=== PATIENT | male | born 1980 | race Caucasian/White ===

== ENCOUNTER → 2018-05-30 14:35 | Outpatient (CLI) | payer BC, SELFPAY ==
[2018-05-30 18:01] LABS: Absolute Lymphocyte Count 2.38 X10^3/ul (0.83-4.51); Basophil# 0.01 X10^3/uL; Basophil% 0.1 % (0-1); Eosinophil# 0.39 X10^3/uL; Eosinophils% 5.4 % (0-5); Hematocrit 41.5 % (40-54); Hemoglobin 13.6 g/dl (13.0-16.5); Lymphocyte # 2.38 X10^3/ul (4.0); Lymphocyte % 32.7 % (19-41); Mean Corp Hgb Conc 32.8 g/gl (32-36); Mean Corpuscular Hgb 28.3 pg (27.0-32.0); Mean Corpuscular Volume 86.3 fL (80-94); Mean Platelet Vol. 10.7 fl (6.2-12.0); Monocyte# 0.45 X10^3/uL; Monocyte% 6.2 % (0-10); Neutrophil # 4.04 X10^3/uL (2.7-7.7); Neutrophil % 55.5 % (47-70); Platelet Count 267 K/mm3 (150-450); RBC Distribution Width CV 13.2 % (11.6-14.6); RBC Distribution Width SD 41.2 fl (35.1-43.9); Red Blood Count 4.81 M/mm3 (4.6-6.2); White Blood Count 7.3 K/mm3 (4.4-11.0)
[2018-05-30 18:13] LABS: POSITIVE COUNT NO; POSITIVE DIFFERENTIAL NO; POSITIVE MORPHOLOGY NO
[2018-05-30 18:32] LABS: ALB/GLOB Ratio 1.1 RATIO (0.9-2.4); AST(SGOT) 46 U/L (15-37); Alanine Aminotransfer ALT/SGPT 74 U/L (16-61); Albumin, Serum 3.9 g/dL (3.2-5.0); Alkaline Phosphatase 95 U/L (45-117); Anion Gap 11 (5-15); BUN 11 mg/dL (7-18); BUN/Creat Ratio 11.7 RATIO (10-20); Calcium,Total 9.3 mg/dL (8.5-10.1); Chloride 102 mmol/L (98-107); Creatinine, Serum 0.94 mg/dL (0.70-1.30); EST Glomerular Filtration Rate 96 mL/min (>60); Est Glom Filt Rate - Afr Amer 116 mL/min (>60); Globulin 3.6 g/dL (2.2-4.2); Glucose 123 mg/dL (74-106); Potassium 4.1 mmol/L (3.5-5.1); Protein, Total 7.5 g/dL (6.4-8.2); Sodium Level 139 mmol/L (136-145); Thyroid Stim Hormone (TSH) 2.65 uIU/mL (0.358-3.74)
== END ==
PROVIDERS: Visit Provider Family Medicine
DX: I10 Essential (primary) hypertension (principal); E78.5 Hyperlipidemia, unspecified; E10.9 Type 1 diabetes mellitus without complications
CPT/HCPCS: 36415; 80053; 84443; 85025

== ENCOUNTER → 2018-06-10 09:48 | Outpatient (CLI) | payer BC, SELFPAY ==
--- NOTE | 2018-06-10 09:53 | US_ITS ---
HISTORY: ELEVATED LFTS TECHNIQUE: Miller scale and color doppler imaging was performed of the gallbladder. COMPARISON: None FINDINGS: The gallbladder is adequately distended and shows no internal echoes, wall thickening, or pericholecystic edema. The common duct measures 3 mm in diameter which is normal. Visualized portions of the liver and pancreas are unremarkable. No ascites. The right kidney is visualized and appears normal. No hydronephrosis. US/Abdomen Limited IMPRESSION: Normal gallbladder ultrasound. at 0631 Reported and signed by: Ludwin Hernandez MD Electronically Signed: Ludwin Hernandez, at 6:28 EST Tel , Service support ,
== END ==
PROVIDERS: Family Provider Family Medicine; PCP Family Medicine; Referring Provider Family Medicine; Visit Provider Family Medicine
DX: R94.5 Abnormal results of liver function studies (principal); E66.9 Obesity, unspecified
CPT/HCPCS: 76705

== ENCOUNTER → 2018-07-19 08:13 | Outpatient (CLI) | payer BC, SELFPAY ==
[2018-07-19 12:08] LABS: AST(SGOT) 53 U/L (15-37); Alanine Aminotransfer ALT/SGPT 93 U/L (16-61); Albumin, Serum 3.7 g/dL (3.2-5.0); Alkaline Phosphatase 105 U/L (45-117); Bilirubin, Direct 0.12 mg/dL (0.00-0.30); Globulin 3.7 g/dL (2.2-4.2); Protein, Total 7.4 g/dL (6.4-8.2)
--- OUTSIDE RECORDS SUMMARY | 2018-09-04 03:20 | XMS RPT_ITS ---
:1980 Author Organization OHIP Care Team Providers Name Role Phone Herminio Rubio Attending Unavailable Herminio Rubio Attending Unavailable Herminio Rubio Referring Unavailable Herminio Rubio Primary Care Unavailable Herminio Rubio Attending Unavailable Herminio Rubio Primary Care Unavailable Herminio Rubio Attending Unavailable Herminio Rubio Primary Care Unavailable LENORE FLORES Attending Unavailable MASTER BARNES JR Referring Unavailable LENORE FLORES Attending Unavailable LENORE FLORES Referring Unavailable LENORE FLORES Attending Unavailable LENORE FLORES Attending Unavailable LENORE FLORES Referring Unavailable LINA BHAGAT Attending Unavailable LINA BHAGAT Referring Unavailable LENORE FLORES Attending Unavailable LENORE FLORES Referring Unavailable LENORE FLORES Referring Unavailable LENORE FLORES Attending Unavailable KALIN LOPEZ Attending Unavailable KVNG, WENDIE E (PA-C) Referring Unavailable KALIN LOPEZ Attending Unavailable GURAN, LENORE Attending Unavailable RADJOSEPH SPRAGUEN Referring Unavailable WENDIE CALDERON E (PA-C) Referring Unavailable GURAN, LENORE Attending Unavailable GURAN, LENORE Referring Unavailable GURAN, LENORE Attending Unavailable DARYL, HERMINIO [place] Referring Unavailable MASTER DOW Admitting Unavailable MASTER DOW Attending Unavailable GURAN, LENORE Attending Unavailable WENDIE CALDERON E (PA-C) Attending Unavailable WENDIE CALDERON E (PA-C) Referring Unavailable GURAN, LENORE Attending Unavailable DARYL, HERMINIO Primary Care Unavailable MASTER BARNES Referring Unavailable GURAN, LENORE Attending Unavailable GURAN, LENORE Referring Unavailable DARYL, HERMINIO Primary Care Unavailable GURAN, LENORE Attending Unavailable IMCA Referring Unavailable DARYL, HERMINIO Primary Care Unavailable GURAN, LENORE Attending Unavailable GURAN, LENORE Referring Unavailable DARYL, HERMINIO Primary Care Unavailable LINA BHAGAT Attending Unavailable CILTEA, LINA Referring Unavailable DARYL, HERMINIO Primary Care Unavailable GURAN, LENORE Attending Unavailable GURAN, LENORE Referring Unavailable DARYL, HERMINIO Primary Care Unavailable LIAN BHAGAT Attending Unavailable CILTEA, LINA Referring Unavailable DARYL, HERMINIO Primary Care Unavailable GURAN, LENORE Attending Unavailable IMCA Referring Unavailable DARYL, HERMINIO Primary Care Unavailable GURAN, LENORE Referring Unavailable DARYL, HERMINIO Primary Care Unavailable JOSEPH LOPEZN Attending Unavailable IMCA Referring Unavailable DARYL, HERMINIO Primary Care Unavailable KALIN LOPEZ Attending Unavailable IMCA Referring Unavailable DARYL, HERMINIO Primary Care Unavailable IMCA Referring Unavailable DARYL, HERMINIO Primary Care Unavailable IMCA Referring Unavailable DARYL, HERMINIO Primary Care Unavailable GURAN, LENORE Attending Unavailable RADPILARH, KALIN Referring Unavailable DARYL, HERMINIO Primary Care Unavailable IMCA Referring Unavailable DARYL, HERMINIO Primary Care Unavailable GURAN, LENORE Attending Unavailable GURAN, LENORE Referring Unavailable DARYL, HERMINIO Primary Care Unavailable GURAN, LENORE Attending Unavailable GURAN, LENORE Referring Unavailable DARYL, HERMINIO Primary Care Unavailable GURAN, LENORE Attending Unavailable DARYL, HERMINIO Referring Unavailable DARYL, HERMINIO Primary Care Unavailable GURAN, LENORE Attending Unavailable IMCA Referring Unavailable DARYL, HERMINIO Primary Care Unavailable PROBLEMS PROBLEMS DATE TYPE CONDITION / CODE ATTENDING STATUS SOURCE 07/21/2018 Unknown R74.0 - Nonspecific Herminio Rubio Active [facility] elevation of levels Community of transaminase and Hospital lactic acid Repository dehydrogenase [LDH] / R74.0(ICD-10) 07/19/2018 Unknown R74.8 - Abnormal Herminio Rubio Active [facility] levels of other Community serum enzymes / Hospital R74.8(ICD-10) Repository 07/04/2018 Active Other intervertebral GURAN, Active [facility] disc displacement, [facility] Other lumbar region / [place] M51.26(ICD-10) Repository 07/04/2018 Admitting Unknown / GURAN, Active [facility] diagnosis UNK(Unknown) [facility] Repository 05/31/2018 Unknown I10 - Essential Herminio Rubio Active [facility] (primary) Community hypertension / Hospital I10(ICD-10) Repository 05/31/2018 Unknown E78.5 - Herminio Rubio Active [facility] Hyperlipidemia, Community unspecified / Hospital E78.5(ICD-10) Repository 05/31/2018 Unknown E10.9 - Type 1 Herminio Rubio Active [facility] diabetes mellitus Community without Hospital complications / Repository E10.9(ICD-10) 05/22/2018 Active Spinal stenosis, NA Active [place] lumbar region Clinic Other without neurogenic [place] claudication / Repository M48.061(ICD-10) 04/08/2018 Active Arthrodesis status / NA Active [facility] Z98.1(ICD-10) Clinic Other [place] Repository 03/15/2018 Active Unknown / WENDIE CALDERON Active [facility] UNK(Unknown) E (PA-C) Clinic Main [place] Repository 02/13/2018 Active Other intervertebral GURAN, Active [place] disc displacement, [facility] Other lumbosacral region / [place] M51.27(ICD-10) Repository 02/04/2017 Active Essential (primary) CILTEA, Active [facility] hypertension / [facility] Other I10(ICD-10) [place] Repository 03/29/2016 Active Mixed hyperlipidemia CILTEA, Active [facility] / E78.2(ICD-10) [facility] Other [place] Repository 03/29/2016 Active Vitamin D CILTEA, Active [facility] deficiency, [facility] Other unspecified / [place] E55.9(ICD-10) Repository 01/09/2018 Active Type 1 diabetes CILTEA, Active [facility] mellitus without [facility] Other complications / [place] E10.9(ICD-10) Repository 12/05/2017 Active Sprain of ligaments BIANCA, Active [place] of lumbar spine, [facility] Other initial encounter / [place] S33.5XXA(ICD-10) Repository 10/19/2017 Active Postlaminectomy GURAN, Active [place] syndrome, not [facility] Other elsewhere classified [place] / M96.1(ICD-10) Repository 10/19/2017 Active Other chronic pain / GURAN, Active [place] G89.29(ICD-10) [facility] Other [place] Repository PROCEDURES PROCEDURES No Procedure Records FoundRESULTS RESULTS PROGRESS Observed: 08/07/2018 Status: COMPLETED Source: [facility] 9:10 AM CLINIC OTHER CAMPUS REPOSITORY HNO ID: [id number] Author: Lenore Flores Service: (none) Author Type: Physician Type: Progress Notes Filed: 08/07/2018 9:38 AM Note Text: Patient Name: Jose Argueta Patient : 1980 Patient Age: [age] year old CC: Patient presents with: Bwc (Worker's Comp): 10.19.10 SUBJECTIVE Patient presents for follow up of low back pain. The patient describes the pain as tender, shooting and achy 5/10. Activity is 3/10 walking. He has pain, numbness and tingling, without weakness radiating into the right lower extremity to the foot, as well as the left lower extremity to the calf. Pain is worse with standing and bending or prolonged sitting. He has been taking Mobic, Norflex, Gabapentin and Percocet 3/day with some relief without side effects. Pain is limiting his work schedule as he cannot sit for prolonged periods and driving increases his pain. He had LILI / with 4 days of leg pain relief. Therefore surgeon is planning to repeat surgery. The patient denies any bowel or bladder dysfunction. The patient denies any chest pain or chest tightness. The constitutional, musculoskeletal, and neurological review of systems was negative unless otherwise noted. The patient's past medical history, allergies, medication list, social history, and family medical history were documented, updated, and reviewed in the chart. PDMP website checked and validated. All prescriptions have been APPROPRIATELY filled. No suspicious activity was identified. 08/07/2018 by Lenore Flores MD Nursing Notes: Vj Garay MA 08/07/2018 9:01 AM Signed Review of Systems Eyes: Negative for blurred vision. Respiratory: Negative for shortness of breath.? Cardiovascular: Negative for chest pain. Negative for leg swelling. Gastrointestinal: Negative for constipation, diarrhea, nausea?and vomiting. Genitourinary: Negative for dysuria. Skin: Negative for itching. Neurological: Negative for headaches. Negative for dizziness, tingling?and weakness. Endo/Heme/Allergies: Negative for bruising/bleeding easily. Psychiatric/Behavioral: Negative for depression?and suicidal ideas. ROS entered by: Vj Garay MA MEDICATION NAME percocet STRENGTH 7.5 LAST FILL DATE 07/15/2018 DATE LAST DOSE TAKEN 08.06.18 QUANTITY FILLED 90 QUANTITY REMAINING 17 ALLERGIES Allergen Reactions - Clindamycin Hives Current Outpatient Prescriptions: aspirin, enteric coated (ADULT LOW DOSE ASPIRIN) 81 mg EC tablet Take 81 mg by mouth once daily. Disp: Rfl: benazepril (LOTENSIN) 5 mg tablet TAKE 1 TABLET BY MOUTH EVERY MORNING AND 2 TABLETS AT NIGHT Disp: 90 tablet Rfl: 11 gabapentin (NEURONTIN) 800 mg tablet Take 1 tablet by mouth three times daily for 90 days. Disp: 90 tablet Rfl: 2 insulin lispro (HUMALOG KWIKPEN INSULIN) 100 unit/mL inpn INJECT 1 UNIT PER 5 GRAMS OF CARBOHYDRATES WITH EACH MEAL (TOTAL MAXIMUM DAILY DOSE IS 100 UNITS) Disp: 10 Pen Rfl: 11 meloxicam (MOBIC) 15 mg tablet Take 1 tablet by mouth once daily. Disp: 30 tablet Rfl: 2 Multivitamin capsule Take 1 capsule by mouth once daily. Disp: Rfl: omeprazole (PRILOSEC) 20 mg capsule Take 1 capsule by mouth once daily. Disp: Rfl: 0 orphenadrine ER (NORFLEX) 100 mg tablet Take 1 tablet by mouth twice daily as needed for Muscle Spasm or Pain. Disp: 60 tablet Rfl: 2 [START ON 08/14/2018] oxyCODONE-acetaminophen (PERCOCET) 7.5- 325 mg tablet Take 1 tablet by mouth every 8 hours as needed for Pain (for pain.) for up to 30 days.Earliest Fill Date: 08/14/18 Disp: 90 tablet Rfl: 0 pravastatin (PRAVACHOL) 40 mg tablet Take 1 tablet by mouth once daily. Disp: 30 tablet Rfl: 11 TRESIBA FLEXTOUCH U-100 100 unit/mL (3 mL) injection INJECT 45 UNITS SUBCUTANEOUSLY EVERY 24 HOURS. Disp: 15 mL Rfl: 11 insulin lispro (HUMALOG KWIKPEN INSULIN) 100 unit/mL inpn INJECT 1 UNIT PER 5 GRAMS OF CARBOHYDRATES WITH EACH MEAL (TOTAL MAXIMUM DAILY DOSE IS 55 UNITS) (Patient not taking: Reported on 05/19/2018 ) Disp: 5 Pen Rfl: 11 No current facility-administered medications for this visit. 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 Topics Smoking status: Never Smoker Smokeless tobacco: Never Used Alcohol use: No Drug use: No Other Topics Concern Caffeine Concern Yes Comment:coffee 3 cups daily, and energy drinks Special Diet Yes Comment:Poor diet Exercise No Comment: Exercises 1-2 days/wk Social History Narrative No reported history Family History Problem Relation Age of Onset - Hyperlipidemia Mother - Ischemic Heart Disease Father - Diabetes Father - Heart Father - Hyperlipidemia Father - Hypertension Father - Hyperlipidemia Paternal Grandmother - Hypertension Paternal Grandmother - Stroke Paternal Grandmother - other (Diabetes mellitus) Paternal Grandmother OBJECTIVE Vitals: BP 140/99 Pulse (!) 130 Ht 175.3 cm (5' 9) Wt 117.9 kg (260 lb) BMI 38.40 kg/m? General: Alert, cooperative, well appearing, and in no apparent distress. Musculoskeletal: The patient's gait is normal Back: Inspection of the back demonstrates there is no obvious deformity or misalignment. There is bony tenderness along the lumbar vertebrae, none along the sacroiliac joints. There is bilateral paraspinal muscle tenderness. Range of motion testing demonstrates limited due to pain with flexion, extension, side bending and rotation of the back. Strength is 5/5 in the lower extremity bilaterally. Sensation is decreased throughout the right lower extremity and left to the calf. There is a positive BL straight leg raise and femoral stretch test. The piriformis has normal flexibility and is non-tender. Skin: The skin is without jaundice. It is intact without pathologic lesions, erythema, vesicles, discharge or rash. Palpitation of the skin is normal without induration, subcutaneous nodules or tightening. Extremities: This is no clubbing, cyanosis or edema. Peripheral pulses are 2+. Return in about 4 weeks (around 09/04/2018). ASSESSMENT/PLAN: 1. Post laminectomy syndrome - ICD9: 722.80, ICD10: M96.1 (primary diagnosis) We discussed the natural history of this condition, differential diagnoses, and treatment options. Guidelines for activity were given. We discussed options for treatment including conservative care, medications with side effects and risks and benefits. The patient is doing well with the prescribed pain medications. The patient requests a refill today. Patient states medications provide adequate analgesia. The medications allow patient to maintain ADL's. Discussed with the patient about avoiding driving/operating vehicle while taking the medications. There are no adverse effects from the medications - discussed he cannot take more than prescribed and will not be able to fill early. Will refill his percocet today for when due Continue gabapentin, norflex and Mobic He is planning for surgery if approved by [facility]. Awaiting the additional diagnoses to his claim - GABAPENTIN 800 MG TABLET - OXYCODONE-ACETAMINOPHEN 7.5 MG-325 MG TABLET 2. Lumbosacral disc herniation - ICD9: 722.10, ICD10: M51.27 Due to increased pain with work and this limiting his ADL's I will take him off work at this point until his surgery. Paperwork filled out and sent to [facility]. - GABAPENTIN 800 MG TABLET - OXYCODONE-ACETAMINOPHEN 7.5 MG-325 MG TABLET 3. Herniation of intervertebral disc between L4 and L5 - ICD9: 722.10, ICD10: M51.26 - OXYCODONE-ACETAMINOPHEN 7.5 MG-325 MG TABLET Lenore Flores MD CNOV Observed: 08/07/2018 Status: COMPLETED Source: RINGLE 9:00 AM [facility] [place] REPOSITORY Office Visit (SPAGBA) JOSE ARGUETA ([id number]) 1980 M Date Time Provider Department 08/07/18 9:00 AM LENORE FLORES During your visit today, we recorded the following information about you: Pulse Blood pressure Weight Height 130/minute 140/99 117.9 kg 1.753 m Vj Garay MA 08/07/2018 9:01 AM Signed Review of Systems Eyes: Negative for blurred vision. Respiratory: Negative for shortness of breath.? Cardiovascular: Negative for chest pain. Negative for leg swelling. Gastrointestinal: Negative for constipation, diarrhea, nausea?and vomiting. Genitourinary: Negative for dysuria. Skin: Negative for itching. Neurological: Negative for headaches. Negative for dizziness, tingling?and weakness. Endo/Heme/Allergies: Negative for bruising/bleeding easily. Psychiatric/Behavioral: Negative for depression?and suicidal ideas. ROS entered by: NYLA Chance MD 08/07/2018 9:38 AM Signed Patient Name: Jose Argueta Patient : 1980 Patient Age: [age] year old CC: Patient presents with: Bwc (Worker's Comp): 10.19.10 SUBJECTIVE Patient presents for follow up of low back pain. The patient describes the pain as tender, shooting and achy 5/10. Activity is 3/10 walking. He has pain, numbness and tingling, without weakness radiating into the right lower extremity to the foot, as well as the left lower extremity to the calf. Pain is worse with standing and bending or prolonged sitting. He has been taking Mobic, Norflex, Gabapentin and Percocet 3/day with some relief without side effects. Pain is limiting his work schedule as he cannot sit for prolonged periods and driving increases his pain. He had LILI 07/27 with 4 days of leg pain relief. Therefore surgeon is planning to repeat surgery. The patient denies any bowel or bladder dysfunction. The patient denies any chest pain or chest tightness. The constitutional, musculoskeletal, and neurological review of systems was negative unless otherwise noted. The patient's past medical history, allergies, medication list, social history, and family medical history were documented, updated, and reviewed in the chart. PDMP website checked and validated. All prescriptions have been APPROPRIATELY filled. No suspicious activity was identified. 08/07/2018 by Lenore Flores MD Nursing Notes: Vj Garay MA 08/07/2018 9:01 AM Signed Review of Systems Eyes: Negative for blurred vision. Respiratory: Negative for shortness of breath.? Cardiovascular: Negative for chest pain. Negative for leg swelling. Gastrointestinal: Negative for constipation, diarrhea, nausea?and vomiting. Genitourinary: Negative for dysuria. Skin: Negative for itching. Neurological: Negative for headaches. Negative for dizziness, tingling?and weakness. Endo/Heme/Allergies: Negative for bruising/bleeding easily. Psychiatric/Behavioral: Negative for depression?and suicidal ideas. ROS entered by: Vj Garay MA MEDICATION NAME percocet STRENGTH 7.5 LAST FILL DATE 07/15/2018 DATE LAST DOSE TAKEN 08.06.18 QUANTITY FILLED 90 QUANTITY REMAINING 17 ALLERGIES Allergen Reactions - Clindamycin Hives Current Outpatient Prescriptions: aspirin, enteric coated (ADULT LOW DOSE ASPIRIN) 81 mg EC tablet Take 81 mg by mouth once daily. Disp: Rfl: benazepril (LOTENSIN) 5 mg tablet TAKE 1 TABLET BY MOUTH EVERY MORNING AND 2 TABLETS AT NIGHT Disp: 90 tablet Rfl: 11 gabapentin (NEURONTIN) 800 mg tablet Take 1 tablet by mouth three times daily for 90 days. Disp: 90 tablet Rfl: 2 insulin lispro (HUMALOG KWIKPEN INSULIN) 100 unit/mL inpn INJECT 1 UNIT PER 5 GRAMS OF CARBOHYDRATES WITH EACH MEAL (TOTAL MAXIMUM DAILY DOSE IS 100 UNITS) Disp: 10 Pen Rfl: 11 meloxicam (MOBIC) 15 mg tablet Take 1 tablet by mouth once daily. Disp: 30 tablet Rfl: 2 Multivitamin capsule Take 1 capsule by mouth once daily. Disp: Rfl: omeprazole (PRILOSEC) 20 mg capsule Take 1 capsule by mouth once daily. Disp: Rfl: 0 orphenadrine ER (NORFLEX) 100 mg tablet Take 1 tablet by mouth twice daily as needed for Muscle Spasm or Pain. Disp: 60 tablet Rfl: 2 [START ON 08/14/2018] oxyCODONE-acetaminophen (PERCOCET) 7.5- 325 mg tablet Take 1 tablet by mouth every 8 hours as needed for Pain (for pain.) for up to 30 days.Earliest Fill Date: 08/14/18 Disp: 90 tablet Rfl: 0 pravastatin (PRAVACHOL) 40 mg tablet Take 1 tablet by mouth once daily. Disp: 30 tablet Rfl: 11 TRESIBA FLEXTOUCH U-100 100 unit/mL (3 mL) injection INJECT 45 UNITS SUBCUTANEOUSLY EVERY 24 HOURS. Disp: 15 mL Rfl: 11 insulin lispro (HUMALOG KWIKPEN INSULIN) 100 unit/mL inpn INJECT 1 UNIT PER 5 GRAMS OF CARBOHYDRATES WITH EACH MEAL (TOTAL MAXIMUM DAILY DOSE IS 55 UNITS) (Patient not taking: Reported on 05/19/2018 ) Disp: 5 Pen Rfl: 11 No current facility-administered medications for this visit. 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 Topics Smoking status: Never Smoker Smokeless tobacco: Never Used Alcohol use: No Drug use: No Other Topics Concern Caffeine Concern Yes Comment:coffee 3 cups daily, and energy drinks Special Diet Yes Comment:Poor diet Exercise No Comment: Exercises 1-2 days/wk Social History Narrative No reported history Family History Problem Relation Age of Onset - Hyperlipidemia Mother - Ischemic Heart Disease Father - Diabetes Father - Heart Father - Hyperlipidemia Father - Hypertension Father - Hyperlipidemia Paternal Grandmother - Hypertension Paternal Grandmother - Stroke Paternal Grandmother - other (Diabetes mellitus) Paternal Grandmother OBJECTIVE Vitals: BP 140/99 Pulse (!) 130 Ht 175.3 cm (5' 9) Wt 117.9 kg (260 lb) BMI 38.40 kg/m? General: Alert, cooperative, well appearing, and in no apparent distress. Musculoskeletal: The patient's gait is normal Back: Inspection of the back demonstrates there is no obvious deformity or misalignment. There is bony tenderness along the lumbar vertebrae, none along the sacroiliac joints. There is bilateral paraspinal muscle tenderness. Range of motion testing demonstrates limited due to pain with flexion, extension, side bending and rotation of the back. Strength is 5/5 in the lower extremity bilaterally. Sensation is decreased throughout the right lower extremity and left to the calf. There is a positive BL straight leg raise and femoral stretch test. The piriformis has normal flexibility and is non-tender. Skin: The skin is without jaundice. It is intact without pathologic lesions, erythema, vesicles, discharge or rash. Palpitation of the skin is normal without induration, subcutaneous nodules or tightening. Extremities: This is no clubbing, cyanosis or edema. Peripheral pulses are 2+. Return in about 4 weeks (around 09/04/2018). ASSESSMENT/PLAN: 1. Post laminectomy syndrome - ICD9: 722.80, ICD10: M96.1 (primary diagnosis) We discussed the natural history of this condition, differential diagnoses, and treatment options. Guidelines for activity were given. We discussed options for treatment including conservative care, medications with side effects and risks and benefits. The patient is doing well with the prescribed pain medications. The patient requests a refill today. Patient states medications provide adequate analgesia. The medications allow patient to maintain ADL's. Discussed with the patient about avoiding driving/operating vehicle while taking the medications. There are no adverse effects from the medications - discussed he cannot take more than prescribed and will not be able to fill early. Will refill his percocet today for when due Continue gabapentin, norflex and Mobic He is planning for surgery if approved by [facility]. Awaiting the additional diagnoses to his claim - GABAPENTIN 800 MG TABLET - OXYCODONE-ACETAMINOPHEN 7.5 MG-325 MG TABLET 2. Lumbosacral disc herniation - ICD9: 722.10, ICD10: M51.27 Due to increased pain with work and this limiting his ADL's I will take him off work at this point until his surgery. Paperwork filled out and sent to [facility]. - GABAPENTIN 800 MG TABLET - OXYCODONE-ACETAMINOPHEN 7.5 MG-325 MG TABLET 3. Herniation of intervertebral disc between L4 and L5 - ICD9: 722.10, ICD10: M51.26 - OXYCODONE-ACETAMINOPHEN 7.5 MG-325 MG TABLET MD Lenore White MD 08/07/2018 9:17 AM Signed Opioid Pain Medication Information Sheet Opioids are drugs that are used to treat cancer pain. They include morphine (MSContin, MSIR, Roxanol); oxycodone (Oxycontin, Roxicodone, Percocet); hydromorphone (Dilaudid, Exalgo); fentanyl (Duragesic); hydrocodone ([place]la, Zohydro, [place], Vicodin); buprenorphine (Butrans, Buprenex); and methadone. There are two types of opioids: long-acting and short-acting. Long-acting opioids are also called extended-release (ER) or controlled-release (CR). This means that the medication is slowly released over an 8- to 12-hour period or longer. Examples of these include MSContin and Oxycontin. These drugs are taken on a regular schedule to control pain. DO NOT BREAK OR CRUSH THESE TABLETS. Long-acting opioids also come in patch form (Fentanyl, buprenorphine). Opioid patches are strong drugs and should not be used for mild or occasional pain, or for pain from surgery. ? Do not use patches that are damaged or cut. ? You can shower and bathe with the patch in place. ? Do not expose the skin patch to heat (for example: hot tub, heating pad, sauna, electric blanket, heat lamps). Heat increases the amount of drug you absorb through your skin and may cause harmful effects. ? When removing the patch, fold it in half, sticky side in, and flush it down the toilet. Short-acting opioids are also called immediate-release. They usually take effect within an hour, and provide pain relief for four hours. You take short-acting opioids if your pain gets worse (5 on a scale of 1 to 10), which is called breakthrough pain. DO NOT WAIT UNTIL THE PAIN BECOMES SEVERE TO TAKE YOUR MEDICATION. What are the side effects of opioids? Like most drugs, opioids have side effects. The most common are nausea, vomiting, itching, and sleepiness. These side effects should go away in three to seven days as your body gets used to the medication. DO NOT DRIVE IF YOU FEEL DROWSY OR SLEEPY. All opioids cause constipation. Your caregiver will prescribe stool softeners and medicine to help prevent constipation. You can also do the following: ? Increase the amounts of fluids and fiber in your diet. ? Try to get more exercise and physical activity. ? Try to have a bowel movement around the same time each day to get your bowels to empty in a certain pattern. Can I become addicted to opioids? Addiction means that a person uses the drug to get ?high?, and cannot control the urge to take the drug. Taking medication for pain relief is NOT addiction. Your healthcare provider will discuss any concerns about becoming addicted to pain medications. Withdrawal If you stop taking your pain medication suddenly, you may develop withdrawal symptoms. These include flu-like symptoms, agitation, anxiety, abdominal cramping, nausea, and diarrhea. If you have stopped taking your pain medication for three days or more, do not start taking it again without talking to your healthcare provider. Overdose Combining opioids with alcohol or sedating pills (which make you sleepy) increases the risk of overdose. Symptoms of overdose include extreme sleepiness, slurred speech, and slow breathing (breathing may also stop). Call 911 or your local emergency service if you think you may have overdosed. Call 911 or your local emergency service if: ? You took too much medicine. ? You have trouble breathing and/or shortness of breath. ? A child accidentally took the medication. Call your healthcare provider if: ? Your pain is not being controlled with the dose that you are taking. ? You are having side effects. Other important information: ? Take your medicine exactly as prescribed. ? Only one healthcare provider should prescribe your pain medications. ? Make follow-up appointments with your healthcare provider. ? Keep medication away from children and store them in a safe place. ? Do not share your medications with anyone. ? Do not take medications that have not been prescribed for you. ? Do not stop taking your medication without talking to your healthcare provider. ? Do not drink alcohol while taking this medication. How do I dispose of opioids? DO NOT THROW UNUSED MEDICATION IN THE TRASH. You should return these medications through a take-back program or to a collection box or mail-back program authorized by the Drug Enforcement Administration. Authorized collection sites include retail pharmacies, hospital or clinic pharmacies, and law enforcement locations. This website provides a list of locations where you can safely dispose of opioids: https://www.deadiversion.[place].gov/pubdispsearch If a take-back program is not available, flush unused medicines down the toilet or sink. Referring Provider: SELF [200] Allergies As of Date: 08/07/2018 Noted Allergy Reaction CLINDAMYCIN 03/29/2016 4 - Hives Date Reviewed: 08/07/2018 Reviewed by: Lenore Flores - Fully Assessed Reason for Visit: [facility] (Worker's Comp) [4997] Cmt: 10.19.10 Primary Visit Diagnosis:Post laminectomy syndrome [M96.1] Other Visit Diagnoses:Lumbosacral disc herniation [M51.27] Herniation of intervertebral disc between L4 and L5 [M51.26] Order(s):gabapentin (NEURONTIN) 800 mg tabletTake 1 tablet by mouth three times daily for 90 days.Disp: 90 tabletRfl: 2 [START ON 08/14/2018] oxyCODONE-acetaminophen (PERCOCET) 7.5-325 mg tabletTake 1 tablet by mouth every 8 hours as needed for Pain (for pain.) for up to 30 days. Earliest Fill Date: 08/14/18Disp: 90 tabletRfl: 0 Prescriptions as of 08/07/2018 Sig: ASPIRIN 81 MG TABLET,DELAYED * Take 81 mg by mouth once eliecer* BENAZEPRIL 5 MG TABLET TAKE 1 TABLET BY MOUTH EVERY * GABAPENTIN 800 MG TABLET Take 1 tablet by mouth three * INSULIN LISPRO (U-100) 100 UN* INJECT 1 UNIT PER 5 GRAMS OF * MELOXICAM 15 MG TABLET Take 1 tablet by mouth once d* MULTIVITAMIN CAPSULE Take 1 capsule by mouth once * OMEPRAZOLE 20 MG CAPSULE,JOSÉ ANTONIO* Take 1 capsule by mouth once * ORPHENADRINE CITRATE ER 100 M* Take 1 tablet by mouth twice * OXYCODONE-ACETAMINOPHEN 7.5 M* Take 1 tablet by mouth every * PRAVASTATIN 40 MG TABLET Take 1 tablet by mouth once d* TRESIBA FLEXTOUCH U-100 INSUL* INJECT 45 UNITS SUBCUTANEOUSL* INSULIN LISPRO (U-100) 100 UN* INJECT 1 UNIT PER 5 GRAMS OF * Patient not taking: Reported on 05/19/2018 Problem List As Of Date 08/07/2018 Noted Resolved Herniation of intervertebral disc between L4 an*INVALID FOR* More... Displacement of lumbar intervertebral disc with*INVALID FOR* Sprain of lumbar region [S33.5XXA] INVALID FOR* Type 1 diabetes mellitus [E10.9] More... Vitamin D deficiency [E55.9] Hyperlipidemia [E78.5] HTN (hypertension) [I10] More... Spondylolisthesis, lumbar region [M43.16] INVALID FOR* High cholesterol [E78.00] Post laminectomy syndrome [M96.1] INVALID FOR* Lumbosacral disc herniation [M51.27] INVALID FOR* Herniation of intervertebral disc between L5 an*INVALID FOR* Other instructions from your clinician: Opioid Pain Medication Information Sheet Opioids are drugs that are used to treat cancer pain. They include morphine (MSContin, MSIR, Roxanol); oxycodone (Oxycontin, Roxicodone, Percocet); hydromorphone (Dilaudid, Exalgo); fentanyl (Duragesic); hydrocodone (Hysingla, Zohydro, [place], Vicodin); buprenorphine (Butrans, Buprenex); and methadone. There are two types of opioids: long-acting and short-acting. Long-acting opioids are also called extended-release (ER) or controlled-release (CR). This means that the medication is slowly released over an 8- to 12-hour period or longer. Examples of these include MSContin and Oxycontin. These drugs are taken on a regular schedule to control pain. DO NOT BREAK OR CRUSH THESE TABLETS. Long-acting opioids also come in patch form (Fentanyl, buprenorphine). Opioid patches are strong drugs and should not be used for mild or occasional pain, or for pain from surgery. ? Do not use patches that are damaged or cut. ? You can shower and bathe with the patch in place. ? Do not expose the skin patch to heat (for example: hot tub, heating pad, sauna, electric blanket, heat lamps). Heat increases the amount of drug you absorb through your skin and may cause harmful effects. ? When removing the patch, fold it in half, sticky side in, and flush it down the toilet. Short-acting opioids are also called immediate-release. They usually take effect within an hour, and provide pain relief for four hours. You take short-acting opioids if your pain gets worse (5 on a scale of 1 to 10), which is called breakthrough pain. DO NOT WAIT UNTIL THE PAIN BECOMES SEVERE TO TAKE YOUR MEDICATION. What are the side effects of opioids? Like most drugs, opioids have side effects. The most common are nausea, vomiting, itching, and sleepiness. These side effects should go away in three to seven days as your body gets used to the medication. DO NOT DRIVE IF YOU FEEL DROWSY OR SLEEPY. All opioids cause constipation. Your caregiver will prescribe stool softeners and medicine to help prevent constipation. You can also do the following: ? Increase the amounts of fluids and fiber in your diet. ? Try to get more exercise and physical activity. ? Try to have a bowel movement around the same time each day to get your bowels to empty in a certain pattern. Can I become addicted to opioids? Addiction means that a person uses the drug to get ?high?, and cannot control the urge to take the drug. Taking medication for pain relief is NOT addiction. Your healthcare provider will discuss any concerns about becoming addicted to pain medications. Withdrawal If you stop taking your pain medication suddenly, you may develop withdrawal symptoms. These include flu-like symptoms, agitation, anxiety, abdominal cramping, nausea, and diarrhea. If you have stopped taking your pain medication for three days or more, do not start taking it again without talking to your healthcare provider. Overdose Combining opioids with alcohol or sedating pills (which make you sleepy) increases the risk of overdose. Symptoms of overdose include extreme sleepiness, slurred speech, and slow breathing (breathing may also stop). Call 911 or your local emergency service if you think you may have overdosed. Call 911 or your local emergency service if: ? You took too much medicine. ? You have trouble breathing and/or shortness of breath. ? A child accidentally took the medication. Call your healthcare provider if: ? Your pain is not being controlled with the dose that you are taking. ? You are having side effects. Other important information: ? Take your medicine exactly as prescribed. ? Only one healthcare provider should prescribe your pain medications. ? Make follow-up appointments with your healthcare provider. ? Keep medication away from children and store them in a safe place. ? Do not share your medications with anyone. ? Do not take medications that have not been prescribed for you. ? Do not stop taking your medication without talking to your healthcare provider. ? Do not drink alcohol while taking this medication. How do I dispose of opioids? DO NOT THROW UNUSED MEDICATION IN THE TRASH. You should return these medications through a take-back program or to a collection box or mail-back program authorized by the Drug Enforcement Administration. Authorized collection sites include retail pharmacies, hospital or clinic pharmacies, and law enforcement locations. This website provides a list of locations where you can safely dispose of opioids: https://www.deadiversion.[place].gov/pubdispsearch If a take-back program is not available, flush unused medicines down the toilet or sink. Visit Notes: >> Vj Garay Mon Aug 07, 2018 9:00 AM Status: Signed Review of Systems Eyes: Negative for blurred vision. Respiratory: Negative for shortness of breath.? Cardiovascular: Negative for chest pain. Negative for leg swelling. Gastrointestinal: Negative for constipation, diarrhea, nausea?and vomiting. Genitourinary: Negative for dysuria. Skin: Negative for itching. Neurological: Negative for headaches. Negative for dizziness, tingling?and weakness. Endo/Heme/Allergies: Negative for bruising/bleeding easily. Psychiatric/Behavioral: Negative for depression?and suicidal ideas. ROS entered by: Vj Garay MA Work Status Form Employee Name: Jose Argueta Date of : 1980 SSN: [id number] Employer: (Not Specified) Diagnoses: (Not Specified) Medications: (Not Specified) WORK STATUS-INJURY AND TREATMENT INFORMATION Date of Injury: 05/26/2010 Work Related: Yes MMI: (Not Specified) PPI: (Not Specified) Recommended Treatment: (Not Specified) Equipment Needed: (Not Specified) Tests Needed: (Not Specified) Signature: Work Status Form Employee Name: Jose Argueta Date of : 1980 SSN: [id number] Employer: (Not Specified) WORK STATUS-WORK RESTRICTIONS (No Work Status Information Available) Signature: Prescriptions ordered this encounter Disp Refills Start End GABAPENTIN 800 MG TABLET 90 t* 2 08/07/2018 11/05/2018 Route: ORAL Sig: Take 1 tablet by mouth three times daily for 90 days. OXYCODONE-ACETAMINOPHEN 7.5 MG-325 M* 90 t* 0 08/14/2018 09/13/2018 Class: Print RX Route: ORAL Sig: Take 1 tablet by mouth every 8 hours as needed for Pain (for pain.) for up to 30 days. Earliest Fill Date: 08/14/18 Medications Discontinued During This Encounter gabapentin (NEURONTIN) 800 mg tablet 90 t* 2 06/12/2018 08/07/2018 Route: ORAL Sig: Take 1 tablet by mouth three times daily for 90 days. Disc: Reason for discontinue is not on file. oxyCODONE-acetaminophen (PERCOCET) 7* 90 t* 0 07/15/2018 08/07/2018 Class: Print RX Route: ORAL Sig: Take 1 tablet by mouth every 8 hours as needed for Pain (for pain.) for up to 30 days. Earliest Fill Date: 07/15/18 Disc: Reason for discontinue is not on file. Disposition: Return in about 4 weeks (around 09/04/2018). Follow-up and Disposition History Recorded Questionnaire: AG SPINE PAIN PILL COUNT MEDICATION NAME -> percocet STRENGTH -> 7.5 LAST FILL DATE -> 07/15/2018 DATE LAST DOSE TAKEN -> 12.30.18 QUANTITY FILLED -> 90 QUANTITY REMAINING -> 17 Classic SmartForms filed during this visit: Work Status Encounter Status:Closed by LENORE FLORES MD on 08/07/18 PT ED Observed: 07/27/2018 Status: COMPLETED Source: [place] 9:46 AM [facility] REPOSITORY HNO ID: [id number] Author: Shana Chandler) MARTINEZ Sims Service: Nursing Author Type: Registered Nurse Type: Patient Education Filed: 07/27/2018 9:47 AM Note Text: POST OP LEARNING RESPONSE INSTRUCTION PROVIDED TO: Patient METHOD OF INSTRUCTION: Individual instruction Written instruction - handouts Verbal instruction PATIENT / FAMILY RESPONSE: Information received as demonstrated by interest and questions FOLLOW-UP PLAN: Patient instructed to call with any further issues SUPPLEMENTAL MATERIAL: Post op discharge instructions REFERRAL (RECOMMENDATION): None Electronically Signed By: Shana Sims RN In Department: [facility] SURGERY NURSING PROG Observed: 07/27/2018 Status: COMPLETED Source: [place] 9:38 AM [facility] REPOSITORY HNO ID: [id number] Author: Shana Chandler) MARTINEZ Sims Service: Nursing Author Type: Registered Nurse Type: Nursing Progress Note Filed: 07/27/2018 9:52 AM Note Text: Nursing Progress Note Patient Name: Jose Argueta Patient Location: [facility] 0934 Pt received in PACU on cart from Endo post injection. VSS. Snack given. This note was completed by: Shana Sims RN 0942 iV removed. Site without redness or swelling. Homegoing instrucitons given. Pt verbalizes understanding. Pt able to ambulate with steady gait. 0946 Pt discharged to home via wheelchair to car accomp by staff in stable cond. XR FLUOROSCOPY Observed: 07/27/2018 Status: F Source: [place] 9:25 AM [facility] REPOSITORY * * *Final Report* * * DATE OF EXAM: Jul 27 2018 9:25AM [facility] [id number] - XR FLUOROSCOPY / PROCEDURE REASON: pain * * * * Physician Interpretation * * * * INDICATION: Pain management TECHNIQUE: 2 submitted fluoroscopic spot images Fluoroscopic Radiation Summary: Plane A, Air Kerma: 11.2 mGy Plane B, Air Kerma: 0.0 mGy Dose Area Product (DAP): 1226.0 mGy*cmS2 Fluoro time: 0:17 min:sec FINDINGS/ IMPRESSION: 2 submitted fluoroscopic spot images demonstrate a needle with associated contrast overlying the labeled right lower lumbar spine. Lumbar spine fusion hardware is present. Refer to the procedure note for details regarding this procedure. Screen And Cyclone Repairer: PSCB Transcribe Date/Time: Jul 27 2018 9:26A Dictated by : LIANE AMBROSIO MD This examination was interpreted and the report reviewed and electronically signed by: LIANE AMBROSIO MD on Jul 27 2018 9:27AM EST [id number] OPERATIVE NO Observed: 07/27/2018 Status: COMPLETED Source: [place] 9:12 AM [facility] REPOSITORY HNO ID: [id number] Author: Master Dow Service: Pain Management Author Type: Physician Type: Operative Report Filed: 07/27/2018 9:23 AM Note Text: PATIENT NAME: Jose Argueta SERVICE DATE: 07/27/2018 PROCEDURE NOTE PREOPERATIVE DIAGNOSIS(ES) Lumbar radiculopathy Lumbar disc displacement Postlaminectomy syndrome POSTOPERATIVE DIAGNOSIS(ES): Same OPERATION: Right L5-S1 lumbar transforaminal epidural steroid injection under fluoroscopy. ANESTHESIA: versed 3mg IV INDICATIONS: The patient presents for lumbar transforaminal epidural steroid injection. Since the last visit with his provider, the patient denies any new pain complaints and denies any focal neurological deficits. The risks and benefits of the procedure were discussed. Specifically, the risks of bleeding, infection, inadvertent dural puncture, spinal heaches, vasovagal reaction, epidural hematoma, partial or permanent nerve injury were covered. The potential side effects of medications used in procedures including increase in lumbar pain, headaches, facial redness or warmth (flushing), anxiety or mood swings, sleeplessness, fever, high blood sugar, brief reduction in immunity were discussed. The patient expressed understanding of potential risks and wishes to proceed with the procedure. OPERATIVE PROCEDURE: The patient was brought to the operating room. The patient was placed in the prone position with routine monitors placed. The lower back was prepped in sterile fashion. Upon AP projection under fluoroscopy, L5-S1 level was identified. The fluoroscopy was rotated in oblique projection to identify the neuroforamen. Entry point was marked and anesthetized with 0.25% Marcaine. This was followed by insertion of a 5 inch spinal needle, which was inserted and advanced towards the 12 o' clock of the L5-S1 neuroforamen. Once the Needle tip contacted the inferior lateral aspect of the pedicle, aspiration was performed which was negative for blood or CSF. This was followed by injection of Omnipaque 300, which revealed a spread through the neuroforamen into the anterior epidural space. There was no evidence of intravascular or intrathecal flow. This was then followed by a total injection of 3 mL of 0.25% Marcaine with 40 mg of Depomedrol. The patient tolerated the procedure well. The needle was removed intact. Dry dressing was placed over the injection site. The patient was taken to the recovery room in stable condition. EBL: nil Start time: 9:17 AM End time: 9:22 AM I was present the entire time and personally performed the procedure. SIGNATURE: Master Dow MD DATE: July 27, 2018 TIME: 9:22 AM HISTORY PHYSICAL Observed: 07/27/2018 Status: COMPLETED Source: [place] 9:06 AM [facility] REPOSITORY O ID: [id number] Author: Master Dow Service: Pain Management Author Type: Physician Type: HANDP Filed: 07/27/2018 9:08 AM Note Text: HISTORY AND PHYSICAL EXAMINATION PATIENT NAME: Jose Argueta DATE of SERVICE: 07/27/2018 Jose Argueta is here for the pain mangement procedure. He is a patient of Dr. Barksdale's service with prior history of lumbar surgery at L4-5 and disc displacement at L5-S1 level. The patient presents with persistent pain complaints. Jose Argueta denies any interval changes or new pain complaints or focal neurologic deficits. PAST MEDICAL HISTORY Diagnosis Date - Fatigue - GERD (gastroesophageal reflux disease) - High cholesterol - HTN (hypertension) under control - Hyperlipidemia - Type 1 diabetes mellitus (HCC) at the age of 28 - Vitamin D deficiency - Vitamin deficiency PAST SURGICAL HISTORY Procedure Laterality Date - BACK SURGERY HX 02/01/[address] 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 Social History Main Topics Smoking status: Never Smoker Smokeless tobacco: Never Used Alcohol use: No Drug use: No Other Topics Concern Caffeine Concern Yes Comment:coffee 3 cups daily, and energy drinks Special Diet Yes Comment:Poor diet Exercise No Comment: Exercises 1-2 days/wk Social History Narrative No reported history FAMILY HISTORY Problem Relation Age of Onset - Hyperlipidemia Mother - Ischemic Heart Disease Father - Diabetes Father - Heart Father - Hyperlipidemia Father - Hypertension Father - Hyperlipidemia Paternal Grandmother - Hypertension Paternal Grandmother - Stroke Paternal Grandmother - other (Diabetes mellitus) Paternal Grandmother ALLERGIES Allergen Reactions - Clindamycin Hives Current Facility-Administered Medications: NaCl 0.9% iv infusion 30 mL/hr INTRAVENOUS CONTINUOUS Physical Exam: Performed in conjunction with observation. The patient is alert and oriented x3. The patient is in no acute distress. Neck: Supple. The range of motion is intact. Lungs: clear CVR: RRR. Extremities: no reported edema or erythema. Examination indicates no changes Impression: Lumbar disc herniation Lumbar radiculopathy Plan: The informed consent has been obtained. The plan is to proceed with the procedure as planned. SIGNATURE: Master Dow MD DATE: July 27, 2018 TIME: 9:06 AM PT ED Observed: 07/27/2018 Status: COMPLETED Source: [place] 7:50 AM [facility] REPOSITORY HNO ID: [id number] Author: Megha (Rn) MARTINEZ Chowdhury Service: Nursing Author Type: Registered Nurse Type: Patient Education Filed: 07/27/2018 7:51 AM Note Text: PRE OP LEARNING ASSESSMENT PROCEDURE/SURGERY: right lumbar injection READINESS TO LEARN COGNITIVE ABILITY: Alert and oriented MOTIVATION TO LEARN: Interested FAMILY SUPPORT: High - Very involved in pt care PATIENT LEARNS BEST BY: Verbal Instruction FACTORS AFFECTING LEARNING: None PHYSICAL LIMITATIONS AFFECTING LEARNING: None Electronically Signed By: Megha Chowdhury RN In Department: [facility] SURGERY IRON BINDING Collected: 07/21/2018 Status: F Source: [facility] 8:[address] [facility] REPOSITORY TYPE CODE TESTS RESULT OUT OF RANGE REFERENCE UNITS LAB L503.6075 250-450 ug/dL Normal TIBC 397 Performed By: #### L503.6075, L503.6150, L503.6550, L503.6030 #### [facility] [address] [place], [address] IRON Collected: 07/21/2018 Status: F Source: [place] 8:[address] [facility] REPOSITORY TYPE CODE TESTS RESULT OUT OF RANGE REFERENCE UNITS LAB L503.6150 65-175 ug/dL Normal IRON 67 Performed By: #### L503.6075, L503.6150, L503.6550, L503.6030 #### [facility] [address] [place], [address] FERRITIN Collected: 07/21/2018 Status: F Source: [place] 8:[address] [facility] REPOSITORY Order Comment: Comments: DR. PERALTA ORDERED WRONG TEST TYPE CODE TESTS RESULT OUT OF RANGE REFERENCE UNITS LAB L503.6550 26-388 ng/mL Normal FERRITIN 28 Performed By: #### L503.6075, L503.6150, L503.6550, L503.6030 #### [facility] [address] [place], [place], [address] IRON+IRON BINDING Collected: 07/21/2018 Status: F Source: [place] 8:[address] [facility] REPOSITORY Order Comment: Comments: DR. PERALTA ORDERED WRONG TEST TYPE CODE TESTS RESULT OUT OF RANGE REFERENCE UNITS LAB L503.6075 250-450 ug/dL TIBC Normal 397 LAB L503.6150 65-175 ug/dL IRON Normal 67 LAB L503.6250 15.0-55.0 % IRON Normal SATURATION 16.9 Performed By: #### L503.6075, L503.6150, L503.6550, L503.6030 #### [facility] [address] [place], [place], [id number] HEPATITIS B SURFACE Collected: 07/21/2018 Status: F Source: [place] 8:[address] [facility] REPOSITORY TYPE CODE TESTS RESULT OUT OF RANGE REFERENCE UNITS LAB L3100.0400 Negative Normal HB Negative SURF AG Result Comment: Performed at: - [facility] [id number] Nail Sticker: Filipe Nova PhD, Phone: [phone] Performed By: #### L3100.0390, L3100.0625 #### [facility] (refer to report for specific site) refer to report for address and phone number HEPATITIS C ANTIBODIES Collected: 07/21/2018 Status: F Source: [place] 8:[address] [facility] REPOSITORY TYPE CODE TESTS RESULT OUT OF RANGE REFERENCE UNITS LAB L3100.0650 0.0-0.9 s/co ratio Normal HEP C AB 0.1 Result Comment: Negative: < 0.8 Indeterminate: 0.8 - 0.9 Positive: > 0.9 The CDC recommends that a positive HCV antibody result be followed up with a HCV Nucleic Acid Amplification test ([id number]). Performed By: #### L3100.0390, L3100.0625 #### [facility] (refer to report for specific site) refer to report for address and phone number LIVIER COMPREHENSIVE PANEL Collected: 07/21/2018 Status: F Source: [place] 8:[address] [facility] REPOSITORY TYPE CODE TESTS RESULT OUT OF RANGE REFERENCE UNITS LAB L3100.5500 0-9 IU/mL Normal dsDNA AB <1 Result Comment: Negative <5 Equivocal 5 - 9 Positive >9 LAB L3100.9200 0.0-0.9 AI Anti-SS-A Normal < 0.2 LAB L3100.9300 0.0-0.9 AI Anti-SS-B Normal < 0.2 LAB L3410.0427 0.0-0.9 AI ANTICHROMATIN Normal <0.2 LAB L3410.0500 0.0-0.9 AI ANTI-PAT Normal <0.2 LAB L3410.0700 0.0-0.9 AI ANTISCLER Normal <0.2 LAB L3410.1200 0.0-0.9 AI RETORT LOAD EXPEDITER Ab Normal <0.2 LAB L3410.1300 0.0-0.9 AI SHERIDAN Ab Normal <0.2 LAB L3410.4010 0.0-0.9 AI ANTI-CENT B Normal <0.2 LAB L3410.4150 . COMMENT Normal Comment Result Comment: Autoantibody Disease Association Condition Frequency --------- Antinuclear Antibody, SLE, mixed connective Direct (LIVIER-D) tissue diseases --------- dsDNA SLE 40 - 60% --------- Chromatin Drug induced SLE 90% SLE 48 - 97% --------- SSA (Ro) SLE 25 - 35% Sjogren's Syndrome 40 - 70% Lupus 100% --------- SSB (La) SLE 10% Sjogren's Syndrome 30% --------- Sm (anti-Sheridan) SLE 15 - 30% --------- RETORT LOAD EXPEDITER Mixed Connective Tissue Disease 95% (U1 nRNP, SLE 30 - 50% anti-ribonucleoprotein) Polymyositis and/or Dermatomyositis 20% --------- Scl-70 (antiDNA Scleroderma (diffuse) 20 - 35% topoisomerase) Crest 13% --------- Pat-1 Polymyositis and/or Dermatomyositis 20 - 40% --------- Centromere B Scleroderma - Crest variant 80% Performed at: [facility] [id number] Nail Sticker: Filipe Nova PhD, Phone: [phone] Performed By: #### L3100.5440 #### [facility] (refer to report for specific site) refer to report for address and phone number LIVER PROFILE Collected: 07/19/2018 Status: F Source: [place] 8:[address] [facility] REPOSITORY TYPE CODE TESTS RESULT OUT OF RANGE REFERENCE UNITS LAB L501.1500 6.4-8.2 g/dL Normal T PROT 7.4 LAB L501.1800 3.2-5.0 g/dL Normal ALB 3.7 LAB L501.1950 2.2-4.2 g/dL Normal GLOB 3.7 LAB L501.4100 15-37 U/L High AST 53 LAB L501.4305 45-117 U/L Normal ALK P 105 LAB L501.4405 16-61 U/L High ALT 93 LAB L501.4600 0.20-1.00 mg/dL Normal T BILI 0.50 LAB L501.4700 0.00-0.30 mg/dL Normal D BILI 0.12 Performed By: #### L500.3400 #### [facility] [address] [place], [address] CNCO Observed: 07/12/2018 Status: COMPLETED Source: [place] 12:00 AM [facility] REPOSITORY Letter Text [facility] - [address], [address] [place] [address] Lina Bhagat M.D. July 12, 2018 Appointment Reschedule Notification Dear Kendall, Do to a scheduling conflict, your appointment on 08/22/18 will need to be canceled and rescheduled. Your health and health care is important to both of us. Please call the office at your earliest convenience to reschedule your appointment at . We are sorry for any inconvenience this may caused you. Thank you for your cooperation, Lina Bhagat MD (Electronically signed to expedite patient care) PROGRESS Observed: 07/10/2018 Status: COMPLETED Source: [place] 8:45 AM [facility] OTHER [facility]US REPOSITORY HNO ID: [id number] Author: Lenore Flores Service: (none) Author Type: Physician Type: Progress Notes Filed: 07/10/2018 9:04 AM Note Text: Patient Name: Jose Argueta Patient : 1980 Patient Age: [age] year old CC: Patient presents with: Low Back Pain SUBJECTIVE Patient presents for follow up of low back pain. The patient describes the pain as tender, shooting and achy /10. Activity is 3/10 walking. He has pain, numbness and tingling, without weakness radiating into the right lower extremity to the foot, as well as the left lower extremity to the calf. Pain is worse with standing and bending or prolonged sitting. He has been taking Mobic, Norflex, Gabapentin and Percocet 3/day with some relief without side effects. Pain is limiting his work schedule as he cannot sit for prolonged periods. Surgeon has placed C9 for diagnostic LILI and is planned for 07/27. The patient denies any bowel or bladder dysfunction. The patient denies any chest pain or chest tightness. The constitutional, musculoskeletal, and neurological review of systems was negative unless otherwise noted. The patient's past medical history, allergies, medication list, social history, and family medical history were documented, updated, and reviewed in the chart. PDMP website checked and validated. All prescriptions have been APPROPRIATELY filled. No suspicious activity was identified. 07/10/2018 by Lenore Flores MD Nursing Notes: Vj Garay MA 07/10/2018 8:44 AM Signed Review of Systems Eyes: Negative for blurred vision. Respiratory: Negative for shortness of breath.? Cardiovascular: Negative for chest pain. Negative for leg swelling. Gastrointestinal: Negative for constipation, diarrhea, nausea?and vomiting. Genitourinary: Negative for dysuria. Skin: Negative for itching. Neurological: Negative for headaches. Negative for dizziness, tingling?and weakness. Endo/Heme/Allergies: Negative for bruising/bleeding easily. Psychiatric/Behavioral: Negative for depression?and suicidal ideas. ROS entered by: Vj Garay MA MEDICATION NAME percocet STRENGTH 7.5 LAST FILL DATE 06/16/2018 DATE LAST DOSE TAKEN 12.2.18 QUANTITY FILLED 90 QUANTITY REMAINING 19 Urine Drug Screen Questionnaire URINE DRUG SCREEN Completed Date 07/10/2018 ALLERGIES Allergen Reactions - Clindamycin Hives Current Outpatient Prescriptions: [START ON 07/15/2018] oxyCODONE-acetaminophen (PERCOCET) 7.5- 325 mg tablet Take 1 tablet by mouth every 8 hours as needed for Pain (for pain.) for up to 30 days.Earliest Fill Date: 07/15/18 Disp: 90 tablet Rfl: 0 benazepril (LOTENSIN) 5 mg tablet TAKE 1 TABLET BY MOUTH EVERY MORNING AND 2 TABLETS AT NIGHT Disp: 90 tablet Rfl: 11 gabapentin (NEURONTIN) 800 mg tablet Take 1 tablet by mouth three times daily for 90 days. Disp: 90 tablet Rfl: 2 orphenadrine ER (NORFLEX) 100 mg tablet Take 1 tablet by mouth twice daily as needed for Muscle Spasm or Pain. Disp: 60 tablet Rfl: 2 meloxicam (MOBIC) 15 mg tablet Take 1 tablet by mouth once daily. Disp: 30 tablet Rfl: 2 insulin lispro (HUMALOG KWIKPEN INSULIN) 100 unit/mL inpn INJECT 1 UNIT PER 5 GRAMS OF CARBOHYDRATES WITH EACH MEAL (TOTAL MAXIMUM DAILY DOSE IS 80 UNITS) Disp: 25 Pen Rfl: 3 pravastatin (PRAVACHOL) 40 mg tablet Take 1 tablet by mouth once daily. Disp: 30 tablet Rfl: 11 TRESIBA FLEXTOUCH U-100 100 unit/mL (3 mL) injection INJECT 45 UNITS SUBCUTANEOUSLY EVERY 24 HOURS. Disp: 15 mL Rfl: 11 aspirin, enteric coated (ADULT LOW DOSE ASPIRIN) 81 mg EC tablet Take 81 mg by mouth once daily. Disp: Rfl: omeprazole (PRILOSEC) 20 mg capsule Take 1 capsule by mouth once daily. Disp: Rfl: 0 Multivitamin capsule Take 1 capsule by mouth once daily. Disp: Rfl: insulin lispro (HUMALOG KWIKPEN INSULIN) 100 unit/mL inpn INJECT 1 UNIT PER 5 GRAMS OF CARBOHYDRATES WITH EACH MEAL (TOTAL MAXIMUM DAILY DOSE IS 55 UNITS) (Patient not taking: Reported on 05/19/2018 ) Disp: 5 Pen Rfl: 11 empagliflozin (JARDIANCE) 25 mg tablet Take 1 tablet by mouth once daily. (Patient not taking: Reported on 02/13/2018 ) Disp: 90 tablet Rfl: 3 metFORMIN (GLUCOPHAGE) 500 mg tablet Take 1 tablet by mouth twice daily with meals. (Patient not taking: Reported on 04/19/2018 ) Disp: 180 tablet Rfl: 3 No current facility-administered medications for this visit. 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 Topics Smoking status: Never Smoker Smokeless tobacco: Never Used Alcohol use: No Drug use: No Other Topics Concern Caffeine Concern Yes Comment:coffee 3 cups daily, and energy drinks Special Diet Yes Comment:Poor diet Exercise No Comment: Exercises 1-2 days/wk Social History Narrative No reported history Family History Problem Relation Age of Onset - Hyperlipidemia Mother - Ischemic Heart Disease Father - Diabetes Father - Heart Father - Hyperlipidemia Father - Hypertension Father - Hyperlipidemia Paternal Grandmother - Hypertension Paternal Grandmother - Stroke Paternal Grandmother - other (Diabetes mellitus) Paternal Grandmother OBJECTIVE Vitals: BP 180/100 Pulse 82 Ht 175.3 cm (5' 9) Wt 117.9 kg (260 lb) BMI 38.40 kg/m? General: Alert, cooperative, well appearing, and in no apparent distress. Musculoskeletal: The patient's gait is normal Back: Inspection of the back demonstrates there is no obvious deformity or misalignment. There is bony tenderness along the lumbar vertebrae, none along the sacroiliac joints. There is bilateral paraspinal muscle tenderness. Range of motion testing demonstrates limited due to pain with flexion, extension, side bending and rotation of the back. Strength is 5/5 in the lower extremity bilaterally. Sensation is decreased throughout the right lower extremity and left to the calf. There is a positive BL straight leg raise and femoral stretch test. The piriformis has normal flexibility and is non-tender. Skin: The skin is without jaundice. It is intact without pathologic lesions, erythema, vesicles, discharge or rash. Palpitation of the skin is normal without induration, subcutaneous nodules or tightening. Extremities: This is no clubbing, cyanosis or edema. Peripheral pulses are 2+. Return in about 4 weeks (around 08/07/2018). ASSESSMENT/PLAN: 1. Post laminectomy syndrome - ICD9: 722.80, ICD10: M96.1 (primary diagnosis) We discussed the natural history of this condition, differential diagnoses, and treatment options. Guidelines for activity were given. We discussed options for treatment including conservative care, medications with side effects and risks and benefits. The patient is doing well with the prescribed pain medications. The patient requests a refill today. Patient states medications provide adequate analgesia. The medications allow patient to maintain ADL's. Discussed with the patient about avoiding driving/operating vehicle while taking the medications. There are no adverse effects from the medications - discussed he cannot take more than prescribed and will not be able to fill early. Will refill his percocet today for when due [facility] drug screen today Continue gabapentin, norflex and Mobic He is planning for LILI and then fusion surgery if approved by [facility]. Will add to his claim this diagnosis as he had continued pain, numbness and functional limitations after his L4/5 laminectomy/discectomy - OXYCODONE-ACETAMINOPHEN 7.5 MG-325 MG TABLET 2. Lumbosacral disc herniation - ICD9: 722.10, ICD10: M51.27 - OXYCODONE-ACETAMINOPHEN 7.5 MG-325 MG TABLET 3. Herniation of intervertebral disc between L4 and L5 - ICD9: 722.10, ICD10: M51.26 - [facility] DRUG SCREEN - OXYCODONE-ACETAMINOPHEN 7.5 MG-325 MG TABLET Lenore Flores MD CNOV Observed: 07/10/2018 Status: COMPLETED Source: [place] 8:45 AM [facility] [place] REPOSITORY Office Visit ([facility]) JOSE ARGUETA ([id number]) 1980 M Date Time Provider Department 07/10/18 8:45 AM LENORE FLORES During your visit today, we recorded the following information about you: Pulse Blood pressure Weight Height 82/minute 180/100 117.9 kg 1.753 m jV Garay MA 07/10/2018 8:44 AM Signed Review of Systems Eyes: Negative for blurred vision. Respiratory: Negative for shortness of breath.? Cardiovascular: Negative for chest pain. Negative for leg swelling. Gastrointestinal: Negative for constipation, diarrhea, nausea?and vomiting. Genitourinary: Negative for dysuria. Skin: Negative for itching. Neurological: Negative for headaches. Negative for dizziness, tingling?and weakness. Endo/Heme/Allergies: Negative for bruising/bleeding easily. Psychiatric/Behavioral: Negative for depression?and suicidal ideas. ROS entered by: NYLA Chance MD 07/10/2018 9:04 AM Signed Patient Name: Jose Argueta Patient : 1980 Patient Age: [age] year old CC: Patient presents with: Low Back Pain SUBJECTIVE Patient presents for follow up of low back pain. The patient describes the pain as tender, shooting and achy /10. Activity is 3/10 walking. He has pain, numbness and tingling, without weakness radiating into the right lower extremity to the foot, as well as the left lower extremity to the calf. Pain is worse with standing and bending or prolonged sitting. He has been taking Mobic, Norflex, Gabapentin and Percocet 3/day with some relief without side effects. Pain is limiting his work schedule as he cannot sit for prolonged periods. Surgeon has placed C9 for diagnostic LILI and is planned for 07/27. The patient denies any bowel or bladder dysfunction. The patient denies any chest pain or chest tightness. The constitutional, musculoskeletal, and neurological review of systems was negative unless otherwise noted. The patient's past medical history, allergies, medication list, social history, and family medical history were documented, updated, and reviewed in the chart. PDMP website checked and validated. All prescriptions have been APPROPRIATELY filled. No suspicious activity was identified. 07/10/2018 by Lenore Flores MD Nursing Notes: Vj Garay MA 07/10/2018 8:44 AM Signed Review of Systems Eyes: Negative for blurred vision. Respiratory: Negative for shortness of breath.? Cardiovascular: Negative for chest pain. Negative for leg swelling. Gastrointestinal: Negative for constipation, diarrhea, nausea?and vomiting. Genitourinary: Negative for dysuria. Skin: Negative for itching. Neurological: Negative for headaches. Negative for dizziness, tingling?and weakness. Endo/Heme/Allergies: Negative for bruising/bleeding easily. Psychiatric/Behavioral: Negative for depression?and suicidal ideas. ROS entered by: Vj Garay MA MEDICATION NAME percocet STRENGTH 7.5 LAST FILL DATE 06/16/2018 DATE LAST DOSE TAKEN .18 QUANTITY FILLED 90 QUANTITY REMAINING 19 Urine Drug Screen Questionnaire URINE DRUG SCREEN Completed Date 07/10/2018 ALLERGIES Allergen Reactions - Clindamycin Hives Current Outpatient Prescriptions: [START ON 07/15/2018] oxyCODONE-acetaminophen (PERCOCET) 7.5- 325 mg tablet Take 1 tablet by mouth every 8 hours as needed for Pain (for pain.) for up to 30 days.Earliest Fill Date: 07/15/18 Disp: 90 tablet Rfl: 0 benazepril (LOTENSIN) 5 mg tablet TAKE 1 TABLET BY MOUTH EVERY MORNING AND 2 TABLETS AT NIGHT Disp: 90 tablet Rfl: 11 gabapentin (NEURONTIN) 800 mg tablet Take 1 tablet by mouth three times daily for 90 days. Disp: 90 tablet Rfl: 2 orphenadrine ER (NORFLEX) 100 mg tablet Take 1 tablet by mouth twice daily as needed for Muscle Spasm or Pain. Disp: 60 tablet Rfl: 2 meloxicam (MOBIC) 15 mg tablet Take 1 tablet by mouth once daily. Disp: 30 tablet Rfl: 2 insulin lispro (HUMALOG KWIKPEN INSULIN) 100 unit/mL inpn INJECT 1 UNIT PER 5 GRAMS OF CARBOHYDRATES WITH EACH MEAL (TOTAL MAXIMUM DAILY DOSE IS 80 UNITS) Disp: 25 Pen Rfl: 3 pravastatin (PRAVACHOL) 40 mg tablet Take 1 tablet by mouth once daily. Disp: 30 tablet Rfl: 11 TRESIBA FLEXTOUCH U-100 100 unit/mL (3 mL) injection INJECT 45 UNITS SUBCUTANEOUSLY EVERY 24 HOURS. Disp: 15 mL Rfl: 11 aspirin, enteric coated (ADULT LOW DOSE ASPIRIN) 81 mg EC tablet Take 81 mg by mouth once daily. Disp: Rfl: omeprazole (PRILOSEC) 20 mg capsule Take 1 capsule by mouth once daily. Disp: Rfl: 0 Multivitamin capsule Take 1 capsule by mouth once daily. Disp: Rfl: insulin lispro (HUMALOG KWIKPEN INSULIN) 100 unit/mL inpn INJECT 1 UNIT PER 5 GRAMS OF CARBOHYDRATES WITH EACH MEAL (TOTAL MAXIMUM DAILY DOSE IS 55 UNITS) (Patient not taking: Reported on 05/19/2018 ) Disp: 5 Pen Rfl: 11 empagliflozin (JARDIANCE) 25 mg tablet Take 1 tablet by mouth once daily. (Patient not taking: Reported on 02/13/2018 ) Disp: 90 tablet Rfl: 3 metFORMIN (GLUCOPHAGE) 500 mg tablet Take 1 tablet by mouth twice daily with meals. (Patient not taking: Reported on 04/19/2018 ) Disp: 180 tablet Rfl: 3 No current facility-administered medications for this visit. 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 Topics Smoking status: Never Smoker Smokeless tobacco: Never Used Alcohol use: No Drug use: No Other Topics Concern Caffeine Concern Yes Comment:coffee 3 cups daily, and energy drinks Special Diet Yes Comment:Poor diet Exercise No Comment: Exercises 1-2 days/wk Social History Narrative No reported history Family History Problem Relation Age of Onset - Hyperlipidemia Mother - Ischemic Heart Disease Father - Diabetes Father - Heart Father - Hyperlipidemia Father - Hypertension Father - Hyperlipidemia Paternal Grandmother - Hypertension Paternal Grandmother - Stroke Paternal Grandmother - other (Diabetes mellitus) Paternal Grandmother OBJECTIVE Vitals: BP 180/100 Pulse 82 Ht 175.3 cm (5' 9) Wt 117.9 kg (260 lb) BMI 38.40 kg/m? General: Alert, cooperative, well appearing, and in no apparent distress. Musculoskeletal: The patient's gait is normal Back: Inspection of the back demonstrates there is no obvious deformity or misalignment. There is bony tenderness along the lumbar vertebrae, none along the sacroiliac joints. There is bilateral paraspinal muscle tenderness. Range of motion testing demonstrates limited due to pain with flexion, extension, side bending and rotation of the back. Strength is 5/5 in the lower extremity bilaterally. Sensation is decreased throughout the right lower extremity and left to the calf. There is a positive BL straight leg raise and femoral stretch test. The piriformis has normal flexibility and is non-tender. Skin: The skin is without jaundice. It is intact without pathologic lesions, erythema, vesicles, discharge or rash. Palpitation of the skin is normal without induration, subcutaneous nodules or tightening. Extremities: This is no clubbing, cyanosis or edema. Peripheral pulses are 2+. Return in about 4 weeks (around 08/07/2018). ASSESSMENT/PLAN: 1. Post laminectomy syndrome - ICD9: 722.80, ICD10: M96.1 (primary diagnosis) We discussed the natural history of this condition, differential diagnoses, and treatment options. Guidelines for activity were given. We discussed options for treatment including conservative care, medications with side effects and risks and benefits. The patient is doing well with the prescribed pain medications. The patient requests a refill today. Patient states medications provide adequate analgesia. The medications allow patient to maintain ADL's. Discussed with the patient about avoiding driving/operating vehicle while taking the medications. There are no adverse effects from the medications - discussed he cannot take more than prescribed and will not be able to fill early. Will refill his percocet today for when due [facility] drug screen today Continue gabapentin, norflex and Mobic He is planning for LILI and then fusion surgery if approved by [facility]. Will add to his claim this diagnosis as he had continued pain, numbness and functional limitations after his L4/5 laminectomy/discectomy - OXYCODONE-ACETAMINOPHEN 7.5 MG-325 MG TABLET 2. Lumbosacral disc herniation - ICD9: 722.10, ICD10: M51.27 - OXYCODONE-ACETAMINOPHEN 7.5 MG-325 MG TABLET 3. Herniation of intervertebral disc between L4 and L5 - ICD9: 722.10, ICD10: M51.26 - [facility] DRUG SCREEN - OXYCODONE-ACETAMINOPHEN 7.5 MG-325 MG TABLET MD Lenore White MD 07/10/2018 8:54 AM Addendum Opioid Pain Medication Information Sheet Opioids are drugs that are used to treat cancer pain. They include morphine (MSContin, MSIR, Roxanol); oxycodone (Oxycontin, Roxicodone, Percocet); hydromorphone (Dilaudid, Exalgo); fentanyl (Duragesic); hydrocodone (Hysingla, Zohydro, [place], Vicodin); buprenorphine (Butrans, Buprenex); and methadone. There are two types of opioids: long-acting and short-acting. Long-acting opioids are also called extended-release (ER) or controlled-release (CR). This means that the medication is slowly released over an 8- to 12-hour period or longer. Examples of these include MSContin and Oxycontin. These drugs are taken on a regular schedule to control pain. DO NOT BREAK OR CRUSH THESE TABLETS. Long-acting opioids also come in patch form (Fentanyl, buprenorphine). Opioid patches are strong drugs and should not be used for mild or occasional pain, or for pain from surgery. ? Do not use patches that are damaged or cut. ? You can shower and bathe with the patch in place. ? Do not expose the skin patch to heat (for example: hot tub, heating pad, sauna, electric blanket, heat lamps). Heat increases the amount of drug you absorb through your skin and may cause harmful effects. ? When removing the patch, fold it in half, sticky side in, and flush it down the toilet. Short-acting opioids are also called immediate-release. They usually take effect within an hour, and provide pain relief for four hours. You take short-acting opioids if your pain gets worse (5 on a scale of 1 to 10), which is called breakthrough pain. DO NOT WAIT UNTIL THE PAIN BECOMES SEVERE TO TAKE YOUR MEDICATION. What are the side effects of opioids? Like most drugs, opioids have side effects. The most common are nausea, vomiting, itching, and sleepiness. These side effects should go away in three to seven days as your body gets used to the medication. DO NOT DRIVE IF YOU FEEL DROWSY OR SLEEPY. All opioids cause constipation. Your caregiver will prescribe stool softeners and medicine to help prevent constipation. You can also do the following: ? Increase the amounts of fluids and fiber in your diet. ? Try to get more exercise and physical activity. ? Try to have a bowel movement around the same time each day to get your bowels to empty in a certain pattern. Can I become addicted to opioids? Addiction means that a person uses the drug to get ?high?, and cannot control the urge to take the drug. Taking medication for pain relief is NOT addiction. Your healthcare provider will discuss any concerns about becoming addicted to pain medications. Withdrawal If you stop taking your pain medication suddenly, you may develop withdrawal symptoms. These include flu-like symptoms, agitation, anxiety, abdominal cramping, nausea, and diarrhea. If you have stopped taking your pain medication for three days or more, do not start taking it again without talking to your healthcare provider. Overdose Combining opioids with alcohol or sedating pills (which make you sleepy) increases the risk of overdose. Symptoms of overdose include extreme sleepiness, slurred speech, and slow breathing (breathing may also stop). Call 911 or your local emergency service if you think you may have overdosed. Call 911 or your local emergency service if: ? You took too much medicine. ? You have trouble breathing and/or shortness of breath. ? A child accidentally took the medication. Call your healthcare provider if: ? Your pain is not being controlled with the dose that you are taking. ? You are having side effects. Other important information: ? Take your medicine exactly as prescribed. ? Only one healthcare provider should prescribe your pain medications. ? Make follow-up appointments with your healthcare provider. ? Keep medication away from children and store them in a safe place. ? Do not share your medications with anyone. ? Do not take medications that have not been prescribed for you. ? Do not stop taking your medication without talking to your healthcare provider. ? Do not drink alcohol while taking this medication. How do I dispose of opioids? DO NOT THROW UNUSED MEDICATION IN THE TRASH. You should return these medications through a take-back program or to a collection box or mail-back program authorized by the Drug Enforcement Administration. Authorized collection sites include retail pharmacies, hospital or clinic pharmacies, and law enforcement locations. This website provides a list of locations where you can safely dispose of opioids: https://www.deadiversion.[place].gov/pubdispsearch If a take-back program is not available, flush unused medicines down the toilet or sink. Lenore Flores MD 07/10/2018 9:07 AM Signed Addended by: LENORE FLORES MD on: 07/10/2018 09:07 AM Modules accepted: Orders Referring Provider: HERMINIO RUBIO [[id number]] Allergies As of Date: 07/10/2018 Noted Allergy Reaction CLINDAMYCIN 03/29/2016 4 - Hives Date Reviewed: 07/10/2018 Reviewed by: Lenore Flores - Fully Assessed Reason for Visit: Low Back Pain [126] Primary Visit Diagnosis:Post laminectomy syndrome [M96.1] Other Visit Diagnoses:Lumbosacral disc herniation [M51.27] Herniation of intervertebral disc between L4 and L5 [M51.26] Order(s):[facility] [[id number]] Order #: [id number] [START ON 07/15/2018] oxyCODONE-acetaminophen (PERCOCET) 7.5-325 mg tabletTake 1 tablet by mouth every 8 hours as needed for Pain (for pain.) for up to 30 days. Earliest Fill Date: 07/15/18Disp: 90 tabletRfl: 0 meloxicam (MOBIC) 15 mg tabletTake 1 tablet by mouth once daily.Disp: 30 tabletRfl: 2 Prescriptions as of 07/10/2018 Sig: OXYCODONE-ACETAMINOPHEN 7.5 M* Take 1 tablet by mouth every * MELOXICAM 15 MG TABLET Take 1 tablet by mouth once d* BENAZEPRIL 5 MG TABLET TAKE 1 TABLET BY MOUTH EVERY * GABAPENTIN 800 MG TABLET Take 1 tablet by mouth three * ORPHENADRINE CITRATE ER 100 M* Take 1 tablet by mouth twice * INSULIN LISPRO (U-100) 100 UN* INJECT 1 UNIT PER 5 GRAMS OF * PRAVASTATIN 40 MG TABLET Take 1 tablet by mouth once d* TRESIBA FLEXTOUCH U-100 INSUL* INJECT 45 UNITS SUBCUTANEOUSL* ASPIRIN 81 MG TABLET,DELAYED * Take 81 mg by mouth once eliecer* OMEPRAZOLE 20 MG CAPSULE,JOSÉ ANTONIO* Take 1 capsule by mouth once * MULTIVITAMIN CAPSULE Take 1 capsule by mouth once * INSULIN LISPRO (U-100) 100 UN* INJECT 1 UNIT PER 5 GRAMS OF * Patient not taking: Reported on 05/19/2018 EMPAGLIFLOZIN 25 MG TABLET Take 1 tablet by mouth once d* Patient not taking: Reported on 02/13/2018 METFORMIN 500 MG TABLET Take 1 tablet by mouth twice * Patient not taking: Reported on 04/19/2018 Problem List As Of Date 07/10/2018 Noted Resolved Herniation of intervertebral disc between L4 an*INVALID FOR* More... Displacement of lumbar intervertebral disc with*INVALID FOR* Sprain of lumbar region [S33.5XXA] INVALID FOR* Type 1 diabetes mellitus [E10.9] More... Vitamin D deficiency [E55.9] Hyperlipidemia [E78.5] HTN (hypertension) [I10] More... Spondylolisthesis, lumbar region [M43.16] INVALID FOR* High cholesterol [E78.00] Post laminectomy syndrome [M96.1] INVALID FOR* Lumbosacral disc herniation [M51.27] INVALID FOR* Herniation of intervertebral disc between L5 an*INVALID FOR* Other instructions from your clinician: Opioid Pain Medication Information Sheet Opioids are drugs that are used to treat cancer pain. They include morphine (MSContin, MSIR, Roxanol); oxycodone (Oxycontin, Roxicodone, Percocet); hydromorphone (Dilaudid, Exalgo); fentanyl (Duragesic); hydrocodone (Hys[place]la, Zohydro, [place], Vicodin); buprenorphine (Butrans, Buprenex); and methadone. There are two types of opioids: long-acting and short-acting. Long-acting opioids are also called extended-release (ER) or controlled-release (CR). This means that the medication is slowly released over an 8- to 12-hour period or longer. Examples of these include MSContin and Oxycontin. These drugs are taken on a regular schedule to control pain. DO NOT BREAK OR CRUSH THESE TABLETS. Long-acting opioids also come in patch form (Fentanyl, buprenorphine). Opioid patches are strong drugs and should not be used for mild or occasional pain, or for pain from surgery. ? Do not use patches that are damaged or cut. ? You can shower and bathe with the patch in place. ? Do not expose the skin patch to heat (for example: hot tub, heating pad, sauna, electric blanket, heat lamps). Heat increases the amount of drug you absorb through your skin and may cause harmful effects. ? When removing the patch, fold it in half, sticky side in, and flush it down the toilet. Short-acting opioids are also called immediate-release. They usually take effect within an hour, and provide pain relief for four hours. You take short-acting opioids if your pain gets worse (5 on a scale of 1 to 10), which is called breakthrough pain. DO NOT WAIT UNTIL THE PAIN BECOMES SEVERE TO TAKE YOUR MEDICATION. What are the side effects of opioids? Like most drugs, opioids have side effects. The most common are nausea, vomiting, itching, and sleepiness. These side effects should go away in three to seven days as your body gets used to the medication. DO NOT DRIVE IF YOU FEEL DROWSY OR SLEEPY. All opioids cause constipation. Your caregiver will prescribe stool softeners and medicine to help prevent constipation. You can also do the following: ? Increase the amounts of fluids and fiber in your diet. ? Try to get more exercise and physical activity. ? Try to have a bowel movement around the same time each day to get your bowels to empty in a certain pattern. Can I become addicted to opioids? Addiction means that a person uses the drug to get ?high?, and cannot control the urge to take the drug. Taking medication for pain relief is NOT addiction. Your healthcare provider will discuss any concerns about becoming addicted to pain medications. Withdrawal If you stop taking your pain medication suddenly, you may develop withdrawal symptoms. These include flu-like symptoms, agitation, anxiety, abdominal cramping, nausea, and diarrhea. If you have stopped taking your pain medication for three days or more, do not start taking it again without talking to your healthcare provider. Overdose Combining opioids with alcohol or sedating pills (which make you sleepy) increases the risk of overdose. Symptoms of overdose include extreme sleepiness, slurred speech, and slow breathing (breathing may also stop). Call 911 or your local emergency service if you think you may have overdosed. Call 911 or your local emergency service if: ? You took too much medicine. ? You have trouble breathing and/or shortness of breath. ? A child accidentally took the medication. Call your healthcare provider if: ? Your pain is not being controlled with the dose that you are taking. ? You are having side effects. Other important information: ? Take your medicine exactly as prescribed. ? Only one healthcare provider should prescribe your pain medications. ? Make follow-up appointments with your healthcare provider. ? Keep medication away from children and store them in a safe place. ? Do not share your medications with anyone. ? Do not take medications that have not been prescribed for you. ? Do not stop taking your medication without talking to your healthcare provider. ? Do not drink alcohol while taking this medication. How do I dispose of opioids? DO NOT THROW UNUSED MEDICATION IN THE TRASH. You should return these medications through a take-back program or to a collection box or mail-back program authorized by the Drug Enforcement Administration. Authorized collection sites include retail pharmacies, hospital or clinic pharmacies, and law enforcement locations. This website provides a list of locations where you can safely dispose of opioids: https://www.deadiversion.[facility].gov/pubdispsearch If a take-back program is not available, flush unused medicines down the toilet or sink. Visit Notes: >> Vj Sorto Jul 10, 2018 8:43 AM Status: Signed Review of Systems Eyes: Negative for blurred vision. Respiratory: Negative for shortness of breath.? Cardiovascular: Negative for chest pain. Negative for leg swelling. Gastrointestinal: Negative for constipation, diarrhea, nausea?and vomiting. Genitourinary: Negative for dysuria. Skin: Negative for itching. Neurological: Negative for headaches. Negative for dizziness, tingling?and weakness. Endo/Heme/Allergies: Negative for bruising/bleeding easily. Psychiatric/Behavioral: Negative for depression?and suicidal ideas. ROS entered by: Vj Garay MA Prescriptions ordered this encounter Disp Refills Start End OXYCODONE-ACETAMINOPHEN 7.5 MG-325 M* 90 t* 0 07/15/2018 08/14/2018 Class: Print RX Route: ORAL Sig: Take 1 tablet by mouth every 8 hours as needed for Pain (for pain.) for up to 30 days. Earliest Fill Date: 07/15/18 MELOXICAM 15 MG TABLET 30 t* 2 07/10/2018 Route: ORAL Sig: Take 1 tablet by mouth once daily. Medications Discontinued During This Encounter oxyCODONE-acetaminophen (PERCOCET) 7* 90 t* 0 06/17/2018 07/10/2018 Class: Print RX Route: ORAL Sig: Take 1 tablet by mouth every 8 hours as needed for Pain (for pain.) for up to 30 days. Earliest Fill Date: 06/17/18 Disc: Reason for discontinue is not on file. meloxicam (MOBIC) 15 mg tablet 30 t* 2 05/19/2018 07/10/2018 Route: ORAL Sig: Take 1 tablet by mouth once daily. Disc: Reason for discontinue is not on file. Disposition: Return in about 4 weeks (around 08/07/2018). Follow-up and Disposition History Recorded Questionnaire: [facility] PILL COUNT MEDICATION NAME -> percocet STRENGTH -> 7.5 LAST FILL DATE -> 06/16/2018 DATE LAST DOSE TAKEN -> 12.2.18 QUANTITY FILLED -> 90 QUANTITY REMAINING -> 19 Letter Text [facility] Lenore Flores MD July 10, 2018 Re: Jose Argueta : 1980 To Whom It May Concern: This is to certify that Jose has been under my care and may return to work with the following restrictions: No lifting or carrying over 10 lbs No sitting or standing over 2 hours at at time, allowing times to change position as needed. If you have further questions regarding this patient's health status, please contact my office. Sincerely, Lenore Flores MD (Signed electronically to expedite mailing) [address] [place] [address] Encounter Status:Closed by LENORE FLORES MD on 07/10/18 OBSOLETE Observed: 07/04/2018 Status: COMPLETED Source: [facility] 12:00 AM CLINIC OTHER CAMPUS REPOSITORY Refill (AGENDPOB) JOSE ARGUETA ([id number]) 1980 M Date Time Provider Department 07/04/18 LINA BHAGAT During your visit today, we recorded the following information about you: Jodie Ramírez 07/04/2018 9:32 AM Signed Pharmacy electronically requests the following refill(s) Pending Prescriptions Disp Refills BENAZEPRIL 5 MG TABLET 90 tablet 11 Sig: TAKE 1 TABLET BY MOUTH EVERY MORNING AND 2 TABLETS AT NIGHT COLE: Yes 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) [place] Allergies As of Date: 07/04/2018 Noted Allergy Reaction CLINDAMYCIN 03/29/2016 4 - Hives Date Reviewed: 06/12/2018 Reviewed by: Lenore Flores - Fully Assessed Reason for Visit: Refill Request [94] Order(s):benazepril (LOTENSIN) 5 mg tabletTAKE 1 TABLET BY MOUTH EVERY MORNING AND 2 TABLETS AT NIGHTDisp: 90 tabletRfl: 11 Prescriptions as of 07/04/2018 Sig: BENAZEPRIL 5 MG TABLET TAKE 1 TABLET BY MOUTH EVERY * GABAPENTIN 800 MG TABLET Take 1 tablet by mouth three * OXYCODONE-ACETAMINOPHEN 7.5 M* Take 1 tablet by mouth every * ORPHENADRINE CITRATE ER 100 M* Take 1 tablet by mouth twice * MELOXICAM 15 MG TABLET Take 1 tablet by mouth once d* INSULIN LISPRO (U-100) 100 UN* INJECT 1 UNIT PER 5 GRAMS OF * INSULIN LISPRO (U-100) 100 UN* INJECT 1 UNIT PER 5 GRAMS OF * Patient not taking: Reported on 05/19/2018 PRAVASTATIN 40 MG TABLET Take 1 tablet by mouth once d* EMPAGLIFLOZIN 25 MG TABLET Take 1 tablet by mouth once d* Patient not taking: Reported on 02/13/2018 METFORMIN 500 MG TABLET Take 1 tablet by mouth twice * Patient not taking: Reported on 04/19/2018 TRESIBA FLEXTOUCH U-100 INSUL* INJECT 45 UNITS SUBCUTANEOUSL* ASPIRIN 81 MG TABLET,DELAYED * Take 81 mg by mouth once eliecer* OMEPRAZOLE 20 MG CAPSULE,JOSÉ ANTONIO* Take 1 capsule by mouth once * MULTIVITAMIN CAPSULE Take 1 capsule by mouth once * Problem List As Of Date 07/04/2018 Noted Resolved Herniation of intervertebral disc between L4 an*INVALID FOR* Priority: A More... Displacement of lumbar intervertebral disc with*INVALID FOR* Sprain of lumbar region [S33.5XXA] INVALID FOR* Type 1 diabetes mellitus [E10.9] Priority: B More... Vitamin D deficiency [E55.9] Hyperlipidemia [E78.5] HTN (hypertension) [I10] Priority: C More... Spondylolisthesis, lumbar region [M43.16] INVALID FOR* High cholesterol [E78.00] Post laminectomy syndrome [M96.1] INVALID FOR* Lumbosacral disc herniation [M51.27] INVALID FOR* Herniation of intervertebral disc between L5 an*INVALID FOR* Prescriptions ordered this encounter Disp Refills Start End BENAZEPRIL 5 MG TABLET 90 t* 11 07/04/2018 Sig: TAKE 1 TABLET BY MOUTH EVERY MORNING AND 2 TABLETS AT NIGHT Medications Discontinued During This Encounter benazepril (LOTENSIN) 5 mg tablet 90 t* 11 07/14/2017 07/04/2018 Si tablet every am and 2 tablets every pm Disc: Reason for discontinue is not on file. Encounter Status:Closed by LINA BHAGAT MD on 07/04/18 HOSP Observed: 07/04/2018 Status: COMPLETED Source: [facility] 12:00 AM CLINIC OTHER CAMPUS REPOSITORY Patient:Jose Argueta MRN: <[id number]> Height:5' 9(1.753 m) Weight:260 lb (117.935 kg) Outpatient Medications as of 07/27/18: aspirin, enteric coated (ADULT LOW DOSE ASPIRIN) 81 mg EC tablet benazepril (LOTENSIN) 5 mg tablet gabapentin (NEURONTIN) 800 mg tablet insulin lispro (HUMALOG KWIKPEN INSULIN) 100 unit/mL inpn insulin lispro (HUMALOG KWIKPEN INSULIN) 100 unit/mL inpn meloxicam (MOBIC) 15 mg tablet Multivitamin capsule omeprazole (PRILOSEC) 20 mg capsule orphenadrine ER (NORFLEX) 100 mg tablet oxyCODONE-acetaminophen (PERCOCET) 7.5-325 mg tablet pravastatin (PRAVACHOL) 40 mg tablet TRESIBA FLEXTOUCH U-100 100 unit/mL (3 mL) injection Admission/Clinic Administered Medications as of 07/27/18: NaCl 0.9% iv infusion Problem List: Herniation of intervertebral disc between L4 and L5 [M51.26] Displacement of lumbar intervertebral disc without myelopathy [M51.26] Sprain of lumbar region [S33.5XXA] Type 1 diabetes mellitus [E10.9] Vitamin D deficiency [E55.9] Hyperlipidemia [E78.5] HTN (hypertension) [I10] Spondylolisthesis, lumbar region [M43.16] High cholesterol [E78.00] Post laminectomy syndrome [M96.1] Lumbosacral disc herniation [M51.27] Herniation of intervertebral disc between L5 and S1 [M51.27] Allergies: Clindamycin Date Verified: 07/27/18 Lab Values No results within the last 30 days for the following basenames: K,HCT Progress Notes ([facility]): Jodie Ramírez 07/24/2018 2:59 PM Signed Patient called that his blood sugars have continued to be elevated despite increasing insulin in March. He says they are working him up for elevated liver enzymes and he has gained 20 lbs since stopping Farxiga. He states he needs an increase in his Humalog insulin called into the pharmacy again to about 100 units maximum daily. He also wants to let you know that he is having a steroid injection in his back this , July 27. Please advise. Jodie Hunter) Desiree Progress Notes ([facility]): Teto Armstrong 07/12/2018 7:58 AM Signed C9 submitted to add L4/5 postlaminectomy syndrome to claim as a flow through Teto Nathaniel PROGRESS Observed: 06/12/2018 Status: COMPLETED Source: [facility] 3:13 PM CLINIC OTHER CAMPUS REPOSITORY HNO ID: [id number] Author: Lenore Flores Service: (none) Author Type: Physician Type: Progress Notes Filed: 06/12/2018 4:31 PM Note Text: Patient Name: Jose Argueta Patient : 1980 Patient Age: [age] year old CC: Patient presents with: Follow Up: medication refill, lower back pain SUBJECTIVE Patient presents for follow up of low back pain. The patient describes the pain as tender, shooting and achy 6/10. Activity is 2/10 walking. He has pain, numbness and tingling, without weakness radiating into the right lower extremity to the foot, as well as the left lower extremity to the calf. Pain is worse with standing and has some crunching and popping with extension which is painful, and bending or prolonged sitting. He has been taking Mobic, Norflex, Gabapentin and Percocet 3-4/day with some relief without side effects. Surgeon has placed C9 for diagnostic LILI. The patient denies any bowel or bladder dysfunction. The patient denies any chest pain or chest tightness. The constitutional, musculoskeletal, and neurological review of systems was negative unless otherwise noted. The patient's past medical history, allergies, medication list, social history, and family medical history were documented, updated, and reviewed in the chart. PDMP website checked and validated. All prescriptions have been APPROPRIATELY filled. No suspicious activity was identified. 06/12/2018 by Lenore Flores MD Low on pill count today Nursing Notes: Loy Chappell 06/12/2018 3:14 PM Signed Review of Systems Eyes: Negative for blurred vision. Respiratory: Negative for shortness of breath.? Cardiovascular: Negative for chest pain. Negative for leg swelling. Gastrointestinal: Negative for constipation, diarrhea, nausea?and vomiting. Genitourinary: Negative for dysuria. Skin: Negative for itching. Neurological: Negative for headaches. Negative for dizziness, tingling?and weakness. Endo/Heme/Allergies: Negative for bruising/bleeding easily. Psychiatric/Behavioral: Negative for depression?and suicidal ideas. ROS entered by: Samira Chappell MA MEDICATION NAME percocet STRENGTH 7.5 LAST FILL DATE 05/19/2018 DATE LAST DOSE TAKEN 06/12/18 QUANTITY FILLED 120 QUANTITY REMAINING 14 ALLERGIES Allergen Reactions - Clindamycin Hives Current Outpatient Prescriptions: gabapentin (NEURONTIN) 800 mg tablet Take 1 tablet by mouth three times daily for 90 days. Disp: 90 tablet Rfl: 2 [START ON 06/17/2018] oxyCODONE-acetaminophen (PERCOCET) 7.5- 325 mg tablet Take 1 tablet by mouth every 8 hours as needed for Pain (for pain.) for up to 30 days.Earliest Fill Date: 06/17/18 Disp: 90 tablet Rfl: 0 orphenadrine ER (NORFLEX) 100 mg tablet Take 1 tablet by mouth twice daily as needed for Muscle Spasm or Pain. Disp: 60 tablet Rfl: 2 meloxicam (MOBIC) 15 mg tablet Take 1 tablet by mouth once daily. Disp: 30 tablet Rfl: 2 insulin lispro (HUMALOG KWIKPEN INSULIN) 100 unit/mL inpn INJECT 1 UNIT PER 5 GRAMS OF CARBOHYDRATES WITH EACH MEAL (TOTAL MAXIMUM DAILY DOSE IS 80 UNITS) Disp: 25 Pen Rfl: 3 pravastatin (PRAVACHOL) 40 mg tablet Take 1 tablet by mouth once daily. Disp: 30 tablet Rfl: 11 TRESIBA FLEXTOUCH U-100 100 unit/mL (3 mL) injection INJECT 45 UNITS SUBCUTANEOUSLY EVERY 24 HOURS. Disp: 15 mL Rfl: 11 benazepril (LOTENSIN) 5 mg tablet 1 tablet every am and 2 tablets every pm Disp: 90 tablet Rfl: 11 aspirin, enteric coated (ADULT LOW DOSE ASPIRIN) 81 mg EC tablet Take 81 mg by mouth once daily. Disp: Rfl: omeprazole (PRILOSEC) 20 mg capsule Take 1 capsule by mouth once daily. Disp: Rfl: 0 Multivitamin capsule Take 1 capsule by mouth once daily. Disp: Rfl: insulin lispro (HUMALOG KWIKPEN INSULIN) 100 unit/mL inpn INJECT 1 UNIT PER 5 GRAMS OF CARBOHYDRATES WITH EACH MEAL (TOTAL MAXIMUM DAILY DOSE IS 55 UNITS) (Patient not taking: Reported on 05/19/2018 ) Disp: 5 Pen Rfl: 11 empagliflozin (JARDIANCE) 25 mg tablet Take 1 tablet by mouth once daily. (Patient not taking: Reported on 02/13/2018 ) Disp: 90 tablet Rfl: 3 metFORMIN (GLUCOPHAGE) 500 mg tablet Take 1 tablet by mouth twice daily with meals. (Patient not taking: Reported on 04/19/2018 ) Disp: 180 tablet Rfl: 3 No current facility-administered medications for this visit. 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 Topics Smoking status: Never Smoker Smokeless tobacco: Never Used Alcohol use: No Drug use: No Other Topics Concern Caffeine Concern Yes Comment:coffee 3 cups daily, and energy drinks Special Diet Yes Comment:Poor diet Exercise No Comment: Exercises 1-2 days/wk Social History Narrative No reported history Family History Problem Relation Age of Onset - Hyperlipidemia Mother - Ischemic Heart Disease Father - Diabetes Father - Heart Father - Hyperlipidemia Father - Hypertension Father - Hyperlipidemia Paternal Grandmother - Hypertension Paternal Grandmother - Stroke Paternal Grandmother - other (Diabetes mellitus) Paternal Grandmother OBJECTIVE Vitals: BP 147/92 Pulse 116 Resp 16 Ht 175.3 cm (5' 9) Wt 120.7 kg (266 lb) BMI 39.28 kg/m? General: Alert, cooperative, well appearing, and in no apparent distress. Musculoskeletal: The patient's gait is normal Back: Inspection of the back demonstrates there is no obvious deformity or misalignment. There is bony tenderness along the lumbar vertebrae, none along the sacroiliac joints. There is bilateral paraspinal muscle tenderness. Range of motion testing demonstrates limited due to pain with flexion, extension, side bending and rotation of the back. Strength is 5/5 in the lower extremity bilaterally. Sensation is decreased throughout the right lower extremity. There is a positive right straight leg raise and femoral stretch test. The piriformis has normal flexibility and is non-tender. Skin: The skin is without jaundice. It is intact without pathologic lesions, erythema, vesicles, discharge or rash. Palpitation of the skin is normal without induration, subcutaneous nodules or tightening. Extremities: This is no clubbing, cyanosis or edema. Peripheral pulses are 2+. Return in about 4 weeks (around 07/10/2018). ASSESSMENT/PLAN: 1. Post laminectomy syndrome - ICD9: 722.80, ICD10: M96.1 (primary diagnosis) We discussed the natural history of this condition, differential diagnoses, and treatment options. Guidelines for activity were given. We discussed options for treatment including conservative care, medications with side effects and risks and benefits. The patient is doing well with the prescribed pain medications. The patient requests a refill today. Patient states medications provide adequate analgesia. The medications allow patient to maintain ADL's. Discussed with the patient about avoiding driving/operating vehicle while taking the medications. There are no adverse effects from the medications - discussed he cannot take more than prescribed and will not be able to fill early. Will refill his percocet today for when due Continue gabapentin, norflex and Mobic He is planning for LILI - GABAPENTIN 800 MG TABLET - OXYCODONE-ACETAMINOPHEN 7.5 MG-325 MG TABLET - ORPHENADRINE CITRATE ER 100 MG TABLET,EXTENDED RELEASE 2. Lumbosacral disc herniation - ICD9: 722.10, ICD10: M51.27 - GABAPENTIN 800 MG TABLET - OXYCODONE-ACETAMINOPHEN 7.5 MG-325 MG TABLET - ORPHENADRINE CITRATE ER 100 MG TABLET,EXTENDED RELEASE 3. Herniation of intervertebral disc between L4 and L5 - ICD9: 722.10, ICD10: M51.26 - OXYCODONE-ACETAMINOPHEN 7.5 MG-325 MG TABLET - ORPHENADRINE CITRATE ER 100 MG TABLET,EXTENDED RELEASE Lenore Flores MD CNOV Observed: 06/12/2018 Status: COMPLETED Source: [facility] 3:00 PM CLINIC OTHER [place] REPOSITORY Office Visit (SPAGBA) JOSE ARGUETA ([id number]) 1980 M Date Time Provider Department 06/12/18 3:00 PM LENORE FLORES During your visit today, we recorded the following information about you: Pulse Respiration Blood pressure Weight 116/minute 16/minute 147/92 120.7 kg Height 1.753 m [facility] Chappell 06/12/2018 3:14 PM Signed Review of Systems Eyes: Negative for blurred vision. Respiratory: Negative for shortness of breath.? Cardiovascular: Negative for chest pain. Negative for leg swelling. Gastrointestinal: Negative for constipation, diarrhea, nausea?and vomiting. Genitourinary: Negative for dysuria. Skin: Negative for itching. Neurological: Negative for headaches. Negative for dizziness, tingling?and weakness. Endo/Heme/Allergies: Negative for bruising/bleeding easily. Psychiatric/Behavioral: Negative for depression?and suicidal ideas. ROS entered by: NYLA Turner MD 06/12/2018 4:31 PM Signed Patient Name: Jose Argueta Patient : 1980 Patient Age: [age] year old CC: Patient presents with: Follow Up: medication refill, lower back pain SUBJECTIVE Patient presents for follow up of low back pain. The patient describes the pain as tender, shooting and achy 6/10. Activity is 2/10 walking. He has pain, numbness and tingling, without weakness radiating into the right lower extremity to the foot, as well as the left lower extremity to the calf. Pain is worse with standing and has some crunching and popping with extension which is painful, and bending or prolonged sitting. He has been taking Mobic, Norflex, Gabapentin and Percocet 3-4/day with some relief without side effects. Surgeon has placed C9 for diagnostic LILI. The patient denies any bowel or bladder dysfunction. The patient denies any chest pain or chest tightness. The constitutional, musculoskeletal, and neurological review of systems was negative unless otherwise noted. The patient's past medical history, allergies, medication list, social history, and family medical history were documented, updated, and reviewed in the chart. PDMP website checked and validated. All prescriptions have been APPROPRIATELY filled. No suspicious activity was identified. 06/12/2018 by Lenore Flores MD Low on pill count today Nursing Notes: Loy Chappell 06/12/2018 3:14 PM Signed Review of Systems Eyes: Negative for blurred vision. Respiratory: Negative for shortness of breath.? Cardiovascular: Negative for chest pain. Negative for leg swelling. Gastrointestinal: Negative for constipation, diarrhea, nausea?and vomiting. Genitourinary: Negative for dysuria. Skin: Negative for itching. Neurological: Negative for headaches. Negative for dizziness, tingling?and weakness. Endo/Heme/Allergies: Negative for bruising/bleeding easily. Psychiatric/Behavioral: Negative for depression?and suicidal ideas. ROS entered by: Samira Chappell MA MEDICATION NAME percocet STRENGTH 7.5 LAST FILL DATE 05/19/2018 DATE LAST DOSE TAKEN 06/12/18 QUANTITY FILLED 120 QUANTITY REMAINING 14 ALLERGIES Allergen Reactions - Clindamycin Hives Current Outpatient Prescriptions: gabapentin (NEURONTIN) 800 mg tablet Take 1 tablet by mouth three times daily for 90 days. Disp: 90 tablet Rfl: 2 [START ON 06/17/2018] oxyCODONE-acetaminophen (PERCOCET) 7.5- 325 mg tablet Take 1 tablet by mouth every 8 hours as needed for Pain (for pain.) for up to 30 days.Earliest Fill Date: 06/17/18 Disp: 90 tablet Rfl: 0 orphenadrine ER (NORFLEX) 100 mg tablet Take 1 tablet by mouth twice daily as needed for Muscle Spasm or Pain. Disp: 60 tablet Rfl: 2 meloxicam (MOBIC) 15 mg tablet Take 1 tablet by mouth once daily. Disp: 30 tablet Rfl: 2 insulin lispro (HUMALOG KWIKPEN INSULIN) 100 unit/mL inpn INJECT 1 UNIT PER 5 GRAMS OF CARBOHYDRATES WITH EACH MEAL (TOTAL MAXIMUM DAILY DOSE IS 80 UNITS) Disp: 25 Pen Rfl: 3 pravastatin (PRAVACHOL) 40 mg tablet Take 1 tablet by mouth once daily. Disp: 30 tablet Rfl: 11 TRESIBA FLEXTOUCH U-100 100 unit/mL (3 mL) injection INJECT 45 UNITS SUBCUTANEOUSLY EVERY 24 HOURS. Disp: 15 mL Rfl: 11 benazepril (LOTENSIN) 5 mg tablet 1 tablet every am and 2 tablets every pm Disp: 90 tablet Rfl: 11 aspirin, enteric coated (ADULT LOW DOSE ASPIRIN) 81 mg EC tablet Take 81 mg by mouth once daily. Disp: Rfl: omeprazole (PRILOSEC) 20 mg capsule Take 1 capsule by mouth once daily. Disp: Rfl: 0 Multivitamin capsule Take 1 capsule by mouth once daily. Disp: Rfl: insulin lispro (HUMALOG KWIKPEN INSULIN) 100 unit/mL inpn INJECT 1 UNIT PER 5 GRAMS OF CARBOHYDRATES WITH EACH MEAL (TOTAL MAXIMUM DAILY DOSE IS 55 UNITS) (Patient not taking: Reported on 05/19/2018 ) Disp: 5 Pen Rfl: 11 empagliflozin (JARDIANCE) 25 mg tablet Take 1 tablet by mouth once daily. (Patient not taking: Reported on 02/13/2018 ) Disp: 90 tablet Rfl: 3 metFORMIN (GLUCOPHAGE) 500 mg tablet Take 1 tablet by mouth twice daily with meals. (Patient not taking: Reported on 04/19/2018 ) Disp: 180 tablet Rfl: 3 No current facility-administered medications for this visit. 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 Topics Smoking status: Never Smoker Smokeless tobacco: Never Used Alcohol use: No Drug use: No Other Topics Concern Caffeine Concern Yes Comment:coffee 3 cups daily, and energy drinks Special Diet Yes Comment:Poor diet Exercise No Comment: Exercises 1-2 days/wk Social History Narrative No reported history Family History Problem Relation Age of Onset - Hyperlipidemia Mother - Ischemic Heart Disease Father - Diabetes Father - Heart Father - Hyperlipidemia Father - Hypertension Father - Hyperlipidemia Paternal Grandmother - Hypertension Paternal Grandmother - Stroke Paternal Grandmother - other (Diabetes mellitus) Paternal Grandmother OBJECTIVE Vitals: BP 147/92 Pulse 116 Resp 16 Ht 175.3 cm (5' 9) Wt 120.7 kg (266 lb) BMI 39.28 kg/m? General: Alert, cooperative, well appearing, and in no apparent distress. Musculoskeletal: The patient's gait is normal Back: Inspection of the back demonstrates there is no obvious deformity or misalignment. There is bony tenderness along the lumbar vertebrae, none along the sacroiliac joints. There is bilateral paraspinal muscle tenderness. Range of motion testing demonstrates limited due to pain with flexion, extension, side bending and rotation of the back. Strength is 5/5 in the lower extremity bilaterally. Sensation is decreased throughout the right lower extremity. There is a positive right straight leg raise and femoral stretch test. The piriformis has normal flexibility and is non-tender. Skin: The skin is without jaundice. It is intact without pathologic lesions, erythema, vesicles, discharge or rash. Palpitation of the skin is normal without induration, subcutaneous nodules or tightening. Extremities: This is no clubbing, cyanosis or edema. Peripheral pulses are 2+. Return in about 4 weeks (around 07/10/2018). ASSESSMENT/PLAN: 1. Post laminectomy syndrome - ICD9: 722.80, ICD10: M96.1 (primary diagnosis) We discussed the natural history of this condition, differential diagnoses, and treatment options. Guidelines for activity were given. We discussed options for treatment including conservative care, medications with side effects and risks and benefits. The patient is doing well with the prescribed pain medications. The patient requests a refill today. Patient states medications provide adequate analgesia. The medications allow patient to maintain ADL's. Discussed with the patient about avoiding driving/operating vehicle while taking the medications. There are no adverse effects from the medications - discussed he cannot take more than prescribed and will not be able to fill early. Will refill his percocet today for when due Continue gabapentin, norflex and Mobic He is planning for LILI - GABAPENTIN 800 MG TABLET - OXYCODONE-ACETAMINOPHEN 7.5 MG-325 MG TABLET - ORPHENADRINE CITRATE ER 100 MG TABLET,EXTENDED RELEASE 2. Lumbosacral disc herniation - ICD9: 722.10, ICD10: M51.27 - GABAPENTIN 800 MG TABLET - OXYCODONE-ACETAMINOPHEN 7.5 MG-325 MG TABLET - ORPHENADRINE CITRATE ER 100 MG TABLET,EXTENDED RELEASE 3. Herniation of intervertebral disc between L4 and L5 - ICD9: 722.10, ICD10: M51.26 - OXYCODONE-ACETAMINOPHEN 7.5 MG-325 MG TABLET - ORPHENADRINE CITRATE ER 100 MG TABLET,EXTENDED RELEASE MD Lenore White MD 06/12/2018 3:19 PM Addendum Opioid Pain Medication Information Sheet Opioids are drugs that are used to treat cancer pain. They include morphine (MSContin, MSIR, Roxanol); oxycodone (Oxycontin, Roxicodone, Percocet); hydromorphone (Dilaudid, Exalgo); fentanyl (Duragesic); hydrocodone (Hysingla, Zohydro, [place], Vicodin); buprenorphine (Butrans, Buprenex); and methadone. There are two types of opioids: long-acting and short-acting. Long-acting opioids are also called extended-release (ER) or controlled-release (CR). This means that the medication is slowly released over an 8- to 12-hour period or longer. Examples of these include MSContin and Oxycontin. These drugs are taken on a regular schedule to control pain. DO NOT BREAK OR CRUSH THESE TABLETS. Long-acting opioids also come in patch form (Fentanyl, buprenorphine). Opioid patches are strong drugs and should not be used for mild or occasional pain, or for pain from surgery. ? Do not use patches that are damaged or cut. ? You can shower and bathe with the patch in place. ? Do not expose the skin patch to heat (for example: hot tub, heating pad, sauna, electric blanket, heat lamps). Heat increases the amount of drug you absorb through your skin and may cause harmful effects. ? When removing the patch, fold it in half, sticky side in, and flush it down the toilet. Short-acting opioids are also called immediate-release. They usually take effect within an hour, and provide pain relief for four hours. You take short-acting opioids if your pain gets worse (5 on a scale of 1 to 10), which is called breakthrough pain. DO NOT WAIT UNTIL THE PAIN BECOMES SEVERE TO TAKE YOUR MEDICATION. What are the side effects of opioids? Like most drugs, opioids have side effects. The most common are nausea, vomiting, itching, and sleepiness. These side effects should go away in three to seven days as your body gets used to the medication. DO NOT DRIVE IF YOU FEEL DROWSY OR SLEEPY. All opioids cause constipation. Your caregiver will prescribe stool softeners and medicine to help prevent constipation. You can also do the following: ? Increase the amounts of fluids and fiber in your diet. ? Try to get more exercise and physical activity. ? Try to have a bowel movement around the same time each day to get your bowels to empty in a certain pattern. Can I become addicted to opioids? Addiction means that a person uses the drug to get ?high?, and cannot control the urge to take the drug. Taking medication for pain relief is NOT addiction. Your healthcare provider will discuss any concerns about becoming addicted to pain medications. Withdrawal If you stop taking your pain medication suddenly, you may develop withdrawal symptoms. These include flu-like symptoms, agitation, anxiety, abdominal cramping, nausea, and diarrhea. If you have stopped taking your pain medication for three days or more, do not start taking it again without talking to your healthcare provider. Overdose Combining opioids with alcohol or sedating pills (which make you sleepy) increases the risk of overdose. Symptoms of overdose include extreme sleepiness, slurred speech, and slow breathing (breathing may also stop). Call 911 or your local emergency service if you think you may have overdosed. Call 911 or your local emergency service if: ? You took too much medicine. ? You have trouble breathing and/or shortness of breath. ? A child accidentally took the medication. Call your healthcare provider if: ? Your pain is not being controlled with the dose that you are taking. ? You are having side effects. Other important information: ? Take your medicine exactly as prescribed. ? Only one healthcare provider should prescribe your pain medications. ? Make follow-up appointments with your healthcare provider. ? Keep medication away from children and store them in a safe place. ? Do not share your medications with anyone. ? Do not take medications that have not been prescribed for you. ? Do not stop taking your medication without talking to your healthcare provider. ? Do not drink alcohol while taking this medication. How do I dispose of opioids? DO NOT THROW UNUSED MEDICATION IN THE TRASH. You should return these medications through a take-back program or to a collection box or mail-back program authorized by the Drug Enforcement Administration. Authorized collection sites include retail pharmacies, hospital or clinic pharmacies, and law enforcement locations. This website provides a list of locations where you can safely dispose of opioids: https://www.deadiversion.[employer].gov/pubdispsearch If a take-back program is not available, flush unused medicines down the toilet or sink. Referring Provider: LENORE FLORES [[id number]] Allergies As of Date: 06/12/2018 Noted Allergy Reaction CLINDAMYCIN 03/29/2016 4 - Hives Date Reviewed: 06/12/2018 Reviewed by: Lenore Flores - Fully Assessed Reason for Visit: Follow Up [171] Cmt: medication refill, lower back pain Primary Visit Diagnosis:Post laminectomy syndrome [M96.1] Other Visit Diagnoses:Lumbosacral disc herniation [M51.27] Herniation of intervertebral disc between L4 and L5 [M51.26] Order(s):gabapentin (NEURONTIN) 800 mg tabletTake 1 tablet by mouth three times daily for 90 days.Disp: 90 tabletRfl: 2 [START ON 06/17/2018] oxyCODONE-acetaminophen (PERCOCET) 7.5-325 mg tabletTake 1 tablet by mouth every 8 hours as needed for Pain (for pain.) for up to 30 days. Earliest Fill Date: 06/17/18Disp: 90 tabletRfl: 0 orphenadrine ER (NORFLEX) 100 mg tabletTake 1 tablet by mouth twice daily as needed for Muscle Spasm or Pain.Disp: 60 tabletRfl: 2 Prescriptions as of 06/12/2018 Sig: GABAPENTIN 800 MG TABLET Take 1 tablet by mouth three * OXYCODONE-ACETAMINOPHEN 7.5 M* Take 1 tablet by mouth every * ORPHENADRINE CITRATE ER 100 M* Take 1 tablet by mouth twice * MELOXICAM 15 MG TABLET Take 1 tablet by mouth once d* INSULIN LISPRO (U-100) 100 UN* INJECT 1 UNIT PER 5 GRAMS OF * PRAVASTATIN 40 MG TABLET Take 1 tablet by mouth once d* TRESIBA FLEXTOUCH U-100 INSUL* INJECT 45 UNITS SUBCUTANEOUSL* BENAZEPRIL 5 MG TABLET 1 tablet every am and 2 table* ASPIRIN 81 MG TABLET,DELAYED * Take 81 mg by mouth once eliecer* OMEPRAZOLE 20 MG CAPSULE,JOSÉ ANTONIO* Take 1 capsule by mouth once * MULTIVITAMIN CAPSULE Take 1 capsule by mouth once * INSULIN LISPRO (U-100) 100 UN* INJECT 1 UNIT PER 5 GRAMS OF * Patient not taking: Reported on 05/19/2018 EMPAGLIFLOZIN 25 MG TABLET Take 1 tablet by mouth once d* Patient not taking: Reported on 02/13/2018 METFORMIN 500 MG TABLET Take 1 tablet by mouth twice * Patient not taking: Reported on 04/19/2018 Problem List As Of Date 06/12/2018 Noted Resolved Herniation of intervertebral disc between L4 an*INVALID FOR* Priority: A More... Displacement of lumbar intervertebral disc with*INVALID FOR* Sprain of lumbar region [S33.5XXA] INVALID FOR* Type 1 diabetes mellitus [E10.9] Priority: B More... Vitamin D deficiency [E55.9] Hyperlipidemia [E78.5] HTN (hypertension) [I10] Priority: C More... Spondylolisthesis, lumbar region [M43.16] INVALID FOR* High cholesterol [E78.00] Post laminectomy syndrome [M96.1] INVALID FOR* Lumbosacral disc herniation [M51.27] INVALID FOR* Herniation of intervertebral disc between L5 an*INVALID FOR* Other instructions from your clinician: Opioid Pain Medication Information Sheet Opioids are drugs that are used to treat cancer pain. They include morphine (MSContin, MSIR, Roxanol); oxycodone (Oxycontin, Roxicodone, Percocet); hydromorphone (Dilaudid, Exalgo); fentanyl (Duragesic); hydrocodone (Hysingla, Zohydro, [place], Vicodin); buprenorphine (Butrans, Buprenex); and methadone. There are two types of opioids: long-acting and short-acting. Long-acting opioids are also called extended-release (ER) or controlled-release (CR). This means that the medication is slowly released over an 8- to 12-hour period or longer. Examples of these include MSContin and Oxycontin. These drugs are taken on a regular schedule to control pain. DO NOT BREAK OR CRUSH THESE TABLETS. Long-acting opioids also come in patch form (Fentanyl, buprenorphine). Opioid patches are strong drugs and should not be used for mild or occasional pain, or for pain from surgery. ? Do not use patches that are damaged or cut. ? You can shower and bathe with the patch in place. ? Do not expose the skin patch to heat (for example: hot tub, heating pad, sauna, electric blanket, heat lamps). Heat increases the amount of drug you absorb through your skin and may cause harmful effects. ? When removing the patch, fold it in half, sticky side in, and flush it down the toilet. Short-acting opioids are also called immediate-release. They usually take effect within an hour, and provide pain relief for four hours. You take short-acting opioids if your pain gets worse (5 on a scale of 1 to 10), which is called breakthrough pain. DO NOT WAIT UNTIL THE PAIN BECOMES SEVERE TO TAKE YOUR MEDICATION. What are the side effects of opioids? Like most drugs, opioids have side effects. The most common are nausea, vomiting, itching, and sleepiness. These side effects should go away in three to seven days as your body gets used to the medication. DO NOT DRIVE IF YOU FEEL DROWSY OR SLEEPY. All opioids cause constipation. Your caregiver will prescribe stool softeners and medicine to help prevent constipation. You can also do the following: ? Increase the amounts of fluids and fiber in your diet. ? Try to get more exercise and physical activity. ? Try to have a bowel movement around the same time each day to get your bowels to empty in a certain pattern. Can I become addicted to opioids? Addiction means that a person uses the drug to get ?high?, and cannot control the urge to take the drug. Taking medication for pain relief is NOT addiction. Your healthcare provider will discuss any concerns about becoming addicted to pain medications. Withdrawal If you stop taking your pain medication suddenly, you may develop withdrawal symptoms. These include flu-like symptoms, agitation, anxiety, abdominal cramping, nausea, and diarrhea. If you have stopped taking your pain medication for three days or more, do not start taking it again without talking to your healthcare provider. Overdose Combining opioids with alcohol or sedating pills (which make you sleepy) increases the risk of overdose. Symptoms of overdose include extreme sleepiness, slurred speech, and slow breathing (breathing may also stop). Call 911 or your local emergency service if you think you may have overdosed. Call 911 or your local emergency service if: ? You took too much medicine. ? You have trouble breathing and/or shortness of breath. ? A child accidentally took the medication. Call your healthcare provider if: ? Your pain is not being controlled with the dose that you are taking. ? You are having side effects. Other important information: ? Take your medicine exactly as prescribed. ? Only one healthcare provider should prescribe your pain medications. ? Make follow-up appointments with your healthcare provider. ? Keep medication away from children and store them in a safe place. ? Do not share your medications with anyone. ? Do not take medications that have not been prescribed for you. ? Do not stop taking your medication without talking to your healthcare provider. ? Do not drink alcohol while taking this medication. How do I dispose of opioids? DO NOT THROW UNUSED MEDICATION IN THE TRASH. You should return these medications through a take-back program or to a collection box or mail-back program authorized by the Drug Enforcement Administration. Authorized collection sites include retail pharmacies, hospital or clinic pharmacies, and law enforcement locations. This website provides a list of locations where you can safely dispose of opioids: https://www.deadiversion.[employer].gov/pubdispsearch If a take-back program is not available, flush unused medicines down the toilet or sink. Visit Notes: >> Loy Chappell Mon Jun 12, 2018 3:13 PM Status: Signed Review of Systems Eyes: Negative for blurred vision. Respiratory: Negative for shortness of breath.? Cardiovascular: Negative for chest pain. Negative for leg swelling. Gastrointestinal: Negative for constipation, diarrhea, nausea?and vomiting. Genitourinary: Negative for dysuria. Skin: Negative for itching. Neurological: Negative for headaches. Negative for dizziness, tingling?and weakness. Endo/Heme/Allergies: Negative for bruising/bleeding easily. Psychiatric/Behavioral: Negative for depression?and suicidal ideas. ROS entered by: Samira Chappell MA Prescriptions ordered this encounter Disp Refills Start End GABAPENTIN 800 MG TABLET 90 t* 2 06/12/2018 09/10/2018 Route: ORAL Sig: Take 1 tablet by mouth three times daily for 90 days. OXYCODONE-ACETAMINOPHEN 7.5 MG-325 M* 90 t* 0 06/17/2018 07/17/2018 Class: Print RX Route: ORAL Sig: Take 1 tablet by mouth every 8 hours as needed for Pain (for pain.) for up to 30 days. Earliest Fill Date: 06/17/18 ORPHENADRINE CITRATE ER 100 MG TABLE* 60 t* 2 06/12/2018 09/10/2018 Route: ORAL Sig: Take 1 tablet by mouth twice daily as needed for Muscle Spasm or Pain. Medications Discontinued During This Encounter gabapentin (NEURONTIN) 800 mg tablet 90 t* 0 05/19/2018 06/12/2018 Route: ORAL Sig: Take 1 tablet by mouth three times daily for 30 days. Disc: Reason for discontinue is not on file. oxyCODONE-acetaminophen (PERCOCET) 7* 120 * 0 05/19/2018 06/12/2018 Class: Print RX Route: ORAL Sig: Take 1 tablet by mouth every 6 hours as needed for Pain (for pain.) for up to 30 days. Earliest Fill Date: 05/19/18 Disc: Reason for discontinue is not on file. orphenadrine ER (NORFLEX) 100 mg tab* 60 t* 0 05/19/2018 06/12/2018 Route: ORAL Sig: Take 1 tablet by mouth twice daily as needed for Muscle Spasm or Pain. Disc: Reason for discontinue is not on file. Disposition: Return in about 4 weeks (around 07/10/2018). Follow-up and Disposition History Recorded Questionnaire: AG SPINE PAIN PILL COUNT MEDICATION NAME -> percocet STRENGTH -> 7.5 LAST FILL DATE -> 05/19/2018 DATE LAST DOSE TAKEN -> 06/12/18 QUANTITY FILLED -> 120 QUANTITY REMAINING -> 14 Encounter Status:Closed by LENORE FLORES MD on 06/12/18 [place] Observed: 06/12/2018 Status: COMPLETED Source: [facility] 12:00 AM [facility] RE[facility] Telephone ([place]) JOSE ARGUETA ([id number]) 1980 M Date Time Provider Department 06/12/18 LENORE FLORES During your visit today, we recorded the following information about you: Vj Garay MA 06/12/2018 4:11 PM Signed Patient called and left message wanting to know if he could have qty 120 for his percocet so he could take an extra prn if he is in a lot pain. Patient states that the script you gave him was only for qty 90 NYLA Chance CMA 06/13/2018 9:28 AM Addendum Patient called lm again this morning about same question below. Call was forwarded from . TASHA Rosario MD 06/13/2018 9:36 AM Signed No he needs to stick with the 3/day and follow up with his surgeon about the C9 for his epidural Hyacinth Sandra 06/13/2018 9:56 AM Signed Patient notified of the message below. He voiced his understanding. Hyacinth Flores Allergies As of Date: 06/12/2018 Noted Allergy Reaction CLINDAMYCIN 03/29/2016 4 - Hives Date Reviewed: 06/12/2018 Reviewed by: Lenore Flores - Fully Assessed Reason for Visit: Medication Question [1478] Prescriptions as of 06/12/2018 Sig: GABAPENTIN 800 MG TABLET Take 1 tablet by mouth three * OXYCODONE-ACETAMINOPHEN 7.5 M* Take 1 tablet by mouth every * ORPHENADRINE CITRATE ER 100 M* Take 1 tablet by mouth twice * MELOXICAM 15 MG TABLET Take 1 tablet by mouth once d* INSULIN LISPRO (U-100) 100 UN* INJECT 1 UNIT PER 5 GRAMS OF * INSULIN LISPRO (U-100) 100 UN* INJECT 1 UNIT PER 5 GRAMS OF * Patient not taking: Reported on 05/19/2018 PRAVASTATIN 40 MG TABLET Take 1 tablet by mouth once d* EMPAGLIFLOZIN 25 MG TABLET Take 1 tablet by mouth once d* Patient not taking: Reported on 02/13/2018 METFORMIN 500 MG TABLET Take 1 tablet by mouth twice * Patient not taking: Reported on 04/19/2018 TRESIBA FLEXTOUCH U-100 INSUL* INJECT 45 UNITS SUBCUTANEOUSL* BENAZEPRIL 5 MG TABLET 1 tablet every am and 2 table* ASPIRIN 81 MG TABLET,DELAYED * Take 81 mg by mouth once eliecer* OMEPRAZOLE 20 MG CAPSULE,JOSÉ ANTONIO* Take 1 capsule by mouth once * MULTIVITAMIN CAPSULE Take 1 capsule by mouth once * Problem List As Of Date 06/12/2018 Noted Resolved Herniation of intervertebral disc between L4 an*INVALID FOR* Priority: A More... Displacement of lumbar intervertebral disc with*INVALID FOR* Sprain of lumbar region [S33.5XXA] INVALID FOR* Type 1 diabetes mellitus [E10.9] Priority: B More... Vitamin D deficiency [E55.9] Hyperlipidemia [E78.5] HTN (hypertension) [I10] Priority: C More... Spondylolisthesis, lumbar region [M43.16] INVALID FOR* High cholesterol [E78.00] Post laminectomy syndrome [M96.1] INVALID FOR* Lumbosacral disc herniation [M51.27] INVALID FOR* Herniation of intervertebral disc between L5 an*INVALID FOR* Encounter Status:Closed by VJ GARAY MA on 06/12/18 ABDOMEN LIMITED Observed: 06/10/2018 Status: F Source: [place] 9:[address] [facility] REPOSITORY [facility] Imaging Services [address] [place] [id number] Abdomen Limited MR#: [id number] Acct: [id number] Name: JOSE ARGUETA Rep #: [id number] : 1980 M 37 From: Ludwin Hernandez MD PCP: Herminio Rubio MD Status: REG CLI Study: Abdomen Limited Date of Exam: 06/10/18 Exam# [id number] Ordering Dr: Herminio Rubio MD HISTORY: ELEVATED LFTS TECHNIQUE: Miller scale and color doppler imaging was performed of the gallbladder. COMPARISON: None FINDINGS: The gallbladder is adequately distended and shows no internal echoes, wall thickening, or pericholecystic edema. The common duct measures 3 mm in diameter which is normal. Visualized portions of the liver and pancreas are unremarkable. No ascites. The right kidney is visualized and appears normal. No hydronephrosis. US/Abdomen Limited IMPRESSION: Normal gallbladder ultrasound. at 0631 Reported and signed by: Ludwin Hernandez MD Electronically Signed: Ludwin Hernandez, at 6:28 EST Tel , Service support , CC: Herminio Rubio MD Screen And Cyclone Repairer: Signed OBSOLETE Observed: 06/03/2018 Status: COMPLETED Source: [place] 12:00 AM [facility] [place] REPOSITORY Refill (AGSPINE3) JOSE ARGUETA ([id number]) 1980 M Date Time Provider Department 06/03/18 KALIN LOPEZ ([facility]) AGSPINE3 During your visit today, we recorded the following information about you: Allergies As of Date: 06/03/2018 Noted Allergy Reaction CLINDAMYCIN 03/29/2016 4 - Hives Date Reviewed: 05/19/2018 Reviewed by: Lenore Flores - Fully Assessed Reason for Visit: Refill Request [94] Visit Diagnosis:Post laminectomy syndrome [M96.1] Prescriptions as of 06/03/2018 Sig: OXYCODONE-ACETAMINOPHEN 7.5 M* Take 1 tablet by mouth every * ORPHENADRINE CITRATE ER 100 M* Take 1 tablet by mouth twice * MELOXICAM 15 MG TABLET Take 1 tablet by mouth once d* GABAPENTIN 800 MG TABLET Take 1 tablet by mouth three * INSULIN LISPRO (U-100) 100 UN* INJECT 1 UNIT PER 5 GRAMS OF * INSULIN LISPRO (U-100) 100 UN* INJECT 1 UNIT PER 5 GRAMS OF * Patient not taking: Reported on 05/19/2018 PRAVASTATIN 40 MG TABLET Take 1 tablet by mouth once d* EMPAGLIFLOZIN 25 MG TABLET Take 1 tablet by mouth once d* Patient not taking: Reported on 02/13/2018 METFORMIN 500 MG TABLET Take 1 tablet by mouth twice * Patient not taking: Reported on 04/19/2018 TRESIBA FLEXTOUCH U-100 INSUL* INJECT 45 UNITS SUBCUTANEOUSL* BENAZEPRIL 5 MG TABLET 1 tablet every am and 2 table* ASPIRIN 81 MG TABLET,DELAYED * Take 81 mg by mouth once eliecer* OMEPRAZOLE 20 MG CAPSULE,JOSÉ ANTONIO* Take 1 capsule by mouth once * MULTIVITAMIN CAPSULE Take 1 capsule by mouth once * Problem List As Of Date 06/03/2018 Noted Resolved Herniation of intervertebral disc between L4 an*INVALID FOR* Priority: A More... Displacement of lumbar intervertebral disc with*INVALID FOR* Sprain of lumbar region [S33.5XXA] INVALID FOR* Type 1 diabetes mellitus [E10.9] Priority: B More... Vitamin D deficiency [E55.9] Hyperlipidemia [E78.5] HTN (hypertension) [I10] Priority: C More... Spondylolisthesis, lumbar region [M43.16] INVALID FOR* High cholesterol [E78.00] Post laminectomy syndrome [M96.1] INVALID FOR* Lumbosacral disc herniation [M51.27] INVALID FOR* Herniation of intervertebral disc between L5 an*INVALID FOR* Encounter Status:Closed by LENORE FLORES MD on 06/05/18 [place] Observed: 05/31/2018 Status: COMPLETED Source: [place] 12:00 AM [facility] REPOSITORY Telephone (SPOHMN) JOSE ARGUETA ([id number]) 1980 M Date Time Provider Department 05/31/18 SEDRICK [place] [facility] During your visit today, we recorded the following information about you: Davina Calderon [facility] 05/31/2018 12:29 PM Signed Pt called stating that he was not sure if he needed to be seen on 06/05 since this was supposed to be a follow up after his CT. Pt sts the Pa called him with the results of the CT over the phone. Pt also sts that he had an MRI done in which he have not received the results. Pt is asking do he need to come in on 06/05? # [phone] Rebecca Knight 06/01/2018 9:08 AM Signed Informed patient to keep his appt to review the MRI with Wendie. Patient is interested in surgery. Wendie Calderon PA-C 06/02/2018 9:08 AM Signed Reviewed imaging. Right sided disc at L5/S1, would recommend injection. Will submit C9. Patient is okay with plan. Rebecca Rockwellisaac 06/02/2018 9:22 AM Signed Spoke to patient and let him know that he does not need to see Wendie on 06/05/18. Gave him results of MRI per Wendie MENDEZ Next step is getting ok from [facility] to have the injection done. Allergies As of Date: 05/31/2018 Noted Allergy Reaction CLINDAMYCIN 03/29/2016 4 - Hives Date Reviewed: 05/19/2018 Reviewed by: Lenore Flores - Fully Assessed Reason for Visit: Question [7887] Primary Visit Diagnosis:Herniation of intervertebral disc between L4 and L5 [M51.26] Other Visit Diagnosis:Displacement of lumbar intervertebral disc without myelopathy [M51.26] Order(s):CONSULT TO SPINE INTERVENTION [5100232] Order #: [id number]: 1 Prescriptions as of 05/31/2018 Sig: OXYCODONE-ACETAMINOPHEN 7.5 M* Take 1 tablet by mouth every * ORPHENADRINE CITRATE ER 100 M* Take 1 tablet by mouth twice * MELOXICAM 15 MG TABLET Take 1 tablet by mouth once d* GABAPENTIN 800 MG TABLET Take 1 tablet by mouth three * INSULIN LISPRO (U-100) 100 UN* INJECT 1 UNIT PER 5 GRAMS OF * INSULIN LISPRO (U-100) 100 UN* INJECT 1 UNIT PER 5 GRAMS OF * Patient not taking: Reported on 05/19/2018 PRAVASTATIN 40 MG TABLET Take 1 tablet by mouth once d* EMPAGLIFLOZIN 25 MG TABLET Take 1 tablet by mouth once d* Patient not taking: Reported on 02/13/2018 METFORMIN 500 MG TABLET Take 1 tablet by mouth twice * Patient not taking: Reported on 04/19/2018 TRESIBA FLEXTOUCH U-100 INSUL* INJECT 45 UNITS SUBCUTANEOUSL* BENAZEPRIL 5 MG TABLET 1 tablet every am and 2 table* ASPIRIN 81 MG TABLET,DELAYED * Take 81 mg by mouth once eliecer* OMEPRAZOLE 20 MG CAPSULE,JOSÉ ANTONIO* Take 1 capsule by mouth once * MULTIVITAMIN CAPSULE Take 1 capsule by mouth once * Problem List As Of Date 05/31/2018 Noted Resolved Herniation of intervertebral disc between L4 an*INVALID FOR* Priority: A More... Displacement of lumbar intervertebral disc with*INVALID FOR* Sprain of lumbar region [S33.5XXA] INVALID FOR* Type 1 diabetes mellitus [E10.9] Priority: B More... Vitamin D deficiency [E55.9] Hyperlipidemia [E78.5] HTN (hypertension) [I10] Priority: C More... Spondylolisthesis, lumbar region [M43.16] INVALID FOR* High cholesterol [E78.00] Post laminectomy syndrome [M96.1] INVALID FOR* Lumbosacral disc herniation [M51.27] INVALID FOR* Herniation of intervertebral disc between L5 an*INVALID FOR* Encounter Status:Closed by WENDIE CALDERON PA-C on 06/02/18 CBC W/DIFF, AUTOMATED Collected: 05/30/2018 Status: F Source: [place] 2:[address] [facility] REPOSITORY TYPE CODE TESTS RESULT OUT OF RANGE REFERENCE UNITS LAB L100.1000 4.4-11.0 K/mm3 Normal WBC 7.3 LAB L100.1200 4.6-6.2 M/mm3 Normal RBC 4.81 LAB L100.1300 13.0-16.5 g/dl Normal HGB 13.6 LAB L100.1400 40-54 % Normal HCT 41.5 LAB L100.1500 80-94 fL Normal MCV 86.3 LAB L100.1600 27.0-32.0 pg Normal MCH 28.3 LAB L100.1700 32-36 g/gl Normal MCHC 32.8 LAB L100.1810 11.6-14.6 % Normal RDW CV 13.2 LAB L100.1820 35.1-43.9 fl Normal RDW SD 41.2 LAB L100.1900 150-450 K/mm3 Normal PLT 267 LAB L100.2000 6.2-12.0 fl Normal MPV 10.7 LAB L100.2100 47-70 % Normal NEUT% 55.5 LAB L100.2200 19-41 % Normal LY% 32.7 LAB L100.2300 0-10 % Normal MONO% 6.2 LAB L100.2400 0-5 % High EO% 5.4 LAB L100.2500 0-1 % Normal BASO% 0.1 LAB L100.2550 0.0-0.9 % Normal IM GRAN % 0.100 Result Comment: IG% - Immature Granulocytes (promyelocytes, myelocytes and metamyelocytes) > 1% indicates that a LEFT SHIFT is Present. LAB L100.2620 2.0-7.7 X10 3/uL Normal Absolute Neut 4.0 LAB L100.2720 0.83-4.51 X10 3/ul Normal Absolute Lymph 2.38 Performed By: #### L100.0100 #### [facility] [address] [place], [address] COMPREHENSIVE METABOLIC Collected: 05/30/2018 Status: F Source: [facility] 2:[address] [facility] REPOSITORY TYPE CODE TESTS RESULT OUT OF RANGE REFERENCE UNITS LAB L501.0100 74-106 mg/dL High GLU 123 Result Comment: Fasting Glucose result from 100 to 125 mg/dL suggests IMPAIRED HOMEOSTASIS per A.D.A. criteria. Please note revised GLUCOSE reference range effective 2017. LAB L501.1000 7-18 mg/dL Normal BUN 11 LAB L501.1100 0.70-1.30 mg/dL Normal CREAT,SERUM 0.94 Result Comment: The validity of the calculated GFR AND GFRAA in patients over 70 years has not been determined. Clinical correlation is essential. LAB L501.1110 >60 mL/min Normal EST GFR 96 Result Comment: Non- GFR Calc LAB L501.1115 >60 mL/min Normal EST GFR - AA 116 Result Comment: GFR Calc LAB L501.1300 10-20 RATIO Normal BUN/CRE 11.7 LAB L501.1500 6.4-8.2 g/dL T Normal PROT 7.5 LAB L501.1800 3.2-5.0 g/dL Normal ALB 3.9 LAB L501.1950 2.2-4.2 g/dL Normal GLOB 3.6 LAB L501.2000 0.9-2.4 RATIO Normal A/G 1.1 LAB L501.2200 8.5-10.1 mg/dL CA Normal 9.3 LAB L501.4100 15-37 U/L High AST 46 LAB L501.4305 45-117 U/L Normal ALK P 95 LAB L501.4405 16-61 U/L High ALT 74 LAB L501.4600 0.20-1.00 mg/dL T Normal BILI 0.40 LAB L501.5300 136-145 mmol/L NA Normal 139 LAB L501.5600 3.5-5.1 mmol/L K Normal 4.1 LAB L501.5900 98-107 mmol/L CL Normal 102 LAB L501.6100 21.0-32.0 mmol/L Normal CO2 26.0 LAB L501.6200 5-15 Normal GAP 11 Performed By: #### L500.4050, L501.9520 #### [facility] [address] [place], [place], [address] THYROID STIM HORMONE Collected: 05/30/2018 Status: F Source: [place] ([facility]) 2:[address] [facility] REPOSITORY TYPE CODE TESTS RESULT OUT OF RANGE REFERENCE UNITS LAB L501.9520 0.358-3.74 uIU/mL Normal TSH 2.65 Performed By: #### L500.4050, L501.9520 #### [facility] [address] [place], [address] MRI LUMBAR SPINE W/O Observed: 05/22/2018 Status: F Source: [facility] CONTRAST [id number] 7:21 AM [facility] REPOS[facility]ORY Performed at [facility] APPROVED BY: Shyam Farfan MD EXAMINATION: MRI LUMBAR SPINE WITHOUT CONTRAST CLINICAL HISTORY: Spinal stenosis of lumbar region, unspecified whether neurogenic claudication present. TECHNIQUE: Routine lumbosacral spine MR protocol without gadolinium. MQ: [id number] COMPARISON: MR lumbar spine 11/01/2015. RESULT: Counting reference: Lumbosacral junction. For the purposes of this report, L4-5 is considered the level of the iliac crest and there are 5 lumbar-type vertebrae. Anatomic Variants: None. Alignment: L4-L5 minimal retrolisthesis, stable. Bone marrow signal/fracture: Prior L4 laminectomy. Bilateral pedicle screw and posterior germain fixation at the L4 and L5 levels. Interbody spacer in the L4-L5 disc. No evidence of pathologic marrow inf iltration. No evidence of prior fracture. Conus: The conus is within normal limits of signal intensity and morphology. Paraspinal soft tissues: Paraspinal soft tissues are within normal limits. Lower thoracic spine: Visualized lower thoracic canal and foramina are patent. T12-L1: Canal and foramina are patent. L1-L2: Canal and foramina are patent. L2-L3: Canal and foramina are patent L3-L4: Minimal disc bulging and congenital stenosis. Overall moderate narrowing of the thecal sac. L4-L5: Prior laminectomy. Minimal retrolisthesis. Borderline central canal stenosis. No gross neural foraminal narrowing. L5-S1: Mild broad-based right paracentral disc protrusion with possible contact with the right S1 nerve root. Borderline central canal stenosis. Probable mild bilateral neural foraminal narrowing. Sacrum and iliac wings: The visualized sacrum and iliac wings are within normal limits. IMPRESSION: L5-S1 broad-based right paracentral disc protrusion with possible mass effect on right S1 nerve root. Probable mild bilateral neural foraminal narrowing. Borderline central canal stenosis. L4-L5 borderline central canal stenosis. Minimal retrolisthesis. Status post laminectomy with L4-L5 pedicle screw fixation. L3-L4 moderate narrowing of thecal sac due to congenital stenosis and minimal diffuse disc bulging. Evaluation for epidural scar limited due to lack of intravenous gadolinium administration. Anatomic Variant: None. L4-5 is considered the level of the iliac crest and assume there are 5 lumbar-type vertebrae. CNOV Observed: 05/19/2018 Status: COMPLETED Source: [place] 8:15 AM [facility] REPOSITORY Office Visit (SPAGBA) JOSE ARGUETA ([id number]) 1980 M Date Time Provider Department 05/19/18 8:15 AM LENORE FLORES During your visit today, we recorded the following information about you: Pulse Respiration Blood pressure Weight 100/minute 17/minute 175/100 120.7 kg Height 1.753 m Lenore Flores MD 05/19/2018 9:12 AM Signed Patient Name: Jose Argueta Patient : 1980 Patient Age: [age] year old CC: Patient presents with: Follow Up: medication refil SUBJECTIVE Patient presents for follow up of low back pain. The patient describes the pain as tender, shooting and achy 02/14. Activity is 3/10 walking. He has pain, numbness and tingling, without weakness radiating into the right lower extremity to the foot, as well as the left lower extremity to the calf. Pain is worse with standing and has some crunching and popping with extension which is painful, and bending or prolonged sitting. States he has to lay down after work and cannot play with his son due to pain. He has been taking Mobic, Norflex, Gabapentin and Percocet 3/day with some relief without side effects. He is getting an updated MRI and then following up with his surgeon later this month. The patient denies any bowel or bladder dysfunction. The patient denies any chest pain or chest tightness. The constitutional, musculoskeletal, and neurological review of systems was negative unless otherwise noted. The patient's past medical history, allergies, medication list, social history, and family medical history were documented, updated, and reviewed in the chart. PDMP website checked and validated. All prescriptions have been APPROPRIATELY filled. No suspicious activity was identified. 05/19/2018 by Lenore Flores MD 04/[address] IMPRESSION: 1. Postoperative changes of posterior decompression and anterior and posterior fusion at L4-5 as above. ?Surgical hardware is intact. ?Evaluation of the L4-5 level is somewhat limited due to streak artifact from the surgical hardware. ? 2. ?At L3-4, minimal disc bulging and mild ligamentum flavum hypertrophy cause mild central canal stenosis. ? 3. ?Mild degenerative disc disease at L5-S1. ?Posterior midline disc protrusion at ?this level impresses on the ventral thecal sac causing at least mild thecal sac narrowing. ?There is mild/moderate bilateral foraminal narrowing at this level. ? Anatomic Variant: None. ?L4-5 is considered the level of the iliac crest and assume there are 5 lumbar-type vertebrae. Nursing Notes: Loy Chappell 05/19/2018 8:18 AM Signed Review of Systems Eyes: Negative for blurred vision. Respiratory: Negative for shortness of breath.? Cardiovascular: Negative for chest pain. Negative for leg swelling. Gastrointestinal: Negative for constipation, diarrhea, nausea?and vomiting. Genitourinary: Negative for dysuria. Skin: Negative for itching. Neurological: Negative for headaches. Negative for dizziness, tingling?and weakness. Endo/Heme/Allergies: Negative for bruising/bleeding easily. Psychiatric/Behavioral: Negative for depression?and suicidal ideas. ROS entered by: Samira Chappell MA MEDICATION NAME percocet STRENGTH 7.5 LAST FILL DATE 04/19/2018 DATE LAST DOSE TAKEN 05/18/18 QUANTITY FILLED 90 QUANTITY REMAINING 1 ALLERGIES Allergen Reactions - Clindamycin Hives Current Outpatient Prescriptions: insulin lispro (HUMALOG KWIKPEN INSULIN) 100 unit/mL inpn INJECT 1 UNIT PER 5 GRAMS OF CARBOHYDRATES WITH EACH MEAL (TOTAL MAXIMUM DAILY DOSE IS 80 UNITS) Disp: 25 Pen Rfl: 3 pravastatin (PRAVACHOL) 40 mg tablet Take 1 tablet by mouth once daily. Disp: 30 tablet Rfl: 11 TRESIBA FLEXTOUCH U-100 100 unit/mL (3 mL) injection INJECT 45 UNITS SUBCUTANEOUSLY EVERY 24 HOURS. Disp: 15 mL Rfl: 11 benazepril (LOTENSIN) 5 mg tablet 1 tablet every am and 2 tablets every pm Disp: 90 tablet Rfl: 11 aspirin, enteric coated (ADULT LOW DOSE ASPIRIN) 81 mg EC tablet Take 81 mg by mouth once daily. Disp: Rfl: omeprazole (PRILOSEC) 20 mg capsule Take 1 capsule by mouth once daily. Disp: Rfl: 0 Multivitamin capsule Take 1 capsule by mouth once daily. Disp: Rfl: oxyCODONE-acetaminophen (PERCOCET) 7.5-325 mg tablet Take 1 tablet by mouth every 6 hours as needed for Pain (for pain.) for up to 30 days.Earliest Fill Date: 05/19/18 Disp: 120 tablet Rfl: 0 orphenadrine ER (NORFLEX) 100 mg tablet Take 1 tablet by mouth twice daily as needed for Muscle Spasm or Pain. Disp: 60 tablet Rfl: 0 meloxicam (MOBIC) 15 mg tablet Take 1 tablet by mouth once daily. Disp: 30 tablet Rfl: 2 gabapentin (NEURONTIN) 800 mg tablet Take 1 tablet by mouth three times daily for 30 days. Disp: 90 tablet Rfl: 0 insulin lispro (HUMALOG KWIKPEN INSULIN) 100 unit/mL inpn INJECT 1 UNIT PER 5 GRAMS OF CARBOHYDRATES WITH EACH MEAL (TOTAL MAXIMUM DAILY DOSE IS 55 UNITS) (Patient not taking: Reported on 05/19/2018 ) Disp: 5 Pen Rfl: 11 empagliflozin (JARDIANCE) 25 mg tablet Take 1 tablet by mouth once daily. (Patient not taking: Reported on 02/13/2018 ) Disp: 90 tablet Rfl: 3 metFORMIN (GLUCOPHAGE) 500 mg tablet Take 1 tablet by mouth twice daily with meals. (Patient not taking: Reported on 04/19/2018 ) Disp: 180 tablet Rfl: 3 No current facility-administered medications for this visit. 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 Topics Smoking status: Never Smoker Smokeless tobacco: Never Used Alcohol use: No Drug use: No Other Topics Concern Caffeine Concern Yes Comment:coffee 3 cups daily, and energy drinks Special Diet Yes Comment:Poor diet Exercise No Comment: Exercises 1-2 days/wk Social History Narrative No reported history Family History Problem Relation Age of Onset - Hyperlipidemia Mother - Ischemic Heart Disease Father - Diabetes Father - Heart Father - Hyperlipidemia Father - Hypertension Father - Hyperlipidemia Paternal Grandmother - Hypertension Paternal Grandmother - Stroke Paternal Grandmother - other (Diabetes mellitus) Paternal Grandmother OBJECTIVE Vitals: BP 175/100 Pulse 100 Resp 17 Ht 175.3 cm (5' 9) Wt 120.7 kg (266 lb) BMI 39.28 kg/m? General: Alert, cooperative, well appearing, and in no apparent distress. Musculoskeletal: The patient's gait is normal Back: Inspection of the back demonstrates there is no obvious deformity or misalignment. There is bony tenderness along the lumbar vertebrae, none along the sacroiliac joints. There is bilateral paraspinal muscle tenderness. Range of motion testing demonstrates limited due to pain with flexion, extension, side bending and rotation of the back. Strength is 5/5 in the lower extremity bilaterally. Sensation is decreased throughout the right lower extremity. There is a positive right straight leg raise and femoral stretch test. The piriformis has normal flexibility and is non-tender. Skin: The skin is without jaundice. It is intact without pathologic lesions, erythema, vesicles, discharge or rash. Palpitation of the skin is normal without induration, subcutaneous nodules or tightening. Extremities: This is no clubbing, cyanosis or edema. Peripheral pulses are 2+. Return in about 4 weeks (around 06/16/2018). ASSESSMENT/PLAN: 1. Post laminectomy syndrome - ICD9: 722.80, ICD10: M96.1 (primary diagnosis) We discussed the natural history of this condition, differential diagnoses, and treatment options. Guidelines for activity were given. We discussed options for treatment including conservative care, medications with side effects and risks and benefits. The patient is doing well with the prescribed pain medications. The patient requests a refill today. Patient states medications provide adequate analgesia. The medications allow patient to maintain ADL's. Discussed with the patient about avoiding driving/operating vehicle while taking the medications. There are no adverse effects from the medications and no aberrant behaviors are noted. Will refill his percocet today with slight increase this month with plan to decrease after next month Continue gabapentin- increase to 800 TID, norflex and Mobic Follows up with his surgeon. - OXYCODONE-ACETAMINOPHEN 7.5 MG-325 MG TABLET - ORPHENADRINE CITRATE ER 100 MG TABLET,EXTENDED RELEASE - MELOXICAM 15 MG TABLET 2. Lumbosacral disc herniation - ICD9: 722.10, ICD10: M51.27 - OXYCODONE-ACETAMINOPHEN 7.5 MG-325 MG TABLET - ORPHENADRINE CITRATE ER 100 MG TABLET,EXTENDED RELEASE 3. Herniation of intervertebral disc between L4 and L5 - ICD9: 722.10, ICD10: M51.26 - OXYCODONE-ACETAMINOPHEN 7.5 MG-325 MG TABLET - ORPHENADRINE CITRATE ER 100 MG TABLET,EXTENDED RELEASE MD Loy White ([facility] Chappell 05/19/2018 8:18 AM Signed Review of Systems Eyes: Negative for blurred vision. Respiratory: Negative for shortness of breath.? Cardiovascular: Negative for chest pain. Negative for leg swelling. Gastrointestinal: Negative for constipation, diarrhea, nausea?and vomiting. Genitourinary: Negative for dysuria. Skin: Negative for itching. Neurological: Negative for headaches. Negative for dizziness, tingling?and weakness. Endo/Heme/Allergies: Negative for bruising/bleeding easily. Psychiatric/Behavioral: Negative for depression?and suicidal ideas. ROS entered by: NYLA Turner MD 05/19/2018 8:31 AM Addendum Opioid Pain Medication Information Sheet Opioids are drugs that are used to treat cancer pain. They include morphine (MSContin, MSIR, Roxanol); oxycodone (Oxycontin, Roxicodone, Percocet); hydromorphone (Dilaudid, Exalgo); fentanyl (Duragesic); hydrocodone (Hysingla, Zohydro, [place], Vicodin); buprenorphine (Butrans, Buprenex); and methadone. There are two types of opioids: long-acting and short-acting. Long-acting opioids are also called extended-release (ER) or controlled-release (CR). This means that the medication is slowly released over an 8- to 12-hour period or longer. Examples of these include MSContin and Oxycontin. These drugs are taken on a regular schedule to control pain. DO NOT BREAK OR CRUSH THESE TABLETS. Long-acting opioids also come in patch form (Fentanyl, buprenorphine). Opioid patches are strong drugs and should not be used for mild or occasional pain, or for pain from surgery. ? Do not use patches that are damaged or cut. ? You can shower and bathe with the patch in place. ? Do not expose the skin patch to heat (for example: hot tub, heating pad, sauna, electric blanket, heat lamps). Heat increases the amount of drug you absorb through your skin and may cause harmful effects. ? When removing the patch, fold it in half, sticky side in, and flush it down the toilet. Short-acting opioids are also called immediate-release. They usually take effect within an hour, and provide pain relief for four hours. You take short-acting opioids if your pain gets worse (5 on a scale of 1 to 10), which is called breakthrough pain. DO NOT WAIT UNTIL THE PAIN BECOMES SEVERE TO TAKE YOUR MEDICATION. What are the side effects of opioids? Like most drugs, opioids have side effects. The most common are nausea, vomiting, itching, and sleepiness. These side effects should go away in three to seven days as your body gets used to the medication. DO NOT DRIVE IF YOU FEEL DROWSY OR SLEEPY. All opioids cause constipation. Your caregiver will prescribe stool softeners and medicine to help prevent constipation. You can also do the following: ? Increase the amounts of fluids and fiber in your diet. ? Try to get more exercise and physical activity. ? Try to have a bowel movement around the same time each day to get your bowels to empty in a certain pattern. Can I become addicted to opioids? Addiction means that a person uses the drug to get ?high?, and cannot control the urge to take the drug. Taking medication for pain relief is NOT addiction. Your healthcare provider will discuss any concerns about becoming addicted to pain medications. Withdrawal If you stop taking your pain medication suddenly, you may develop withdrawal symptoms. These include flu-like symptoms, agitation, anxiety, abdominal cramping, nausea, and diarrhea. If you have stopped taking your pain medication for three days or more, do not start taking it again without talking to your healthcare provider. Overdose Combining opioids with alcohol or sedating pills (which make you sleepy) increases the risk of overdose. Symptoms of overdose include extreme sleepiness, slurred speech, and slow breathing (breathing may also stop). Call 911 or your local emergency service if you think you may have overdosed. Call 911 or your local emergency service if: ? You took too much medicine. ? You have trouble breathing and/or shortness of breath. ? A child accidentally took the medication. Call your healthcare provider if: ? Your pain is not being controlled with the dose that you are taking. ? You are having side effects. Other important information: ? Take your medicine exactly as prescribed. ? Only one healthcare provider should prescribe your pain medications. ? Make follow-up appointments with your healthcare provider. ? Keep medication away from children and store them in a safe place. ? Do not share your medications with anyone. ? Do not take medications that have not been prescribed for you. ? Do not stop taking your medication without talking to your healthcare provider. ? Do not drink alcohol while taking this medication. How do I dispose of opioids? DO NOT THROW UNUSED MEDICATION IN THE TRASH. You should return these medications through a take-back program or to a collection box or mail-back program authorized by the Drug Enforcement Administration. Authorized collection sites include retail pharmacies, hospital or clinic pharmacies, and law enforcement locations. This website provides a list of locations where you can safely dispose of opioids: https://www.deadiversion.[employer].gov/pubdispsearch If a take-back program is not available, flush unused medicines down the toilet or sink. Referring Provider: KALIN LOPEZ ([facility]) [[id number]] Allergies As of Date: 05/19/2018 Noted Allergy Reaction CLINDAMYCIN 03/29/2016 4 - Hives Date Reviewed: 05/19/2018 Reviewed by: Lenore Flores - Fully Assessed Reason for Visit: Follow Up [171] Cmt: medication refil Primary Visit Diagnosis:Post laminectomy syndrome [M96.1] Other Visit Diagnoses:Lumbosacral disc herniation [M51.27] Herniation of intervertebral disc between L4 and L5 [M51.26] Order(s):oxyCODONE-acetaminophen (PERCOCET) 7.5-325 mg tabletTake 1 tablet by mouth every 6 hours as needed for Pain (for pain.) for up to 30 days. Earliest Fill Date: 05/19/18Disp: 120 tabletRfl: 0 orphenadrine ER (NORFLEX) 100 mg tabletTake 1 tablet by mouth twice daily as needed for Muscle Spasm or Pain.Disp: 60 tabletRfl: 0 meloxicam (MOBIC) 15 mg tabletTake 1 tablet by mouth once daily.Disp: 30 tabletRfl: 2 gabapentin (NEURONTIN) 800 mg tabletTake 1 tablet by mouth three times daily for 30 days.Disp: 90 tabletRfl: 0 Prescriptions as of 05/19/2018 Sig: INSULIN LISPRO (U-100) 100 UN* INJECT 1 UNIT PER 5 GRAMS OF * PRAVASTATIN 40 MG TABLET Take 1 tablet by mouth once d* TRESIBA FLEXTOUCH U-100 INSUL* INJECT 45 UNITS SUBCUTANEOUSL* BENAZEPRIL 5 MG TABLET 1 tablet every am and 2 table* ASPIRIN 81 MG TABLET,DELAYED * Take 81 mg by mouth once eliecer* OMEPRAZOLE 20 MG CAPSULE,JOSÉ ANTONIO* Take 1 capsule by mouth once * MULTIVITAMIN CAPSULE Take 1 capsule by mouth once * OXYCODONE-ACETAMINOPHEN 7.5 M* Take 1 tablet by mouth every * ORPHENADRINE CITRATE ER 100 M* Take 1 tablet by mouth twice * MELOXICAM 15 MG TABLET Take 1 tablet by mouth once d* GABAPENTIN 800 MG TABLET Take 1 tablet by mouth three * INSULIN LISPRO (U-100) 100 UN* INJECT 1 UNIT PER 5 GRAMS OF * Patient not taking: Reported on 05/19/2018 EMPAGLIFLOZIN 25 MG TABLET Take 1 tablet by mouth once d* Patient not taking: Reported on 02/13/2018 METFORMIN 500 MG TABLET Take 1 tablet by mouth twice * Patient not taking: Reported on 04/19/2018 Problem List As Of Date 05/19/2018 Noted Resolved Herniation of intervertebral disc between L4 an*INVALID FOR* Priority: A More... Displacement of lumbar intervertebral disc with*INVALID FOR* Sprain of lumbar region [S33.5XXA] INVALID FOR* Type 1 diabetes mellitus [E10.9] Priority: B More... Vitamin D deficiency [E55.9] Hyperlipidemia [E78.5] HTN (hypertension) [I10] Priority: C More... Spondylolisthesis, lumbar region [M43.16] INVALID FOR* High cholesterol [E78.00] Post laminectomy syndrome [M96.1] INVALID FOR* Lumbosacral disc herniation [M51.27] INVALID FOR* Herniation of intervertebral disc between L5 an*INVALID FOR* Other instructions from your clinician: Opioid Pain Medication Information Sheet Opioids are drugs that are used to treat cancer pain. They include morphine (MSContin, MSIR, Roxanol); oxycodone (Oxycontin, Roxicodone, Percocet); hydromorphone (Dilaudid, Exalgo); fentanyl (Duragesic); hydrocodone (Hysingla, Zohydro, [place], Vicodin); buprenorphine (Butrans, Buprenex); and methadone. There are two types of opioids: long-acting and short-acting. Long-acting opioids are also called extended-release (ER) or controlled-release (CR). This means that the medication is slowly released over an 8- to 12-hour period or longer. Examples of these include MSContin and Oxycontin. These drugs are taken on a regular schedule to control pain. DO NOT BREAK OR CRUSH THESE TABLETS. Long-acting opioids also come in patch form (Fentanyl, buprenorphine). Opioid patches are strong drugs and should not be used for mild or occasional pain, or for pain from surgery. ? Do not use patches that are damaged or cut. ? You can shower and bathe with the patch in place. ? Do not expose the skin patch to heat (for example: hot tub, heating pad, sauna, electric blanket, heat lamps). Heat increases the amount of drug you absorb through your skin and may cause harmful effects. ? When removing the patch, fold it in half, sticky side in, and flush it down the toilet. Short-acting opioids are also called immediate-release. They usually take effect within an hour, and provide pain relief for four hours. You take short-acting opioids if your pain gets worse (5 on a scale of 1 to 10), which is called breakthrough pain. DO NOT WAIT UNTIL THE PAIN BECOMES SEVERE TO TAKE YOUR MEDICATION. What are the side effects of opioids? Like most drugs, opioids have side effects. The most common are nausea, vomiting, itching, and sleepiness. These side effects should go away in three to seven days as your body gets used to the medication. DO NOT DRIVE IF YOU FEEL DROWSY OR SLEEPY. All opioids cause constipation. Your caregiver will prescribe stool softeners and medicine to help prevent constipation. You can also do the following: ? Increase the amounts of fluids and fiber in your diet. ? Try to get more exercise and physical activity. ? Try to have a bowel movement around the same time each day to get your bowels to empty in a certain pattern. Can I become addicted to opioids? Addiction means that a person uses the drug to get ?high?, and cannot control the urge to take the drug. Taking medication for pain relief is NOT addiction. Your healthcare provider will discuss any concerns about becoming addicted to pain medications. Withdrawal If you stop taking your pain medication suddenly, you may develop withdrawal symptoms. These include flu-like symptoms, agitation, anxiety, abdominal cramping, nausea, and diarrhea. If you have stopped taking your pain medication for three days or more, do not start taking it again without talking to your healthcare provider. Overdose Combining opioids with alcohol or sedating pills (which make you sleepy) increases the risk of overdose. Symptoms of overdose include extreme sleepiness, slurred speech, and slow breathing (breathing may also stop). Call 911 or your local emergency service if you think you may have overdosed. Call 911 or your local emergency service if: ? You took too much medicine. ? You have trouble breathing and/or shortness of breath. ? A child accidentally took the medication. Call your healthcare provider if: ? Your pain is not being controlled with the dose that you are taking. ? You are having side effects. Other important information: ? Take your medicine exactly as prescribed. ? Only one healthcare provider should prescribe your pain medications. ? Make follow-up appointments with your healthcare provider. ? Keep medication away from children and store them in a safe place. ? Do not share your medications with anyone. ? Do not take medications that have not been prescribed for you. ? Do not stop taking your medication without talking to your healthcare provider. ? Do not drink alcohol while taking this medication. How do I dispose of opioids? DO NOT THROW UNUSED MEDICATION IN THE TRASH. You should return these medications through a take-back program or to a collection box or mail-back program authorized by the Drug Enforcement Administration. Authorized collection sites include retail pharmacies, hospital or clinic pharmacies, and law enforcement locations. This website provides a list of locations where you can safely dispose of opioids: https://www.deadiversion.[employer].gov/pubdispsearch If a take-back program is not available, flush unused medicines down the toilet or sink. Visit Notes: >> Loy Chappell Fri May 19, 2018 8:17 AM Status: Signed Review of Systems Eyes: Negative for blurred vision. Respiratory: Negative for shortness of breath.? Cardiovascular: Negative for chest pain. Negative for leg swelling. Gastrointestinal: Negative for constipation, diarrhea, nausea?and vomiting. Genitourinary: Negative for dysuria. Skin: Negative for itching. Neurological: Negative for headaches. Negative for dizziness, tingling?and weakness. Endo/Heme/Allergies: Negative for bruising/bleeding easily. Psychiatric/Behavioral: Negative for depression?and suicidal ideas. ROS entered by: Samira Chappell MA Prescriptions ordered this encounter Disp Refills Start End OXYCODONE-ACETAMINOPHEN 7.5 MG-325 M* 120 * 0 05/19/2018 06/18/2018 Class: Print RX Route: ORAL Sig: Take 1 tablet by mouth every 6 hours as needed for Pain (for pain.) for up to 30 days. Earliest Fill Date: 05/19/18 ORPHENADRINE CITRATE ER 100 MG TABLE* 60 t* 0 05/19/2018 06/18/2018 Route: ORAL Sig: Take 1 tablet by mouth twice daily as needed for Muscle Spasm or Pain. MELOXICAM 15 MG TABLET 30 t* 2 05/19/2018 Route: ORAL Sig: Take 1 tablet by mouth once daily. GABAPENTIN 800 MG TABLET 90 t* 0 05/19/2018 06/18/2018 Route: ORAL Sig: Take 1 tablet by mouth three times daily for 30 days. Medications Discontinued During This Encounter gabapentin (NEURONTIN) 300 mg capsule 180 * 2 03/10/2018 05/19/2018 Route: ORAL Sig: Take 2 capsules by mouth three times daily for 30 days. Disc: Reason for discontinue is not on file. oxyCODONE-acetaminophen (PERCOCET) 7* 90 t* 0 04/19/2018 05/19/2018 Class: Print RX Route: ORAL Sig: Take 1 tablet by mouth every 8 hours as needed for Pain (for pain.) for up to 30 days. Earliest Fill Date: 04/19/18 Disc: Reason for discontinue is not on file. orphenadrine ER (NORFLEX) 100 mg tab* 60 t* 0 05/08/2018 05/19/2018 Route: ORAL Sig: TAKE 1 TABLET BY MOUTH TWICE DAILY NEEDED FOR MUSCLE SPASM OR PAIN. Disc: Reason for discontinue is not on file. meloxicam (MOBIC) 15 mg tablet 30 t* 2 04/06/2018 05/19/2018 Sig: TAKE 1 TABLET BY MOUTH EVERY DAY Disc: Reason for discontinue is not on file. Disposition: Return in about 4 weeks (around 06/16/2018). Follow-up and Disposition History Recorded Questionnaire: AG SPINE PAIN PILL COUNT MEDICATION NAME -> percocet STRENGTH -> 7.5 LAST FILL DATE -> 04/19/2018 DATE LAST DOSE TAKEN -> 05/18/18 QUANTITY FILLED -> 90 QUANTITY REMAINING -> 1 Encounter Status:Closed by LENORE FLORES MD on 05/19/18 PROGRESS Observed: 05/19/2018 Status: COMPLETED Source: [facility] 8:04 AM [facility] REPOSITORY HNO ID: [id number] Author: Lenore Flores Service: (none) Author Type: Physician Type: Progress Notes Filed: 05/19/2018 9:12 AM Note Text: Patient Name: Jose Argueta Patient : 1980 Patient Age: [age] year old CC: Patient presents with: Follow Up: medication refil SUBJECTIVE Patient presents for follow up of low back pain. The patient describes the pain as tender, shooting and achy /10. Activity is 3/10 walking. He has pain, numbness and tingling, without weakness radiating into the right lower extremity to the foot, as well as the left lower extremity to the calf. Pain is worse with standing and has some crunching and popping with extension which is painful, and bending or prolonged sitting. States he has to lay down after work and cannot play with his son due to pain. He has been taking Mobic, Norflex, Gabapentin and Percocet 3/day with some relief without side effects. He is getting an updated MRI and then following up with his surgeon later this month. The patient denies any bowel or bladder dysfunction. The patient denies any chest pain or chest tightness. The constitutional, musculoskeletal, and neurological review of systems was negative unless otherwise noted. The patient's past medical history, allergies, medication list, social history, and family medical history were documented, updated, and reviewed in the chart. PDMP website checked and validated. All prescriptions have been APPROPRIATELY filled. No suspicious activity was identified. 05/19/2018 by Lenore Flores MD 04/[address] IMPRESSION: 1. Postoperative changes of posterior decompression and anterior and posterior fusion at L4-5 as above. ?Surgical hardware is intact. ?Evaluation of the L4-5 level is somewhat limited due to streak artifact from the surgical hardware. ? 2. ?At L3-4, minimal disc bulging and mild ligamentum flavum hypertrophy cause mild central canal stenosis. ? 3. ?Mild degenerative disc disease at L5-S1. ?Posterior midline disc protrusion at ?this level impresses on the ventral thecal sac causing at least mild thecal sac narrowing. ?There is mild/moderate bilateral foraminal narrowing at this level. ? Anatomic Variant: None. ?L4-5 is considered the level of the iliac crest and assume there are 5 lumbar-type vertebrae. Nursing Notes: Loy Chappell 05/19/2018 8:18 AM Signed Review of Systems Eyes: Negative for blurred vision. Respiratory: Negative for shortness of breath.? Cardiovascular: Negative for chest pain. Negative for leg swelling. Gastrointestinal: Negative for constipation, diarrhea, nausea?and vomiting. Genitourinary: Negative for dysuria. Skin: Negative for itching. Neurological: Negative for headaches. Negative for dizziness, tingling?and weakness. Endo/Heme/Allergies: Negative for bruising/bleeding easily. Psychiatric/Behavioral: Negative for depression?and suicidal ideas. ROS entered by: Samira Chappell MA MEDICATION NAME percocet STRENGTH 7.5 LAST FILL DATE 04/19/2018 DATE LAST DOSE TAKEN 05/18/18 QUANTITY FILLED 90 QUANTITY REMAINING 1 ALLERGIES Allergen Reactions - Clindamycin Hives Current Outpatient Prescriptions: insulin lispro (HUMALOG KWIKPEN INSULIN) 100 unit/mL inpn INJECT 1 UNIT PER 5 GRAMS OF CARBOHYDRATES WITH EACH MEAL (TOTAL MAXIMUM DAILY DOSE IS 80 UNITS) Disp: 25 Pen Rfl: 3 pravastatin (PRAVACHOL) 40 mg tablet Take 1 tablet by mouth once daily. Disp: 30 tablet Rfl: 11 TRESIBA FLEXTOUCH U-100 100 unit/mL (3 mL) injection INJECT 45 UNITS SUBCUTANEOUSLY EVERY 24 HOURS. Disp: 15 mL Rfl: 11 benazepril (LOTENSIN) 5 mg tablet 1 tablet every am and 2 tablets every pm Disp: 90 tablet Rfl: 11 aspirin, enteric coated (ADULT LOW DOSE ASPIRIN) 81 mg EC tablet Take 81 mg by mouth once daily. Disp: Rfl: omeprazole (PRILOSEC) 20 mg capsule Take 1 capsule by mouth once daily. Disp: Rfl: 0 Multivitamin capsule Take 1 capsule by mouth once daily. Disp: Rfl: oxyCODONE-acetaminophen (PERCOCET) 7.5-325 mg tablet Take 1 tablet by mouth every 6 hours as needed for Pain (for pain.) for up to 30 days.Earliest Fill Date: 05/19/18 Disp: 120 tablet Rfl: 0 orphenadrine ER (NORFLEX) 100 mg tablet Take 1 tablet by mouth twice daily as needed for Muscle Spasm or Pain. Disp: 60 tablet Rfl: 0 meloxicam (MOBIC) 15 mg tablet Take 1 tablet by mouth once daily. Disp: 30 tablet Rfl: 2 gabapentin (NEURONTIN) 800 mg tablet Take 1 tablet by mouth three times daily for 30 days. Disp: 90 tablet Rfl: 0 insulin lispro (HUMALOG KWIKPEN INSULIN) 100 unit/mL inpn INJECT 1 UNIT PER 5 GRAMS OF CARBOHYDRATES WITH EACH MEAL (TOTAL MAXIMUM DAILY DOSE IS 55 UNITS) (Patient not taking: Reported on 05/19/2018 ) Disp: 5 Pen Rfl: 11 empagliflozin (JARDIANCE) 25 mg tablet Take 1 tablet by mouth once daily. (Patient not taking: Reported on 02/13/2018 ) Disp: 90 tablet Rfl: 3 metFORMIN (GLUCOPHAGE) 500 mg tablet Take 1 tablet by mouth twice daily with meals. (Patient not taking: Reported on 04/19/2018 ) Disp: 180 tablet Rfl: 3 No current facility-administered medications for this visit. 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 Topics Smoking status: Never Smoker Smokeless tobacco: Never Used Alcohol use: No Drug use: No Other Topics Concern Caffeine Concern Yes Comment:coffee 3 cups daily, and energy drinks Special Diet Yes Comment:Poor diet Exercise No Comment: Exercises 1-2 days/wk Social History Narrative No reported history Family History Problem Relation Age of Onset - Hyperlipidemia Mother - Ischemic Heart Disease Father - Diabetes Father - Heart Father - Hyperlipidemia Father - Hypertension Father - Hyperlipidemia Paternal Grandmother - Hypertension Paternal Grandmother - Stroke Paternal Grandmother - other (Diabetes mellitus) Paternal Grandmother OBJECTIVE Vitals: BP 175/100 Pulse 100 Resp 17 Ht 175.3 cm (5' 9) Wt 120.7 kg (266 lb) BMI 39.28 kg/m? General: Alert, cooperative, well appearing, and in no apparent distress. Musculoskeletal: The patient's gait is normal Back: Inspection of the back demonstrates there is no obvious deformity or misalignment. There is bony tenderness along the lumbar vertebrae, none along the sacroiliac joints. There is bilateral paraspinal muscle tenderness. Range of motion testing demonstrates limited due to pain with flexion, extension, side bending and rotation of the back. Strength is 5/5 in the lower extremity bilaterally. Sensation is decreased throughout the right lower extremity. There is a positive right straight leg raise and femoral stretch test. The piriformis has normal flexibility and is non-tender. Skin: The skin is without jaundice. It is intact without pathologic lesions, erythema, vesicles, discharge or rash. Palpitation of the skin is normal without induration, subcutaneous nodules or tightening. Extremities: This is no clubbing, cyanosis or edema. Peripheral pulses are 2+. Return in about 4 weeks (around 06/16/2018). ASSESSMENT/PLAN: 1. Post laminectomy syndrome - ICD9: 722.80, ICD10: M96.1 (primary diagnosis) We discussed the natural history of this condition, differential diagnoses, and treatment options. Guidelines for activity were given. We discussed options for treatment including conservative care, medications with side effects and risks and benefits. The patient is doing well with the prescribed pain medications. The patient requests a refill today. Patient states medications provide adequate analgesia. The medications allow patient to maintain ADL's. Discussed with the patient about avoiding driving/operating vehicle while taking the medications. There are no adverse effects from the medications and no aberrant behaviors are noted. Will refill his percocet today with slight increase this month with plan to decrease after next month Continue gabapentin- increase to 800 TID, norflex and Mobic Follows up with his surgeon. - OXYCODONE-ACETAMINOPHEN 7.5 MG-325 MG TABLET - ORPHENADRINE CITRATE ER 100 MG TABLET,EXTENDED RELEASE - MELOXICAM 15 MG TABLET 2. Lumbosacral disc herniation - ICD9: 722.10, ICD10: M51.27 - OXYCODONE-ACETAMINOPHEN 7.5 MG-325 MG TABLET - ORPHENADRINE CITRATE ER 100 MG TABLET,EXTENDED RELEASE 3. Herniation of intervertebral disc between L4 and L5 - ICD9: 722.10, ICD10: M51.26 - OXYCODONE-ACETAMINOPHEN 7.5 MG-325 MG TABLET - ORPHENADRINE CITRATE ER 100 MG TABLET,EXTENDED RELEASE Lenore Flores MD OBSOLETE Observed: 05/08/2018 Status: COMPLETED Source: [facility] 12:00 AM [facility] [place] REPOSITORY Refill ([facility]) JOSE ARGUETA ([id number]) 1980 M Date Time Provider Department 05/08/18 KALIN LOPEZ ([facility]) [facility] During your visit today, we recorded the following information about you: Allergies As of Date: 05/08/2018 Noted Allergy Reaction CLINDAMYCIN 03/29/2016 4 - Hives Date Reviewed: 04/19/2018 Reviewed by: Loy ([facility]) Misti - Fully Assessed Reason for Visit: Refill Request [94] Visit Diagnoses:Post laminectomy syndrome [M96.1] Lumbosacral disc herniation [M51.27] Herniation of intervertebral disc between L4 and L5 [M51.26] Order(s):orphenadrine ER (NORFLEX) 100 mg tabletTAKE 1 TABLET BY MOUTH TWICE DAILY NEEDED FOR MUSCLE SPASM OR PAIN.Disp: 60 tabletRfl: 0 Prescriptions as of 05/08/2018 Sig: ORPHENADRINE CITRATE ER 100 M* TAKE 1 TABLET BY MOUTH TWICE * OXYCODONE-ACETAMINOPHEN 7.5 M* Take 1 tablet by mouth every * MELOXICAM 15 MG TABLET TAKE 1 TABLET BY MOUTH EVERY * GABAPENTIN 300 MG CAPSULE Take 2 capsules by mouth thre* INSULIN LISPRO (U-100) 100 UN* INJECT 1 UNIT PER 5 GRAMS OF * INSULIN LISPRO (U-100) 100 UN* INJECT 1 UNIT PER 5 GRAMS OF * PRAVASTATIN 40 MG TABLET Take 1 tablet by mouth once d* EMPAGLIFLOZIN 25 MG TABLET Take 1 tablet by mouth once d* Patient not taking: Reported on 02/13/2018 METFORMIN 500 MG TABLET Take 1 tablet by mouth twice * Patient not taking: Reported on 04/19/2018 TRESIBA FLEXTOUCH U-100 INSUL* INJECT 45 UNITS SUBCUTANEOUSL* BENAZEPRIL 5 MG TABLET 1 tablet every am and 2 table* ASPIRIN 81 MG TABLET,DELAYED * Take 81 mg by mouth once eliecer* OMEPRAZOLE 20 MG CAPSULE,JOSÉ ANTONIO* Take 1 capsule by mouth once * MULTIVITAMIN CAPSULE Take 1 capsule by mouth once * Problem List As Of Date 05/08/2018 Noted Resolved Herniation of intervertebral disc between L4 an*INVALID FOR* Priority: A More... Displacement of lumbar intervertebral disc with*INVALID FOR* Sprain of lumbar region [S33.5XXA] INVALID FOR* Type 1 diabetes mellitus [E10.9] Priority: B More... Vitamin D deficiency [E55.9] Hyperlipidemia [E78.5] HTN (hypertension) [I10] Priority: C More... Spondylolisthesis, lumbar region [M43.16] INVALID FOR* High cholesterol [E78.00] Post laminectomy syndrome [M96.1] INVALID FOR* Lumbosacral disc herniation [M51.27] INVALID FOR* Herniation of intervertebral disc between L5 an*INVALID FOR* Prescriptions ordered this encounter Disp Refills Start End ORPHENADRINE CITRATE ER 100 MG TABLE* 60 t* 0 05/08/2018 06/07/2018 Route: ORAL Sig: TAKE 1 TABLET BY MOUTH TWICE DAILY NEEDED FOR MUSCLE SPASM OR PAIN. Medications Discontinued During This Encounter orphenadrine ER (NORFLEX) 100 mg tab* 60 t* 0 04/11/2018 05/08/2018 Route: ORAL Sig: TAKE 1 TABLET BY MOUTH TWICE DAILY NEEDED FOR MUSCLE SPASM OR PAIN. Disc: Reason for discontinue is not on file. Encounter Status:Closed by LENORE FLORES MD on 05/08/18 PROGRESS Observed: 04/19/2018 Status: COMPLETED Source: [facility] 7:36 AM CLINIC OTHER CAMPUS REPOSITORY O ID: [id number] Author: Kalin Lopez Service: (none) Author Type: Nurse Practitioner Type: Progress Notes Filed: 04/19/2018 7:51 AM Note Text: Subjective Urine Drug Screen Questionnaire URINE DRUG SCREEN Completed Date 04/19/2018 NA/OIC Questionnaire NA/OIC Completed Date 04/19/2018 MEDICATION NAME percocet STRENGTH 7.5 LAST FILL DATE 03/20/2018 DATE LAST DOSE TAKEN 04/18/18 QUANTITY FILLED 90 QUANTITY REMAINING 1 Jose Argueta is a 37 year old male who presents today for a follow up for low back pain through his [facility] claim. He had a lumbar CT. He will be following up with his surgeon Dr. Barksdale. He continues to have chronic low back pain and right leg pain. He is getting benefit from the percocet, gabapentin, and meloxicam. He has done well with norflex. Patient reports no adverse side effects to current medication regimen. Current regimen does allow patient to maintain ADLs. The patient is in need of a refill today. *Unless noted otherwise, no significant weight loss or gain, fever/chills, myelopathy, neurologic changes, vision changes, psychiatric changes, or changes in bowel and/or bladder function. Review of Systems Constitutional: Negative. HENT: Negative. Eyes: Negative. Negative for blurred vision and double vision. Respiratory: Negative. Negative for shortness of breath. Cardiovascular: Negative. Negative for chest pain and leg swelling. Gastrointestinal: Negative. Negative for constipation, diarrhea and nausea. Genitourinary: Negative. Negative for dysuria. Musculoskeletal: Negative. Skin: Negative. Negative for itching. Neurological: Negative. Negative for dizziness, tingling, weakness and headaches. Endo/Heme/Allergies: Negative. Does not bruise/bleed easily. Psychiatric/Behavioral: Negative. Negative for depression and suicidal ideas. PAST MEDICAL HISTORY Diagnosis Date - Fatigue - GERD (gastroesophageal reflux disease) - High cholesterol - HTN (hypertension) under control - Hyperlipidemia - Type 1 diabetes mellitus (HCC) at the age of 28 - Vitamin D deficiency - Vitamin deficiency PAST SURGICAL HISTORY Procedure Laterality Date - BACK SURGERY HX 02/01/[address] 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 History Main Topics Smoking status: Never Smoker Smokeless tobacco: Never Used Alcohol use: No Drug use: No Other Topics Concern Caffeine Concern Yes Comment:coffee 3 cups daily, and energy drinks Special Diet Yes Comment:Poor diet Exercise No Comment: Exercises 1-2 days/wk Social History Narrative No reported history Current Meds oxyCODONE-acetaminophen (PERCOCET) 7.5-325 mg tablet Take 1 tablet by mouth every 8 hours as needed for Pain (for pain.) for up to 30 days.Earliest Fill Date: 04/19/18 orphenadrine ER (NORFLEX) 100 mg tablet TAKE 1 TABLET BY MOUTH TWICE DAILY NEEDED FOR MUSCLE SPASM OR PAIN. meloxicam (MOBIC) 15 mg tablet TAKE 1 TABLET BY MOUTH EVERY DAY insulin lispro (HUMALOG KWIKPEN INSULIN) 100 unit/mL inpn INJECT 1 UNIT PER 5 GRAMS OF CARBOHYDRATES WITH EACH MEAL (TOTAL MAXIMUM DAILY DOSE IS 80 UNITS) insulin lispro (HUMALOG KWIKPEN INSULIN) 100 unit/mL inpn INJECT 1 UNIT PER 5 GRAMS OF CARBOHYDRATES WITH EACH MEAL (TOTAL MAXIMUM DAILY DOSE IS 55 UNITS) pravastatin (PRAVACHOL) 40 mg tablet Take 1 tablet by mouth once daily. TRESIBA FLEXTOUCH U-100 100 unit/mL (3 mL) injection INJECT 45 UNITS SUBCUTANEOUSLY EVERY 24 HOURS. benazepril (LOTENSIN) 5 mg tablet 1 tablet every am and 2 tablets every pm aspirin, enteric coated (ADULT LOW DOSE ASPIRIN) 81 mg EC tablet Take 81 mg by mouth once daily. omeprazole (PRILOSEC) 20 mg capsule Take 1 capsule by mouth once daily. Multivitamin capsule Take 1 capsule by mouth once daily. gabapentin (NEURONTIN) 300 mg capsule Take 2 capsules by mouth three times daily for 30 days. empagliflozin (JARDIANCE) 25 mg tablet Take 1 tablet by mouth once daily. metFORMIN (GLUCOPHAGE) 500 mg tablet Take 1 tablet by mouth twice daily with meals. Objective Resp 17 Ht 5' 9 (1.75m) Wt 262 lb (118.8kg) BMI 38.67 kg/(m2). Physical Exam Constitutional: He is oriented to person, place, and time and well-developed, well-nourished, and in no distress. No distress. HENT: Head: Normocephalic and atraumatic. Cardiovascular: Normal rate, regular rhythm, normal heart sounds and intact distal pulses. Pulmonary/Chest: Effort normal and breath sounds normal. No respiratory distress. He has no wheezes. He has no rales. He exhibits no tenderness. Musculoskeletal: Lumbar back: He exhibits decreased range of motion, tenderness, pain and spasm. Neurological: He is alert and oriented to person, place, and time. He has normal strength. He displays no weakness. A sensory deficit (RLE) is present. He has an abnormal Straight Leg Raise Test (RLE). Gait normal. Gait normal. GCS score is 15. Skin: Skin is warm and dry. No rash noted. He is not diaphoretic. No erythema. No pallor. Psychiatric: Mood, memory, affect and judgment normal. Nursing note and vitals reviewed. Patient Info Patient Name Sex Jose Jang ([id number]) Male 1980 04/13/2018 ?9:41 AM - Radiology, [facility] Results EXAMINATION: ?CT LUMBAR SPINE W/O CONTRAST ?[id number] ? CLINICAL HISTORY: ?Follow-up microdiscectomy and lumbar fusion at L4-5. ?Low back pain. ? ? TECHNIQUE: ?Spiral, high resolution axial images were obtained from the thoracolumbar junction to the sacrum with sagittal and coronal planar reconstructions. MQ: ?[id number] ? Contrast: None CT Dose-Length Product: ?911 mGy*cm CT Dose Reduction Employed: Automated exposure control (AEC) was used. ? ? COMPARISON: Lumbar spine radiographs 02/02/2018 and 05/19/2016 ? RESULT: ? Counting reference: ?Lumbosacral junction. ?For the purposes of this report, L4-5 is considered the level of the iliac crest and there are 5 lumbar-type vertebrae. ?Anatomic Variants: None. ? Alignment: ?Alignment is anatomic. ? Bone marrow /fracture: ?No evidence of a lytic or blastic process in the visualized spine. ?No evidence of acute or chronic fracture. ?There has been anterior and posterior fusion with interbody fusion device and pedicle screw and germain construct at L4-5. ?Surgical hardware is intact. ?Changes at L4 laminectomy noted. ? Paraspinal soft tissues: ?The paraspinal soft tissues planes are maintained. ? Lower thoracic spine: ?The visualized lower thoracic bony canal and foramina are patent. ? T12-L1: ?No central canal stenosis or foraminal narrowing. ? L1-L2: ? ?No central canal stenosis or foraminal narrowing. ? L2-L3: ? ?No central canal stenosis or foraminal narrowing. ? L3-L4: ? ?Minimal disc bulging and mild ligament flavum hypertrophy cause mild central canal stenosis. ?No significant foraminal narrowing. ? L4-L5: ? ?Evaluation is limited due to streak artifact from the metallic surgical hardware. ?There is been anterior and posterior fusion with L4 laminectomy. ? L5-S1: ? ?There is posterior disc height loss. ?Posterior midline disc protrusion impresses on the ventral thecal sac causing at least mild thecal sac narrowing. ? Disc bulging and slight spurring cause mild/moderate bilateral foraminal narrowing. ? Sacrum and iliac wings: ?The visualized sacrum and iliac wings are within normal limits. ? ? ? IMPRESSION: 1. Postoperative changes of posterior decompression and anterior and posterior fusion at L4-5 as above. ?Surgical hardware is intact. ?Evaluation of the L4-5 level is somewhat limited due to streak artifact from the surgical hardware. ? 2. ?At L3-4, minimal disc bulging and mild ligamentum flavum hypertrophy cause mild central canal stenosis. ? 3. ?Mild degenerative disc disease at L5-S1. ?Posterior midline disc protrusion at ?this level impresses on the ventral thecal sac causing at least mild thecal sac narrowing. ?There is mild/moderate bilateral foraminal narrowing at this level. ? Anatomic Variant: None. ?L4-5 is considered the level of the iliac crest and assume there are 5 lumbar-type vertebrae. Result History CT LUMBAR SPINE WO IVCON (Order #[id number]) on 04/13/2018 - Order Result History Report Results Assistant Community Director BRENT NIX Result Information Status Provider Status Final result (04/13/2018 ?9:39 AM) Ordered Exam Performed Date and Time 04/08/2018 10:38 AM Resulting Agency ? [facility] [address] [facility] [address] ? ASSESSMENT/PLAN: 1. Post laminectomy syndrome - ICD9: 722.80, ICD10: M96.1 - F/U with Dr. Barksdale - May consider SCS if no additional surgery is needed - OXYCODONE-ACETAMINOPHEN 7.5 MG-325 MG TABLET- refill - [facility]- C9 - Patient needs refill/s today. Patient states medications provide adequate analgesia. The medication/s allow/s patient to maintain ADLS's and helps to increase their overall functioning. Patient reports no adverse effects from the medication/s and no aberrant behaviors are noted. Patient understands risks and benefits of the medication. Patient understands that the opioid medication prescribed has potential for abuse and misuse. Benefits of this medication are currently outweighing potential risks to the patient. Patient understands that at some point they may need to be weaned from consistent usage of this type of this medication. - Patient has been instructed to avoid concurrent usage of the pain medication prescribed and both alcohol and/or benzodiazepines (clonazepam, alprazolam, lorazepam, etc), because of the increased risk of somnolence and respiratory depression. - Patient has received education that this medication may affect their ability to safely operate a motor vehicle. Caution was advised. - Patient has been instructed on the importance maintaining strict adherence to prescription instructions and not overtaking the medication. Patient verbalizes understanding. -Patient has also recieved education on safe storage of the medication that is being prescribed. - Opioid consent and contract on file - ORT on file - Pill count was ok - [facility] drug screen today- C9 placed - Last Drug screen was ok - OARRS reviewed, no aberrant activity. Pt compliant with provider prescribing protocol. - F/U in 1-[address] Flores 2. Lumbosacral disc herniation - ICD9: 722.10, ICD10: M51.27 - OXYCODONE-ACETAMINOPHEN 7.5 MG-325 MG TABLET - [facility] 3. Herniation of intervertebral disc between L4 and L5 - ICD9: 722.10, ICD10: M51.26 - OXYCODONE-ACETAMINOPHEN 7.5 MG-325 MG TABLET - [facility] Kalin Lopez APRN.[employer] Observed: 04/19/2018 Status: COMPLETED Source: [facility] 7:30 AM CLINIC OTHER CAMPUS REPOSITORY Office Visit (SPAGBA) JOSE ARGUETA ([id number]) 1980 M Date Time Provider Department 04/19/18 7:30 AM KALIN LOPEZ (JARROD) BALDO During your visit today, we recorded the following information about you: Respiration Blood pressure Weight Height 17/minute 140/75 118.8 kg 1.753 m Kalin Lopez APRN.CNP 04/19/2018 7:27 AM Signed 1. Take medication exactly as prescribed. A) Do not take more medication than prescribed. Violations will result in discontinuation of the medication. B) Only take medication that is currently being prescribed. Violations will result in discontinuation of pain medications. C) Remember to bring your pill bottle to every office visit for pill counts. Violations may result in not being able to get medication filled. 2. Keep medication secured in a safe place. Stolen or lost prescriptions may result in discontinuation of the medication being prescribed. 3. This medication may affect your ability to safely operate a motor vehicle. Caution is advised. 4. Avoid drinking alcohol while taking pain medication. 5. Avoid concurrent usage of benzodiazepines (alprazolam, lorazepam, diazepam, clonazepam, etc.) with your prescribed pain medication. 6. If ordered a sedative (ex- xanax/valium), to be taken prior to a procedure, bring this medication with you to your procedure. DO NOT TAKE AT HOME. 7. Continue to work on slowly increasing daily exercise. With a goal of 30 minutes of light exercise (ex- walking) 4-5 times weekly. Kalin Lopez APRN.CNP 04/19/2018 7:51 AM Signed Subjective Urine Drug Screen Questionnaire URINE DRUG SCREEN Completed Date 04/19/2018 NA/OIC Questionnaire NA/OIC Completed Date 04/19/2018 MEDICATION NAME percocet STRENGTH 7.5 LAST FILL DATE 03/20/2018 DATE LAST DOSE TAKEN 04/18/18 QUANTITY FILLED 90 QUANTITY REMAINING 1 Jose Argueta is a 37 year old male who presents today for a follow up for low back pain through his [facility] claim. He had a lumbar CT. He will be following up with his surgeon Dr. Barksdale. He continues to have chronic low back pain and right leg pain. He is getting benefit from the percocet, gabapentin, and meloxicam. He has done well with norflex. Patient reports no adverse side effects to current medication regimen. Current regimen does allow patient to maintain ADLs. The patient is in need of a refill today. *Unless noted otherwise, no significant weight loss or gain, fever/chills, myelopathy, neurologic changes, vision changes, psychiatric changes, or changes in bowel and/or bladder function. Review of Systems Constitutional: Negative. HENT: Negative. Eyes: Negative. Negative for blurred vision and double vision. Respiratory: Negative. Negative for shortness of breath. Cardiovascular: Negative. Negative for chest pain and leg swelling. Gastrointestinal: Negative. Negative for constipation, diarrhea and nausea. Genitourinary: Negative. Negative for dysuria. Musculoskeletal: Negative. Skin: Negative. Negative for itching. Neurological: Negative. Negative for dizziness, tingling, weakness and headaches. Endo/Heme/Allergies: Negative. Does not bruise/bleed easily. Psychiatric/Behavioral: Negative. Negative for depression and suicidal ideas. PAST MEDICAL HISTORY Diagnosis Date - Fatigue - GERD (gastroesophageal reflux disease) - High cholesterol - HTN (hypertension) under control - Hyperlipidemia - Type 1 diabetes mellitus (HCC) at the age of 28 - Vitamin D deficiency - Vitamin deficiency PAST SURGICAL HISTORY Procedure Laterality Date - BACK SURGERY HX 02/01/[address] 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 History Main Topics Smoking status: Never Smoker Smokeless tobacco: Never Used Alcohol use: No Drug use: No Other Topics Concern Caffeine Concern Yes Comment:coffee 3 cups daily, and energy drinks Special Diet Yes Comment:Poor diet Exercise No Comment: Exercises 1-2 days/wk Social History Narrative No reported history Current Meds oxyCODONE-acetaminophen (PERCOCET) 7.5-325 mg tablet Take 1 tablet by mouth every 8 hours as needed for Pain (for pain.) for up to 30 days.Earliest Fill Date: 04/19/18 orphenadrine ER (NORFLEX) 100 mg tablet TAKE 1 TABLET BY MOUTH TWICE DAILY NEEDED FOR MUSCLE SPASM OR PAIN. meloxicam (MOBIC) 15 mg tablet TAKE 1 TABLET BY MOUTH EVERY DAY insulin lispro (HUMALOG KWIKPEN INSULIN) 100 unit/mL inpn INJECT 1 UNIT PER 5 GRAMS OF CARBOHYDRATES WITH EACH MEAL (TOTAL MAXIMUM DAILY DOSE IS 80 UNITS) insulin lispro (HUMALOG KWIKPEN INSULIN) 100 unit/mL inpn INJECT 1 UNIT PER 5 GRAMS OF CARBOHYDRATES WITH EACH MEAL (TOTAL MAXIMUM DAILY DOSE IS 55 UNITS) pravastatin (PRAVACHOL) 40 mg tablet Take 1 tablet by mouth once daily. TRESIBA FLEXTOUCH U-100 100 unit/mL (3 mL) injection INJECT 45 UNITS SUBCUTANEOUSLY EVERY 24 HOURS. benazepril (LOTENSIN) 5 mg tablet 1 tablet every am and 2 tablets every pm aspirin, enteric coated (ADULT LOW DOSE ASPIRIN) 81 mg EC tablet Take 81 mg by mouth once daily. omeprazole (PRILOSEC) 20 mg capsule Take 1 capsule by mouth once daily. Multivitamin capsule Take 1 capsule by mouth once daily. gabapentin (NEURONTIN) 300 mg capsule Take 2 capsules by mouth three times daily for 30 days. empagliflozin (JARDIANCE) 25 mg tablet Take 1 tablet by mouth once daily. metFORMIN (GLUCOPHAGE) 500 mg tablet Take 1 tablet by mouth twice daily with meals. Objective Resp 17 Ht 5' 9 (1.75m) Wt 262 lb (118.8kg) BMI 38.67 kg/(m2). Physical Exam Constitutional: He is oriented to person, place, and time and well-developed, well-nourished, and in no distress. No distress. HENT: Head: Normocephalic and atraumatic. Cardiovascular: Normal rate, regular rhythm, normal heart sounds and intact distal pulses. Pulmonary/Chest: Effort normal and breath sounds normal. No respiratory distress. He has no wheezes. He has no rales. He exhibits no tenderness. Musculoskeletal: Lumbar back: He exhibits decreased range of motion, tenderness, pain and spasm. Neurological: He is alert and oriented to person, place, and time. He has normal strength. He displays no weakness. A sensory deficit (RLE) is present. He has an abnormal Straight Leg Raise Test (RLE). Gait normal. Gait normal. GCS score is 15. Skin: Skin is warm and dry. No rash noted. He is not diaphoretic. No erythema. No pallor. Psychiatric: Mood, memory, affect and judgment normal. Nursing note and vitals reviewed. Patient Info Patient Name Sex Jose Jang ([id number]) Male 1980 04/13/2018 ?9:41 AM - Radiology, [facility] Results EXAMINATION: ?CT LUMBAR SPINE W/O CONTRAST ?[id number] ? CLINICAL HISTORY: ?Follow-up microdiscectomy and lumbar fusion at L4-5. ?Low back pain. ? ? TECHNIQUE: ?Spiral, high resolution axial images were obtained from the thoracolumbar junction to the sacrum with sagittal and coronal planar reconstructions. MQ: ?[id number] ? Contrast: None CT Dose-Length Product: ?911 mGy*cm CT Dose Reduction Employed: Automated exposure control (AEC) was used. ? ? COMPARISON: Lumbar spine radiographs 02/02/2018 and 05/19/2016 ? RESULT: ? Counting reference: ?Lumbosacral junction. ?For the purposes of this report, L4-5 is considered the level of the iliac crest and there are 5 lumbar-type vertebrae. ?Anatomic Variants: None. ? Alignment: ?Alignment is anatomic. ? Bone marrow /fracture: ?No evidence of a lytic or blastic process in the visualized spine. ?No evidence of acute or chronic fracture. ?There has been anterior and posterior fusion with interbody fusion device and pedicle screw and germain construct at L4-5. ?Surgical hardware is intact. ?Changes at L4 laminectomy noted. ? Paraspinal soft tissues: ?The paraspinal soft tissues planes are maintained. ? Lower thoracic spine: ?The visualized lower thoracic bony canal and foramina are patent. ? T12-L1: ?No central canal stenosis or foraminal narrowing. ? L1-L2: ? ?No central canal stenosis or foraminal narrowing. ? L2-L3: ? ?No central canal stenosis or foraminal narrowing. ? L3-L4: ? ?Minimal disc bulging and mild ligament flavum hypertrophy cause mild central canal stenosis. ?No significant foraminal narrowing. ? L4-L5: ? ?Evaluation is limited due to streak artifact from the metallic surgical hardware. ?There is been anterior and posterior fusion with L4 laminectomy. ? L5-S1: ? ?There is posterior disc height loss. ?Posterior midline disc protrusion impresses on the ventral thecal sac causing at least mild thecal sac narrowing. ? Disc bulging and slight spurring cause mild/moderate bilateral foraminal narrowing. ? Sacrum and iliac wings: ?The visualized sacrum and iliac wings are within normal limits. ? ? ? IMPRESSION: 1. Postoperative changes of posterior decompression and anterior and posterior fusion at L4-5 as above. ?Surgical hardware is intact. ?Evaluation of the L4-5 level is somewhat limited due to streak artifact from the surgical hardware. ? 2. ?At L3-4, minimal disc bulging and mild ligamentum flavum hypertrophy cause mild central canal stenosis. ? 3. ?Mild degenerative disc disease at L5-S1. ?Posterior midline disc protrusion at ?this level impresses on the ventral thecal sac causing at least mild thecal sac narrowing. ?There is mild/moderate bilateral foraminal narrowing at this level. ? Anatomic Variant: None. ?L4-5 is considered the level of the iliac crest and assume there are 5 lumbar-type vertebrae. Result History CT LUMBAR SPINE WO IVCON (Order #[id number]) on 04/13/2018 - Order Result History Report Results Assistant Community Director BRENT NIX Result Information Status Provider Status Final result (04/13/2018 ?9:39 AM) Ordered Exam Performed Date and Time 04/08/2018 10:38 AM Resulting Agency ? [facility] [address] [facility] [address] ? ASSESSMENT/PLAN: 1. Post laminectomy syndrome - ICD9: 722.80, ICD10: M96.1 - F/U with Dr. Barksdale - May consider SCS if no additional surgery is needed - OXYCODONE-ACETAMINOPHEN 7.5 MG-325 MG TABLET- refill - [facility]- C9 - Patient needs refill/s today. Patient states medications provide adequate analgesia. The medication/s allow/s patient to maintain ADLS's and helps to increase their overall functioning. Patient reports no adverse effects from the medication/s and no aberrant behaviors are noted. Patient understands risks and benefits of the medication. Patient understands that the opioid medication prescribed has potential for abuse and misuse. Benefits of this medication are currently outweighing potential risks to the patient. Patient understands that at some point they may need to be weaned from consistent usage of this type of this medication. - Patient has been instructed to avoid concurrent usage of the pain medication prescribed and both alcohol and/or benzodiazepines (clonazepam, alprazolam, lorazepam, etc), because of the increased risk of somnolence and respiratory depression. - Patient has received education that this medication may affect their ability to safely operate a motor vehicle. Caution was advised. - Patient has been instructed on the importance maintaining strict adherence to prescription instructions and not overtaking the medication. Patient verbalizes understanding. -Patient has also recieved education on safe storage of the medication that is being prescribed. - Opioid consent and contract on file - ORT on file - Pill count was ok - [facility] drug screen today- C9 placed - Last Drug screen was ok - OARRS reviewed, no aberrant activity. Pt compliant with provider prescribing protocol. - F/U in 1-2 months with Dr. Flores 2. Lumbosacral disc herniation - ICD9: 722.10, ICD10: M51.27 - OXYCODONE-ACETAMINOPHEN 7.5 MG-325 MG TABLET - [facility] 3. Herniation of intervertebral disc between L4 and L5 - ICD9: 722.10, ICD10: M51.26 - OXYCODONE-ACETAMINOPHEN 7.5 MG-325 MG TABLET - [facility] Kalin Lopez APRN.[employer] Referring Provider: SELF [[id number]] Allergies As of Date: 04/19/2018 Noted Allergy Reaction CLINDAMYCIN 03/29/2016 4 - Hives Date Reviewed: 04/19/2018 Reviewed by: Loy ([facility]) Misti - Fully Assessed Reason for Visit: Follow Up [171] Cmt: medication refill, lower back pain Visit Diagnoses:Post laminectomy syndrome [M96.1] Lumbosacral disc herniation [M51.27] Herniation of intervertebral disc between L4 and L5 [M51.26] Order(s):oxyCODONE-acetaminophen (PERCOCET) 7.5-325 mg tabletTake 1 tablet by mouth every 8 hours as needed for Pain (for pain.) for up to 30 days. Earliest Fill Date: 04/19/18Disp: 90 tabletRfl: 0 [facility] [[id number]] Order #: [id number] Prescriptions as of 04/19/2018 Sig: OXYCODONE-ACETAMINOPHEN 7.5 M* Take 1 tablet by mouth every * ORPHENADRINE CITRATE ER 100 M* TAKE 1 TABLET BY MOUTH TWICE * MELOXICAM 15 MG TABLET TAKE 1 TABLET BY MOUTH EVERY * INSULIN LISPRO (U-100) 100 UN* INJECT 1 UNIT PER 5 GRAMS OF * INSULIN LISPRO (U-100) 100 UN* INJECT 1 UNIT PER 5 GRAMS OF * PRAVASTATIN 40 MG TABLET Take 1 tablet by mouth once d* TRESIBA FLEXTOUCH U-100 INSUL* INJECT 45 UNITS SUBCUTANEOUSL* BENAZEPRIL 5 MG TABLET 1 tablet every am and 2 table* ASPIRIN 81 MG TABLET,DELAYED * Take 81 mg by mouth once eliecer* OMEPRAZOLE 20 MG CAPSULE,JOS ÉANTONIO* Take 1 capsule by mouth once * MULTIVITAMIN CAPSULE Take 1 capsule by mouth once * GABAPENTIN 300 MG CAPSULE Take 2 capsules by mouth thre* EMPAGLIFLOZIN 25 MG TABLET Take 1 tablet by mouth once d* Patient not taking: Reported on 02/13/2018 METFORMIN 500 MG TABLET Take 1 tablet by mouth twice * Patient not taking: Reported on 04/19/2018 Problem List As Of Date 04/19/2018 Noted Resolved Herniation of intervertebral disc between L4 an*INVALID FOR* Priority: A More... Displacement of lumbar intervertebral disc with*INVALID FOR* Sprain of lumbar region [S33.5XXA] INVALID FOR* Type 1 diabetes mellitus [E10.9] Priority: B More... Vitamin D deficiency [E55.9] Hyperlipidemia [E78.5] HTN (hypertension) [I10] Priority: C More... Spondylolisthesis, lumbar region [M43.16] INVALID FOR* High cholesterol [E78.00] Post laminectomy syndrome [M96.1] INVALID FOR* Lumbosacral disc herniation [M51.27] INVALID FOR* Herniation of intervertebral disc between L5 an*INVALID FOR* Other instructions from your clinician: 1. Take medication exactly as prescribed. A) Do not take more medication than prescribed. Violations will result in discontinuation of the medication. B) Only take medication that is currently being prescribed. Violations will result in discontinuation of pain medications. C) Remember to bring your pill bottle to every office visit for pill counts. Violations may result in not being able to get medication filled. 2. Keep medication secured in a safe place. Stolen or lost prescriptions may result in discontinuation of the medication being prescribed. 3. This medication may affect your ability to safely operate a motor vehicle. Caution is advised. 4. Avoid drinking alcohol while taking pain medication. 5. Avoid concurrent usage of benzodiazepines (alprazolam, lorazepam, diazepam, clonazepam, etc.) with your prescribed pain medication. 6. If ordered a sedative (ex- xanax/valium), to be taken prior to a procedure, bring this medication with you to your procedure. DO NOT TAKE AT HOME. 7. Continue to work on slowly increasing daily exercise. With a goal of 30 minutes of light exercise (ex- walking) 4-5 times weekly. Prescriptions ordered this encounter Disp Refills Start End OXYCODONE-ACETAMINOPHEN 7.5 MG-325 M* 90 t* 0 04/19/2018 05/19/2018 Class: Print RX Route: ORAL Sig: Take 1 tablet by mouth every 8 hours as needed for Pain (for pain.) for up to 30 days. Earliest Fill Date: 04/19/18 Medications Discontinued During This Encounter oxyCODONE-acetaminophen (PERCOCET) 7* 90 t* 0 03/19/2018 04/19/2018 Class: Print RX Route: ORAL Sig: Take 1 tablet by mouth every 8 hours as needed for Pain (for pain.) for up to 30 days. Earliest Fill Date: 03/19/18 Disc: Reason for discontinue is not on file. Level of Service: [facility] PATIENT VISIT LEVEL 3 [[id number]] Disposition: Return in about 1 month (around 05/19/2018) for Low back pain. Follow-up and Disposition History Recorded Questionnaire: AG SPINE PAIN PILL COUNT MEDICATION NAME -> percocet STRENGTH -> 7.5 LAST FILL DATE -> 03/20/2018 DATE LAST DOSE TAKEN -> 04/18/18 QUANTITY FILLED -> 90 QUANTITY REMAINING -> 1 Encounter Status:Closed by KALIN LOPEZ CNP on 04/19/18 OBSOLETE Observed: 04/10/2018 Status: COMPLETED Source: [facility] 12:00 AM [facility]INIC OTHER CAMPUS REPOSITORY Refill (SPAGBA) KENDALLJOSE ([id number]) 1980 M Date Time Provider Department 04/10/18 KALIN LOPEZ ([facility]) [facility] During your visit today, we recorded the following information about you: Ivy Ceballos MA 04/11/2018 3:38 PM Signed Called patient to let him know. Left message on machine. Ivy Ceballos MA April 11, 2018 3:38 PM Clara Mckenzie MA 04/11/2018 4:32 PM Signed Spoke with patient and let him know his Norflex was sent to his pharmacy Allergies As of Date: 04/10/2018 Noted Allergy Reaction CLINDAMYCIN 03/29/2016 4 - Hives Date Reviewed: 03/15/2018 Reviewed by: Malou Torres MA - Fully Assessed Reason for Visit: Refill Request [94] Visit Diagnoses:Post laminectomy syndrome [M96.1] Lumbosacral disc herniation [M51.27] Herniation of intervertebral disc between L4 and L5 [M51.26] Order(s):orphenadrine ER (NORFLEX) 100 mg tabletTAKE 1 TABLET BY MOUTH TWICE DAILY NEEDED FOR MUSCLE SPASM OR PAIN.Disp: 60 tabletRfl: 0 Prescriptions as of 04/10/2018 Sig: ORPHENADRINE CITRATE ER 100 M* TAKE 1 TABLET BY MOUTH TWICE * MELOXICAM 15 MG TABLET TAKE 1 TABLET BY MOUTH EVERY * OXYCODONE-ACETAMINOPHEN 7.5 M* Take 1 tablet by mouth every * INSULIN LISPRO (U-100) 100 UN* INJECT 1 UNIT PER 5 GRAMS OF * INSULIN LISPRO (U-100) 100 UN* INJECT 1 UNIT PER 5 GRAMS OF * PRAVASTATIN 40 MG TABLET Take 1 tablet by mouth once d* EMPAGLIFLOZIN 25 MG TABLET Take 1 tablet by mouth once d* Patient not taking: Reported on 02/13/2018 METFORMIN 500 MG TABLET Take 1 tablet by mouth twice * TRESIBA FLEXTOUCH U-100 INSUL* INJECT 45 UNITS SUBCUTANEOUSL* BENAZEPRIL 5 MG TABLET 1 tablet every am and 2 table* ASPIRIN 81 MG TABLET,DELAYED * Take 81 mg by mouth once eliecer* OMEPRAZOLE 20 MG CAPSULE,JOSÉ ANTONIO* Take 1 capsule by mouth once * MULTIVITAMIN CAPSULE Take 1 capsule by mouth once * Problem List As Of Date 04/10/2018 Noted Resolved Herniation of intervertebral disc between L4 an*INVALID FOR* Priority: A More... Displacement of lumbar intervertebral disc with*INVALID FOR* Sprain of lumbar region [S33.5XXA] INVALID FOR* Type 1 diabetes mellitus [E10.9] Priority: B More... Vitamin D deficiency [E55.9] Hyperlipidemia [E78.5] HTN (hypertension) [I10] Priority: C More... Spondylolisthesis, lumbar region [M43.16] INVALID FOR* High cholesterol [E78.00] Post laminectomy syndrome [M96.1] INVALID FOR* Lumbosacral disc herniation [M51.27] INVALID FOR* Herniation of intervertebral disc between L5 an*INVALID FOR* Prescriptions ordered this encounter Disp Refills Start End ORPHENADRINE CITRATE ER 100 MG TABLE* 60 t* 0 04/11/2018 05/11/2018 Route: ORAL Sig: TAKE 1 TABLET BY MOUTH TWICE DAILY NEEDED FOR MUSCLE SPASM OR PAIN. Medications Discontinued During This Encounter orphenadrine ER (NORFLEX) 100 mg tab* 60 t* 0 03/15/2018 04/11/2018 Route: ORAL Sig: Take 1 tablet by mouth twice daily as needed for Muscle Spasm or Pain. Disc: Reason for discontinue is not on file. Encounter Status:Closed by KALIN LOPEZ CNP on 04/11/18 CT LUMBAR SPINE W/O Observed: 04/08/2018 Status: F Source: [employer] CONTRAST 00369 10:38 AM HEALTH SYSTEM REPOSITORY Performed at [facility] APPROVED BY: BRENT NIX MD EXAMINATION: CT LUMBAR SPINE W/O CONTRAST [id number] CLINICAL HISTORY: Follow-up microdiscectomy and lumbar fusion at L4-5. Low back pain. TECHNIQUE: Spiral, high resolution axial images were obtained from the thoracolumbar junction to the sacrum with sagittal and coronal planar reconstructions. MQ: [id number] Contrast: None CT Dose-Length Product: 911 mGy*cm CT Dose Reduction Employed: Automated exposure control (AEC) was used. COMPARISON: Lumbar spine radiographs 02/02/2018 and 05/19/2016 RESULT: Counting reference: Lumbosacral junction. For the purposes of this report, L4-5 is considered the level of the iliac crest and there are 5 lumbar-type vertebrae. Anatomic Variants: None. Alignment: Alignment is anatomic. Bone marrow /fracture: No evidence of a lytic or blastic process in the visualized spine. No evidence of acute or chronic fracture. There has been anterior and posterior fusion with interbody fusion device and pedicle screw and germain construct at L4-5. Surgical hardware is intact. Changes at L4 laminectomy noted. Paraspinal soft tissues: The paraspinal soft tissues planes are maintained. Lower thoracic spine: The visualized lower thoracic bony canal and foramina are patent. T12-L1: No central canal stenosis or foraminal narrowing. L1-L2: No central canal stenosis or foraminal narrowing. L2-L3: No central canal stenosis or foraminal narrowing. L3-L4: Minimal disc bulging and mild ligament flavum hypertrophy cause mild central canal stenosis. No significant foraminal narrowing. L4-L5: Evaluation is limited due to streak artifact from the metallic surgical hardware. There is been anterior and posterior fusion with L4 laminectomy. L5-S1: There is posterior disc height loss. Posterior midline disc protrusion impresses on the ventral thecal sac causing at least mild thecal sac narrowing. Disc bulging and slight spurring cause mild/moderate bilateral foraminal narrowing. Sacrum and iliac wings: The visualized sacrum and iliac wings are within normal limits. IMPRESSION: 1. Postoperative changes of posterior decompression and anterior and posterior fusion at L4-5 as above. Surgical hardware is intact. Evaluation of the L4-5 level is somewhat limited due to streak aidan fact from the surgical hardware. 2. At L3-4, minimal disc bulging and mild ligamentum flavum hypertrophy cause mild central canal stenosis. 3. Mild degenerative disc disease at L5-S1. Posterior midline disc protrusion at this level impresses on the ventral thecal sac causing at least mild thecal sac narrowing. There is mild/moderate bila teral foraminal narrowing at this level. Anatomic Variant: None. L4-5 is considered the level of the iliac crest and assume there are 5 lumbar-type vertebrae. OBSOLETE Observed: 04/06/2018 Status: COMPLETED Source: [facility] 12:00 AM CLINIC OTHER [place] REPOSITORY Refill (MILESGBA) JOSE ARGUETA ([id number]) 1980 M Date Time Provider Department 04/06/18 LENORE FLORES During your visit today, we recorded the following information about you: Allergies As of Date: 04/06/2018 Noted Allergy Reaction CLINDAMYCIN 03/29/2016 4 - Hives Date Reviewed: 03/15/2018 Reviewed by: Malou Torres MA - Fully Assessed Reason for Visit: Refill Request [94] Visit Diagnosis:Post laminectomy syndrome [M96.1] Order(s):meloxicam (MOBIC) 15 mg tabletTAKE 1 TABLET BY MOUTH EVERY DAYDisp: 30 tabletRfl: 2 Prescriptions as of 04/06/2018 Sig: MELOXICAM 15 MG TABLET TAKE 1 TABLET BY MOUTH EVERY * OXYCODONE-ACETAMINOPHEN 7.5 M* Take 1 tablet by mouth every * ORPHENADRINE CITRATE ER 100 M* Take 1 tablet by mouth twice * GABAPENTIN 300 MG CAPSULE Take 2 capsules by mouth thre* INSULIN LISPRO (U-100) 100 UN* INJECT 1 UNIT PER 5 GRAMS OF * INSULIN LISPRO (U-100) 100 UN* INJECT 1 UNIT PER 5 GRAMS OF * PRAVASTATIN 40 MG TABLET Take 1 tablet by mouth once d* EMPAGLIFLOZIN 25 MG TABLET Take 1 tablet by mouth once d* Patient not taking: Reported on 02/13/2018 METFORMIN 500 MG TABLET Take 1 tablet by mouth twice * TRESIBA FLEXTOUCH U-100 INSUL* INJECT 45 UNITS SUBCUTANEOUSL* BENAZEPRIL 5 MG TABLET 1 tablet every am and 2 table* ASPIRIN 81 MG TABLET,DELAYED * Take 81 mg by mouth once eliecer* OMEPRAZOLE 20 MG CAPSULE,JOSÉ ANTONIO* Take 1 capsule by mouth once * MULTIVITAMIN CAPSULE Take 1 capsule by mouth once * Problem List As Of Date 04/06/2018 Noted Resolved Herniation of intervertebral disc between L4 an*INVALID FOR* Priority: A More... Displacement of lumbar intervertebral disc with*INVALID FOR* Sprain of lumbar region [S33.5XXA] INVALID FOR* Type 1 diabetes mellitus [E10.9] Priority: B More... Vitamin D deficiency [E55.9] Hyperlipidemia [E78.5] HTN (hypertension) [I10] Priority: C More... Spondylolisthesis, lumbar region [M43.16] INVALID FOR* High cholesterol [E78.00] Post laminectomy syndrome [M96.1] INVALID FOR* Lumbosacral disc herniation [M51.27] INVALID FOR* Herniation of intervertebral disc between L5 an*INVALID FOR* Prescriptions ordered this encounter Disp Refills Start End MELOXICAM 15 MG TABLET 30 t* 2 04/06/2018 Sig: TAKE 1 TABLET BY MOUTH EVERY DAY Medications Discontinued During This Encounter meloxicam (MOBIC) 15 mg tablet 30 t* 2 01/11/2018 04/06/2018 Route: ORAL Sig: Take 1 tablet by mouth once daily. Disc: Reason for discontinue is not on file. Encounter Status:Closed by KALIN LOPEZ CNP on 04/06/18 PAVEL Observed: 03/15/2018 Status: COMPLETED Source: [facility] 12:40 PM [facility] REPOSITORY Office Visit (SPNSMN) JOSE ARGUETA ([id number]) 1980 M Date Time Provider Department 03/15/18 12:40 PM WENDIE CALDERON) SPNSMN During your visit today, we recorded the following information about you: Pulse Respiration Blood pressure Weight 119/minute 16/minute 139/86 108.9 kg Height 1.753 m Wendie Calderon PA-C 04/20/2018 8:09 AM Addendum SPINE SURGERY FOLLOW UP SERVICE DATE: 03/15/2018 SURGERY: 02/01/17 ?L4-5 left sided facetectomy and instrumented interbody fusion (midlif) with neuronavigation ? Jose Argueta is seen for 11 week post operative follow up. Patient states that PT was only recently approved with [facility] and he only started it last week. He reports continued back pain and occasional leg pain. Over- all patient feels that he is improving when comparing himself presurgically. Jose Argueta is seen for 1 year post operative follow up. Patient reports that symptoms have increased. He feels that he was improving, but no pre-surgical symptoms have increased. Patient low back pain described as aching to sharp. Bilateral leg pain. Left to mid thigh and increased down right leg . Increased pain in low back that is constant. Relieved with sitting. PT-6 weeks after surgery HEP as tolerated PAIN EVALUATION 03/15/2018 Pain Score: 6 Pain Location: Other: See Comment lower back, left and right leg Description: Aching;Sharp Duration Amount of Time: 8 Duration Units: Years Frequency: Continuous Intervention: Medication;Cold;Relaxation;Exercise;Heat;Therapeutic techniques-CPRP PHYSICAL EXAM: BP 139/86 Pulse 119 Resp 16 Ht 175.3 cm (5' 9) Wt 108.9 kg (240 lb) BMI 35.44 kg/m? GENERAL APPEARANCE: Well nourished, well developed, and no apparent distress. NEURO PSYCH: Patient oriented to person, place, and time. Mood pleasant. Benign affect. MUSCULOSKELETAL VISUAL INSPECTION CERVICAL: WNL THORACIC: WNL LUMBAR: WNL MOTOR: 5/5 in all muscle groups. SENSORY: Normal sensory exam GAIT: Normal. DATA REVIEW [facility] records reviewed ASSESSMENT/PLAN IMPRESSION: (M51.26) Herniation of intervertebral disc between L4 and L5 (primary encounter diagnosis) (M51.26) Displacement of lumbar intervertebral disc without myelopathy (S33.5XXD) Lumbar sprain, subsequent encounter Patient is 37 yo with continued back into leg pain. He does not feel surgery has helped. CT ordered to assess fusion. Would not recommend SCS at this time until full evaluation of surgery site is completed. Also discussed Chronic pain rehab programs option pending results of CT. Patient verbalized understanding. Gave reassurance. 1. Imaging: Lumbar CT Without Contrast 2. Follow up: offered virtual visit vs phone vs in person to go over results The majority of the visit was spent counseling and/or coordinating care for the patient. The patient was counseled regarding spine. Total face to face time was 20 minutes Wendie Calderon PA-C Addendum: CT reviewed and shows intact hardware and good fusion. With continued significant symptoms and okay CT would recommend MRI lumbar WO Contrast to assess for any compressive pathology that could be cause of his symptoms. SIGNATURE: Wendie Calderon PA-C PATIENT NAME: Jose Argueta DATE: March 15, 2018 TIME: 8:36 AM PAGER: Wendie Calderon PA-C 04/20/2018 8:12 AM Signed Addended by: WENDIE CALDERON PA-C on: 04/20/2018 08:12 AM Modules accepted: Orders Referring Provider: WENDIE CALDERON ([facility]) [[id number]] Allergies As of Date: 03/15/2018 Noted Allergy Reaction CLINDAMYCIN 03/29/2016 4 - Hives Date Reviewed: 03/15/2018 Reviewed by: Malou Torres MA - Fully Assessed Reason for Visit: Established Patient [175] Primary Visit Diagnosis:Herniation of intervertebral disc between L4 and L5 [M51.26] Other Visit Diagnoses:Displacement of lumbar intervertebral disc without myelopathy [M51.26] Lumbar sprain, subsequent encounter [S33.5XXD] S/P lumbar fusion [Z98.1] Arthrodesis status [Z98.1] Spinal stenosis of lumbar region, unspecified whether neurogenic claudication present [M48.061] Order(s):CT LUMBAR SPINE WO IVCON [[id number]] Order #: [id number] FUTURE MRI LUMBAR SPINE WO IVCON [[id number]] Order #: [id number] FUTURE Prescriptions as of 03/15/2018 Sig: X OXYCODONE-ACETAMINOPHEN 7.5 M* Take 1 tablet by mouth every * X ORPHENADRINE CITRATE ER 100 M* Take 1 tablet by mouth twice * GABAPENTIN 300 MG CAPSULE Take 2 capsules by mouth thre* INSULIN LISPRO (U-100) 100 UN* INJECT 1 UNIT PER 5 GRAMS OF * INSULIN LISPRO (U-100) 100 UN* INJECT 1 UNIT PER 5 GRAMS OF * PRAVASTATIN 40 MG TABLET Take 1 tablet by mouth once d* X MELOXICAM 15 MG TABLET Take 1 tablet by mouth once d* EMPAGLIFLOZIN 25 MG TABLET Take 1 tablet by mouth once d* Patient not taking: Reported on 02/13/2018 METFORMIN 500 MG TABLET Take 1 tablet by mouth twice * Patient not taking: Reported on 04/19/2018 TRESIBA FLEXTOUCH U-100 INSUL* INJECT 45 UNITS SUBCUTANEOUSL* BENAZEPRIL 5 MG TABLET 1 tablet every am and 2 table* ASPIRIN 81 MG TABLET,DELAYED * Take 81 mg by mouth once eliecer* OMEPRAZOLE 20 MG CAPSULE,JOSÉ ANTONIO* Take 1 capsule by mouth once * MULTIVITAMIN CAPSULE Take 1 capsule by mouth once * Problem List As Of Date 03/15/2018 Noted Resolved Herniation of intervertebral disc between L4 an*INVALID FOR* Priority: A More... Displacement of lumbar intervertebral disc with*INVALID FOR* Sprain of lumbar region [S33.5XXA] INVALID FOR* Type 1 diabetes mellitus [E10.9] Priority: B More... Vitamin D deficiency [E55.9] Hyperlipidemia [E78.5] HTN (hypertension) [I10] Priority: C More... Spondylolisthesis, lumbar region [M43.16] INVALID FOR* High cholesterol [E78.00] Post laminectomy syndrome [M96.1] INVALID FOR* Lumbosacral disc herniation [M51.27] INVALID FOR* Herniation of intervertebral disc between L5 an*INVALID FOR* Follow-up and Disposition History Recorded Encounter Status:Closed by WENDIE CALDERON PA-C on 03/16/18 PROGRESS Observed: 03/15/2018 Status: COMPLETED Source: RING[facility] 8:35 AM [facility] REPOSITORY [facility] ID: [id number] Author: Wendie Calderon Service: (none) Author Type: Physician Water Pumper Type: Progress Notes Filed: 04/20/2018 8:09 AM Note Text: SPINE SURGERY FOLLOW UP SERVICE DATE: 03/15/2018 SURGERY: 02/01/17 ?L4-5 left sided facetectomy and instrumented interbody fusion (midlif) with neuronavigation ? Jose Argueta is seen for 11 week post operative follow up. Patient states that PT was only recently approved with [facility] and he only started it last week. He reports continued back pain and occasional leg pain. Over-all patient feels that he is improving when comparing himself presurgically. Jose Argueta is seen for 1 year post operative follow up. Patient reports that symptoms have increased. He feels that he was improving, but no pre-surgical symptoms have increased. Patient low back pain described as aching to sharp. Bilateral leg pain. Left to mid thigh and increased down right leg . Increased pain in low back that is constant. Relieved with sitting. PT-6 weeks after surgery HEP as tolerated PAIN EVALUATION 03/15/2018 Pain Score: 6 Pain Location: Other: See Comment lower back, left and right leg Description: Aching;Sharp Duration Amount of Time: 8 Duration Units: Years Frequency: Continuous Intervention: Medication;Cold;Relaxation;Exercise;Heat;Therapeutic techniques-CPRP PHYSICAL EXAM: BP 139/86 Pulse 119 Resp 16 Ht 175.3 cm (5' 9) Wt 108.9 kg (240 lb) BMI 35.44 kg/m? GENERAL APPEARANCE: Well nourished, well developed, and no apparent distress. NEURO PSYCH: Patient oriented to person, place, and time. Mood pleasant. Benign affect. MUSCULOSKELETAL VISUAL INSPECTION CERVICAL: WNL THORACIC: WNL LUMBAR: WNL MOTOR: 5/5 in all muscle groups. SENSORY: Normal sensory exam GAIT: Normal. DATA REVIEW [facility] records reviewed ASSESSMENT/PLAN IMPRESSION: (M51.26) Herniation of intervertebral disc between L4 and L5 (primary encounter diagnosis) (M51.26) Displacement of lumbar intervertebral disc without myelopathy (S33.5XXD) Lumbar sprain, subsequent encounter Patient is 37 yo with continued back into leg pain. He does not feel surgery has helped. CT ordered to assess fusion. Would not recommend SCS at this time until full evaluation of surgery site is completed. Also discussed Chronic pain rehab programs option pending results of CT. Patient verbalized understanding. Gave reassurance. 1. Imaging: Lumbar CT Without Contrast 2. Follow up: offered virtual visit vs phone vs in person to go over results The majority of the visit was spent counseling and/or coordinating care for the patient. The patient was counseled regarding spine. Total face to face time was 20 minutes Wendie Calderon PA-C Addendum: CT reviewed and shows intact hardware and good fusion. With continued significant symptoms and okay CT would recommend MRI lumbar WO Contrast to assess for any compressive pathology that could be cause of his symptoms. SIGNATURE: Wendie Calderon PA-C PATIENT NAME: Jose Argueta DATE: March 15, 2018 TIME: 8:36 AM PAGER: PROGRESS Observed: 03/15/2018 Status: COMPLETED Source: RINGLE 7:41 AM CLINIC OTHER CAMPUS REPOSITORY O ID: [id number] Author: Kalin Lopez Service: (none) Author Type: Nurse Practitioner Type: Progress Notes Filed: 03/15/2018 7:58 AM Note Text: Subjective Jose Argueta is a 37 year old male who presents today for a follow up for low back pain through his [facility] claim. He will be seeing is surgeon Dr. Barksdale later today. He continues to have chronic low back pain and right leg pain. He is getting benefit from the percocet, gabapentin, and meloxicam. He is requesting a muscle relaxer because his back muscles have been very tight lately. He has done well with norflex in the past. Patient reports no adverse side effects to current medication regimen. Current regimen does allow patient to maintain ADLs. The patient is in need of a refill today. *Unless noted otherwise, no significant weight loss or gain, fever/chills, myelopathy, neurologic changes, vision changes, psychiatric changes, or changes in bowel and/or bladder function. MEDICATION NAME percocet STRENGTH 7.5 LAST FILL DATE 02/17/2018 DATE LAST DOSE TAKEN 8. QUANTITY FILLED 90 QUANTITY REMAINING 11 Review of Systems Eyes: Negative for blurred vision and double vision. Respiratory: Negative for shortness of breath. Cardiovascular: Negative for chest pain and leg swelling. Gastrointestinal: Negative for constipation, diarrhea and nausea. Genitourinary: Negative for dysuria. Skin: Negative for itching. Neurological: Negative for dizziness, tingling, weakness and headaches. Endo/Heme/Allergies: Does not bruise/bleed easily. Psychiatric/Behavioral: Negative for depression and suicidal ideas. PAST MEDICAL HISTORY Diagnosis Date - Fatigue - GERD (gastroesophageal reflux disease) - High cholesterol - HTN (hypertension) under control - Hyperlipidemia - Type 1 diabetes mellitus (HCC) at the age of 28 - Vitamin D deficiency - Vitamin deficiency PAST SURGICAL HISTORY Procedure Laterality Date - BACK SURGERY HX 02/01/[address] 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 insulin lispro (HUMALOG KWIKPEN INSULIN) 100 unit/mL inpn INJECT 1 UNIT PER 5 GRAMS OF CARBOHYDRATES WITH EACH MEAL (TOTAL MAXIMUM DAILY DOSE IS 80 UNITS) oxyCODONE-acetaminophen (PERCOCET) 7.5-325 mg tablet Take 1 tablet by mouth every 8 hours as needed for Pain (for pain.) for up to 30 days.Earliest Fill Date: 02/16/18 insulin lispro (HUMALOG KWIKPEN INSULIN) 100 unit/mL inpn INJECT 1 UNIT PER 5 GRAMS OF CARBOHYDRATES WITH EACH MEAL (TOTAL MAXIMUM DAILY DOSE IS 55 UNITS) pravastatin (PRAVACHOL) 40 mg tablet Take 1 tablet by mouth once daily. meloxicam (MOBIC) 15 mg tablet Take 1 tablet by mouth once daily. empagliflozin (JARDIANCE) 25 mg tablet Take 1 tablet by mouth once daily. metFORMIN (GLUCOPHAGE) 500 mg tablet Take 1 tablet by mouth twice daily with meals. TRESIBA FLEXTOUCH U-100 100 unit/mL (3 mL) injection INJECT 45 UNITS SUBCUTANEOUSLY EVERY 24 HOURS. benazepril (LOTENSIN) 5 mg tablet 1 tablet every am and 2 tablets every pm aspirin, enteric coated (ADULT LOW DOSE ASPIRIN) 81 mg EC tablet Take 81 mg by mouth once daily. omeprazole (PRILOSEC) 20 mg capsule Take 1 capsule by mouth once daily. Multivitamin capsule Take 1 capsule by mouth once daily. Objective There were no vitals taken for this visit. Physical Exam Constitutional: He is oriented to person, place, and time and well-developed, well-nourished, and in no distress. No distress. HENT: Head: Normocephalic and atraumatic. Cardiovascular: Normal rate, regular rhythm, normal heart sounds and intact distal pulses. Pulmonary/Chest: Effort normal and breath sounds normal. No respiratory distress. He has no wheezes. He has no rales. He exhibits no tenderness. Musculoskeletal: Lumbar back: He exhibits decreased range of motion, tenderness, pain and spasm. Neurological: He is alert and oriented to person, place, and time. He has normal strength. He displays no weakness. A sensory deficit (RLE) is present. He has an abnormal Straight Leg Raise Test (RLE). Gait normal. Gait normal. GCS score is 15. Skin: Skin is warm and dry. No rash noted. He is not diaphoretic. No erythema. No pallor. Psychiatric: Mood, memory, affect and judgment normal. Nursing note and vitals reviewed. ASSESSMENT/PLAN: 1. Post laminectomy syndrome - ICD9: 722.80, ICD10: M96.1 - Following up with surgeon today. - May consider SCS. - Continue gabapentin and meloxicam - OXYCODONE-ACETAMINOPHEN 7.5 MG-325 MG TABLET- refill - Patient needs refill/s today. Patient states medications provide adequate analgesia. The medication/s allow/s patient to maintain ADLS's and helps to increase their overall functioning. Patient reports no adverse effects from the medication/s and no aberrant behaviors are noted. Patient understands risks and benefits of the medication. Patient understands that the opioid medication prescribed has potential for abuse and misuse. Benefits of this medication are currently outweighing potential risks to the patient. Patient understands that at some point they may need to be weaned from consistent usage of this type of this medication. - Patient has been instructed to avoid concurrent usage of the pain medication prescribed and both alcohol and/or benzodiazepines (clonazepam, alprazolam, lorazepam, etc), because of the increased risk of somnolence and respiratory depression. - Patient has received education that this medication may affect their ability to safely operate a motor vehicle. Caution was advised. - Patient has been instructed on the importance maintaining strict adherence to prescription instructions and not overtaking the medication. Patient verbalizes understanding. -Patient has also recieved education on safe storage of the medication that is being prescribed. - Opioid consent and contract on file - ORT on file - Pill count was ok - Last Drug screen was ok - OARRS reviewed, no aberrant activity. Pt compliant with provider prescribing protocol. - ORPHENADRINE CITRATE ER 100 MG TABLET,EXTENDED RELEASE- BID PRN. Reviewed possible risks, benefits, and side effects of medication. Patient verbalized understanding. - F/U in 1 month 2. Lumbosacral disc herniation - ICD9: 722.10, ICD10: M51.27 - OXYCODONE-ACETAMINOPHEN 7.5 MG-325 MG TABLET - ORPHENADRINE CITRATE ER 100 MG TABLET,EXTENDED RELEASE 3. Herniation of intervertebral disc between L4 and L5 - ICD9: 722.10, ICD10: M51.26 - OXYCODONE-ACETAMINOPHEN 7.5 MG-325 MG TABLET - ORPHENADRINE CITRATE ER 100 MG TABLET,EXTENDED RELEASE Kalin Lopez APRN.JARROD CNOV Observed: 03/15/2018 Status: COMPLETED Source: [facility] 7:30 AM [facility] OTHER CAMPUS REPOSITORY Office Visit (SPAGBA) JOSE ARGUETA ([id number]) 1980 M Date Time Provider Department 03/15/18 7:30 AM KALIN LOPEZ (JARROD) SPAGBJenise During your visit today, we recorded the following information about you: Pulse Blood pressure Weight Height 118/minute 142/82 108.9 kg 1.753 m Kalin Lopez APRN.CNP 03/15/2018 7:41 AM Signed 1. Take medication exactly as prescribed. A) Do not take more medication than prescribed. Violations will result in discontinuation of the medication. B) Only take medication that is currently being prescribed. Violations will result in discontinuation of pain medications. C) Remember to bring your pill bottle to every office visit for pill counts. Violations may result in not being able to get medication filled. 2. Keep medication secured in a safe place. Stolen or lost prescriptions may result in discontinuation of the medication being prescribed. 3. This medication may affect your ability to safely operate a motor vehicle. Caution is advised. 4. Avoid drinking alcohol while taking pain medication. 5. Avoid concurrent usage of benzodiazepines (alprazolam, lorazepam, diazepam, clonazepam, etc.) with your prescribed pain medication. 6. If ordered a sedative (ex- xanax/valium), to be taken prior to a procedure, bring this medication with you to your procedure. DO NOT TAKE AT HOME. 7. Continue to work on slowly increasing daily exercise. With a goal of 30 minutes of light exercise (ex- walking) 4-5 times weekly. Kalin Lopez APRN.[employer] 03/15/2018 7:58 AM Signed Subjective Jose Argueta is a 37 year old male who presents today for a follow up for low back pain through his [facility] claim. He will be seeing is surgeon Dr. Barksdale later today. He continues to have chronic low back pain and right leg pain. He is getting benefit from the percocet, gabapentin, and meloxicam. He is requesting a muscle relaxer because his back muscles have been very tight lately. He has done well with norflex in the past. Patient reports no adverse side effects to current medication regimen. Current regimen does allow patient to maintain ADLs. The patient is in need of a refill today. *Unless noted otherwise, no significant weight loss or gain, fever/chills, myelopathy, neurologic changes, vision changes, psychiatric changes, or changes in bowel and/or bladder function. MEDICATION NAME percocet STRENGTH 7.5 LAST FILL DATE 02/17/2018 DATE LAST DOSE TAKEN 8. QUANTITY FILLED 90 QUANTITY REMAINING 11 Review of Systems Eyes: Negative for blurred vision and double vision. Respiratory: Negative for shortness of breath. Cardiovascular: Negative for chest pain and leg swelling. Gastrointestinal: Negative for constipation, diarrhea and nausea. Genitourinary: Negative for dysuria. Skin: Negative for itching. Neurological: Negative for dizziness, tingling, weakness and headaches. Endo/Heme/Allergies: Does not bruise/bleed easily. Psychiatric/Behavioral: Negative for depression and suicidal ideas. PAST MEDICAL HISTORY Diagnosis Date - Fatigue - GERD (gastroesophageal reflux disease) - High cholesterol - HTN (hypertension) under control - Hyperlipidemia - Type 1 diabetes mellitus (HCC) at the age of 28 - Vitamin D deficiency - Vitamin deficiency PAST SURGICAL HISTORY Procedure Laterality Date - BACK SURGERY HX 02/01/[address] 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 insulin lispro (HUMALOG KWIKPEN INSULIN) 100 unit/mL inpn INJECT 1 UNIT PER 5 GRAMS OF CARBOHYDRATES WITH EACH MEAL (TOTAL MAXIMUM DAILY DOSE IS 80 UNITS) oxyCODONE-acetaminophen (PERCOCET) 7.5-325 mg tablet Take 1 tablet by mouth every 8 hours as needed for Pain (for pain.) for up to 30 days.Earliest Fill Date: 02/16/18 insulin lispro (HUMALOG KWIKPEN INSULIN) 100 unit/mL inpn INJECT 1 UNIT PER 5 GRAMS OF CARBOHYDRATES WITH EACH MEAL (TOTAL MAXIMUM DAILY DOSE IS 55 UNITS) pravastatin (PRAVACHOL) 40 mg tablet Take 1 tablet by mouth once daily. meloxicam (MOBIC) 15 mg tablet Take 1 tablet by mouth once daily. empagliflozin (JARDIANCE) 25 mg tablet Take 1 tablet by mouth once daily. metFORMIN (GLUCOPHAGE) 500 mg tablet Take 1 tablet by mouth twice daily with meals. TRESIBA FLEXTOUCH U-100 100 unit/mL (3 mL) injection INJECT 45 UNITS SUBCUTANEOUSLY EVERY 24 HOURS. benazepril (LOTENSIN) 5 mg tablet 1 tablet every am and 2 tablets every pm aspirin, enteric coated (ADULT LOW DOSE ASPIRIN) 81 mg EC tablet Take 81 mg by mouth once daily. omeprazole (PRILOSEC) 20 mg capsule Take 1 capsule by mouth once daily. Multivitamin capsule Take 1 capsule by mouth once daily. Objective There were no vitals taken for this visit. Physical Exam Constitutional: He is oriented to person, place, and time and well-developed, well-nourished, and in no distress. No distress. HENT: Head: Normocephalic and atraumatic. Cardiovascular: Normal rate, regular rhythm, normal heart sounds and intact distal pulses. Pulmonary/Chest: Effort normal and breath sounds normal. No respiratory distress. He has no wheezes. He has no rales. He exhibits no tenderness. Musculoskeletal: Lumbar back: He exhibits decreased range of motion, tenderness, pain and spasm. Neurological: He is alert and oriented to person, place, and time. He has normal strength. He displays no weakness. A sensory deficit (RLE) is present. He has an abnormal Straight Leg Raise Test (RLE). Gait normal. Gait normal. GCS score is 15. Skin: Skin is warm and dry. No rash noted. He is not diaphoretic. No erythema. No pallor. Psychiatric: Mood, memory, affect and judgment normal. Nursing note and vitals reviewed. ASSESSMENT/PLAN: 1. Post laminectomy syndrome - ICD9: 722.80, ICD10: M96.1 - Following up with surgeon today. - May consider SCS. - Continue gabapentin and meloxicam - OXYCODONE-ACETAMINOPHEN 7.5 MG-325 MG TABLET- refill - Patient needs refill/s today. Patient states medications provide adequate analgesia. The medication/s allow/s patient to maintain ADLS's and helps to increase their overall functioning. Patient reports no adverse effects from the medication/s and no aberrant behaviors are noted. Patient understands risks and benefits of the medication. Patient understands that the opioid medication prescribed has potential for abuse and misuse. Benefits of this medication are currently outweighing potential risks to the patient. Patient understands that at some point they may need to be weaned from consistent usage of this type of this medication. - Patient has been instructed to avoid concurrent usage of the pain medication prescribed and both alcohol and/or benzodiazepines (clonazepam, alprazolam, lorazepam, etc), because of the increased risk of somnolence and respiratory depression. - Patient has received education that this medication may affect their ability to safely operate a motor vehicle. Caution was advised. - Patient has been instructed on the importance maintaining strict adherence to prescription instructions and not overtaking the medication. Patient verbalizes understanding. -Patient has also recieved education on safe storage of the medication that is being prescribed. - Opioid consent and contract on file - ORT on file - Pill count was ok - Last Drug screen was ok - OARRS reviewed, no aberrant activity. Pt compliant with provider prescribing protocol. - ORPHENADRINE CITRATE ER 100 MG TABLET,EXTENDED RELEASE- BID PRN. Reviewed possible risks, benefits, and side effects of medication. Patient verbalized understanding. - F/U in 1 month 2. Lumbosacral disc herniation - ICD9: 722.10, ICD10: M51.27 - OXYCODONE-ACETAMINOPHEN 7.5 MG-325 MG TABLET - ORPHENADRINE CITRATE ER 100 MG TABLET,EXTENDED RELEASE 3. Herniation of intervertebral disc between L4 and L5 - ICD9: 722.10, ICD10: M51.26 - OXYCODONE-ACETAMINOPHEN 7.5 MG-325 MG TABLET - ORPHENADRINE CITRATE ER 100 MG TABLET,EXTENDED RELEASE Kalin Lopez APRN.[employer] Referring Provider: SELF [[id number]] Allergies As of Date: 03/15/2018 Noted Allergy Reaction CLINDAMYCIN 03/29/2016 4 - Hives Date Reviewed: 03/15/2018 Reviewed by: Vj Garay - Fully Assessed Visit Diagnoses:Post laminectomy syndrome [M96.1] Lumbosacral disc herniation [M51.27] Herniation of intervertebral disc between L4 and L5 [M51.26] Order(s):[START ON 03/19/2018] oxyCODONE-acetaminophen (PERCOCET) 7.5-325 mg tabletTake 1 tablet by mouth every 8 hours as needed for Pain (for pain.) for up to 30 days. Earliest Fill Date: 03/19/18Disp: 90 tabletRfl: 0 orphenadrine ER (NORFLEX) 100 mg tabletTake 1 tablet by mouth twice daily as needed for Muscle Spasm or Pain.Disp: 60 tabletRfl: 0 Prescriptions as of 03/15/2018 Sig: OXYCODONE-ACETAMINOPHEN 7.5 M* Take 1 tablet by mouth every * GABAPENTIN 300 MG CAPSULE Take 2 capsules by mouth thre* INSULIN LISPRO (U-100) 100 UN* INJECT 1 UNIT PER 5 GRAMS OF * INSULIN LISPRO (U-100) 100 UN* INJECT 1 UNIT PER 5 GRAMS OF * PRAVASTATIN 40 MG TABLET Take 1 tablet by mouth once d* MELOXICAM 15 MG TABLET Take 1 tablet by mouth once d* METFORMIN 500 MG TABLET Take 1 tablet by mouth twice * TRESIBA FLEXTOUCH U-100 INSUL* INJECT 45 UNITS SUBCUTANEOUSL* BENAZEPRIL 5 MG TABLET 1 tablet every am and 2 table* ASPIRIN 81 MG TABLET,DELAYED * Take 81 mg by mouth once eliecer* OMEPRAZOLE 20 MG CAPSULE,JOSÉ ANTONIO* Take 1 capsule by mouth once * MULTIVITAMIN CAPSULE Take 1 capsule by mouth once * ORPHENADRINE CITRATE ER 100 M* Take 1 tablet by mouth twice * EMPAGLIFLOZIN 25 MG TABLET Take 1 tablet by mouth once d* Patient not taking: Reported on 02/13/2018 Problem List As Of Date 03/15/2018 Noted Resolved Herniation of intervertebral disc between L4 an*INVALID FOR* Priority: A More... Displacement of lumbar intervertebral disc with*INVALID FOR* Sprain of lumbar region [S33.5XXA] INVALID FOR* Type 1 diabetes mellitus [E10.9] Priority: B More... Vitamin D deficiency [E55.9] Hyperlipidemia [E78.5] HTN (hypertension) [I10] Priority: C More... Spondylolisthesis, lumbar region [M43.16] INVALID FOR* High cholesterol [E78.00] Post laminectomy syndrome [M96.1] INVALID FOR* Lumbosacral disc herniation [M51.27] INVALID FOR* Herniation of intervertebral disc between L5 an*INVALID FOR* Other instructions from your clinician: 1. Take medication exactly as prescribed. A) Do not take more medication than prescribed. Violations will result in discontinuation of the medication. B) Only take medication that is currently being prescribed. Violations will result in discontinuation of pain medications. C) Remember to bring your pill bottle to every office visit for pill counts. Violations may result in not being able to get medication filled. 2. Keep medication secured in a safe place. Stolen or lost prescriptions may result in discontinuation of the medication being prescribed. 3. This medication may affect your ability to safely operate a motor vehicle. Caution is advised. 4. Avoid drinking alcohol while taking pain medication. 5. Avoid concurrent usage of benzodiazepines (alprazolam, lorazepam, diazepam, clonazepam, etc.) with your prescribed pain medication. 6. If ordered a sedative (ex- xanax/valium), to be taken prior to a procedure, bring this medication with you to your procedure. DO NOT TAKE AT HOME. 7. Continue to work on slowly increasing daily exercise. With a goal of 30 minutes of light exercise (ex- walking) 4-5 times weekly. Prescriptions ordered this encounter Disp Refills Start End OXYCODONE-ACETAMINOPHEN 7.5 MG-325 M* 90 t* 0 03/19/2018 04/18/2018 Class: Print RX Route: ORAL Sig: Take 1 tablet by mouth every 8 hours as needed for Pain (for pain.) for up to 30 days. Earliest Fill Date: 03/19/18 ORPHENADRINE CITRATE ER 100 MG TABLE* 60 t* 0 03/15/2018 04/14/2018 Route: ORAL Sig: Take 1 tablet by mouth twice daily as needed for Muscle Spasm or Pain. Medications Discontinued During This Encounter oxyCODONE-acetaminophen (PERCOCET) 7* 90 t* 0 02/16/2018 03/15/2018 Class: Print RX Route: ORAL Sig: Take 1 tablet by mouth every 8 hours as needed for Pain (for pain.) for up to 30 days. Earliest Fill Date: 02/16/18 Disc: Reason for discontinue is not on file. Level of Service: [facility] PATIENT VISIT LEVEL 3 [[id number]] Disposition: Return in about 1 month (around 04/15/2018) for Low back pain. Follow-up and Disposition History Recorded Questionnaire: AG SPINE PAIN PILL COUNT MEDICATION NAME -> percocet STRENGTH -> 7.5 LAST FILL DATE -> 02/17/2018 DATE LAST DOSE TAKEN -> 8. QUANTITY FILLED -> 90 QUANTITY REMAINING -> 11 Encounter Status:Closed by KALIN LOPEZ CNP on 03/15/18 OBSOLETE Observed: 03/07/2018 Status: COMPLETED Source: [facility] 12:00 AM CLINIC OTHER CAMPUS REPOSITORY Refill (AGENDPOB) KENDALLJOSE ([id number]) 1980 M Date Time Provider Department 03/07/18 LINA BHAGAT During your visit today, we recorded the following information about you: Jodie Ramírez 03/07/2018 1:49 PM Signed Patient called that he is using more than 55 units of Humalog daily and needs a new prescription sent to the pharmacy. He is using up to 80 units daily as his blood sugars have been running high. Told patient to send in a list of his blood sugar and he stated he would. Patient requests the following prescription: Pending Prescriptions Disp Refills INSULIN LISPRO (U-100) 100 UNIT/ML SUBCUTANEOUS PEN 15 Pen 3 Sig: INJECT 1 UNIT PER 5 GRAMS OF CARBOHYDRATES WITH EACH MEAL (TOTAL MAXIMUM DAILY DOSE IS 55 UNITS) COLE: No Jodie Ramírez Allergies As of Date: 03/07/2018 Noted Allergy Reaction CLINDAMYCIN 03/29/2016 4 - Hives Date Reviewed: 02/13/2018 Reviewed by: Lenore Flores - Fully Assessed Reason for Visit: Refill Request [94] Cmt: Humalog Reason For Visit History Recorded Order(s):insulin lispro (HUMALOG KWIKPEN INSULIN) 100 unit/mL inpnINJECT 1 UNIT PER 5 GRAMS OF CARBOHYDRATES WITH EACH MEAL (TOTAL MAXIMUM DAILY DOSE IS 80 UNITS)Disp: 25 PenRfl: 3 Prescriptions as of 03/07/2018 Sig: INSULIN LISPRO (U-100) 100 UN* INJECT 1 UNIT PER 5 GRAMS OF * OXYCODONE-ACETAMINOPHEN 7.5 M* Take 1 tablet by mouth every * INSULIN LISPRO (U-100) 100 UN* INJECT 1 UNIT PER 5 GRAMS OF * PRAVASTATIN 40 MG TABLET Take 1 tablet by mouth once d* GABAPENTIN 300 MG CAPSULE Take 2 capsules by mouth thre* MELOXICAM 15 MG TABLET Take 1 tablet by mouth once d* EMPAGLIFLOZIN 25 MG TABLET Take 1 tablet by mouth once d* Patient not taking: Reported on 02/13/2018 METFORMIN 500 MG TABLET Take 1 tablet by mouth twice * Patient not taking: Reported on 01/11/2018 TRESIBA FLEXTOUCH U-100 INSUL* INJECT 45 UNITS SUBCUTANEOUSL* BENAZEPRIL 5 MG TABLET 1 tablet every am and 2 table* ASPIRIN 81 MG TABLET,DELAYED * Take 81 mg by mouth once eliecer* OMEPRAZOLE 20 MG CAPSULE,JOSÉ ANTONIO* Take 1 capsule by mouth once * MULTIVITAMIN CAPSULE Take 1 capsule by mouth once * Problem List As Of Date 03/07/2018 Noted Resolved Herniation of intervertebral disc between L4 an*INVALID FOR* Priority: A More... Displacement of lumbar intervertebral disc with*INVALID FOR* Sprain of lumbar region [S33.5XXA] INVALID FOR* Type 1 diabetes mellitus [E10.9] Priority: B More... Vitamin D deficiency [E55.9] Hyperlipidemia [E78.5] HTN (hypertension) [I10] Priority: C More... Spondylolisthesis, lumbar region [M43.16] INVALID FOR* High cholesterol [E78.00] Post laminectomy syndrome [M96.1] INVALID FOR* Lumbosacral disc herniation [M51.27] INVALID FOR* Herniation of intervertebral disc between L5 an*INVALID FOR* Prescriptions ordered this encounter Disp Refills Start End INSULIN LISPRO (U-100) 100 UNIT/ML S* 25 P* 3 03/08/2018 Sig: INJECT 1 UNIT PER 5 GRAMS OF CARBOHYDRATES WITH EACH MEAL (TOTAL MAXIMUM DAILY DOSE IS 80 UNITS) Medications Discontinued During This Encounter HUMALOG KWIKPEN INSULIN 100 unit/mL * 15 P* 3 02/16/2018 03/08/2018 Sig: INJECT 1 UNIT PER 5 GRAMS OF CARBOHYDRATES WITH EACH MEAL (TOTAL MAXIMUM DAILY DOSE IS 55 UNITS) Disc: Reason for discontinue is not on file. Encounter Status:Closed by LINA BHAGAT MD on 03/08/18 [place] Observed: 02/16/2018 Status: COMPLETED Source: [facility]INGLE 12:00 AM [facility] CAMP[facility] REPOSITORY Telephone ([facility]SP[facility]) KENDALLJOSE ([id number]) 1980 M Date Time Provider Department 02/16/18 LENORE FLORES [facility] During your visit today, we recorded the following information about you: Tonny Arellano [facility] 02/16/2018 11:28 AM Signed Patient called and stated that he needs PA for his pain medication. He will need it every time that he gets a pain medication from us. TASHA Arzate CMA 02/16/2018 3:04 PM Signed Patient called today to see if we had heard from his insurance company about his prior authorization, [facility] that we have not heard back. TASHA Arzate MA 02/17/2018 8:59 AM Signed Patient called stating his PA was filled out wrong. It was supposed to be the full 30 days and we sent in the auth for 0 pills NYLA Coyle 02/17/2018 9:40 AM Signed I am not sure who told him that because we are just now starting on his auth for his medication. Hyacinth Flores 02/17/2018 9:47 AM Signed Per [facility] and the encounter from 01/16/18 Percocet has already been approved from 01/17/18 to 01/17/19. CaseId:[id number]. I will call the pharmacy. Hyacinth Flores 02/17/2018 10:19 AM Signed Called [facility] and they stated in kept rejecting and they finally got a hold of [facility] and they told them it was rejecting because the PA done last month was submitted for 0 pills. I informed her that I may need to speak with [facility] because this is now the 4th patient in the last couple months that some how the qty and day supply that was submitted was changed after the PA was submitted. She stated that did sound fishy, but it has been fixed for this patient and was not accusing us of incorrectly submitted the PA. I informed her that I know she was not doing that. Hyacinth Flores Allergies As of Date: 02/16/2018 Noted Allergy Reaction CLINDAMYCIN 03/29/2016 4 - Hives Date Reviewed: 02/13/2018 Reviewed by: Lenore Flores - Fully Assessed Reason for Visit: Medication Authorization [[id number]] Prescriptions as of 02/16/2018 Sig: OXYCODONE-ACETAMINOPHEN 7.5 M* Take 1 tablet by mouth every * INSULIN LISPRO (U-100) 100 UN* INJECT 1 UNIT PER 5 GRAMS OF * PRAVASTATIN 40 MG TABLET Take 1 tablet by mouth once d* GABAPENTIN 300 MG CAPSULE Take 2 capsules by mouth thre* MELOXICAM 15 MG TABLET Take 1 tablet by mouth once d* EMPAGLIFLOZIN 25 MG TABLET Take 1 tablet by mouth once d* Patient not taking: Reported on 02/13/2018 METFORMIN 500 MG TABLET Take 1 tablet by mouth twice * Patient not taking: Reported on 01/11/2018 TRESIBA FLEXTOUCH U-100 INSUL* INJECT 45 UNITS SUBCUTANEOUSL* BENAZEPRIL 5 MG TABLET 1 tablet every am and 2 table* ASPIRIN 81 MG TABLET,DELAYED * Take 81 mg by mouth once eliecer* OMEPRAZOLE 20 MG CAPSULE,JOSÉ ANTONIO* Take 1 capsule by mouth once * MULTIVITAMIN CAPSULE Take 1 capsule by mouth once * Problem List As Of Date 02/16/2018 Noted Resolved Herniation of intervertebral disc between L4 an*INVALID FOR* Priority: A More... Displacement of lumbar intervertebral disc with*INVALID FOR* Sprain of lumbar region [S33.5XXA] INVALID FOR* Type 1 diabetes mellitus [E10.9] Priority: B More... Vitamin D deficiency [E55.9] Hyperlipidemia [E78.5] HTN (hypertension) [I10] Priority: C More... Spondylolisthesis, lumbar region [M43.16] INVALID FOR* High cholesterol [E78.00] Post laminectomy syndrome [M96.1] INVALID FOR* Lumbosacral disc herniation [M51.27] INVALID FOR* Herniation of intervertebral disc between L5 an*INVALID FOR* Encounter Status:Closed by TONNY ARELLANO CMA on 02/16/18 OBSOLETE Observed: 02/16/2018 Status: COMPLETED Source: [facility] 12:00 AM [facility] RE[facility] Refill (AGEND[facility]) KENDALLJOSE Munira ([id number]) 1980 M Date Time Provider Department 02/16/18 LINA BHAGAT During your visit today, we recorded the following information about you: Jodie Ramírez 02/16/2018 8:42 AM Signed Pharmacy electronically requests the following refill(s) Pending Prescriptions Disp Refills HUMALOG KWIKPEN (U-100) INSULIN 100 UNIT/ML SUBCUTANEOUS 15 Pen 3 Sig: INJECT 1 UNIT PER 5 GRAMS OF CARBOHYDRATES WITH EACH MEAL (TOTAL MAXIMUM DAILY DOSE IS 55 UNITS) COLE: Yes Jodie Ramírez Allergies As of Date: 02/16/2018 Noted Allergy Reaction CLINDAMYCIN 03/29/2016 4 - Hives Date Reviewed: 02/13/2018 Reviewed by: Lenore Flores - Fully Assessed Reason for Visit: Refill Request [94] Order(s):HUMALOG KWIKPEN INSULIN 100 unit/mL inpnINJECT 1 UNIT PER 5 GRAMS OF CARBOHYDRATES WITH EACH MEAL (TOTAL MAXIMUM DAILY DOSE IS 55 UNITS)Disp: 15 PenRfl: 3 Prescriptions as of 02/16/2018 Sig: HUMALOG KWIKPEN (U-100) INSUL* INJECT 1 UNIT PER 5 GRAMS OF * OXYCODONE-ACETAMINOPHEN 7.5 M* Take 1 tablet by mouth every * INSULIN LISPRO (U-100) 100 UN* INJECT 1 UNIT PER 5 GRAMS OF * PRAVASTATIN 40 MG TABLET Take 1 tablet by mouth once d* GABAPENTIN 300 MG CAPSULE Take 2 capsules by mouth thre* MELOXICAM 15 MG TABLET Take 1 tablet by mouth once d* EMPAGLIFLOZIN 25 MG TABLET Take 1 tablet by mouth once d* Patient not taking: Reported on 02/13/2018 METFORMIN 500 MG TABLET Take 1 tablet by mouth twice * Patient not taking: Reported on 01/11/2018 TRESIBA FLEXTOUCH U-100 INSUL* INJECT 45 UNITS SUBCUTANEOUSL* BENAZEPRIL 5 MG TABLET 1 tablet every am and 2 table* ASPIRIN 81 MG TABLET,DELAYED * Take 81 mg by mouth once eliecer* OMEPRAZOLE 20 MG CAPSULE,JOSÉ ANTONIO* Take 1 capsule by mouth once * MULTIVITAMIN CAPSULE Take 1 capsule by mouth once * Problem List As Of Date 02/16/2018 Noted Resolved Herniation of intervertebral disc between L4 an*INVALID FOR* Priority: A More... Displacement of lumbar intervertebral disc with*INVALID FOR* Sprain of lumbar region [S33.5XXA] INVALID FOR* Type 1 diabetes mellitus [E10.9] Priority: B More... Vitamin D deficiency [E55.9] Hyperlipidemia [E78.5] HTN (hypertension) [I10] Priority: C More... Spondylolisthesis, lumbar region [M43.16] INVALID FOR* High cholesterol [E78.00] Post laminectomy syndrome [M96.1] INVALID FOR* Lumbosacral disc herniation [M51.27] INVALID FOR* Herniation of intervertebral disc between L5 an*INVALID FOR* Prescriptions ordered this encounter Disp Refills Start End HUMALOG KWIKPEN (U-100) INSULIN 100 * 15 P* 3 02/16/2018 Sig: INJECT 1 UNIT PER 5 GRAMS OF CARBOHYDRATES WITH EACH MEAL (TOTAL MAXIMUM DAILY DOSE IS 55 UNITS) Encounter Status:Closed by LINA BHAGAT MD on 02/16/18 PROGRESS Observed: 02/13/2018 Status: COMPLETED Source: [facility] 8:09 AM [facility] RE[facility] O ID: [id number] Author: Lneore Flores Service: (none) Author Type: Physician Type: Progress Notes Filed: 02/13/2018 8:38 AM Note Text: Patient Name: Jose Argueta Patient : 1980 Patient Age: [age] year old CC: Patient presents with: Follow Up: medication refill, lower back pain SUBJECTIVE Patient presents for follow up of low back pain. The patient describes the pain as tender, shooting and achy 5/10. Activity is 4/10 walking. He has pain, numbness and tingling, without weakness radiating into the right lower extremity to the foot, as well as the left lower extremity to the calf. Pain is worse with standing, and bending or prolonged sitting. He has been taking Mobic, Gabapentin and Percocet 3/day with good relief without side effects. He sees his surgeon in [place] for his 1 year follow up from surgery. The patient denies any bowel or bladder dysfunction. The patient denies any chest pain or chest tightness. The constitutional, musculoskeletal, and neurological review of systems was negative unless otherwise noted. The patient's past medical history, allergies, medication list, social history, and family medical history were documented, updated, and reviewed in the chart. OARRS website checked and validated. All prescriptions have been APPROPRIATELY filled. No suspicious activity was identified.- 02/13/2018 by Lenore Flores MD Nursing Notes: Loy Chappell 02/13/2018 8:21 AM Signed Review of Systems Eyes: Negative for blurred vision. Respiratory: Negative for shortness of breath.? Cardiovascular: Negative for chest pain. Negative for leg swelling. Gastrointestinal: Negative for constipation, diarrhea, nausea?and vomiting. Genitourinary: Negative for dysuria. Skin: Negative for itching. Neurological: Negative for headaches. Negative for dizziness, tingling?and weakness. Endo/Heme/Allergies: Negative for bruising/bleeding easily. Psychiatric/Behavioral: Negative for depression?and suicidal ideas. ROS entered by: Samira Chappell MA MEDICATION NAME percocet STRENGTH 7.5 LAST FILL DATE 01/13/2018 DATE LAST DOSE TAKEN yesterday QUANTITY FILLED 90 QUANTITY REMAINING 9 ALLERGIES Allergen Reactions - Clindamycin Hives Current Outpatient Prescriptions: insulin lispro (HUMALOG KWIKPEN INSULIN) 100 unit/mL inpn INJECT 1 UNIT PER 5 GRAMS OF CARBOHYDRATES WITH EACH MEAL (TOTAL MAXIMUM DAILY DOSE IS 55 UNITS) Disp: 5 Pen Rfl: 11 pravastatin (PRAVACHOL) 40 mg tablet Take 1 tablet by mouth once daily. Disp: 30 tablet Rfl: 11 gabapentin (NEURONTIN) 300 mg capsule Take 2 capsules by mouth three times daily for 90 days. Disp: 180 capsule Rfl: 2 meloxicam (MOBIC) 15 mg tablet Take 1 tablet by mouth once daily. Disp: 30 tablet Rfl: 2 TRESIBA FLEXTOUCH U-100 100 unit/mL (3 mL) injection INJECT 45 UNITS SUBCUTANEOUSLY EVERY 24 HOURS. Disp: 15 mL Rfl: 11 benazepril (LOTENSIN) 5 mg tablet 1 tablet every am and 2 tablets every pm Disp: 90 tablet Rfl: 11 aspirin, enteric coated (ADULT LOW DOSE ASPIRIN) 81 mg EC tablet Take 81 mg by mouth once daily. Disp: Rfl: omeprazole (PRILOSEC) 20 mg capsule Take 1 capsule by mouth once daily. Disp: Rfl: 0 Multivitamin capsule Take 1 capsule by mouth once daily. Disp: Rfl: [START ON 02/16/2018] oxyCODONE-acetaminophen (PERCOCET) 7.5- 325 mg tablet Take 1 tablet by mouth every 8 hours as needed for Pain (for pain.) for up to 30 days.Earliest Fill Date: 02/16/18 Disp: 90 tablet Rfl: 0 empagliflozin (JARDIANCE) 25 mg tablet Take 1 tablet by mouth once daily. (Patient not taking: Reported on 02/13/2018 ) Disp: 90 tablet Rfl: 3 metFORMIN (GLUCOPHAGE) 500 mg tablet Take 1 tablet by mouth twice daily with meals. (Patient not taking: Reported on 01/11/2018 ) Disp: 180 tablet Rfl: 3 No current facility-administered medications for this visit. 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 Topics Smoking status: Never Smoker Smokeless tobacco: Never Used Alcohol use: No Drug use: No Other Topics Concern Caffeine Concern Yes Comment:coffee 3 cups daily, and energy drinks Special Diet Yes Comment:Poor diet Exercise No Comment: Exercises 1-2 days/wk Social History Narrative No reported history Family History Problem Relation Age of Onset - Hyperlipidemia Mother - Ischemic Heart Disease Father - Diabetes Father - Heart Father - Hyperlipidemia Father - Hypertension Father - Hyperlipidemia Paternal Grandmother - Hypertension Paternal Grandmother - Stroke Paternal Grandmother - Diabetes mellitus [OTHER] Paternal Grandmother OBJECTIVE Vitals: BP 120/75 Resp 18 Ht 175.3 cm (5' 9) Wt 108.9 kg (240 lb) BMI 35.44 kg/m? General: Alert, cooperative, well appearing, and in no apparent distress. Musculoskeletal: The patient's gait is normal Back: Inspection of the back demonstrates there is no obvious deformity or misalignment. There is bony tenderness along the lumbar vertebrae, none along the sacroiliac joints. There is bilateral paraspinal muscle tenderness. Range of motion testing demonstrates limited due to pain with flexion, extension, side bending and rotation of the back. Strength is 5/5 in the lower extremity bilaterally. Sensation is decreased throughout the right lower extremity. There is a positive right straight leg raise and femoral stretch test. The piriformis has normal flexibility and is non-tender. Skin: The skin is without jaundice. It is intact without pathologic lesions, erythema, vesicles, discharge or rash. Palpitation of the skin is normal without induration, subcutaneous nodules or tightening. Extremities: This is no clubbing, cyanosis or edema. Peripheral pulses are 2+. Return in about 4 weeks (around 03/13/2018). ASSESSMENT/PLAN: 1. Post laminectomy syndrome - ICD9: 722.80, ICD10: M96.1 (primary diagnosis) We discussed the natural history of this condition, differential diagnoses, and treatment options. Guidelines for activity were given. We discussed options for treatment including conservative care, medications with side effects and risks and benefits. The patient is doing well with the prescribed pain medications. The patient requests a refill today. Patient states medications provide adequate analgesia. The medications allow patient to maintain ADL's. Discussed with the patient about avoiding driving/operating vehicle while taking the medications. There are no adverse effects from the medications and no aberrant behaviors are noted. Will refill his percocet today Continue gabapentin and Mobic May consider SCS in the future if not having improvement and after he follows up with his surgeon. - OXYCODONE-ACETAMINOPHEN 7.5 MG-325 MG TABLET 2. Herniation of intervertebral disc between L5 and S1 - ICD9: 722.10, ICD10: M51.27 3. Herniation of intervertebral disc between L4 and L5 - ICD9: 722.10, ICD10: M51.26 - OXYCODONE-ACETAMINOPHEN 7.5 MG-325 MG TABLET 4. Lumbosacral disc herniation - ICD9: 722.10, ICD10: M51.27 - OXYCODONE-ACETAMINOPHEN 7.5 MG-325 MG TABLET Lenore Flores MD CNOV Observed: 02/13/2018 Status: COMPLETED Source: [facility] 8:00 AM [facility] [place] [facility] Office Visit (SPAGBA) JOSE ARGUETA ([id number]) 1980 M Date Time Provider Department 02/13/18 8:00 AM LENORE FLORES During your visit today, we recorded the following information about you: Respiration Blood pressure Weight Height 18/minute 120/75 108.9 kg 1.753 m Lenore Flores MD 02/13/2018 8:38 AM Signed Patient Name: Jose Argueta Patient : 1980 Patient Age: [age] year old CC: Patient presents with: Follow Up: medication refill, lower back pain SUBJECTIVE Patient presents for follow up of low back pain. The patient describes the pain as tender, shooting and achy 5/10. Activity is 4/10 walking. He has pain, numbness and tingling, without weakness radiating into the right lower extremity to the foot, as well as the left lower extremity to the calf. Pain is worse with standing, and bending or prolonged sitting. He has been taking Mobic, Gabapentin and Percocet 3/day with good relief without side effects. He sees his surgeon in [place] for his 1 year follow up from surgery. The patient denies any bowel or bladder dysfunction. The patient denies any chest pain or chest tightness. The constitutional, musculoskeletal, and neurological review of systems was negative unless otherwise noted. The patient's past medical history, allergies, medication list, social history, and family medical history were documented, updated, and reviewed in the chart. OARRS website checked and validated. All prescriptions have been APPROPRIATELY filled. No suspicious activity was identified.- 02/13/2018 by Lenore Flores MD Nursing Notes: Loy Chappell 02/13/2018 8:21 AM Signed Review of Systems Eyes: Negative for blurred vision. Respiratory: Negative for shortness of breath.? Cardiovascular: Negative for chest pain. Negative for leg swelling. Gastrointestinal: Negative for constipation, diarrhea, nausea?and vomiting. Genitourinary: Negative for dysuria. Skin: Negative for itching. Neurological: Negative for headaches. Negative for dizziness, tingling?and weakness. Endo/Heme/Allergies: Negative for bruising/bleeding easily. Psychiatric/Behavioral: Negative for depression?and suicidal ideas. ROS entered by: Samira Chappell MA MEDICATION NAME percocet STRENGTH 7.5 LAST FILL DATE 01/13/2018 DATE LAST DOSE TAKEN yesterday QUANTITY FILLED 90 QUANTITY REMAINING 9 ALLERGIES Allergen Reactions - Clindamycin Hives Current Outpatient Prescriptions: insulin lispro (HUMALOG KWIKPEN INSULIN) 100 unit/mL inpn INJECT 1 UNIT PER 5 GRAMS OF CARBOHYDRATES WITH EACH MEAL (TOTAL MAXIMUM DAILY DOSE IS 55 UNITS) Disp: 5 Pen Rfl: 11 pravastatin (PRAVACHOL) 40 mg tablet Take 1 tablet by mouth once daily. Disp: 30 tablet Rfl: 11 gabapentin (NEURONTIN) 300 mg capsule Take 2 capsules by mouth three times daily for 90 days. Disp: 180 capsule Rfl: 2 meloxicam (MOBIC) 15 mg tablet Take 1 tablet by mouth once daily. Disp: 30 tablet Rfl: 2 TRESIBA FLEXTOUCH U-100 100 unit/mL (3 mL) injection INJECT 45 UNITS SUBCUTANEOUSLY EVERY 24 HOURS. Disp: 15 mL Rfl: 11 benazepril (LOTENSIN) 5 mg tablet 1 tablet every am and 2 tablets every pm Disp: 90 tablet Rfl: 11 aspirin, enteric coated (ADULT LOW DOSE ASPIRIN) 81 mg EC tablet Take 81 mg by mouth once daily. Disp: Rfl: omeprazole (PRILOSEC) 20 mg capsule Take 1 capsule by mouth once daily. Disp: Rfl: 0 Multivitamin capsule Take 1 capsule by mouth once daily. Disp: Rfl: [START ON 02/16/2018] oxyCODONE-acetaminophen (PERCOCET) 7.5- 325 mg tablet Take 1 tablet by mouth every 8 hours as needed for Pain (for pain.) for up to 30 days.Earliest Fill Date: 02/16/18 Disp: 90 tablet Rfl: 0 empagliflozin (JARDIANCE) 25 mg tablet Take 1 tablet by mouth once daily. (Patient not taking: Reported on 02/13/2018 ) Disp: 90 tablet Rfl: 3 metFORMIN (GLUCOPHAGE) 500 mg tablet Take 1 tablet by mouth twice daily with meals. (Patient not taking: Reported on 01/11/2018 ) Disp: 180 tablet Rfl: 3 No current facility-administered medications for this visit. 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 Topics Smoking status: Never Smoker Smokeless tobacco: Never Used Alcohol use: No Drug use: No Other Topics Concern Caffeine Concern Yes Comment:coffee 3 cups daily, and energy drinks Special Diet Yes Comment:Poor diet Exercise No Comment: Exercises 1-2 days/wk Social History Narrative No reported history Family History Problem Relation Age of Onset - Hyperlipidemia Mother - Ischemic Heart Disease Father - Diabetes Father - Heart Father - Hyperlipidemia Father - Hypertension Father - Hyperlipidemia Paternal Grandmother - Hypertension Paternal Grandmother - Stroke Paternal Grandmother - Diabetes mellitus [OTHER] Paternal Grandmother OBJECTIVE Vitals: BP 120/75 Resp 18 Ht 175.3 cm (5' 9) Wt 108.9 kg (240 lb) BMI 35.44 kg/m? General: Alert, cooperative, well appearing, and in no apparent distress. Musculoskeletal: The patient's gait is normal Back: Inspection of the back demonstrates there is no obvious deformity or misalignment. There is bony tenderness along the lumbar vertebrae, none along the sacroiliac joints. There is bilateral paraspinal muscle tenderness. Range of motion testing demonstrates limited due to pain with flexion, extension, side bending and rotation of the back. Strength is 5/5 in the lower extremity bilaterally. Sensation is decreased throughout the right lower extremity. There is a positive right straight leg raise and femoral stretch test. The piriformis has normal flexibility and is non-tender. Skin: The skin is without jaundice. It is intact without pathologic lesions, erythema, vesicles, discharge or rash. Palpitation of the skin is normal without induration, subcutaneous nodules or tightening. Extremities: This is no clubbing, cyanosis or edema. Peripheral pulses are 2+. Return in about 4 weeks (around 03/13/2018). ASSESSMENT/PLAN: 1. Post laminectomy syndrome - ICD9: 722.80, ICD10: M96.1 (primary diagnosis) We discussed the natural history of this condition, differential diagnoses, and treatment options. Guidelines for activity were given. We discussed options for treatment including conservative care, medications with side effects and risks and benefits. The patient is doing well with the prescribed pain medications. The patient requests a refill today. Patient states medications provide adequate analgesia. The medications allow patient to maintain ADL's. Discussed with the patient about avoiding driving/operating vehicle while taking the medications. There are no adverse effects from the medications and no aberrant behaviors are noted. Will refill his percocet today Continue gabapentin and Mobic May consider SCS in the future if not having improvement and after he follows up with his surgeon. - OXYCODONE-ACETAMINOPHEN 7.5 MG-325 MG TABLET 2. Herniation of intervertebral disc between L5 and S1 - ICD9: 722.10, ICD10: M51.27 3. Herniation of intervertebral disc between L4 and L5 - ICD9: 722.10, ICD10: M51.26 - OXYCODONE-ACETAMINOPHEN 7.5 MG-325 MG TABLET 4. Lumbosacral disc herniation - ICD9: 722.10, ICD10: M51.27 - OXYCODONE-ACETAMINOPHEN 7.5 MG-325 MG TABLET MD Loy White ([facility]) Misti 02/13/2018 8:21 AM Signed Review of Systems Eyes: Negative for blurred vision. Respiratory: Negative for shortness of breath.? Cardiovascular: Negative for chest pain. Negative for leg swelling. Gastrointestinal: Negative for constipation, diarrhea, nausea?and vomiting. Genitourinary: Negative for dysuria. Skin: Negative for itching. Neurological: Negative for headaches. Negative for dizziness, tingling?and weakness. Endo/Heme/Allergies: Negative for bruising/bleeding easily. Psychiatric/Behavioral: Negative for depression?and suicidal ideas. ROS entered by: NYLA Turner MD 02/13/2018 8:37 AM Signed Opioid Pain Medication Information Sheet Opioids are drugs that are used to treat cancer pain. They include morphine (MSContin, MSIR, Roxanol); oxycodone (Oxycontin, Roxicodone, Percocet); hydromorphone (Dilaudid, Exalgo); fentanyl (Duragesic); hydrocodone (Hysingla, Zohydro, [place], Vicodin); buprenorphine (Butrans, Buprenex); and methadone. There are two types of opioids: long-acting and short-acting. Long-acting opioids are also called extended-release (ER) or controlled-release (CR). This means that the medication is slowly released over an 8- to 12-hour period or longer. Examples of these include MSContin and Oxycontin. These drugs are taken on a regular schedule to control pain. DO NOT BREAK OR CRUSH THESE TABLETS. Long-acting opioids also come in patch form (Fentanyl, buprenorphine). Opioid patches are strong drugs and should not be used for mild or occasional pain, or for pain from surgery. ? Do not use patches that are damaged or cut. ? You can shower and bathe with the patch in place. ? Do not expose the skin patch to heat (for example: hot tub, heating pad, sauna, electric blanket, heat lamps). Heat increases the amount of drug you absorb through your skin and may cause harmful effects. ? When removing the patch, fold it in half, sticky side in, and flush it down the toilet. Short-acting opioids are also called immediate-release. They usually take effect within an hour, and provide pain relief for four hours. You take short-acting opioids if your pain gets worse (5 on a scale of 1 to 10), which is called breakthrough pain. DO NOT WAIT UNTIL THE PAIN BECOMES SEVERE TO TAKE YOUR MEDICATION. What are the side effects of opioids? Like most drugs, opioids have side effects. The most common are nausea, vomiting, itching, and sleepiness. These side effects should go away in three to seven days as your body gets used to the medication. DO NOT DRIVE IF YOU FEEL DROWSY OR SLEEPY. All opioids cause constipation. Your caregiver will prescribe stool softeners and medicine to help prevent constipation. You can also do the following: ? Increase the amounts of fluids and fiber in your diet. ? Try to get more exercise and physical activity. ? Try to have a bowel movement around the same time each day to get your bowels to empty in a certain pattern. Can I become addicted to opioids? Addiction means that a person uses the drug to get ?high?, and cannot control the urge to take the drug. Taking medication for pain relief is NOT addiction. Your healthcare provider will discuss any concerns about becoming addicted to pain medications. Withdrawal If you stop taking your pain medication suddenly, you may develop withdrawal symptoms. These include flu-like symptoms, agitation, anxiety, abdominal cramping, nausea, and diarrhea. If you have stopped taking your pain medication for three days or more, do not start taking it again without talking to your healthcare provider. Overdose Combining opioids with alcohol or sedating pills (which make you sleepy) increases the risk of overdose. Symptoms of overdose include extreme sleepiness, slurred speech, and slow breathing (breathing may also stop). Call 911 or your local emergency service if you think you may have overdosed. Call 911 or your local emergency service if: ? You took too much medicine. ? You have trouble breathing and/or shortness of breath. ? A child accidentally took the medication. Call your healthcare provider if: ? Your pain is not being controlled with the dose that you are taking. ? You are having side effects. Other important information: ? Take your medicine exactly as prescribed. ? Only one healthcare provider should prescribe your pain medications. ? Make follow-up appointments with your healthcare provider. ? Keep medication away from children and store them in a safe place. ? Do not share your medications with anyone. ? Do not take medications that have not been prescribed for you. ? Do not stop taking your medication without talking to your healthcare provider. ? Do not drink alcohol while taking this medication. How do I dispose of opioids? DO NOT THROW UNUSED MEDICATION IN THE TRASH. You should return these medications through a take-back program or to a collection box or mail-back program authorized by the Drug Enforcement Administration. Authorized collection sites include retail pharmacies, hospital or clinic pharmacies, and law enforcement locations. This website provides a list of locations where you can safely dispose of opioids: https://www.deadiversion.[employer].gov/pubdispsearch If a take-back program is not available, flush unused medicines down the toilet or sink. Referring Provider: SELF [200] Allergies As of Date: 02/13/2018 Noted Allergy Reaction CLINDAMYCIN 03/29/2016 4 - Hives Date Reviewed: 02/13/2018 Reviewed by: Lenore Flores - Fully Assessed Reason for Visit: Follow Up [171] Cmt: medication refill, lower back pain Primary Visit Diagnosis:Post laminectomy syndrome [M96.1] Other Visit Diagnoses:Herniation of intervertebral disc between L5 and S1 [M51.27] Herniation of intervertebral disc between L4 and L5 [M51.26] Lumbosacral disc herniation [M51.27] Order(s):oxyCODONE-acetaminophen (PERCOCET) 7.5-325 mg tabletTake 1 tablet by mouth every 8 hours as needed for Pain (for pain.) for up to 30 days. Earliest Fill Date: 02/16/18Disp: 90 tabletRfl: 0 Prescriptions as of 02/13/2018 Sig: INSULIN LISPRO (U-100) 100 UN* INJECT 1 UNIT PER 5 GRAMS OF * PRAVASTATIN 40 MG TABLET Take 1 tablet by mouth once d* GABAPENTIN 300 MG CAPSULE Take 2 capsules by mouth thre* MELOXICAM 15 MG TABLET Take 1 tablet by mouth once d* TRESIBA FLEXTOUCH U-100 INSUL* INJECT 45 UNITS SUBCUTANEOUSL* BENAZEPRIL 5 MG TABLET 1 tablet every am and 2 table* ASPIRIN 81 MG TABLET,DELAYED * Take 81 mg by mouth once eliecer* OMEPRAZOLE 20 MG CAPSULE,JOSÉ ANTONIO* Take 1 capsule by mouth once * MULTIVITAMIN CAPSULE Take 1 capsule by mouth once * OXYCODONE-ACETAMINOPHEN 7.5 M* Take 1 tablet by mouth every * EMPAGLIFLOZIN 25 MG TABLET Take 1 tablet by mouth once d* Patient not taking: Reported on 02/13/2018 METFORMIN 500 MG TABLET Take 1 tablet by mouth twice * Patient not taking: Reported on 01/11/2018 Problem List As Of Date 02/13/2018 Noted Resolved Herniation of intervertebral disc between L4 an*INVALID FOR* Priority: A More... Displacement of lumbar intervertebral disc with*INVALID FOR* Sprain of lumbar region [S33.5XXA] INVALID FOR* Type 1 diabetes mellitus [E10.9] Priority: B More... Vitamin D deficiency [E55.9] Hyperlipidemia [E78.5] HTN (hypertension) [I10] Priority: C More... Spondylolisthesis, lumbar region [M43.16] INVALID FOR* High cholesterol [E78.00] Post laminectomy syndrome [M96.1] INVALID FOR* Lumbosacral disc herniation [M51.27] INVALID FOR* Herniation of intervertebral disc between L5 an*INVALID FOR* Other instructions from your clinician: Opioid Pain Medication Information Sheet Opioids are drugs that are used to treat cancer pain. They include morphine (MSContin, MSIR, Roxanol); oxycodone (Oxycontin, Roxicodone, Percocet); hydromorphone (Dilaudid, Exalgo); fentanyl (Duragesic); hydrocodone (Hys[place]la, Zohydro, [place], Vicodin); buprenorphine (Butrans, Buprenex); and methadone. There are two types of opioids: long-acting and short-acting. Long-acting opioids are also called extended-release (ER) or controlled-release (CR). This means that the medication is slowly released over an 8- to 12-hour period or longer. Examples of these include MSContin and Oxycontin. These drugs are taken on a regular schedule to control pain. DO NOT BREAK OR CRUSH THESE TABLETS. Long-acting opioids also come in patch form (Fentanyl, buprenorphine). Opioid patches are strong drugs and should not be used for mild or occasional pain, or for pain from surgery. ? Do not use patches that are damaged or cut. ? You can shower and bathe with the patch in place. ? Do not expose the skin patch to heat (for example: hot tub, heating pad, sauna, electric blanket, heat lamps). Heat increases the amount of drug you absorb through your skin and may cause harmful effects. ? When removing the patch, fold it in half, sticky side in, and flush it down the toilet. Short-acting opioids are also called immediate-release. They usually take effect within an hour, and provide pain relief for four hours. You take short-acting opioids if your pain gets worse (5 on a scale of 1 to 10), which is called breakthrough pain. DO NOT WAIT UNTIL THE PAIN BECOMES SEVERE TO TAKE YOUR MEDICATION. What are the side effects of opioids? Like most drugs, opioids have side effects. The most common are nausea, vomiting, itching, and sleepiness. These side effects should go away in three to seven days as your body gets used to the medication. DO NOT DRIVE IF YOU FEEL DROWSY OR SLEEPY. All opioids cause constipation. Your caregiver will prescribe stool softeners and medicine to help prevent constipation. You can also do the following: ? Increase the amounts of fluids and fiber in your diet. ? Try to get more exercise and physical activity. ? Try to have a bowel movement around the same time each day to get your bowels to empty in a certain pattern. Can I become addicted to opioids? Addiction means that a person uses the drug to get ?high?, and cannot control the urge to take the drug. Taking medication for pain relief is NOT addiction. Your healthcare provider will discuss any concerns about becoming addicted to pain medications. Withdrawal If you stop taking your pain medication suddenly, you may develop withdrawal symptoms. These include flu-like symptoms, agitation, anxiety, abdominal cramping, nausea, and diarrhea. If you have stopped taking your pain medication for three days or more, do not start taking it again without talking to your healthcare provider. Overdose Combining opioids with alcohol or sedating pills (which make you sleepy) increases the risk of overdose. Symptoms of overdose include extreme sleepiness, slurred speech, and slow breathing (breathing may also stop). Call 911 or your local emergency service if you think you may have overdosed. Call 911 or your local emergency service if: ? You took too much medicine. ? You have trouble breathing and/or shortness of breath. ? A child accidentally took the medication. Call your healthcare provider if: ? Your pain is not being controlled with the dose that you are taking. ? You are having side effects. Other important information: ? Take your medicine exactly as prescribed. ? Only one healthcare provider should prescribe your pain medications. ? Make follow-up appointments with your healthcare provider. ? Keep medication away from children and store them in a safe place. ? Do not share your medications with anyone. ? Do not take medications that have not been prescribed for you. ? Do not stop taking your medication without talking to your healthcare provider. ? Do not drink alcohol while taking this medication. How do I dispose of opioids? DO NOT THROW UNUSED MEDICATION IN THE TRASH. You should return these medications through a take-back program or to a collection box or mail-back program authorized by the Drug Enforcement Administration. Authorized collection sites include retail pharmacies, hospital or clinic pharmacies, and law enforcement locations. This website provides a list of locations where you can safely dispose of opioids: https://www.deadiversion.[employer].gov/pubdispsearch If a take-back program is not available, flush unused medicines down the toilet or sink. Visit Notes: >> [facility]En[facility] [place] Mon Feb 13, 2018 8:18 AM Status: Signed Review of Systems Eyes: Negative for blurred vision. Respiratory: Negative for shortness of breath.? Cardiovascular: Negative for chest pain. Negative for leg swelling. Gastrointestinal: Negative for constipation, diarrhea, nausea?and vomiting. Genitourinary: Negative for dysuria. Skin: Negative for itching. Neurological: Negative for headaches. Negative for dizziness, tingling?and weakness. Endo/Heme/Allergies: Negative for bruising/bleeding easily. Psychiatric/Behavioral: Negative for depression?and suicidal ideas. ROS entered by: Samira Chappell MA Prescriptions ordered this encounter Disp Refills Start End OXYCODONE-ACETAMINOPHEN 7.5 MG-325 M* 90 t* 0 02/16/2018 03/18/2018 Class: Print RX Route: ORAL Sig: Take 1 tablet by mouth every 8 hours as needed for Pain (for pain.) for up to 30 days. Earliest Fill Date: 02/16/18 Medications Discontinued During This Encounter oxyCODONE-acetaminophen (PERCOCET) 7* 90 t* 0 01/16/2018 02/13/2018 Class: Print RX Route: ORAL Sig: Take 1 tablet by mouth every 8 hours as needed for Pain (for pain.) for up to 30 days. Earliest Fill Date: 01/16/18 Disc: Reason for discontinue is not on file. Disposition: Return in about 4 weeks (around 03/13/2018). Follow-up and Disposition History Recorded Questionnaire: AG SPINE PAIN PILL COUNT MEDICATION NAME -> percocet STRENGTH -> 7.5 LAST FILL DATE -> 01/13/2018 DATE LAST DOSE TAKEN -> yesterday QUANTITY FILLED -> 90 QUANTITY REMAINING -> 9 Encounter Status:Closed by LENORE FLORES MD on 02/13/18 OBSOLETE Observed: 02/07/2018 Status: COMPLETED Source: [facility] 12:00 AM [facility] [place] [facility] Refill (AGENDPOB) JOSE ARGUETA ([id number]) 1980 M Date Time Provider Department 02/07/18 LINA BHAGAT During your visit today, we recorded the following information about you: Jodie Ramírez 02/07/2018 11:29 AM Signed Patient phones requesting refills as follows: Pending Prescriptions Disp Refills INSULIN LISPRO (U-100) 100 UNIT/ML SUBCUTANEOUS PEN 5 Pen 11 Sig: INJECT 1 UNIT PER 5 GRAMS OF CARBOHYDRATES WITH EACH MEAL (TOTAL MAXIMUM DAILY DOSE IS 55 UNITS) COLE: No PRAVASTATIN 40 MG TABLET 30 tablet 11 Sig: Take 1 tablet by mouth once daily. COLE: No Please review and advise. Jodie Ramírez Allergies As of Date: 02/07/2018 Noted Allergy Reaction CLINDAMYCIN 03/29/2016 4 - Hives Date Reviewed: 01/11/2018 Reviewed by: Lenore Flores - Fully Assessed Reason for Visit: Refill Request [94] Cmt: Humalog KwikPen AND Pravastatin Reason For Visit History Recorded Visit Diagnosis:Mixed hyperlipidemia [E78.2] Order(s):insulin lispro (HUMALOG KWIKPEN INSULIN) 100 unit/mL inpnINJECT 1 UNIT PER 5 GRAMS OF CARBOHYDRATES WITH EACH MEAL (TOTAL MAXIMUM DAILY DOSE IS 55 UNITS)Disp: 5 PenRfl: 11 pravastatin (PRAVACHOL) 40 mg tabletTake 1 tablet by mouth once daily.Disp: 30 tabletRfl: 11 Prescriptions as of 02/07/2018 Sig: INSULIN LISPRO (U-100) 100 UN* INJECT 1 UNIT PER 5 GRAMS OF * PRAVASTATIN 40 MG TABLET Take 1 tablet by mouth once d* OXYCODONE-ACETAMINOPHEN 7.5 M* Take 1 tablet by mouth every * GABAPENTIN 300 MG CAPSULE Take 2 capsules by mouth thre* MELOXICAM 15 MG TABLET Take 1 tablet by mouth once d* EMPAGLIFLOZIN 25 MG TABLET Take 1 tablet by mouth once d* METFORMIN 500 MG TABLET Take 1 tablet by mouth twice * Patient not taking: Reported on 01/11/2018 TRESIBA FLEXTOUCH U-100 INSUL* INJECT 45 UNITS SUBCUTANEOUSL* BENAZEPRIL 5 MG TABLET 1 tablet every am and 2 table* ASPIRIN 81 MG TABLET,DELAYED * Take 81 mg by mouth once eliecer* OMEPRAZOLE 20 MG CAPSULE,JOSÉ ANTONIO* Take 1 capsule by mouth once * MULTIVITAMIN CAPSULE Take 1 capsule by mouth once * Problem List As Of Date 02/07/2018 Noted Resolved Herniation of intervertebral disc between L4 an*INVALID FOR* Priority: A More... Displacement of lumbar intervertebral disc with*INVALID FOR* Sprain of lumbar region [S33.5XXA] INVALID FOR* Type 1 diabetes mellitus [E10.9] Priority: B More... Vitamin D deficiency [E55.9] Hyperlipidemia [E78.5] HTN (hypertension) [I10] Priority: C More... Spondylolisthesis, lumbar region [M43.16] INVALID FOR* High cholesterol [E78.00] Post laminectomy syndrome [M96.1] INVALID FOR* Lumbosacral disc herniation [M51.27] INVALID FOR* Prescriptions ordered this encounter Disp Refills Start End INSULIN LISPRO (U-100) 100 UNIT/ML S* 5 Pen 11 02/07/2018 Sig: INJECT 1 UNIT PER 5 GRAMS OF CARBOHYDRATES WITH EACH MEAL (TOTAL MAXIMUM DAILY DOSE IS 55 UNITS) PRAVASTATIN 40 MG TABLET 30 t* 11 02/07/2018 Route: ORAL Sig: Take 1 tablet by mouth once daily. Medications Discontinued During This Encounter Insulin Lispro, Human, (HUMALOG KWIK* 5 Pen 11 04/27/2017 02/07/2018 Sig: INJECT 1 UNIT PER 5 GRAMS OF CARBOHYDRATES WITH EACH MEAL (TOTAL MAXIMUM DAILY DOSE IS 55 UNITS) Disc: Reason for discontinue is not on file. pravastatin (PRAVACHOL) 40 mg tablet 30 t* 11 04/27/2017 02/07/2018 Route: ORAL Sig: Take 1 tablet by mouth once daily. Disc: Reason for discontinue is not on file. Encounter Status:Closed by LINA BHAGAT MD on 02/07/18 LUMBAR MOTION 4V Observed: 02/02/2018 Status: F Source: [place] AP/LAT/FLEX/EXT 10:07 AM [facility] Performed at [facility] APPROVED BY: Robbie Hong MD EXAM TITLE: LUMBAR SPINE, 4 VIEWS DATE: 02/02/2018 10:00 COMPARISON: 05/19/2016 lumbar spine radiographs. CLINICAL INDICATION/HISTORY: Low back pain and bilateral lower extremity pain. History of prior lumbar surgery. TECHNIQUE: AP, neutral lateral, flexion lateral, extension lateral films of the lumbar spine. FINDINGS: 5 nonrib-bearing lumbar type vertebral bodies. Vertebral body heights preserved. No fracture. No change in alignment with flexion or extension. There are postoperative changes of posterior fusion at L4- L5 with rods and pedicle screws. L4-L5 interbody spacer material. Remaining disc spaces relatively well-preserved. IMPRESSION: Postoperative changes L4-L5. No significant subluxation or change in alignment with flexion/extension. CNPN Observed: 01/16/2018 Status: COMPLETED Source: [facility] 12:00 AM [facility] [place] [facility] Telephone (AGSPHWG) JOSE ARGUETA ([id number]) 1980 M Date Time Provider Department 01/16/18 [facility] During your visit today, we recorded the following information about you: Carter Hart CMA 01/16/2018 2:38 PM Signed Attempted to call patient to clarify what is needed to push forth with calling the pharmacy. Patient states that we was prescribed Percocet. The insurance will only cover seven days of the 90. He states that we need to notify [employer] for the patient to notify them that the prescription is for chronic pain so that he can have the rest of the prescription filled, and not have to pay $160. TASHA Damon 01/17/2018 9:21 AM Signed Patient called back in to check the status of this? Patient states that [employer] is the secondary company that his [employer] insurance goes through for prescriptions the pharamacy needs called so we can let them know that his condition is for chronic pain and they will override this for him to get the rest of his prescription. PLease advise 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 Juan José Staples and Dr[facility] [place] [phone] ext [phone] . Hyacinth Flores 01/17/2018 10:24 AM Signed PERCOCET has been SUBMITTED to [employer]. Hyacinth Flores 01/18/2018 4:14 PM Signed PERCOCET has been APPROVED. Date Span: 01/17/18 to 01/17/19 Ref# [id number] LMOM notifying patient. Hyacinth Flores Allergies As of Date: 01/16/2018 Noted Allergy Reaction CLINDAMYCIN 03/29/2016 4 - Hives Date Reviewed: 01/11/2018 Reviewed by: Lenore Flores - Fully Assessed Reason for Visit: medication issue [Other] Prescriptions as of 01/16/2018 Sig: OXYCODONE-ACETAMINOPHEN 7.5 M* Take 1 tablet by mouth every * GABAPENTIN 300 MG CAPSULE Take 2 capsules by mouth thre* MELOXICAM 15 MG TABLET Take 1 tablet by mouth once d* EMPAGLIFLOZIN 25 MG TABLET Take 1 tablet by mouth once d* METFORMIN 500 MG TABLET Take 1 tablet by mouth twice * Patient not taking: Reported on 01/11/2018 TRESIBA FLEXTOUCH U-100 INSUL* INJECT 45 UNITS SUBCUTANEOUSL* BENAZEPRIL 5 MG TABLET 1 tablet every am and 2 table* PRAVASTATIN 40 MG TABLET Take 1 tablet by mouth once d* INSULIN LISPRO (U-100) 100 UN* INJECT 1 UNIT PER 5 GRAMS OF * ASPIRIN 81 MG TABLET,DELAYED * Take 81 mg by mouth once eliecer* OMEPRAZOLE 20 MG CAPSULE,JOSÉ ANTONIO* Take 1 capsule by mouth once * MULTIVITAMIN CAPSULE Take 1 capsule by mouth once * Problem List As Of Date 01/16/2018 Noted Resolved Herniation of intervertebral disc between L4 an*INVALID FOR* Priority: A More... Displacement of lumbar intervertebral disc with*INVALID FOR* Sprain of lumbar region [S33.5XXA] INVALID FOR* Type 1 diabetes mellitus [E10.9] Priority: B More... Vitamin D deficiency [E55.9] Hyperlipidemia [E78.5] HTN (hypertension) [I10] Priority: C More... Spondylolisthesis, lumbar region [M43.16] INVALID FOR* High cholesterol [E78.00] Post laminectomy syndrome [M96.1] INVALID FOR* Lumbosacral disc herniation [M51.27] INVALID FOR* Encounter Status:Closed by UNIQUE FERRERA on 01/17/18 CNPN Observed: 01/12/2018 Status: COMPLETED Source: [facility] 12:00 AM [facility] Telephone (AGSPINE3) JOSE ARGUETA ([id number]) 1980 M Date Time Provider Department 01/12/18 LENORE FLORES AGSPINE3 During your visit today, we recorded the following information about you: Usha Kinney 01/12/2018 10:48 AM Signed C9 submitted for lumbar XRAY Usha Kinney 01/16/2018 2:06 PM Signed LUMBAR XRAY HAS BEEN APPROVED DATE SPAN 01/13/2018 - 02/04/2018 DR FLORES CAN YOU PLEASE PLACE THE ORDER. THANKS Lenore Flores MD 01/16/2018 3:50 PM Signed Order placed thanks Lenore Flores MD 01/16/2018 3:50 PM Signed Addended by: LENORE FLORES MD on: 01/16/2018 03:50 PM Modules accepted: Orders Allergies As of Date: 01/12/2018 Noted Allergy Reaction CLINDAMYCIN 03/29/2016 4 - Hives Date Reviewed: 01/11/2018 Reviewed by: Lenore Flores - Fully Assessed Reason for Visit: c (Worker's Comp) [4136] Cmt: forms submitted Primary Visit Diagnosis:Post laminectomy syndrome [M96.1] Other Visit Diagnosis:Lumbago-sciatica due to displacement of lumbar intervertebral disc [M51.27] Order(s):XR LUMBAR MOTION 4V AP/LAT/ FLEX/EXT [[id number]] Order #: [id number] FUTURE Prescriptions as of 01/12/2018 Sig: OXYCODONE-ACETAMINOPHEN 7.5 M* Take 1 tablet by mouth every * GABAPENTIN 300 MG CAPSULE Take 2 capsules by mouth thre* MELOXICAM 15 MG TABLET Take 1 tablet by mouth once d* EMPAGLIFLOZIN 25 MG TABLET Take 1 tablet by mouth once d* METFORMIN 500 MG TABLET Take 1 tablet by mouth twice * Patient not taking: Reported on 01/11/2018 TRESIBA FLEXTOUCH U-100 INSUL* INJECT 45 UNITS SUBCUTANEOUSL* BENAZEPRIL 5 MG TABLET 1 tablet every am and 2 table* PRAVASTATIN 40 MG TABLET Take 1 tablet by mouth once d* INSULIN LISPRO (U-100) 100 UN* INJECT 1 UNIT PER 5 GRAMS OF * ASPIRIN 81 MG TABLET,DELAYED * Take 81 mg by mouth once eliecer* OMEPRAZOLE 20 MG CAPSULE,JOSÉ ANTONIO* Take 1 capsule by mouth once * MULTIVITAMIN CAPSULE Take 1 capsule by mouth once * Problem List As Of Date 01/12/2018 Noted Resolved Herniation of intervertebral disc between L4 an*INVALID FOR* Priority: A More... Displacement of lumbar intervertebral disc with*INVALID FOR* Sprain of lumbar region [S33.5XXA] INVALID FOR* Type 1 diabetes mellitus [E10.9] Priority: B More... Vitamin D deficiency [E55.9] Hyperlipidemia [E78.5] HTN (hypertension) [I10] Priority: C More... Spondylolisthesis, lumbar region [M43.16] INVALID FOR* High cholesterol [E78.00] Post laminectomy syndrome [M96.1] INVALID FOR* Lumbosacral disc herniation [M51.27] INVALID FOR* Encounter Status:Closed by USHA KINNEY on 01/12/18 OBSOLETE Observed: 01/12/2018 Status: COMPLETED Source: [facility] 12:00 AM [facility] Refill (AGSPINE3) JOSE ARGUETA ([id number]) 1980 M Date Time Provider Department 01/12/18 LENORE FLORES During your visit today, we recorded the following information about you: Allergies As of Date: 01/12/2018 Noted Allergy Reaction CLINDAMYCIN 03/29/2016 4 - Hives Date Reviewed: 01/11/2018 Reviewed by: Lenore Flores - Fully Assessed Reason for Visit: Refill Request [94] Visit Diagnoses:Post laminectomy syndrome [M96.1] Other chronic pain [G89.29] Prescriptions as of 01/12/2018 Sig: GABAPENTIN 300 MG CAPSULE Take 2 capsules by mouth thre* MELOXICAM 15 MG TABLET Take 1 tablet by mouth once d* X OXYCODONE-ACETAMINOPHEN 7.5 M* Take 1 tablet by mouth every * EMPAGLIFLOZIN 25 MG TABLET Take 1 tablet by mouth once d* Patient not taking: Reported on 02/13/2018 METFORMIN 500 MG TABLET Take 1 tablet by mouth twice * Patient not taking: Reported on 01/11/2018 TRESIBA FLEXTOUCH U-100 INSUL* INJECT 45 UNITS SUBCUTANEOUSL* BENAZEPRIL 5 MG TABLET 1 tablet every am and 2 table* X PRAVASTATIN 40 MG TABLET Take 1 tablet by mouth once d* X INSULIN LISPRO (U-100) 100 UN* INJECT 1 UNIT PER 5 GRAMS OF * ASPIRIN 81 MG TABLET,DELAYED * Take 81 mg by mouth once eliecer* OMEPRAZOLE 20 MG CAPSULE,JOSÉ ANTONIO* Take 1 capsule by mouth once * MULTIVITAMIN CAPSULE Take 1 capsule by mouth once * Problem List As Of Date 01/12/2018 Noted Resolved Herniation of intervertebral disc between L4 an*INVALID FOR* Priority: A More... Displacement of lumbar intervertebral disc with*INVALID FOR* Sprain of lumbar region [S33.5XXA] INVALID FOR* Type 1 diabetes mellitus [E10.9] Priority: B More... Vitamin D deficiency [E55.9] Hyperlipidemia [E78.5] HTN (hypertension) [I10] Priority: C More... Spondylolisthesis, lumbar region [M43.16] INVALID FOR* High cholesterol [E78.00] Post laminectomy syndrome [M96.1] INVALID FOR* Lumbosacral disc herniation [M51.27] INVALID FOR* Encounter Status:Closed by LENORE FLORES MD on 02/23/18 PROGRESS Observed: 01/11/2018 Status: COMPLETED Source: [facility] 8:17 AM [facility] RE[facility] O ID: [id number] Author: Lenore Flores Service: (none) Author Type: Physician Type: Progress Notes Filed: 01/11/2018 8:45 AM Note Text: Patient Name: Jose Argueta Patient : 1980 Patient Age: [age] year old CC: Patient presents with: Follow Up: Medication refill/ lower back pain SUBJECTIVE Patient presents for follow up of low back pain. The patient describes the pain as tender, shooting and achy 01/15. Pain has increased over the last 2 weeks, especially in the left leg. He has pain, numbness and tingling, without weakness radiating into the right lower extremity to the foot, which increased after surgery as well as the left lower extremity now to the calf. Pain is worse with standing, and bending or prolonged sitting. He has been taking Mobic, Gabapentin and Percocet 3/day with good relief- he does admit to taking an extra pill at times over the last week due to the increase in pain. He has upcoming appointment with his surgeon at the end of the month. The patient denies any bowel or bladder dysfunction. The patient denies any chest pain or chest tightness. The constitutional, musculoskeletal, and neurological review of systems was negative unless otherwise noted. The patient's past medical history, allergies, medication list, social history, and family medical history were documented, updated, and reviewed in the chart. OARRS website checked and validated. All prescriptions have been APPROPRIATELY filled. No suspicious activity was identified.- 01/11/2018 by Lenore Flores MD Nursing Notes: Loy Chappell 01/11/2018 8:26 AM Signed Review of Systems Eyes: Negative for blurred vision. Respiratory: Negative for shortness of breath.? Cardiovascular: Negative for chest pain. Negative for leg swelling. Gastrointestinal: Negative for constipation, diarrhea, nausea?and vomiting. Genitourinary: Negative for dysuria. Skin: Negative for itching. Neurological: Negative for headaches. Negative for dizziness, tingling?and weakness. Endo/Heme/Allergies: Negative for bruising/bleeding easily. Psychiatric/Behavioral: Negative for depression and suicidal ideas. ROS entered by: Samira Chappell MA MEDICATION NAME percocet STRENGTH 7.5 LAST FILL DATE 12/17/2017 DATE LAST DOSE TAKEN yesterday QUANTITY FILLED 90 QUANTITY REMAINING 11 ALLERGIES Allergen Reactions - Clindamycin Hives Current Outpatient Prescriptions: empagliflozin (JARDIANCE) 25 mg tablet Take 1 tablet by mouth once daily. Disp: 90 tablet Rfl: 3 TRESIBA FLEXTOUCH U-100 100 unit/mL (3 mL) injection INJECT 45 UNITS SUBCUTANEOUSLY EVERY 24 HOURS. Disp: 15 mL Rfl: 11 benazepril (LOTENSIN) 5 mg tablet 1 tablet every am and 2 tablets every pm Disp: 90 tablet Rfl: 11 pravastatin (PRAVACHOL) 40 mg tablet Take 1 tablet by mouth once daily. Disp: 30 tablet Rfl: 11 Insulin Lispro, Human, (HUMALOG KWIKPEN) 100 unit/mL inpn INJECT 1 UNIT PER 5 GRAMS OF CARBOHYDRATES WITH EACH MEAL (TOTAL MAXIMUM DAILY DOSE IS 55 UNITS) Disp: 5 Pen Rfl: 11 aspirin, enteric coated (ADULT LOW DOSE ASPIRIN) 81 mg EC tablet Take 81 mg by mouth once daily. Disp: Rfl: omeprazole (PRILOSEC) 20 mg capsule Take 1 capsule by mouth once daily. Disp: Rfl: 0 Multivitamin capsule Take 1 capsule by mouth once daily. Disp: Rfl: [START ON 01/16/2018] oxyCODONE-acetaminophen (PERCOCET) 7.5- 325 mg tablet Take 1 tablet by mouth every 8 hours as needed for Pain (for pain.) for up to 30 days.Earliest Fill Date: 01/16/18 Disp: 90 tablet Rfl: 0 gabapentin (NEURONTIN) 300 mg capsule Take 2 capsules by mouth three times daily for 90 days. Disp: 180 capsule Rfl: 2 meloxicam (MOBIC) 15 mg tablet Take 1 tablet by mouth once daily. Disp: 30 tablet Rfl: 2 metFORMIN (GLUCOPHAGE) 500 mg tablet Take 1 tablet by mouth twice daily with meals. (Patient not taking: Reported on 01/11/2018 ) Disp: 180 tablet Rfl: 3 No current facility-administered medications for this visit. 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 Social History Main Topics Smoking status: Never Smoker Smokeless tobacco: Never Used Alcohol use: No Drug use: No Other Topics Concern Caffeine Concern Yes Comment:coffee 3 cups daily, and energy drinks Special Diet Yes Comment:Poor diet Exercise No Comment: Exercises 1-2 days/wk Social History Narrative No reported history Family History Problem Relation Age of Onset - Hyperlipidemia Mother - Ischemic Heart Disease Father - Diabetes Father - Heart Father - Hyperlipidemia Father - Hypertension Father - Hyperlipidemia Paternal Grandmother - Hypertension Paternal Grandmother - Stroke Paternal Grandmother - Diabetes mellitus [OTHER] Paternal Grandmother OBJECTIVE Vitals: Ht 175.3 cm (5' 9) Wt 116.1 kg (256 lb) BMI 37.80 kg/m? General: Alert, cooperative, well appearing, and in no apparent distress. Musculoskeletal: The patient's gait is normal Back: Inspection of the back demonstrates there is no obvious deformity or misalignment. There is bony tenderness along the lumbar vertebrae, none along the sacroiliac joints. There is bilateral paraspinal muscle tenderness. Range of motion testing demonstrates limited due to pain with flexion, extension, side bending and rotation of the back. Strength is 5/5 in the lower extremity bilaterally. Sensation is decreased throughout the right lower extremity. There is a positive right straight leg raise and femoral stretch test. The piriformis has normal flexibility and is non-tender. Skin: The skin is without jaundice. It is intact without pathologic lesions, erythema, vesicles, discharge or rash. Palpitation of the skin is normal without induration, subcutaneous nodules or tightening. Extremities: This is no clubbing, cyanosis or edema. Peripheral pulses are 2+. Return in about 4 weeks (around 02/08/2018). ASSESSMENT/PLAN: 1. Post laminectomy syndrome - ICD9: 722.80, ICD10: M96.1 We discussed the natural history of this condition, differential diagnoses, and treatment options. Guidelines for activity were given. We discussed options for treatment including conservative care, medications with side effects and risks and benefits. The patient is doing well with the prescribed pain medications. The patient requests a refill today. Patient states medications provide adequate analgesia. The medications allow patient to maintain ADL's. There are no adverse effects from the medications and no aberrant behaviors are noted. Will refill his percocet today- discussed he cannot take more than prescribed and he states understanding. Continue gabapentin at increased dose and Mobic He will follow up with his surgeon later this month for his 1 year surgical follow up. May consider SCS in the future if not having improvement Will place C9 for updated lumbar x-rays, likely will need new MRI when follows up with surgery due to his increasing leg symptoms. - OXYCODONE-ACETAMINOPHEN 7.5 MG-325 MG TABLET - GABAPENTIN 300 MG CAPSULE - MELOXICAM 15 MG TABLET - [facility] SCREEN 2. Lumbosacral disc herniation - ICD9: 722.10, ICD10: M51.27 - OXYCODONE-ACETAMINOPHEN 7.5 MG-325 MG TABLET Lenore Flores MD CNOV Observed: 01/11/2018 Status: COMPLETED Source: [facility] 8:15 AM CLINIC OTHER CAMPUS REPOSITORY Office Visit ([facility]) CELENAJOSE COOL ([id number]) 1980 M Date Time Provider Department 01/11/18 8:15 AM LENORE FLORES During your visit today, we recorded the following information about you: Respiration Blood pressure Weight Height 17/minute 125/90 116.1 kg 1.753 m Lenore Flores MD 01/11/2018 8:45 AM Signed Patient Name: Jose Argueta Patient : 1980 Patient Age: [age] year old CC: Patient presents with: Follow Up: Medication refill/ lower back pain SUBJECTIVE Patient presents for follow up of low back pain. The patient describes the pain as tender, shooting and achy /10. Pain has increased over the last 2 weeks, especially in the left leg. He has pain, numbness and tingling, without weakness radiating into the right lower extremity to the foot, which increased after surgery as well as the left lower extremity now to the calf. Pain is worse with standing, and bending or prolonged sitting. He has been taking Mobic, Gabapentin and Percocet 3/day with good relief- he does admit to taking an extra pill at times over the last week due to the increase in pain. He has upcoming appointment with his surgeon at the end of the month. The patient denies any bowel or bladder dysfunction. The patient denies any chest pain or chest tightness. The constitutional, musculoskeletal, and neurological review of systems was negative unless otherwise noted. The patient's past medical history, allergies, medication list, social history, and family medical history were documented, updated, and reviewed in the chart. [place]ARRS website checked and validated. All prescriptions have been APPROPRIATELY filled. No suspicious activity was identified.- 01/11/2018 by Lenore Flores MD Nursing Notes: Loy Chappell 01/11/2018 8:26 AM Signed Review of Systems Eyes: Negative for blurred vision. Respiratory: Negative for shortness of breath.? Cardiovascular: Negative for chest pain. Negative for leg swelling. Gastrointestinal: Negative for constipation, diarrhea, nausea?and vomiting. Genitourinary: Negative for dysuria. Skin: Negative for itching. Neurological: Negative for headaches. Negative for dizziness, tingling?and weakness. Endo/Heme/Allergies: Negative for bruising/bleeding easily. Psychiatric/Behavioral: Negative for depression and suicidal ideas. ROS entered by: Samira Chappell MA MEDICATION NAME percocet STRENGTH 7.5 LAST FILL DATE 12/17/2017 DATE LAST DOSE TAKEN yesterday QUANTITY FILLED 90 QUANTITY REMAINING 11 ALLERGIES Allergen Reactions - Clindamycin Hives Current Outpatient Prescriptions: empagliflozin (JARDIANCE) 25 mg tablet Take 1 tablet by mouth once daily. Disp: 90 tablet Rfl: 3 TRESIBA FLEXTOUCH U-100 100 unit/mL (3 mL) injection INJECT 45 UNITS SUBCUTANEOUSLY EVERY 24 HOURS. Disp: 15 mL Rfl: 11 benazepril (LOTENSIN) 5 mg tablet 1 tablet every am and 2 tablets every pm Disp: 90 tablet Rfl: 11 pravastatin (PRAVACHOL) 40 mg tablet Take 1 tablet by mouth once daily. Disp: 30 tablet Rfl: 11 Insulin Lispro, Human, (HUMALOG KWIKPEN) 100 unit/mL inpn INJECT 1 UNIT PER 5 GRAMS OF CARBOHYDRATES WITH EACH MEAL (TOTAL MAXIMUM DAILY DOSE IS 55 UNITS) Disp: 5 Pen Rfl: 11 aspirin, enteric coated (ADULT LOW DOSE ASPIRIN) 81 mg EC tablet Take 81 mg by mouth once daily. Disp: Rfl: omeprazole (PRILOSEC) 20 mg capsule Take 1 capsule by mouth once daily. Disp: Rfl: 0 Multivitamin capsule Take 1 capsule by mouth once daily. Disp: Rfl: [START ON 01/16/2018] oxyCODONE-acetaminophen (PERCOCET) 7.5- 325 mg tablet Take 1 tablet by mouth every 8 hours as needed for Pain (for pain.) for up to 30 days.Earliest Fill Date: 01/16/18 Disp: 90 tablet Rfl: 0 gabapentin (NEURONTIN) 300 mg capsule Take 2 capsules by mouth three times daily for 90 days. Disp: 180 capsule Rfl: 2 meloxicam (MOBIC) 15 mg tablet Take 1 tablet by mouth once daily. Disp: 30 tablet Rfl: 2 metFORMIN (GLUCOPHAGE) 500 mg tablet Take 1 tablet by mouth twice daily with meals. (Patient not taking: Reported on 01/11/2018 ) Disp: 180 tablet Rfl: 3 No current facility-administered medications for this visit. 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 Social History Main Topics Smoking status: Never Smoker Smokeless tobacco: Never Used Alcohol use: No Drug use: No Other Topics Concern Caffeine Concern Yes Comment:coffee 3 cups daily, and energy drinks Special Diet Yes Comment:Poor diet Exercise No Comment: Exercises 1-2 days/wk Social History Narrative No reported history Family History Problem Relation Age of Onset - Hyperlipidemia Mother - Ischemic Heart Disease Father - Diabetes Father - Heart Father - Hyperlipidemia Father - Hypertension Father - Hyperlipidemia Paternal Grandmother - Hypertension Paternal Grandmother - Stroke Paternal Grandmother - Diabetes mellitus [OTHER] Paternal Grandmother OBJECTIVE Vitals: Ht 175.3 cm (5' 9) Wt 116.1 kg (256 lb) BMI 37.80 kg/m? General: Alert, cooperative, well appearing, and in no apparent distress. Musculoskeletal: The patient's gait is normal Back: Inspection of the back demonstrates there is no obvious deformity or misalignment. There is bony tenderness along the lumbar vertebrae, none along the sacroiliac joints. There is bilateral paraspinal muscle tenderness. Range of motion testing demonstrates limited due to pain with flexion, extension, side bending and rotation of the back. Strength is 5/5 in the lower extremity bilaterally. Sensation is decreased throughout the right lower extremity. There is a positive right straight leg raise and femoral stretch test. The piriformis has normal flexibility and is non-tender. Skin: The skin is without jaundice. It is intact without pathologic lesions, erythema, vesicles, discharge or rash. Palpitation of the skin is normal without induration, subcutaneous nodules or tightening. Extremities: This is no clubbing, cyanosis or edema. Peripheral pulses are 2+. Return in about 4 weeks (around 02/08/2018). ASSESSMENT/PLAN: 1. Post laminectomy syndrome - ICD9: 722.80, ICD10: M96.1 We discussed the natural history of this condition, differential diagnoses, and treatment options. Guidelines for activity were given. We discussed options for treatment including conservative care, medications with side effects and risks and benefits. The patient is doing well with the prescribed pain medications. The patient requests a refill today. Patient states medications provide adequate analgesia. The medications allow patient to maintain ADL's. There are no adverse effects from the medications and no aberrant behaviors are noted. Will refill his percocet today- discussed he cannot take more than prescribed and he states understanding. Continue gabapentin at increased dose and Mobic He will follow up with his surgeon later this month for his 1 year surgical follow up. May consider SCS in the future if not having improvement Will place C9 for updated lumbar x-rays, likely will need new MRI when follows up with surgery due to his increasing leg symptoms. - OXYCODONE-ACETAMINOPHEN 7.5 MG-325 MG TABLET - GABAPENTIN 300 MG CAPSULE - MELOXICAM 15 MG TABLET - [facility] SCREEN 2. Lumbosacral disc herniation - ICD9: 722.10, ICD10: M51.27 - OXYCODONE-ACETAMINOPHEN 7.5 MG-325 MG TABLET MD Loy White ([facility] Chappell 01/11/2018 8:26 AM Signed Review of Systems Eyes: Negative for blurred vision. Respiratory: Negative for shortness of breath.? Cardiovascular: Negative for chest pain. Negative for leg swelling. Gastrointestinal: Negative for constipation, diarrhea, nausea?and vomiting. Genitourinary: Negative for dysuria. Skin: Negative for itching. Neurological: Negative for headaches. Negative for dizziness, tingling?and weakness. Endo/Heme/Allergies: Negative for bruising/bleeding easily. Psychiatric/Behavioral: Negative for depression and suicidal ideas. ROS entered by: NYLA Turner MD 01/11/2018 8:39 AM Signed Opioid Pain Medication Information Sheet Opioids are drugs that are used to treat cancer pain. They include morphine (MSContin, MSIR, Roxanol); oxycodone (Oxycontin, Roxicodone, Percocet); hydromorphone (Dilaudid, Exalgo); fentanyl (Duragesic); hydrocodone (Hysingla, Zohydro, [place], Vicodin); buprenorphine (Butrans, Buprenex); and methadone. There are two types of opioids: long-acting and short-acting. Long-acting opioids are also called extended-release (ER) or controlled-release (CR). This means that the medication is slowly released over an 8- to 12-hour period or longer. Examples of these include MSContin and Oxycontin. These drugs are taken on a regular schedule to control pain. DO NOT BREAK OR CRUSH THESE TABLETS. Long-acting opioids also come in patch form (Fentanyl, buprenorphine). Opioid patches are strong drugs and should not be used for mild or occasional pain, or for pain from surgery. ? Do not use patches that are damaged or cut. ? You can shower and bathe with the patch in place. ? Do not expose the skin patch to heat (for example: hot tub, heating pad, sauna, electric blanket, heat lamps). Heat increases the amount of drug you absorb through your skin and may cause harmful effects. ? When removing the patch, fold it in half, sticky side in, and flush it down the toilet. Short-acting opioids are also called immediate-release. They usually take effect within an hour, and provide pain relief for four hours. You take short-acting opioids if your pain gets worse (5 on a scale of 1 to 10), which is called breakthrough pain. DO NOT WAIT UNTIL THE PAIN BECOMES SEVERE TO TAKE YOUR MEDICATION. What are the side effects of opioids? Like most drugs, opioids have side effects. The most common are nausea, vomiting, itching, and sleepiness. These side effects should go away in three to seven days as your body gets used to the medication. DO NOT DRIVE IF YOU FEEL DROWSY OR SLEEPY. All opioids cause constipation. Your caregiver will prescribe stool softeners and medicine to help prevent constipation. You can also do the following: ? Increase the amounts of fluids and fiber in your diet. ? Try to get more exercise and physical activity. ? Try to have a bowel movement around the same time each day to get your bowels to empty in a certain pattern. Can I become addicted to opioids? Addiction means that a person uses the drug to get ?high?, and cannot control the urge to take the drug. Taking medication for pain relief is NOT addiction. Your healthcare provider will discuss any concerns about becoming addicted to pain medications. Withdrawal If you stop taking your pain medication suddenly, you may develop withdrawal symptoms. These include flu-like symptoms, agitation, anxiety, abdominal cramping, nausea, and diarrhea. If you have stopped taking your pain medication for three days or more, do not start taking it again without talking to your healthcare provider. Overdose Combining opioids with alcohol or sedating pills (which make you sleepy) increases the risk of overdose. Symptoms of overdose include extreme sleepiness, slurred speech, and slow breathing (breathing may also stop). Call 911 or your local emergency service if you think you may have overdosed. Call 911 or your local emergency service if: ? You took too much medicine. ? You have trouble breathing and/or shortness of breath. ? A child accidentally took the medication. Call your healthcare provider if: ? Your pain is not being controlled with the dose that you are taking. ? You are having side effects. Other important information: ? Take your medicine exactly as prescribed. ? Only one healthcare provider should prescribe your pain medications. ? Make follow-up appointments with your healthcare provider. ? Keep medication away from children and store them in a safe place. ? Do not share your medications with anyone. ? Do not take medications that have not been prescribed for you. ? Do not stop taking your medication without talking to your healthcare provider. ? Do not drink alcohol while taking this medication. How do I dispose of opioids? DO NOT THROW UNUSED MEDICATION IN THE TRASH. You should return these medications through a take-back program or to a collection box or mail-back program authorized by the Drug Enforcement Administration. Authorized collection sites include retail pharmacies, hospital or clinic pharmacies, and law enforcement locations. This website provides a list of locations where you can safely dispose of opioids: https://www.deadiversion.pMDsoft.gov/pubdispsearch If a take-back program is not available, flush unused medicines down the toilet or sink. Referring Provider: LENORE FLORES [[id number]] Allergies As of Date: 01/11/2018 Noted Allergy Reaction CLINDAMYCIN 03/29/2016 4 - Hives Date Reviewed: 01/11/2018 Reviewed by: Lenore Flores - Fully Assessed Reason for Visit: Follow Up [171] Cmt: Medication refill/ lower back pain Visit Diagnoses:Post laminectomy syndrome [M96.1] Lumbosacral disc herniation [M51.27] Order(s):oxyCODONE-acetaminophen (PERCOCET) 7.5-325 mg tabletTake 1 tablet by mouth every 8 hours as needed for Pain (for pain.) for up to 30 days. Earliest Fill Date: 01/16/18Disp: 90 tabletRfl: 0 gabapentin (NEURONTIN) 300 mg capsuleTake 2 capsules by mouth three times daily for 90 days.Disp: 180 capsuleRfl: 2 meloxicam (MOBIC) 15 mg tabletTake 1 tablet by mouth once daily.Disp: 30 tabletRfl: 2 [facility] SCREEN [[id number]] Order #: [id number] Prescriptions as of 01/11/2018 Sig: EMPAGLIFLOZIN 25 MG TABLET Take 1 tablet by mouth once d* TRESIBA FLEXTOUCH U-100 INSUL* INJECT 45 UNITS SUBCUTANEOUSL* BENAZEPRIL 5 MG TABLET 1 tablet every am and 2 table* PRAVASTATIN 40 MG TABLET Take 1 tablet by mouth once d* INSULIN LISPRO (U-100) 100 UN* INJECT 1 UNIT PER 5 GRAMS OF * ASPIRIN 81 MG TABLET,DELAYED * Take 81 mg by mouth once eliecer* OMEPRAZOLE 20 MG CAPSULE,JOSÉ ANTONIO* Take 1 capsule by mouth once * MULTIVITAMIN CAPSULE Take 1 capsule by mouth once * OXYCODONE-ACETAMINOPHEN 7.5 M* Take 1 tablet by mouth every * GABAPENTIN 300 MG CAPSULE Take 2 capsules by mouth thre* MELOXICAM 15 MG TABLET Take 1 tablet by mouth once d* METFORMIN 500 MG TABLET Take 1 tablet by mouth twice * Patient not taking: Reported on 01/11/2018 Problem List As Of Date 01/11/2018 Noted Resolved Herniation of intervertebral disc between L4 an*INVALID FOR* Priority: A More... Displacement of lumbar intervertebral disc with*INVALID FOR* Sprain of lumbar region [S33.5XXA] INVALID FOR* Type 1 diabetes mellitus [E10.9] Priority: B More... Vitamin D deficiency [E55.9] Hyperlipidemia [E78.5] HTN (hypertension) [I10] Priority: C More... Spondylolisthesis, lumbar region [M43.16] INVALID FOR* High cholesterol [E78.00] Post laminectomy syndrome [M96.1] INVALID FOR* Lumbosacral disc herniation [M51.27] INVALID FOR* Other instructions from your clinician: Opioid Pain Medication Information Sheet Opioids are drugs that are used to treat cancer pain. They include morphine (MSContin, MSIR, Roxanol); oxycodone (Oxycontin, Roxicodone, Percocet); hydromorphone (Dilaudid, Exalgo); fentanyl (Duragesic); hydrocodone (Hysingla, Zohydro, [place], Vicodin); buprenorphine (Butrans, Buprenex); and methadone. There are two types of opioids: long-acting and short-acting. Long-acting opioids are also called extended-release (ER) or controlled-release (CR). This means that the medication is slowly released over an 8- to 12-hour period or longer. Examples of these include MSContin and Oxycontin. These drugs are taken on a regular schedule to control pain. DO NOT BREAK OR CRUSH THESE TABLETS. Long-acting opioids also come in patch form (Fentanyl, buprenorphine). Opioid patches are strong drugs and should not be used for mild or occasional pain, or for pain from surgery. ? Do not use patches that are damaged or cut. ? You can shower and bathe with the patch in place. ? Do not expose the skin patch to heat (for example: hot tub, heating pad, sauna, electric blanket, heat lamps). Heat increases the amount of drug you absorb through your skin and may cause harmful effects. ? When removing the patch, fold it in half, sticky side in, and flush it down the toilet. Short-acting opioids are also called immediate-release. They usually take effect within an hour, and provide pain relief for four hours. You take short-acting opioids if your pain gets worse (5 on a scale of 1 to 10), which is called breakthrough pain. DO NOT WAIT UNTIL THE PAIN BECOMES SEVERE TO TAKE YOUR MEDICATION. What are the side effects of opioids? Like most drugs, opioids have side effects. The most common are nausea, vomiting, itching, and sleepiness. These side effects should go away in three to seven days as your body gets used to the medication. DO NOT DRIVE IF YOU FEEL DROWSY OR SLEEPY. All opioids cause constipation. Your caregiver will prescribe stool softeners and medicine to help prevent constipation. You can also do the following: ? Increase the amounts of fluids and fiber in your diet. ? Try to get more exercise and physical activity. ? Try to have a bowel movement around the same time each day to get your bowels to empty in a certain pattern. Can I become addicted to opioids? Addiction means that a person uses the drug to get ?high?, and cannot control the urge to take the drug. Taking medication for pain relief is NOT addiction. Your healthcare provider will discuss any concerns about becoming addicted to pain medications. Withdrawal If you stop taking your pain medication suddenly, you may develop withdrawal symptoms. These include flu-like symptoms, agitation, anxiety, abdominal cramping, nausea, and diarrhea. If you have stopped taking your pain medication for three days or more, do not start taking it again without talking to your healthcare provider. Overdose Combining opioids with alcohol or sedating pills (which make you sleepy) increases the risk of overdose. Symptoms of overdose include extreme sleepiness, slurred speech, and slow breathing (breathing may also stop). Call 911 or your local emergency service if you think you may have overdosed. Call 911 or your local emergency service if: ? You took too much medicine. ? You have trouble breathing and/or shortness of breath. ? A child accidentally took the medication. Call your healthcare provider if: ? Your pain is not being controlled with the dose that you are taking. ? You are having side effects. Other important information: ? Take your medicine exactly as prescribed. ? Only one healthcare provider should prescribe your pain medications. ? Make follow-up appointments with your healthcare provider. ? Keep medication away from children and store them in a safe place. ? Do not share your medications with anyone. ? Do not take medications that have not been prescribed for you. ? Do not stop taking your medication without talking to your healthcare provider. ? Do not drink alcohol while taking this medication. How do I dispose of opioids? DO NOT THROW UNUSED MEDICATION IN THE TRASH. You should return these medications through a take-back program or to a collection box or mail-back program authorized by the Drug Enforcement Administration. Authorized collection sites include retail pharmacies, hospital or clinic pharmacies, and law enforcement locations. This website provides a list of locations where you can safely dispose of opioids: https://www.deadiversion.[employer].gov/pubdispsearch If a take-back program is not available, flush unused medicines down the toilet or sink. Visit Notes: >> Loy Chappell Wed Jan 11, 2018 8:18 AM Status: Signed Review of Systems Eyes: Negative for blurred vision. Respiratory: Negative for shortness of breath.? Cardiovascular: Negative for chest pain. Negative for leg swelling. Gastrointestinal: Negative for constipation, diarrhea, nausea?and vomiting. Genitourinary: Negative for dysuria. Skin: Negative for itching. Neurological: Negative for headaches. Negative for dizziness, tingling?and weakness. Endo/Heme/Allergies: Negative for bruising/bleeding easily. Psychiatric/Behavioral: Negative for depression and suicidal ideas. ROS entered by: Samira Chappell MA Prescriptions ordered this encounter Disp Refills Start End OXYCODONE-ACETAMINOPHEN 7.5 MG-325 M* 90 t* 0 01/16/2018 02/15/2018 Class: Print RX Route: ORAL Sig: Take 1 tablet by mouth every 8 hours as needed for Pain (for pain.) for up to 30 days. Earliest Fill Date: 01/16/18 GABAPENTIN 300 MG CAPSULE 180 * 2 01/11/2018 04/11/2018 Route: ORAL Sig: Take 2 capsules by mouth three times daily for 90 days. MELOXICAM 15 MG TABLET 30 t* 2 01/11/2018 04/11/2018 Route: ORAL Sig: Take 1 tablet by mouth once daily. Medications Discontinued During This Encounter oxyCODONE-acetaminophen (PERCOCET) 7* 90 t* 0 12/17/2017 01/11/2018 Class: Print RX Route: ORAL Sig: Take 1 tablet by mouth every 8 hours as needed for Pain (for pain.) for up to 30 days. Earliest Fill Date: 12/17/17 Disc: Reason for discontinue is not on file. gabapentin (NEURONTIN) 300 mg capsule 90 c* 2 10/19/2017 01/11/2018 Route: ORAL Sig: Take 1 capsule by mouth three times daily for 90 days. Disc: Reason for discontinue is not on file. meloxicam (MOBIC) 15 mg tablet 30 t* 2 10/19/2017 01/11/2018 Route: ORAL Sig: Take 1 tablet by mouth once daily. Disc: Reason for discontinue is not on file. Disposition: Return in about 4 weeks (around 02/08/2018). Follow-up and Disposition History Recorded Questionnaire: AG SPINE PAIN PILL COUNT MEDICATION NAME -> percocet STRENGTH -> 7.5 LAST FILL DATE -> 12/17/2017 DATE LAST DOSE TAKEN -> yesterday QUANTITY FILLED -> 90 QUANTITY REMAINING -> 11 Encounter Status:Closed by LENORE FLORES MD on 01/11/18 [place] Observed: 01/11/2018 Status: COMPLETED Source: [facility] 12:00 AM CLINIC OTHER CAMPUS REPOSITORY Telephone ([facility]) JOSE ARGUETA ([id number]) 1980 M Date Time Provider Department 01/11/18 LINA BHAGAT During your visit today, we recorded the following information about you: Jodie Ramírez 01/11/2018 12:15 PM Signed Patient called that he is hesitant to take the Metformin due to his sister, who is also a Type 1 diabetic, going into DKA from taking Metformin. He states he was started on Metformin when he was originally diagnosed but was taken off it due to it not having any effect on his blood sugars. Patient must try Tradjenta or Januvia before Jardiance will be considered. Please advise. [facility] Ramírez 01/11/2018 2:[address] Bhagat patient to try Tradjenta 5 mg daily instead of Metformin. Please d/c Metformin and add Tradjenta 5 mg daily. [facility] Desiree Feliciano ([facility] Ramírez 01/11/2018 2:23 PM Signed Left voice message for patient to disregard the Metformin prescription and instead take Tradjenta 5 mg tablet daily. Told him to call in a couple months to let us know how his blood sugars are doing on the Tradjenta. Told patient to call if any questions. [facility]) Desiree Allergies As of Date: 01/11/2018 Noted Allergy Reaction CLINDAMYCIN 03/29/2016 4 - Hives Date Reviewed: 01/11/2018 Reviewed by: Lenore Flores - Fully Assessed Reason for Visit: Patient Question [4297] Order(s):linagliptin (TRADJENTA) 5 mg tabTake 1 tablet by mouth once daily.Disp: 90 tabletRfl: 3 Prescriptions as of 01/11/2018 Sig: LINAGLIPTIN 5 MG TABLET Take 1 tablet by mouth once d* X OXYCODONE-ACETAMINOPHEN 7.5 M* Take 1 tablet by mouth every * X GABAPENTIN 300 MG CAPSULE Take 2 capsules by mouth thre* X MELOXICAM 15 MG TABLET Take 1 tablet by mouth once d* X EMPAGLIFLOZIN 25 MG TABLET Take 1 tablet by mouth once d* Patient not taking: Reported on 02/13/2018 X METFORMIN 500 MG TABLET Take 1 tablet by mouth twice * Patient not taking: Reported on 04/19/2018 TRESIBA FLEXTOUCH U-100 INSUL* INJECT 45 UNITS SUBCUTANEOUSL* X BENAZEPRIL 5 MG TABLET 1 tablet every am and 2 table* X PRAVASTATIN 40 MG TABLET Take 1 tablet by mouth once d* X INSULIN LISPRO (U-100) 100 UN* INJECT 1 UNIT PER 5 GRAMS OF * ASPIRIN 81 MG TABLET,DELAYED * Take 81 mg by mouth once eliecer* OMEPRAZOLE 20 MG CAPSULE,JOSÉ ANTONIO* Take 1 capsule by mouth once * MULTIVITAMIN CAPSULE Take 1 capsule by mouth once * Problem List As Of Date 01/11/2018 Noted Resolved Herniation of intervertebral disc between L4 an*INVALID FOR* More... Displacement of lumbar intervertebral disc with*INVALID FOR* Sprain of lumbar region [S33.5XXA] INVALID FOR* Type 1 diabetes mellitus [E10.9] More... Vitamin D deficiency [E55.9] Hyperlipidemia [E78.5] HTN (hypertension) [I10] More... Spondylolisthesis, lumbar region [M43.16] INVALID FOR* High cholesterol [E78.00] Post laminectomy syndrome [M96.1] INVALID FOR* Lumbosacral disc herniation [M51.27] INVALID FOR* Prescriptions ordered this encounter Disp Refills Start End LINAGLIPTIN 5 MG TABLET 90 t* 3 08/23/2018 Class: Med Update Route: ORAL Sig: Take 1 tablet by mouth once daily. Encounter Status:Closed by LINA BHAGAT MD on 08/23/18 [place] Observed: 01/09/2018 Status: COMPLETED Source: [facility] 1:41 PM CLINIC OTHER CAMPUS REPOSITORY O ID: [id number] Author: Lina Bhagat Service: (none) Author Type: Physician Type: Progress Notes Filed: 01/09/2018 4:41 PM Note Text: Subjective 36-year-old male presents for f/u of diabetes mellitus. He was diagnosed with diabetes at age 28 with positive anti-FLORINDA antibodies. Takes Tresiba 45 in the a.m. and Humalog 1 unit per 5 g of carbohydrates with each meal, Farxiga 10mg daily. Since last appointment has few episodes of hypoglycemia; still has hyperglycemia. Hemoglobin A1c elevated but improved at 8.2(8.1)(8.5)(8.3)(8.4)(9.2). Still having lower back pain. Hemoglobin A1c from November 2012 was 9.5 and a TSH at 2.8. Has lumbar disc disease with radiculopathy (Worker's Compensation from 2009), s/p succesful back surgery 07/16/2014 however, contemplating another back surgery. Currently taking hydrocodone/acetaminophen 10/325 mg every 6 hours as needed. Since last appointment has been gaining some weight. Has not been tolerating Tanzeum or Trulicity or Bydureon. Stopped taking Victoza due to nausea and worsened reflux. Endocrine History Conditions: Diabetes mellitus type 1, Hypertension, Hyperlipidemia Past Medical History: Obesity, Hypertension, Hyperlipidemia Medication History: Not on aspirin Family History: Family history of diabetes mellitus type 2, Family history of thyroid disease, No family history of pituitary gland disease, No family history of osteoporosis, No family history of coronary artery disease in a first degree relative, No family history of hypertension, No family history of hyperlipidemia Diabetes Overview: Diagnosis: diabetes mellitus type 1, Age at onset of diabetes: 28, Characteristics of onset: symptomatic, Medication treatment plan: insulin, Not on insulin pump, No chronic kidney disease, Not on aspirin, On statin, On angiotensin converting enzyme inhibitor due for eye exam Evaluation: Taking diabetic medication as directed, Monitors glucose more than three times a day, Frequency of hypoglycemic episodes: weekly, Frequency of hyperglycemic episodes daily, Most recent hemoglobin A1C 8.2(8.1)(8.5)(8.3)(8.4)(9.2)(8.9)(8.5 on 06-06-2014), Most recent LDL cholesterol 139mg/dl, Reviewed diabetic diet, Compliant with diabetic diet, Counting carbohydrates, Physically active Comorbid Conditions: Obesity, Hyperlipidemia, Hypertension, Sedentary lifestyle, Family history of diabetes, No family history of coronary artery disease in a first degree relative Review of Systems Constitutional: Negative for malaise/fatigue. HENT: Negative for ear pain and tinnitus. Eyes: Negative for blurred vision and double vision. Respiratory: Negative for shortness of breath. Cardiovascular: Negative for chest pain, palpitations and leg swelling. Gastrointestinal: Negative for abdominal pain, constipation and diarrhea. Genitourinary: Negative for frequency. Skin: Negative for rash. Neurological: Negative for dizziness, weakness and headaches. Endo/Heme/Allergies: Negative for polydipsia. Does not bruise/bleed easily. Psychiatric/Behavioral: Negative for depression and memory loss. The patient is not nervous/anxious and does not have insomnia. PAST MEDICAL HISTORY Diagnosis Date - Fatigue - GERD (gastroesophageal reflux disease) - High cholesterol - HTN (hypertension) under control - Hyperlipidemia - Type 1 diabetes mellitus (HCC) at the age of 28 - Vitamin D deficiency - Vitamin deficiency PAST SURGICAL HISTORY Procedure Laterality Date - BACK SURGERY HX 02/01/[address] 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 History Main Topics Smoking status: Never Smoker Smokeless tobacco: Never Used Alcohol use: No Drug use: No Other Topics Concern Caffeine Concern Yes Comment:coffee 3 cups daily, and energy drinks Special Diet Yes Comment:Poor diet Exercise No Comment: Exercises 1-2 days/wk Social History Narrative No reported history Current Meds oxyCODONE-acetaminophen (PERCOCET) 7.5-325 mg tablet Take 1 tablet by mouth every 8 hours as needed for Pain (for pain.) for up to 30 days.Earliest Fill Date: 12/17/17 TRESIBA FLEXTOUCH U-100 100 unit/mL (3 mL) injection INJECT 45 UNITS SUBCUTANEOUSLY EVERY 24 HOURS. gabapentin (NEURONTIN) 300 mg capsule Take 1 capsule by mouth three times daily for 90 days. meloxicam (MOBIC) 15 mg tablet Take 1 tablet by mouth once daily. benazepril (LOTENSIN) 5 mg tablet 1 tablet every am and 2 tablets every pm pravastatin (PRAVACHOL) 40 mg tablet Take 1 tablet by mouth once daily. Insulin Lispro, Human, (HUMALOG KWIKPEN) 100 unit/mL inpn INJECT 1 UNIT PER 5 GRAMS OF CARBOHYDRATES WITH EACH MEAL (TOTAL MAXIMUM DAILY DOSE IS 55 UNITS) aspirin, enteric coated (ADULT LOW DOSE ASPIRIN) 81 mg EC tablet Take 81 mg by mouth once daily. omeprazole (PRILOSEC) 20 mg capsule Take 1 capsule by mouth once daily. Multivitamin capsule Take 1 capsule by mouth once daily. linagliptin (TRADJENTA) 5 mg tab Take 1 tablet by mouth once daily. methocarbamol (ROBAXIN) 750 mg tablet ondansetron (ZOFRAN) 4 mg tablet oxyCODONE ER (OXYCONTIN) 10 mg 12 hr tablet orphenadrine ER (NORFLEX) 100 mg tablet Take 1 tablet by mouth twice daily. blood sugar diagnostic ([place] Cloud[employer]TOUCH ULTRA TEST) test strip Use as instructed orphenadrine ER (NORFLEX) 100 mg tablet Take 1 tablet by mouth twice daily. docusate sodium (COLACE) 100 mg capsule Take 1 capsule by mouth twice daily. Insulin Tenmile, Disposable, (BEULAH PEN NEEDLE) 32 gauge x 5/32 ndle 5 injection(s) Subcutaneous Daily Objective BP 120/88 Pulse 86 Ht 5' 9 (1.75m) Wt 253 lb 9.6 oz (115.0kg) BMI 37.43 kg/(m2). Physical Exam Constitutional: He is oriented to person, place, and time and well-developed, well-nourished, and in no distress. HENT: Head: Normocephalic and atraumatic. Nose: Nose normal. Mouth/Throat: Oropharynx is clear and moist. Eyes: Conjunctivae and EOM are normal. Pupils are equal, round, and reactive to light. No scleral icterus. Neck: Neck supple. No thyromegaly present. Cardiovascular: Normal rate, regular rhythm, normal heart sounds and intact distal pulses. No murmur heard. Pulmonary/Chest: Effort normal and breath sounds normal. He has no wheezes. He has no rales. Abdominal: Soft. Bowel sounds are normal. He exhibits no distension. There is no tenderness. Musculoskeletal: He exhibits no edema. Lymphadenopathy: He has no cervical adenopathy. Neurological: He is alert and oriented to person, place, and time. He has normal motor skills, normal sensation, normal reflexes and intact cranial nerves. No cranial nerve deficit. Gait normal. Skin: Skin is warm, dry and intact. No lesion noted. No cyanosis. Nails show no clubbing. Psychiatric: Mood, memory, affect and judgment normal. Nursing note and vitals reviewed. Feet:Shoes and socks removed, normal distal pulses and sensitive to 10 gm monofilament ASSESSMENT/PLAN: 1. Diabetes 1.5, managed as type 2 (HCC) - ICD9: 250.00, ICD10: E10.9 (primary diagnosis); positive antiGAD Uncontrolled but stable; continue Tresiba and humalog at the same doses; add jardiance; has to be on tradjenta before jardiance as per insurance requirements; Could not tolerate victoza/bydureon due to nausea; Will try metformin - Continue current medications - Blood glucose monitoring on a four times a day schedule - ACCUCHECK B/O - HGBA1C B/O - CBC - COMP METABOLIC PANEL - ALBUMIN RANDOM URINE - LIPID PANEL BASIC - EMPAGLIFLOZIN 25 MG TABLET 2. Vitamin D deficiency - ICD9: 268.9, ICD10: E55.9 replace - VITAMIN D 25 HYDROXY 3. Mixed hyperlipidemia - ICD9: 272.2, ICD10: E78.2 - good control - Continue current medication. - Discussed the benefits of regular aerobic exercise and weight loss. - Encouraged following a low carbohydrate, healthy oil intake diet. 4. Essential hypertension - ICD9: 401.9, ICD10: I10 - good control - Recommended regular aerobic exercise. - Recommend home blood pressure monitoring, to bring results in on next visit - Goal of BP <130/80 Lina Bhagat MD CNOV Observed: 01/09/2018 Status: COMPLETED Source: [facility] 1:30 PM CLINIC OTHER CAMPUS REPOSITORY Office Visit ([facility]) JOSE ARGUETA ([id number]) 1980 M Date Time Provider Department 01/09/18 1:30 PM LINA BHAGAT During your visit today, we recorded the following information about you: Pulse Blood pressure Weight Height 86/minute 120/88 115 kg 1.753 m Lina Bhagat MD 01/09/2018 4:41 PM Signed Subjective 36-year-old male presents for f/u of diabetes mellitus. He was diagnosed with diabetes at age 28 with positive anti-FLORINDA antibodies. Takes Tresiba 45 in the a.m. and Humalog 1 unit per 5 g of carbohydrates with each meal, Farxiga 10mg daily. Since last appointment has few episodes of hypoglycemia; still has hyperglycemia. Hemoglobin A1c elevated but improved at 8.2(8.1)(8.5)(8.3)(8.4)(9.2). Still having lower back pain. Hemoglobin A1c from November 2012 was 9.5 and a TSH at 2.8. Has lumbar disc disease with radiculopathy (Worker's Compensation from 2009), s/p succesful back surgery 07/16/2014 however, contemplating another back surgery. Currently taking hydrocodone/acetaminophen 10/325 mg every 6 hours as needed. Since last appointment has been gaining some weight. Has not been tolerating Tanzeum or Trulicity or Bydureon. Stopped taking Victoza due to nausea and worsened reflux. Endocrine History Conditions: Diabetes mellitus type 1, Hypertension, Hyperlipidemia Past Medical History: Obesity, Hypertension, Hyperlipidemia Medication History: Not on aspirin Family History: Family history of diabetes mellitus type 2, Family history of thyroid disease, No family history of pituitary gland disease, No family history of osteoporosis, No family history of coronary artery disease in a first degree relative, No family history of hypertension, No family history of hyperlipidemia Diabetes Overview: Diagnosis: diabetes mellitus type 1, Age at onset of diabetes: 28, Characteristics of onset: symptomatic, Medication treatment plan: insulin, Not on insulin pump, No chronic kidney disease, Not on aspirin, On statin, On angiotensin converting enzyme inhibitor due for eye exam Evaluation: Taking diabetic medication as directed, Monitors glucose more than three times a day, Frequency of hypoglycemic episodes: weekly, Frequency of hyperglycemic episodes daily, Most recent hemoglobin A1C 8.2(8.1)(8.5)(8.3)(8.4)(9.2)(8.9)(8.5 on 06-06-2014), Most recent LDL cholesterol 139mg/dl, Reviewed diabetic diet, Compliant with diabetic diet, Counting carbohydrates, Physically active Comorbid Conditions: Obesity, Hyperlipidemia, Hypertension, Sedentary lifestyle, Family history of diabetes, No family history of coronary artery disease in a first degree relative Review of Systems Constitutional: Negative for malaise/fatigue. HENT: Negative for ear pain and tinnitus. Eyes: Negative for blurred vision and double vision. Respiratory: Negative for shortness of breath. Cardiovascular: Negative for chest pain, palpitations and leg swelling. Gastrointestinal: Negative for abdominal pain, constipation and diarrhea. Genitourinary: Negative for frequency. Skin: Negative for rash. Neurological: Negative for dizziness, weakness and headaches. Endo/Heme/Allergies: Negative for polydipsia. Does not bruise/bleed easily. Psychiatric/Behavioral: Negative for depression and memory loss. The patient is not nervous/anxious and does not have insomnia. PAST MEDICAL HISTORY Diagnosis Date - Fatigue - GERD (gastroesophageal reflux disease) - High cholesterol - HTN (hypertension) under control - Hyperlipidemia - Type 1 diabetes mellitus (HCC) at the age of 28 - Vitamin D deficiency - Vitamin deficiency PAST SURGICAL HISTORY Procedure Laterality Date - BACK SURGERY HX 02/01/[address] 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 History Main Topics Smoking status: Never Smoker Smokeless tobacco: Never Used Alcohol use: No Drug use: No Other Topics Concern Caffeine Concern Yes Comment:coffee 3 cups daily, and energy drinks Special Diet Yes Comment:Poor diet Exercise No Comment: Exercises 1-2 days/wk Social History Narrative No reported history Current Meds oxyCODONE-acetaminophen (PERCOCET) 7.5-325 mg tablet Take 1 tablet by mouth every 8 hours as needed for Pain (for pain.) for up to 30 days.Earliest Fill Date: 12/17/17 TRESIBA FLEXTOUCH U-100 100 unit/mL (3 mL) injection INJECT 45 UNITS SUBCUTANEOUSLY EVERY 24 HOURS. gabapentin (NEURONTIN) 300 mg capsule Take 1 capsule by mouth three times daily for 90 days. meloxicam (MOBIC) 15 mg tablet Take 1 tablet by mouth once daily. benazepril (LOTENSIN) 5 mg tablet 1 tablet every am and 2 tablets every pm pravastatin (PRAVACHOL) 40 mg tablet Take 1 tablet by mouth once daily. Insulin Lispro, Human, (HUMALOG KWIKPEN) 100 unit/mL inpn INJECT 1 UNIT PER 5 GRAMS OF CARBOHYDRATES WITH EACH MEAL (TOTAL MAXIMUM DAILY DOSE IS 55 UNITS) aspirin, enteric coated (ADULT LOW DOSE ASPIRIN) 81 mg EC tablet Take 81 mg by mouth once daily. omeprazole (PRILOSEC) 20 mg capsule Take 1 capsule by mouth once daily. Multivitamin capsule Take 1 capsule by mouth once daily. linagliptin (TRADJENTA) 5 mg tab Take 1 tablet by mouth once daily. methocarbamol (ROBAXIN) 750 mg tablet ondansetron (ZOFRAN) 4 mg tablet oxyCODONE ER (OXYCONTIN) 10 mg 12 hr tablet orphenadrine ER (NORFLEX) 100 mg tablet Take 1 tablet by mouth twice daily. blood sugar diagnostic (ONETOUCH ULTRA TEST) test strip Use as instructed orphenadrine ER (NORFLEX) 100 mg tablet Take 1 tablet by mouth twice daily. docusate sodium (COLACE) 100 mg capsule Take 1 capsule by mouth twice daily. Insulin Tenmile, Disposable, (BEULAH PEN NEEDLE) 32 gauge x 5/32 ndle 5 injection(s) Subcutaneous Daily Objective BP 120/88 Pulse 86 Ht 5' 9 (1.75m) Wt 253 lb 9.6 oz (115.0kg) BMI 37.43 kg/(m2). Physical Exam Constitutional: He is oriented to person, place, and time and well-developed, well-nourished, and in no distress. HENT: Head: Normocephalic and atraumatic. Nose: Nose normal. Mouth/Throat: Oropharynx is clear and moist. Eyes: Conjunctivae and EOM are normal. Pupils are equal, round, and reactive to light. No scleral icterus. Neck: Neck supple. No thyromegaly present. Cardiovascular: Normal rate, regular rhythm, normal heart sounds and intact distal pulses. No murmur heard. Pulmonary/Chest: Effort normal and breath sounds normal. He has no wheezes. He has no rales. Abdominal: Soft. Bowel sounds are normal. He exhibits no distension. There is no tenderness. Musculoskeletal: He exhibits no edema. Lymphadenopathy: He has no cervical adenopathy. Neurological: He is alert and oriented to person, place, and time. He has normal motor skills, normal sensation, normal reflexes and intact cranial nerves. No cranial nerve deficit. Gait normal. Skin: Skin is warm, dry and intact. No lesion noted. No cyanosis. Nails show no clubbing. Psychiatric: Mood, memory, affect and judgment normal. Nursing note and vitals reviewed. Feet:Shoes and socks removed, normal distal pulses and sensitive to 10 gm monofilament ASSESSMENT/PLAN: 1. Diabetes 1.5, managed as type 2 (HCC) - ICD9: 250.00, ICD10: E10.9 (primary diagnosis); positive antiGAD Uncontrolled but stable; continue Tresiba and humalog at the same doses; add jardiance; has to be on tradjenta before jardiance as per insurance requirements; Could not tolerate victoza/bydureon due to nausea; Will try metformin - Continue current medications - Blood glucose monitoring on a four times a day schedule - ACCUCHECK B/O - HGBA1C B/O - CBC - COMP METABOLIC PANEL - ALBUMIN RANDOM URINE - LIPID PANEL BASIC - EMPAGLIFLOZIN 25 MG TABLET 2. Vitamin D deficiency - ICD9: 268.9, ICD10: E55.9 replace - VITAMIN D 25 HYDROXY 3. Mixed hyperlipidemia - ICD9: 272.2, ICD10: E78.2 - good control - Continue current medication. - Discussed the benefits of regular aerobic exercise and weight loss. - Encouraged following a low carbohydrate, healthy oil intake diet. 4. Essential hypertension - ICD9: 401.9, ICD10: I10 - good control - Recommended regular aerobic exercise. - Recommend home blood pressure monitoring, to bring results in on next visit - Goal of BP <130/80 Lina Bhagat MD Referring Provider: LINA BHAGAT [[id number]] Allergies As of Date: 01/09/2018 Noted Allergy Reaction CLINDAMYCIN 03/29/2016 4 - Hives Date Reviewed: 01/09/2018 Reviewed by: Lina Bhagat - Fully Assessed Reason for Visit: Diabetes [34] Hypertension [168] Hyperlipidemia [245] Primary Visit Diagnosis:Diabetes 1.5, managed as type 2 (HCC) [E10.9] Other Visit Diagnoses:Vitamin D deficiency [E55.9] Mixed hyperlipidemia [E78.2] Essential hypertension [I10] Order(s):ACCUCHECK B/O [[id number]] Order #: [id number] HGBA1C B/O [75089WRO] Order #: [id number] CBC [SQCBC] Order #: [id number] FUTURE COMP METABOLIC PANEL [SQCMP] Order #: [id number] FUTURE ALBUMIN RANDOM URINE [SQUALBR] Order #: [id number] FUTURE LIPID PANEL BASIC [SQLIPB] Order #: [id number] FUTURE VITAMIN D 25 HYDROXY [SQVITD] Order #: [id number] FUTURE empagliflozin (JARDIANCE) 25 mg tabletTake 1 tablet by mouth once daily.Disp: 90 tabletRfl: 3 metFORMIN (GLUCOPHAGE) 500 mg tabletTake 1 tablet by mouth twice daily with meals.Disp: 180 tabletRfl: 3 Prescriptions as of 01/09/2018 Sig: X OXYCODONE-ACETAMINOPHEN 7.5 M* Take 1 tablet by mouth every * TRESIBA FLEXTOUCH U-100 INSUL* INJECT 45 UNITS SUBCUTANEOUSL* X GABAPENTIN 300 MG CAPSULE Take 1 capsule by mouth three* X MELOXICAM 15 MG TABLET Take 1 tablet by mouth once d* BENAZEPRIL 5 MG TABLET 1 tablet every am and 2 table* PRAVASTATIN 40 MG TABLET Take 1 tablet by mouth once d* INSULIN LISPRO (U-100) 100 UN* INJECT 1 UNIT PER 5 GRAMS OF * ASPIRIN 81 MG TABLET,DELAYED * Take 81 mg by mouth once eliecer* OMEPRAZOLE 20 MG CAPSULE,JOSÉ ANTONIO* Take 1 capsule by mouth once * MULTIVITAMIN CAPSULE Take 1 capsule by mouth once * EMPAGLIFLOZIN 25 MG TABLET Take 1 tablet by mouth once d* METFORMIN 500 MG TABLET Take 1 tablet by mouth twice * Patient not taking: Reported on 01/11/2018 Problem List As Of Date 01/09/2018 Noted Resolved Herniation of intervertebral disc between L4 an*INVALID FOR* Priority: A More... Displacement of lumbar intervertebral disc with*INVALID FOR* Sprain of lumbar region [S33.5XXA] INVALID FOR* Type 1 diabetes mellitus [E10.9] Priority: B More... Vitamin D deficiency [E55.9] Hyperlipidemia [E78.5] HTN (hypertension) [I10] Priority: C More... Spondylolisthesis, lumbar region [M43.16] INVALID FOR* High cholesterol [E78.00] Post laminectomy syndrome [M96.1] INVALID FOR* Lumbosacral disc herniation [M51.27] INVALID FOR* Prescriptions ordered this encounter Disp Refills Start End EMPAGLIFLOZIN 25 MG TABLET 90 t* 3 01/09/2018 Route: ORAL Sig: Take 1 tablet by mouth once daily. METFORMIN 500 MG TABLET 180 * 3 01/09/2018 Route: ORAL Sig: Take 1 tablet by mouth twice daily with meals. Medications Discontinued During This Encounter Insulin Tenmile, Disposable, (BEULAH P* 01/09/2018 Class: Historical Med Route: Miscell. (Med.Supl.;Non-Drugs) Si injection(s) Subcutaneous Daily Disc: Reason for discontinue is not on file. docusate sodium (COLACE) 100 mg caps* 60 c* 0 02/04/2017 01/09/2018 Class: Print RX Route: ORAL Sig: Take 1 capsule by mouth twice daily. Patient not taking: Reported on 12/14/2017 Disc: Reason for discontinue is not on file. blood sugar diagnostic (ONETOUCH ULT* 1 St* 0 04/25/2017 01/09/2018 Sig: Use as instructed Patient not taking: Reported on 12/14/2017 Disc: Reason for discontinue is not on file. orphenadrine ER (NORFLEX) 100 mg tab* 60 t* 0 04/18/2017 01/09/2018 Route: ORAL Sig: Take 1 tablet by mouth twice daily. Patient not taking: Reported on 12/14/2017 Disc: Reason for discontinue is not on file. orphenadrine ER (NORFLEX) 100 mg tab* 60 t* 1 05/18/2017 01/09/2018 Route: ORAL Sig: Take 1 tablet by mouth twice daily. Patient not taking: Reported on 12/14/2017 Disc: Reason for discontinue is not on file. oxyCODONE ER (OXYCONTIN) 10 mg 12 hr* 02/04/2017 01/09/2018 Class: Historical Med Sig: Disc: Reason for discontinue is not on file. ondansetron (ZOFRAN) 4 mg tablet 02/05/2017 01/09/2018 Class: Historical Med Sig: Disc: Reason for discontinue is not on file. methocarbamol (ROBAXIN) 750 mg tablet 02/09/2017 01/09/2018 Class: Historical Med Sig: Disc: Reason for discontinue is not on file. linagliptin (TRADJENTA) 5 mg tab 30 t* 11 01/03/2018 01/09/2018 Route: ORAL Sig: Take 1 tablet by mouth once daily. Patient not taking: Reported on 01/09/2018 Disc: Reason for discontinue is not on file. Disposition: Return in about 6 months (around 07/11/2018). Follow-up and Disposition History Recorded Letter Text Encounter Status:Closed by LINA BHAGAT MD on 01/09/18 [place] Observed: 01/03/2018 Status: COMPLETED Source: [facility] 12:00 AM CLINIC OTHER CAMPUS REPOSITORY Telephone (AGENDPOB) KENDALLJOSE ([id number]) 1980 M Date Time Provider Department 01/03/18 LINA BHAGAT During your visit today, we recorded the following information about you: Jodie Ramírez 01/03/2018 12:55 PM Signed Nicol is not on patient's formulary. Suggested alternatives are Janumet, Januvia or Tradjenta. Please review and advise. Jodie Bhagat MD 01/03/2018 1:31 PM Signed December try Tradjenta 5 mg po daily. Allergies As of Date: 01/03/2018 Noted Allergy Reaction CLINDAMYCIN 03/29/2016 4 - Hives Date Reviewed: 12/14/2017 Reviewed by: Lenore Flores - Fully Assessed Reason for Visit: Medication Question [1478] Cmt: Nicol not on formulary Order(s):linagliptin (TRADJENTA) 5 mg tabTake 1 tablet by mouth once daily.Disp: 30 tabletRfl: 11 Prescriptions as of 01/03/2018 Sig: LINAGLIPTIN 5 MG TABLET Take 1 tablet by mouth once d* OXYCODONE-ACETAMINOPHEN 7.5 M* Take 1 tablet by mouth every * TRESIBA FLEXTOUCH U-100 INSUL* INJECT 45 UNITS SUBCUTANEOUSL* GABAPENTIN 300 MG CAPSULE Take 1 capsule by mouth three* MELOXICAM 15 MG TABLET Take 1 tablet by mouth once d* BENAZEPRIL 5 MG TABLET 1 tablet every am and 2 table* METHOCARBAMOL 750 MG TABLET ONDANSETRON HCL 4 MG TABLET OXYCODONE ER 10 MG TABLET,CRU* ORPHENADRINE CITRATE ER 100 M* Take 1 tablet by mouth twice * Patient not taking: Reported on 12/14/2017 PRAVASTATIN 40 MG TABLET Take 1 tablet by mouth once d* INSULIN LISPRO (U-100) 100 UN* INJECT 1 UNIT PER 5 GRAMS OF * BLOOD SUGAR DIAGNOSTIC STRIPS Use as instructed Patient not taking: Reported on 12/14/2017 ORPHENADRINE CITRATE ER 100 M* Take 1 tablet by mouth twice * Patient not taking: Reported on 12/14/2017 DOCUSATE SODIUM 100 MG CAPSULE Take 1 capsule by mouth twice* Patient not taking: Reported on 12/14/2017 PEN NEEDLE, DIABETIC 32 GAUGE* 5 injection(s) Subcutaneous D* ASPIRIN 81 MG TABLET,DELAYED * Take 81 mg by mouth once eliecer* OMEPRAZOLE 20 MG CAPSULE,JOSÉ ANTONIO* Take 1 capsule by mouth once * MULTIVITAMIN CAPSULE Take 1 capsule by mouth once * Problem List As Of Date 01/03/2018 Noted Resolved Herniation of intervertebral disc between L4 an*INVALID FOR* Priority: A More... Displacement of lumbar intervertebral disc with*INVALID FOR* Sprain of lumbar region [S33.5XXA] INVALID FOR* Type 1 diabetes mellitus [E10.9] Priority: B More... Vitamin D deficiency [E55.9] Hyperlipidemia [E78.5] HTN (hypertension) [I10] Priority: C More... Spondylolisthesis, lumbar region [M43.16] INVALID FOR* High cholesterol [E78.00] Post laminectomy syndrome [M96.1] INVALID FOR* Lumbosacral disc herniation [M51.27] INVALID FOR* Prescriptions ordered this encounter Disp Refills Start End LINAGLIPTIN 5 MG TABLET 30 t* 11 01/03/2018 Route: ORAL Sig: Take 1 tablet by mouth once daily. Medications Discontinued During This Encounter FARXIGA 10 mg tab 30 t* 11 03/25/2017 01/03/2018 Route: ORAL Sig: Take 1 tablet by mouth once daily. Disc: Reason for discontinue is not on file. Encounter Status:Closed by LINA BHAGAT MD on 01/03/18 [place] Observed: 12/14/2017 Status: COMPLETED Source: [facility] 8:00 AM CLINIC OTHER CAMPUS REPOSITORY Office Visit (SPAGBA) JOSE ARGUETA ([id number]) 1980 M Date Time Provider Department 12/14/17 8:00 AM LENORE FLORES During your visit today, we recorded the following information about you: Respiration Blood pressure Weight Height 16/minute 140/75 108.9 kg 1.753 m Lenore Flores 12/14/2017 8:18 AM Signed Patient Name: Jose Argueta Patient : 1980 Patient Age: [age] year old CC: Patient presents with: Follow Up: medication refill for lumbar pain SUBJECTIVE Patient presents for follow up of low back pain. The patient describes the pain as tender, shooting and achy 10 . He has pain numbness and tingling, without weakness radiating into the right lower extremity to the foot, which increased after surgery as well as the left lower extremity to the anterior thigh which is unchanged since surgery. Pain is worse with standing, and bending or prolonged sitting. He has been taking Mobic, Gabapentin and Percocet 2-3/day with good relief. He has upcoming appointment with his surgeon at the end of next month. The patient denies any bowel or bladder dysfunction. The patient denies any chest pain or chest tightness. The constitutional, musculoskeletal, and neurological review of systems was negative unless otherwise noted. The patient's past medical history, allergies, medication list, social history, and family medical history were documented, updated, and reviewed in the chart. 12/05/17 EMG/NCV Chronic right S1 and left L5 radiculopathies. OARRS website checked and validated. All prescriptions have been APPROPRIATELY filled. No suspicious activity was identified.- 12/14/2017 by Lenore Flores MD Nursing Notes: Loy Chappell (Nyla) 12/14/2017 8:04 AM Signed Review of Systems Eyes: Negative for blurred vision. Respiratory: Negative for shortness of breath.? Cardiovascular: Negative for chest pain. Negative for leg swelling. Gastrointestinal: Negative for constipation, diarrhea, nausea?and vomiting. Genitourinary: Negative for dysuria. Skin: Negative for itching. Neurological: Negative for headaches. Negative for dizziness, tingling?and weakness. Endo/Heme/Allergies: Negative for bruising/bleeding easily. Psychiatric/Behavioral: Negative for depression and suicidal ideas. ROS entered by: Samira Chappell MA MEDICATION NAME percocet STRENGTH 7.5 LAST FILL DATE 11/16/2017 DATE LAST DOSE TAKEN yesterday QUANTITY FILLED 90 QUANTITY REMAINING 11 ALLERGIES Allergen Reactions - Clindamycin Hives Current Outpatient Prescriptions: TRESIBA FLEXTOUCH U-100 100 unit/mL (3 mL) injection INJECT 45 UNITS SUBCUTANEOUSLY EVERY 24 HOURS. Disp: 15 mL Rfl: 11 gabapentin (NEURONTIN) 300 mg capsule Take 1 capsule by mouth three times daily for 90 days. Disp: 90 capsule Rfl: 2 meloxicam (MOBIC) 15 mg tablet Take 1 tablet by mouth once daily. Disp: 30 tablet Rfl: 2 benazepril (LOTENSIN) 5 mg tablet 1 tablet every am and 2 tablets every pm Disp: 90 tablet Rfl: 11 oxyCODONE ER (OXYCONTIN) 10 mg 12 hr tablet Disp: Rfl: pravastatin (PRAVACHOL) 40 mg tablet Take 1 tablet by mouth once daily. Disp: 30 tablet Rfl: 11 Insulin Lispro, Human, (HUMALOG KWIKPEN) 100 unit/mL inpn INJECT 1 UNIT PER 5 GRAMS OF CARBOHYDRATES WITH EACH MEAL (TOTAL MAXIMUM DAILY DOSE IS 55 UNITS) Disp: 5 Pen Rfl: 11 FARXIGA 10 mg tab Take 1 tablet by mouth once daily. Disp: 30 tablet Rfl: 11 aspirin, enteric coated (ADULT LOW DOSE ASPIRIN) 81 mg EC tablet Take 81 mg by mouth once daily. Disp: Rfl: omeprazole (PRILOSEC) 20 mg capsule Take 1 capsule by mouth once daily. Disp: Rfl: 0 Multivitamin capsule Take 1 capsule by mouth once daily. Disp: Rfl: [START ON 12/17/2017] oxyCODONE-acetaminophen (PERCOCET) 7.5- 325 mg tablet Take 1 tablet by mouth every 8 hours as needed for Pain (for pain.) for up to 30 days.Earliest Fill Date: 12/17/17 Disp: 90 tablet Rfl: 0 methocarbamol (ROBAXIN) 750 mg tablet Disp: Rfl: ondansetron (ZOFRAN) 4 mg tablet Disp: Rfl: orphenadrine ER (NORFLEX) 100 mg tablet Take 1 tablet by mouth twice daily. (Patient not taking: Reported on 12/14/2017 ) Disp: 60 tablet Rfl: 1 blood sugar diagnostic ([place] CloudwareTOUCH ULTRA TEST) test strip Use as instructed (Patient not taking: Reported on 12/14/2017 ) Disp: 1 Strip Rfl: 0 orphenadrine ER (NORFLEX) 100 mg tablet Take 1 tablet by mouth twice daily. (Patient not taking: Reported on 12/14/2017 ) Disp: 60 tablet Rfl: 0 docusate sodium (COLACE) 100 mg capsule Take 1 capsule by mouth twice daily. (Patient not taking: Reported on 12/14/2017 ) Disp: 60 capsule Rfl: 0 Insulin Tenmile, Disposable, (BEULAH PEN NEEDLE) 32 gauge x ndle 5 injection(s) Subcutaneous Daily Disp: Rfl: No current facility-administered medications for this visit. 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 Social History Main Topics Smoking status: Never Smoker Smokeless tobacco: Never Used Alcohol use: No Drug use: No Other Topics Concern Caffeine Concern Yes Comment:coffee 3 cups daily, and energy drinks Special Diet Yes Comment:Poor diet Exercise No Comment: Exercises 1-2 days/wk Social History Narrative No reported history Family History Problem Relation Age of Onset - Hyperlipidemia Mother - Ischemic Heart Disease Father - Diabetes Father - Heart Father - Hyperlipidemia Father - Hypertension Father - Hyperlipidemia Paternal Grandmother - Hypertension Paternal Grandmother - Stroke Paternal Grandmother - Diabetes mellitus [OTHER] Paternal Grandmother OBJECTIVE Vitals: BP 140/75 Resp 16 Ht 175.3 cm (5' 9) Wt 108.9 kg (240 lb) BMI 35.44 kg/m? General: Alert, cooperative, well appearing, and in no apparent distress. Musculoskeletal: The patient's gait is normal Back: Inspection of the back demonstrates there is no obvious deformity or misalignment. There is bony tenderness along the lumbar vertebrae, none along the sacroiliac joints. There is bilateral paraspinal muscle tenderness. Range of motion testing demonstrates limited due to pain with flexion, extension, side bending and rotation of the back. Strength is 5/5 in the lower extremity bilaterally. Sensation is mildly decreased throughout the right lower extremity. There is a positive right straight leg raise and femoral stretch test. The piriformis has normal flexibility and is non-tender. Skin: The skin is without jaundice. It is intact without pathologic lesions, erythema, vesicles, discharge or rash. Palpitation of the skin is normal without induration, subcutaneous nodules or tightening. Extremities: This is no clubbing, cyanosis or edema. Peripheral pulses are 2+. Return in about 4 weeks (around 01/11/2018). ASSESSMENT/PLAN: 1. Post laminectomy syndrome - ICD9: 722.80, ICD10: M96.1 We discussed the natural history of this condition, differential diagnoses, and treatment options. Guidelines for activity were given. We discussed options for treatment including conservative care, medications with side effects and risks and benefits. The patient is doing well with the prescribed pain medications. The patient requests a refill today. Patient states medications provide adequate analgesia. The medications allow patient to maintain ADL's. There are no adverse effects from the medications and no aberrant behaviors are noted. Will refill his percocet today Continue gabapentin and Mobic He will follow up with Dr Barksdale in January for his 1 year surgical follow up. May consider SCS in the future if not having improvement after the 1 year surgery follow up. - OXYCODONE-ACETAMINOPHEN 7.5 MG-325 MG TABLET 2. Lumbosacral disc herniation - ICD9: 722.10, ICD10: M51.27 - OXYCODONE-ACETAMINOPHEN 7.5 MG-325 MG TABLET MD Mark White Katherine 12/14/2017 7:54 AM Signed Opioid Pain Medication Information Sheet Opioids are drugs that are used to treat cancer pain. They include morphine (MSContin, MSIR, Roxanol); oxycodone (Oxycontin, Roxicodone, Percocet); hydromorphone (Dilaudid, Exalgo); fentanyl (Duragesic); hydrocodone (Hysingla, Zohydro, [place], Vicodin); buprenorphine (Butrans, Buprenex); and methadone. There are two types of opioids: long-acting and short-acting. Long-acting opioids are also called extended-release (ER) or controlled-release (CR). This means that the medication is slowly released over an 8- to 12-hour period or longer. Examples of these include MSContin and Oxycontin. These drugs are taken on a regular schedule to control pain. DO NOT BREAK OR CRUSH THESE TABLETS. Long-acting opioids also come in patch form (Fentanyl, buprenorphine). Opioid patches are strong drugs and should not be used for mild or occasional pain, or for pain from surgery. ? Do not use patches that are damaged or cut. ? You can shower and bathe with the patch in place. ? Do not expose the skin patch to heat (for example: hot tub, heating pad, sauna, electric blanket, heat lamps). Heat increases the amount of drug you absorb through your skin and may cause harmful effects. ? When removing the patch, fold it in half, sticky side in, and flush it down the toilet. Short-acting opioids are also called immediate-release. They usually take effect within an hour, and provide pain relief for four hours. You take short-acting opioids if your pain gets worse (5 on a scale of 1 to 10), which is called breakthrough pain. DO NOT WAIT UNTIL THE PAIN BECOMES SEVERE TO TAKE YOUR MEDICATION. What are the side effects of opioids? Like most drugs, opioids have side effects. The most common are nausea, vomiting, itching, and sleepiness. These side effects should go away in three to seven days as your body gets used to the medication. DO NOT DRIVE IF YOU FEEL DROWSY OR SLEEPY. All opioids cause constipation. Your caregiver will prescribe stool softeners and medicine to help prevent constipation. You can also do the following: ? Increase the amounts of fluids and fiber in your diet. ? Try to get more exercise and physical activity. ? Try to have a bowel movement around the same time each day to get your bowels to empty in a certain pattern. Can I become addicted to opioids? Addiction means that a person uses the drug to get ?high?, and cannot control the urge to take the drug. Taking medication for pain relief is NOT addiction. Your healthcare provider will discuss any concerns about becoming addicted to pain medications. Withdrawal If you stop taking your pain medication suddenly, you may develop withdrawal symptoms. These include flu-like symptoms, agitation, anxiety, abdominal cramping, nausea, and diarrhea. If you have stopped taking your pain medication for three days or more, do not start taking it again without talking to your healthcare provider. Overdose Combining opioids with alcohol or sedating pills (which make you sleepy) increases the risk of overdose. Symptoms of overdose include extreme sleepiness, slurred speech, and slow breathing (breathing may also stop). Call 911 or your local emergency service if you think you may have overdosed. Call 911 or your local emergency service if: ? You took too much medicine. ? You have trouble breathing and/or shortness of breath. ? A child accidentally took the medication. Call your healthcare provider if: ? Your pain is not being controlled with the dose that you are taking. ? You are having side effects. Other important information: ? Take your medicine exactly as prescribed. ? Only one healthcare provider should prescribe your pain medications. ? Make follow-up appointments with your healthcare provider. ? Keep medication away from children and store them in a safe place. ? Do not share your medications with anyone. ? Do not take medications that have not been prescribed for you. ? Do not stop taking your medication without talking to your healthcare provider. ? Do not drink alcohol while taking this medication. How do I dispose of opioids? DO NOT THROW UNUSED MEDICATION IN THE TRASH. You should return these medications through a take-back program or to a collection box or mail-back program authorized by the Drug Enforcement Administration. Authorized collection sites include retail pharmacies, hospital or clinic pharmacies, and law enforcement locations. This website provides a list of locations where you can safely dispose of opioids: https://www.deadiversion.pMDsoft.gov/pubdispsearch If a take-back program is not available, flush unused medicines down the toilet or sink. Loy Chappell (Nyla) 12/14/2017 8:04 AM Signed Review of Systems Eyes: Negative for blurred vision. Respiratory: Negative for shortness of breath.? Cardiovascular: Negative for chest pain. Negative for leg swelling. Gastrointestinal: Negative for constipation, diarrhea, nausea?and vomiting. Genitourinary: Negative for dysuria. Skin: Negative for itching. Neurological: Negative for headaches. Negative for dizziness, tingling?and weakness. Endo/Heme/Allergies: Negative for bruising/bleeding easily. Psychiatric/Behavioral: Negative for depression and suicidal ideas. ROS entered by: Samira Chappell MA Referring Provider: LENORE FLORES [[id number]] Allergies As of Date: 12/14/2017 Noted Allergy Reaction CLINDAMYCIN 03/29/2016 4 - Hives Date Reviewed: 12/14/2017 Reviewed by: Lenore Flores - Fully Assessed Reason for Visit: Follow Up [171] Cmt: medication refill for lumbar pain Visit Diagnoses:Post laminectomy syndrome [M96.1] Lumbosacral disc herniation [M51.27] Order(s):[START ON 12/17/2017] oxyCODONE-acetaminophen (PERCOCET) 7.5-325 mg tabletTake 1 tablet by mouth every 8 hours as needed for Pain (for pain.) for up to 30 days. Earliest Fill Date: 12/17/17Disp: 90 tabletRfl: 0 Prescriptions as of 12/14/2017 Sig: TRESIBA FLEXTOUCH U-100 INSUL* INJECT 45 UNITS SUBCUTANEOUSL* GABAPENTIN 300 MG CAPSULE Take 1 capsule by mouth three* MELOXICAM 15 MG TABLET Take 1 tablet by mouth once d* BENAZEPRIL 5 MG TABLET 1 tablet every am and 2 table* OXYCODONE ER 10 MG TABLET,CRU* PRAVASTATIN 40 MG TABLET Take 1 tablet by mouth once d* INSULIN LISPRO (U-100) 100 UN* INJECT 1 UNIT PER 5 GRAMS OF * FARXIGA 10 MG TABLET Take 1 tablet by mouth once d* ASPIRIN 81 MG TABLET,DELAYED * Take 81 mg by mouth once eliecer* OMEPRAZOLE 20 MG CAPSULE,JOSÉ ANTONIO* Take 1 capsule by mouth once * MULTIVITAMIN CAPSULE Take 1 capsule by mouth once * OXYCODONE-ACETAMINOPHEN 7.5 M* Take 1 tablet by mouth every * METHOCARBAMOL 750 MG TABLET ONDANSETRON HCL 4 MG TABLET ORPHENADRINE CITRATE ER 100 M* Take 1 tablet by mouth twice * Patient not taking: Reported on 12/14/2017 BLOOD SUGAR DIAGNOSTIC STRIPS Use as instructed Patient not taking: Reported on 12/14/2017 ORPHENADRINE CITRATE ER 100 M* Take 1 tablet by mouth twice * Patient not taking: Reported on 12/14/2017 DOCUSATE SODIUM 100 MG CAPSULE Take 1 capsule by mouth twice* Patient not taking: Reported on 12/14/2017 PEN NEEDLE, DIABETIC 32 GAUGE* 5 injection(s) Subcutaneous D* Problem List As Of Date 12/14/2017 Noted Resolved Herniation of intervertebral disc between L4 an*INVALID FOR* Priority: A More... Displacement of lumbar intervertebral disc with*INVALID FOR* Sprain of lumbar region [S33.5XXA] INVALID FOR* Type 1 diabetes mellitus [E10.9] Priority: B More... Vitamin D deficiency [E55.9] Hyperlipidemia [E78.5] HTN (hypertension) [I10] Priority: C More... Spondylolisthesis, lumbar region [M43.16] INVALID FOR* High cholesterol [E78.00] Post laminectomy syndrome [M96.1] INVALID FOR* Lumbosacral disc herniation [M51.27] INVALID FOR* Other instructions from your clinician: Opioid Pain Medication Information Sheet Opioids are drugs that are used to treat cancer pain. They include morphine (MSContin, MSIR, Roxanol); oxycodone (Oxycontin, Roxicodone, Percocet); hydromorphone (Dilaudid, Exalgo); fentanyl (Duragesic); hydrocodone (Hysingla, Zohydro, [place], Vicodin); buprenorphine (Butrans, Buprenex); and methadone. There are two types of opioids: long-acting and short-acting. Long-acting opioids are also called extended-release (ER) or controlled-release (CR). This means that the medication is slowly released over an 8- to 12-hour period or longer. Examples of these include MSContin and Oxycontin. These drugs are taken on a regular schedule to control pain. DO NOT BREAK OR CRUSH THESE TABLETS. Long-acting opioids also come in patch form (Fentanyl, buprenorphine). Opioid patches are strong drugs and should not be used for mild or occasional pain, or for pain from surgery. ? Do not use patches that are damaged or cut. ? You can shower and bathe with the patch in place. ? Do not expose the skin patch to heat (for example: hot tub, heating pad, sauna, electric blanket, heat lamps). Heat increases the amount of drug you absorb through your skin and may cause harmful effects. ? When removing the patch, fold it in half, sticky side in, and flush it down the toilet. Short-acting opioids are also called immediate-release. They usually take effect within an hour, and provide pain relief for four hours. You take short-acting opioids if your pain gets worse (5 on a scale of 1 to 10), which is called breakthrough pain. DO NOT WAIT UNTIL THE PAIN BECOMES SEVERE TO TAKE YOUR MEDICATION. What are the side effects of opioids? Like most drugs, opioids have side effects. The most common are nausea, vomiting, itching, and sleepiness. These side effects should go away in three to seven days as your body gets used to the medication. DO NOT DRIVE IF YOU FEEL DROWSY OR SLEEPY. All opioids cause constipation. Your caregiver will prescribe stool softeners and medicine to help prevent constipation. You can also do the following: ? Increase the amounts of fluids and fiber in your diet. ? Try to get more exercise and physical activity. ? Try to have a bowel movement around the same time each day to get your bowels to empty in a certain pattern. Can I become addicted to opioids? Addiction means that a person uses the drug to get ?high?, and cannot control the urge to take the drug. Taking medication for pain relief is NOT addiction. Your healthcare provider will discuss any concerns about becoming addicted to pain medications. Withdrawal If you stop taking your pain medication suddenly, you may develop withdrawal symptoms. These include flu-like symptoms, agitation, anxiety, abdominal cramping, nausea, and diarrhea. If you have stopped taking your pain medication for three days or more, do not start taking it again without talking to your healthcare provider. Overdose Combining opioids with alcohol or sedating pills (which make you sleepy) increases the risk of overdose. Symptoms of overdose include extreme sleepiness, slurred speech, and slow breathing (breathing may also stop). Call 911 or your local emergency service if you think you may have overdosed. Call 911 or your local emergency service if: ? You took too much medicine. ? You have trouble breathing and/or shortness of breath. ? A child accidentally took the medication. Call your healthcare provider if: ? Your pain is not being controlled with the dose that you are taking. ? You are having side effects. Other important information: ? Take your medicine exactly as prescribed. ? Only one healthcare provider should prescribe your pain medications. ? Make follow-up appointments with your healthcare provider. ? Keep medication away from children and store them in a safe place. ? Do not share your medications with anyone. ? Do not take medications that have not been prescribed for you. ? Do not stop taking your medication without talking to your healthcare provider. ? Do not drink alcohol while taking this medication. How do I dispose of opioids? DO NOT THROW UNUSED MEDICATION IN THE TRASH. You should return these medications through a take-back program or to a collection box or mail-back program authorized by the Drug Enforcement Administration. Authorized collection sites include retail pharmacies, hospital or clinic pharmacies, and law enforcement locations. This website provides a list of locations where you can safely dispose of opioids: https://www.deadiversion.[place].gov/pubdispsearch If a take-back program is not available, flush unused medicines down the toilet or sink. Visit Notes: >> Loy Chappell (Nyla) TueDecember 14, 2017 8:01 AM Status: Signed Review of Systems Eyes: Negative for blurred vision. Respiratory: Negative for shortness of breath.? Cardiovascular: Negative for chest pain. Negative for leg swelling. Gastrointestinal: Negative for constipation, diarrhea, nausea?and vomiting. Genitourinary: Negative for dysuria. Skin: Negative for itching. Neurological: Negative for headaches. Negative for dizziness, tingling?and weakness. Endo/Heme/Allergies: Negative for bruising/bleeding easily. Psychiatric/Behavioral: Negative for depression and suicidal ideas. ROS entered by: Samira Chappell MA Prescriptions ordered this encounter Disp Refills Start End OXYCODONE-ACETAMINOPHEN 7.5 MG-325 M* 90 t* 0 12/17/2017 01/16/2018 Class: Print RX Route: ORAL Sig: Take 1 tablet by mouth every 8 hours as needed for Pain (for pain.) for up to 30 days. Earliest Fill Date: 12/17/17 Medications Discontinued During This Encounter oxyCODONE-acetaminophen (PERCOCET) 7* 90 t* 0 11/18/2017 12/14/2017 Class: Print RX Route: ORAL Sig: Take 1 tablet by mouth every 8 hours as needed for Pain (for pain.) for up to 30 days. Earliest Fill Date: 11/18/17 Disc: Reason for discontinue is not on file. Disposition: Return in about 4 weeks (around 01/11/2018). Follow-up and Disposition History Recorded Questionnaire: AG SPINE PAIN PILL COUNT MEDICATION NAME -> percocet STRENGTH -> 7.5 LAST FILL DATE -> 11/16/2017 DATE LAST DOSE TAKEN -> yesterday QUANTITY FILLED -> 90 QUANTITY REMAINING -> 11 Encounter Status:Closed by LENORE FLORES MD on 12/14/17 PROGRESS Observed: 12/14/2017 Status: COMPLETED Source: [facility]INGLE 7:52 AM CLINIC OTHER CAMPUS REPOSITORY HNO ID: [id number] Author: Lenore Flores Service: (none) Author Type: Physician Type: Progress Notes Filed: 12/14/2017 8:18 AM Note Text: Patient Name: Jose Argueta Patient : 1980 Patient Age: [age] year old CC: Patient presents with: Follow Up: medication refill for lumbar pain SUBJECTIVE Patient presents for follow up of low back pain. The patient describes the pain as tender, shooting and achy 10 . He has pain numbness and tingling, without weakness radiating into the right lower extremity to the foot, which increased after surgery as well as the left lower extremity to the anterior thigh which is unchanged since surgery. Pain is worse with standing, and bending or prolonged sitting. He has been taking Mobic, Gabapentin and Percocet 2-3/day with good relief. He has upcoming appointment with his surgeon at the end of next month. The patient denies any bowel or bladder dysfunction. The patient denies any chest pain or chest tightness. The constitutional, musculoskeletal, and neurological review of systems was negative unless otherwise noted. The patient's past medical history, allergies, medication list, social history, and family medical history were documented, updated, and reviewed in the chart. 12/05/17 EMG/NCV Chronic right S1 and left L5 radiculopathies. OARRS website checked and validated. All prescriptions have been APPROPRIATELY filled. No suspicious activity was identified.- 12/14/2017 by Lenore Flores MD Nursing Notes: Loy Chappell ([place]yla) 12/14/2017 8:04 AM Signed Review of Systems Eyes: Negative for blurred vision. Respiratory: Negative for shortness of breath.? Cardiovascular: Negative for chest pain. Negative for leg swelling. Gastrointestinal: Negative for constipation, diarrhea, nausea?and vomiting. Genitourinary: Negative for dysuria. Skin: Negative for itching. Neurological: Negative for headaches. Negative for dizziness, tingling?and weakness. Endo/Heme/Allergies: Negative for bruising/bleeding easily. Psychiatric/Behavioral: Negative for depression and suicidal ideas. ROS entered by: Samira Chappell MA MEDICATION NAME percocet STRENGTH 7.5 LAST FILL DATE 11/16/2017 DATE LAST DOSE TAKEN yesterday QUANTITY FILLED 90 QUANTITY REMAINING 11 ALLERGIES Allergen Reactions - Clindamycin Hives Current Outpatient Prescriptions: TRESIBA FLEXTOUCH U-100 100 unit/mL (3 mL) injection INJECT 45 UNITS SUBCUTANEOUSLY EVERY 24 HOURS. Disp: 15 mL Rfl: 11 gabapentin (NEURONTIN) 300 mg capsule Take 1 capsule by mouth three times daily for 90 days. Disp: 90 capsule Rfl: 2 meloxicam (MOBIC) 15 mg tablet Take 1 tablet by mouth once daily. Disp: 30 tablet Rfl: 2 benazepril (LOTENSIN) 5 mg tablet 1 tablet every am and 2 tablets every pm Disp: 90 tablet Rfl: 11 oxyCODONE ER (OXYCONTIN) 10 mg 12 hr tablet Disp: Rfl: pravastatin (PRAVACHOL) 40 mg tablet Take 1 tablet by mouth once daily. Disp: 30 tablet Rfl: 11 Insulin Lispro, Human, (HUMALOG KWIKPEN) 100 unit/mL inpn INJECT 1 UNIT PER 5 GRAMS OF CARBOHYDRATES WITH EACH MEAL (TOTAL MAXIMUM DAILY DOSE IS 55 UNITS) Disp: 5 Pen Rfl: 11 FARXIGA 10 mg tab Take 1 tablet by mouth once daily. Disp: 30 tablet Rfl: 11 aspirin, enteric coated (ADULT LOW DOSE ASPIRIN) 81 mg EC tablet Take 81 mg by mouth once daily. Disp: Rfl: omeprazole (PRILOSEC) 20 mg capsule Take 1 capsule by mouth once daily. Disp: Rfl: 0 Multivitamin capsule Take 1 capsule by mouth once daily. Disp: Rfl: [START ON 12/17/2017] oxyCODONE-acetaminophen (PERCOCET) 7.5- 325 mg tablet Take 1 tablet by mouth every 8 hours as needed for Pain (for pain.) for up to 30 days.Earliest Fill Date: 12/17/17 Disp: 90 tablet Rfl: 0 methocarbamol (ROBAXIN) 750 mg tablet Disp: Rfl: ondansetron (ZOFRAN) 4 mg tablet Disp: Rfl: orphenadrine ER (NORFLEX) 100 mg tablet Take 1 tablet by mouth twice daily. (Patient not taking: Reported on 12/14/2017 ) Disp: 60 tablet Rfl: 1 blood sugar diagnostic (ONETOUCH ULTRA TEST) test strip Use as instructed (Patient not taking: Reported on 12/14/2017 ) Disp: 1 Strip Rfl: 0 orphenadrine ER (NORFLEX) 100 mg tablet Take 1 tablet by mouth twice daily. (Patient not taking: Reported on 12/14/2017 ) Disp: 60 tablet Rfl: 0 docusate sodium (COLACE) 100 mg capsule Take 1 capsule by mouth twice daily. (Patient not taking: Reported on 12/14/2017 ) Disp: 60 capsule Rfl: 0 Insulin Tenmile, Disposable, (BEULAH PEN NEEDLE) 32 gauge x ndle 5 injection(s) Subcutaneous Daily Disp: Rfl: No current facility-administered medications for this visit. 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 Social History Main Topics Smoking status: Never Smoker Smokeless tobacco: Never Used Alcohol use: No Drug use: No Other Topics Concern Caffeine Concern Yes Comment:coffee 3 cups daily, and energy drinks Special Diet Yes Comment:Poor diet Exercise No Comment: Exercises 1-2 days/wk Social History Narrative No reported history Family History Problem Relation Age of Onset - Hyperlipidemia Mother - Ischemic Heart Disease Father - Diabetes Father - Heart Father - Hyperlipidemia Father - Hypertension Father - Hyperlipidemia Paternal Grandmother - Hypertension Paternal Grandmother - Stroke Paternal Grandmother - Diabetes mellitus [OTHER] Paternal Grandmother OBJECTIVE Vitals: BP 140/75 Resp 16 Ht 175.3 cm (5' 9) Wt 108.9 kg (240 lb) BMI 35.44 kg/m? General: Alert, cooperative, well appearing, and in no apparent distress. Musculoskeletal: The patient's gait is normal Back: Inspection of the back demonstrates there is no obvious deformity or misalignment. There is bony tenderness along the lumbar vertebrae, none along the sacroiliac joints. There is bilateral paraspinal muscle tenderness. Range of motion testing demonstrates limited due to pain with flexion, extension, side bending and rotation of the back. Strength is 5/5 in the lower extremity bilaterally. Sensation is mildly decreased throughout the right lower extremity. There is a positive right straight leg raise and femoral stretch test. The piriformis has normal flexibility and is non-tender. Skin: The skin is without jaundice. It is intact without pathologic lesions, erythema, vesicles, discharge or rash. Palpitation of the skin is normal without induration, subcutaneous nodules or tightening. Extremities: This is no clubbing, cyanosis or edema. Peripheral pulses are 2+. Return in about 4 weeks (around 01/11/2018). ASSESSMENT/PLAN: 1. Post laminectomy syndrome - ICD9: 722.80, ICD10: M96.1 We discussed the natural history of this condition, differential diagnoses, and treatment options. Guidelines for activity were given. We discussed options for treatment including conservative care, medications with side effects and risks and benefits. The patient is doing well with the prescribed pain medications. The patient requests a refill today. Patient states medications provide adequate analgesia. The medications allow patient to maintain ADL's. There are no adverse effects from the medications and no aberrant behaviors are noted. Will refill his percocet today Continue gabapentin and Mobic He will follow up with Dr Barksdale in January for his 1 year surgical follow up. May consider SCS in the future if not having improvement after the 1 year surgery follow up. - OXYCODONE-ACETAMINOPHEN 7.5 MG-325 MG TABLET 2. Lumbosacral disc herniation - ICD9: 722.10, ICD10: M51.27 - OXYCODONE-ACETAMINOPHEN 7.5 MG-325 MG TABLET Lenore Flores MD OBSOLETE Observed: 12/08/2017 Status: COMPLETED Source: RINGLE 12:00 AM CLINIC OTHER CAMPUS REPOSITORY Refill (RMPOJolene) JOSE ARGUETA ([id number]) 1980 M Date Time Provider Department 12/08/17 LINA BHAGAT During your visit today, we recorded the following information about you: Jodie Ramírez ([facility]) 12/09/2017 10:52 AM Signed Pharmacy electronically requests the following refill(s) Pending Prescriptions Disp Refills TRESIBA FLEXTOUCH U-100 INSULIN 100 UNIT/ML (3 ML) SUBCUTANEOUS PEN 15 mL 11 Sig: INJECT 45 UNITS SUBCUTANEOUSLY EVERY 24 HOURS. COLE: Yes 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) [place] Allergies As of Date: 12/08/2017 Noted Allergy Reaction CLINDAMYCIN 03/29/2016 4 - Hives Date Reviewed: 12/05/2017 Reviewed by: Lenore Flores - Fully Assessed Reason for Visit: Refill Request [94] Cmt: Tresiba Reason For Visit History Recorded Order(s):TRESIBA FLEXTOUCH U-100 100 unit/mL (3 mL) injectionINJECT 45 UNITS SUBCUTANEOUSLY EVERY 24 HOURS.Disp: 15 mLRfl: 11 Prescriptions as of 12/08/2017 Sig: TRESIBA FLEXTOUCH U-100 INSUL* INJECT 45 UNITS SUBCUTANEOUSL* OXYCODONE-ACETAMINOPHEN 7.5 M* Take 1 tablet by mouth every * GABAPENTIN 300 MG CAPSULE Take 1 capsule by mouth three* MELOXICAM 15 MG TABLET Take 1 tablet by mouth once d* BENAZEPRIL 5 MG TABLET 1 tablet every am and 2 table* METHOCARBAMOL 750 MG TABLET ONDANSETRON HCL 4 MG TABLET OXYCODONE ER 10 MG TABLET,CRU* ORPHENADRINE CITRATE ER 100 M* Take 1 tablet by mouth twice * PRAVASTATIN 40 MG TABLET Take 1 tablet by mouth once d* INSULIN LISPRO (U-100) 100 UN* INJECT 1 UNIT PER 5 GRAMS OF * BLOOD SUGAR DIAGNOSTIC STRIPS Use as instructed ORPHENADRINE CITRATE ER 100 M* Take 1 tablet by mouth twice * FARXIGA 10 MG TABLET Take 1 tablet by mouth once d* DOCUSATE SODIUM 100 MG CAPSULE Take 1 capsule by mouth twice* PEN NEEDLE, DIABETIC 32 GAUGE* 5 injection(s) Subcutaneous D* ASPIRIN 81 MG TABLET,DELAYED * Take 81 mg by mouth once eliecer* OMEPRAZOLE 20 MG CAPSULE,JOSÉ ANTONIO* Take 1 capsule by mouth once * MULTIVITAMIN CAPSULE Take 1 capsule by mouth once * Problem List As Of Date 12/08/2017 Noted Resolved Herniation of intervertebral disc between L4 an*INVALID FOR* Priority: A More... Displacement of lumbar intervertebral disc with*INVALID FOR* Sprain of lumbar region [S33.5XXA] INVALID FOR* Type 1 diabetes mellitus [E10.9] Priority: B More... Vitamin D deficiency [E55.9] Hyperlipidemia [E78.5] HTN (hypertension) [I10] Priority: C More... Spondylolisthesis, lumbar region [M43.16] INVALID FOR* High cholesterol [E78.00] Post laminectomy syndrome [M96.1] INVALID FOR* Prescriptions ordered this encounter Disp Refills Start End TRESIBA FLEXTOUCH U-100 INSULIN 100 * 15 mL 11 12/09/2017 Route: SUBCUTANEOUS Sig: INJECT 45 UNITS SUBCUTANEOUSLY EVERY 24 HOURS. Medications Discontinued During This Encounter insulin degludec (TRESIBA FLEXTOUCH * 15 mL 11 11/17/2016 12/09/2017 Route: SUBCUTANEOUS Sig: Inject 45 Units subcutaneously every 24 hours. Disc: Reason for discontinue is not on file. Encounter Status:Closed by LINA BHAGAT MD on 12/09/17 OBSOLETE Observed: 12/05/2017 Status: COMPLETED Source: RINGLE 10:45 AM CLINIC OTHER CAMPUS REPOSITORY Procedure (SPAGBA) KENDALLJOSE R ([id number]) 1980 M Date Time Provider Department 12/05/17 10:45 AM LENORE FLORES During your visit today, we recorded the following information about you: Pulse Blood pressure Weight Height 76/minute 140/80 108.9 kg 1.753 m Lenore Flores MD 12/05/2017 11:24 AM Signed Patient Name: Jose Argueta Date: December 05, 2017 Patient : 1980 Patient Age: [age] year old CC: Patient presents with: EMG: bilateral lowers Bwc (Worker's Comp): 05.26.2010 Vitals: BP 140/80 Pulse 76 Ht 175.3 cm (5' 9) Wt 108.9 kg (240 lb) BMI 35.44 kg/m? The HANDP completed on 4/11 I have reviewed the history and physical and examined the patient and there are no changes unless noted below: Heart and lungs exam benign Timeout was performed to verify patient name, , allergies and procedure being performed at [place] Patient is aware of potential risks and benefits of this procedure. Patient wishes to proceed. Procedure start time: 1020 Procedure end time: 1100 Electrodiagnostic testing was performed today was significant for Chronic right S1 and left L5 radiculopathies. Full report and data will be scanned into the chart. Return if symptoms worsen or fail to improve. ASSESSMENT/PLAN: 1. Lumbar sprain, initial encounter - ICD9: 847.2, ICD10: S33.5XXA - NEEDLE EMG EA EXTREMTY W/PARASPINL AREA COMPLETE - MOTOR AND/SENS 7-8 NRV CNDJ PRECONF ELTRODE LIMB MD Lenore White MD 12/05/2017 10:25 AM Signed Explanation of EMG and NCV Procedure Nerve conduction studies (NCS) and electromyography (EMG) are utilized to evaluate damage sustained to the peripheral nervous system. NCS are performed to measure the nerve response to electrical stimulation across a given segment. EMG evaluates the passive and active electrical discharges of the muscle, as specific nerves and roots innervate muscles of the body. Often times, more than one muscle motor nerve and sensory nerve must be studied to determine the presences of disease. Further, nerves are often tested in a uydu-ti-haax comparison, as well as, additional extremities and are crucial in isolating the area of the spine and/or distal nerve that has been damaged so that the diagnosis and treatment of the patient can be achieved. Therefore, the muscles and nerves examined were medically necessary. Vj Garay MA 12/05/2017 10:53 AM Signed Review of Systems Eyes: Negative for blurred vision. Respiratory: Negative for shortness of breath.? Cardiovascular: Negative for chest pain. Negative for leg swelling. Gastrointestinal: Negative for constipation, diarrhea, nausea?and vomiting. Genitourinary: Negative for dysuria. Skin: Negative for itching. Neurological: Negative for headaches. Negative for dizziness, tingling?and weakness. Endo/Heme/Allergies: Negative for bruising/bleeding easily. Psychiatric/Behavioral: Negative for depression?and suicidal ideas. ROS entered by: Vj Garay MA Referring Provider: SELF [200] Allergies As of Date: 12/05/2017 Noted Allergy Reaction CLINDAMYCIN 03/29/2016 4 - Hives Date Reviewed: 12/05/2017 Reviewed by: Lenore Flores - Fully Assessed Reason for Visit: EMG [2011] Cmt: bilateral lowers Bwc (Worker's Comp) [4136] Cmt: 10..2009 Reason For Visit History Recorded Primary Visit Diagnosis:Lumbar sprain, initial encounter [S33.5XXA] Order(s):NEEDLE EMG EA EXTREMTY W/PARASPINL AREA COMPLETE [[id number]] Order #: [id number] MOTOR AND/SENS 7-8 NRV CNDJ PRECONF ELTRODE LIMB [[id number]] Order #: [id number] Prescriptions as of 12/05/2017 Sig: OXYCODONE-ACETAMINOPHEN 7.5 M* Take 1 tablet by mouth every * GABAPENTIN 300 MG CAPSULE Take 1 capsule by mouth three* MELOXICAM 15 MG TABLET Take 1 tablet by mouth once d* BENAZEPRIL 5 MG TABLET 1 tablet every am and 2 table* PRAVASTATIN 40 MG TABLET Take 1 tablet by mouth once d* INSULIN LISPRO (U-100) 100 UN* INJECT 1 UNIT PER 5 GRAMS OF * FARXIGA 10 MG TABLET Take 1 tablet by mouth once d* INSULIN DEGLUDEC (U-100) 100 * Inject 45 Units subcutaneousl* ASPIRIN 81 MG TABLET,DELAYED * Take 81 mg by mouth once eliecer* OMEPRAZOLE 20 MG CAPSULE,JOSÉ ANTONIO* Take 1 capsule by mouth once * METHOCARBAMOL 750 MG TABLET ONDANSETRON HCL 4 MG TABLET OXYCODONE ER 10 MG TABLET,CRU* ORPHENADRINE CITRATE ER 100 M* Take 1 tablet by mouth twice * BLOOD SUGAR DIAGNOSTIC STRIPS Use as instructed ORPHENADRINE CITRATE ER 100 M* Take 1 tablet by mouth twice * DOCUSATE SODIUM 100 MG CAPSULE Take 1 capsule by mouth twice* PEN NEEDLE, DIABETIC 32 GAUGE* 5 injection(s) Subcutaneous D* MULTIVITAMIN CAPSULE Take 1 capsule by mouth once * Problem List As Of Date 12/05/2017 Noted Resolved Herniation of intervertebral disc between L4 an*INVALID FOR* Priority: A More... Displacement of lumbar intervertebral disc with*INVALID FOR* Sprain of lumbar region [S33.5XXA] INVALID FOR* Type 1 diabetes mellitus [E10.9] Priority: B More... Vitamin D deficiency [E55.9] Hyperlipidemia [E78.5] HTN (hypertension) [I10] Priority: C More... Spondylolisthesis, lumbar region [M43.16] INVALID FOR* High cholesterol [E78.00] Post laminectomy syndrome [M96.1] INVALID FOR* Other instructions from your clinician: Explanation of EMG and NCV Procedure Nerve conduction studies (NCS) and electromyography (EMG) are utilized to evaluate damage sustained to the peripheral nervous system. NCS are performed to measure the nerve response to electrical stimulation across a given segment. EMG evaluates the passive and active electrical discharges of the muscle, as specific nerves and roots innervate muscles of the body. Often times, more than one muscle motor nerve and sensory nerve must be studied to determine the presences of disease. Further, nerves are often tested in a nqci-yk-quwn comparison, as well as, additional extremities and are crucial in isolating the area of the spine and/or distal nerve that has been damaged so that the diagnosis and treatment of the patient can be achieved. Therefore, the muscles and nerves examined were medically necessary. Visit Notes: >> Vj Garay Mon Dec 05, 2017 10:53 AM Status: Signed Review of Systems Eyes: Negative for blurred vision. Respiratory: Negative for shortness of breath.? Cardiovascular: Negative for chest pain. Negative for leg swelling. Gastrointestinal: Negative for constipation, diarrhea, nausea?and vomiting. Genitourinary: Negative for dysuria. Skin: Negative for itching. Neurological: Negative for headaches. Negative for dizziness, tingling?and weakness. Endo/Heme/Allergies: Negative for bruising/bleeding easily. Psychiatric/Behavioral: Negative for depression?and suicidal ideas. ROS entered by: Vj Garay MA Disposition: Return if symptoms worsen or fail to improve. Follow-up and Disposition History Recorded Encounter Status:Closed by LENORE FLORES MD on 12/05/17 PROCEDURE Observed: 12/05/2017 Status: COMPLETED Source: RINGLE 10:23 AM CLINIC OTHER CAMPUS REPOSITORY O ID: [id number] Author: Lenore Flores Service: (none) Author Type: Physician Type: Procedures Filed: 12/05/2017 11:24 AM Note Text: Patient Name: Jose Argutea Date: December 05, 2017 Patient : 1980 Patient Age: [age] year old CC: Patient presents with: EMG: bilateral lowers Bwc (Worker's Comp): 05.26.2010 Vitals: BP 140/80 Pulse 76 Ht 175.3 cm (5' 9) Wt 108.9 kg (240 lb) BMI 35.44 kg/m? The HANDP completed on 11/16 I have reviewed the history and physical and examined the patient and there are no changes unless noted below: Heart and lungs exam benign Timeout was performed to verify patient name, , allergies and procedure being performed at [place] Patient is aware of potential risks and benefits of this procedure. Patient wishes to proceed. Procedure start time: 1020 Procedure end time: 1100 Electrodiagnostic testing was performed today was significant for Chronic right S1 and left L5 radiculopathies. Full report and data will be scanned into the chart. Return if symptoms worsen or fail to improve. ASSESSMENT/PLAN: 1. Lumbar sprain, initial encounter - ICD9: 847.2, ICD10: S33.5XXA - NEEDLE EMG EA EXTREMTY W/PARASPINL AREA COMPLETE - MOTOR AND/SENS 7-8 NRV CNDJ PRECONF ELTRODE LIMB Lenore Flores MD PROGRESS Observed: 11/16/2017 Status: COMPLETED Source: RINGLE 8:51 AM CLINIC OTHER CAMPUS REPOSITORY HNO ID: [id number] Author: Lenore Flores Service: (none) Author Type: Physician Type: Progress Notes Filed: 11/16/2017 9:02 AM Note Text: Patient Name: Jose Argueta Patient : 1980 Patient Age: [age] year old CC: Patient presents with: Bwc (Worker's Comp): 05.26.10 Low Back Pain SUBJECTIVE Patient presents for follow up of low back pain. The patient describes the pain as tender, shooting and achy /10 . He has pain numbness and tingling, without weakness radiating into the right lower extremity to the foot, which increased after surgery as well as the left lower extremity to the anterior thigh which is unchanged since surgery. Pain is worse with standing, and bending or prolonged sitting. He has been taking Mobic, Gabapentin and Percocet 2-4/day with good relief. The patient denies any bowel or bladder dysfunction. The patient denies any chest pain or chest tightness. The constitutional, musculoskeletal, and neurological review of systems was negative unless otherwise noted. The patient's past medical history, allergies, medication list, social history, and family medical history were documented, updated, and reviewed in the chart. OAS website checked and validated. All prescriptions have been APPROPRIATELY filled. No suspicious activity was identified.- 11/16/2017 by Lenore Flores MD Nursing Notes: Vj Garay MA 11/16/2017 8:48 AM Signed Review of Systems Eyes: Negative for blurred vision. Respiratory: Negative for shortness of breath.? Cardiovascular: Negative for chest pain. Negative for leg swelling. Gastrointestinal: Negative for constipation, diarrhea, nausea?and vomiting. Genitourinary: Negative for dysuria. Skin: Negative for itching. Neurological: Negative for headaches. Negative for dizziness, tingling?and weakness. Endo/Heme/Allergies: Negative for bruising/bleeding easily. Psychiatric/Behavioral: Negative for depression?and suicidal ideas. ROS entered by: Vj Garay MA MEDICATION NAME percocet STRENGTH 7.5 LAST FILL DATE 10/19/2017 DATE LAST DOSE TAKEN 11.15.17 QUANTITY FILLED 90 QUANTITY REMAINING 11 ALLERGIES Allergen Reactions - Clindamycin Hives Current Outpatient Prescriptions: [START ON 11/18/2017] oxyCODONE-acetaminophen (PERCOCET) 7.5- 325 mg tablet Take 1 tablet by mouth every 8 hours as needed for Pain (for pain.) for up to 30 days.Earliest Fill Date: 11/18/17 Disp: 90 tablet Rfl: 0 gabapentin (NEURONTIN) 300 mg capsule Take 1 capsule by mouth three times daily for 90 days. Disp: 90 capsule Rfl: 2 meloxicam (MOBIC) 15 mg tablet Take 1 tablet by mouth once daily. Disp: 30 tablet Rfl: 2 benazepril (LOTENSIN) 5 mg tablet 1 tablet every am and 2 tablets every pm Disp: 90 tablet Rfl: 11 pravastatin (PRAVACHOL) 40 mg tablet Take 1 tablet by mouth once daily. Disp: 30 tablet Rfl: 11 Insulin Lispro, Human, (HUMALOG KWIKPEN) 100 unit/mL inpn INJECT 1 UNIT PER 5 GRAMS OF CARBOHYDRATES WITH EACH MEAL (TOTAL MAXIMUM DAILY DOSE IS 55 UNITS) Disp: 5 Pen Rfl: 11 FARXIGA 10 mg tab Take 1 tablet by mouth once daily. Disp: 30 tablet Rfl: 11 insulin degludec (TRESIBA FLEXTOUCH U-100) 100 unit/mL (3 mL) injection Inject 45 Units subcutaneously every 24 hours. Disp: 15 mL Rfl: 11 aspirin, enteric coated (ADULT LOW DOSE ASPIRIN) 81 mg EC tablet Take 81 mg by mouth once daily. Disp: Rfl: omeprazole (PRILOSEC) 20 mg capsule Take 1 capsule by mouth once daily. Disp: Rfl: 0 Multivitamin capsule Take 1 capsule by mouth once daily. Disp: Rfl: methocarbamol (ROBAXIN) 750 mg tablet Disp: Rfl: ondansetron (ZOFRAN) 4 mg tablet Disp: Rfl: oxyCODONE ER (OXYCONTIN) 10 mg 12 hr tablet Disp: Rfl: orphenadrine ER (NORFLEX) 100 mg tablet Take 1 tablet by mouth twice daily. Disp: 60 tablet Rfl: 1 blood sugar diagnostic ([place] CloudwareTOUCH ULTRA TEST) test strip Use as instructed Disp: 1 Strip Rfl: 0 orphenadrine ER (NORFLEX) 100 mg tablet Take 1 tablet by mouth twice daily. Disp: 60 tablet Rfl: 0 docusate sodium (COLACE) 100 mg capsule Take 1 capsule by mouth twice daily. Disp: 60 capsule Rfl: 0 Insulin Tenmile, Disposable, (BEULAH PEN NEEDLE) 32 gauge x 5/32 ndle 5 injection(s) Subcutaneous Daily Disp: Rfl: No current facility-administered medications for this visit. 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 History Main Topics Smoking status: Never Smoker Smokeless status: Never Used Alcohol use: No Drug use: No Other Topics Concern Caffeine Concern Yes Comment:coffee 3 cups daily, and energy drinks Special Diet Yes Comment:Poor diet Exercise No Comment: Exercises 1-2 days/wk Social History Narrative No reported history Family History Problem Relation Age of Onset - Hyperlipidemia Mother - Ischemic Heart Disease Father - Diabetes Father - Heart Father - Hyperlipidemia Father - Hypertension Father - Hyperlipidemia Paternal Grandmother - Hypertension Paternal Grandmother - Stroke Paternal Grandmother - Diabetes mellitus [OTHER] Paternal Grandmother OBJECTIVE Vitals: BP 140/90 Pulse 78 Ht 175.3 cm (5' 9) Wt 108.9 kg (240 lb) BMI 35.44 kg/m2 General: Alert, cooperative, well appearing, and in no apparent distress. Musculoskeletal: The patient's gait is normal Back: Inspection of the back demonstrates there is no obvious deformity or misalignment. There is bony tenderness along the lumbar vertebrae, none along the sacroiliac joints. There is bilateral paraspinal muscle tenderness. Range of motion testing demonstrates limited due to pain with flexion, extension, side bending and rotation of the back. Strength is 5/5 in the lower extremity bilaterally. Sensation is mildly decreased throughout the right lower extremity. There is a positive right straight leg raise and femoral stretch test. The piriformis has normal flexibility and is non-tender. Skin: The skin is without jaundice. It is intact without pathologic lesions, erythema, vesicles, discharge or rash. Palpitation of the skin is normal without induration, subcutaneous nodules or tightening. Extremities: This is no clubbing, cyanosis or edema. Peripheral pulses are 2+. Return in about 4 weeks (around 12/14/2017). ASSESSMENT/PLAN: 1. Post laminectomy syndrome - ICD9: 722.80, ICD10: M96.1 (primary diagnosis) We discussed the natural history of this condition, differential diagnoses, and treatment options. Guidelines for activity were given. We discussed options for treatment including conservative care, medications with side effects and risks and benefits. The patient is doing well with the prescribed pain medications. The patient requests a refill today. Patient states medications provide adequate analgesia. The medications allow patient to maintain ADL's. There are no adverse effects from the medications and no aberrant behaviors are noted. Will refill his percocet today Continue gabapentin and Mobic He will follow up with Elsa in January for his 1 year surgical follow up. May consider SCS in the future if not having improvement after the 1 year surgery follow up. EMG/NCV scheduled - OXYCODONE-ACETAMINOPHEN 7.5 MG-325 MG TABLET 2. Lumbosacral disc herniation - ICD9: 722.10, ICD10: M51.27 As above - OXYCODONE-ACETAMINOPHEN 7.5 MG-325 MG TABLET Lenore Flores MD CNOV Observed: 11/16/2017 Status: COMPLETED Source: RINGLE 8:30 AM CLINIC OTHER CAMPUS REPOSITORY Office Visit ([facility]) JOSE ARGUETA ([id number]) 1980 M Date Time Provider Department 11/16/17 8:30 AM LENORE FLORES [facility] During your visit today, we recorded the following information about you: Pulse Blood pressure Weight Height 78/minute 140/90 108.9 kg 1.753 m Vj Garay MA 11/16/2017 8:48 AM Signed Review of Systems Eyes: Negative for blurred vision. Respiratory: Negative for shortness of breath.? Cardiovascular: Negative for chest pain. Negative for leg swelling. Gastrointestinal: Negative for constipation, diarrhea, nausea?and vomiting. Genitourinary: Negative for dysuria. Skin: Negative for itching. Neurological: Negative for headaches. Negative for dizziness, tingling?and weakness. Endo/Heme/Allergies: Negative for bruising/bleeding easily. Psychiatric/Behavioral: Negative for depression?and suicidal ideas. ROS entered by: NYLA Chance MD 11/16/2017 9:02 AM Signed Patient Name: Jose Argueta Patient : 1980 Patient Age: [age] year old CC: Patient presents with: Bwc (Worker's Comp): 10.19.10 Low Back Pain SUBJECTIVE Patient presents for follow up of low back pain. The patient describes the pain as tender, shooting and achy 5/10 . He has pain numbness and tingling, without weakness radiating into the right lower extremity to the foot, which increased after surgery as well as the left lower extremity to the anterior thigh which is unchanged since surgery. Pain is worse with standing, and bending or prolonged sitting. He has been taking Mobic, Gabapentin and Percocet 2-4/day with good relief. The patient denies any bowel or bladder dysfunction. The patient denies any chest pain or chest tightness. The constitutional, musculoskeletal, and neurological review of systems was negative unless otherwise noted. The patient's past medical history, allergies, medication list, social history, and family medical history were documented, updated, and reviewed in the chart. OAS website checked and validated. All prescriptions have been APPROPRIATELY filled. No suspicious activity was identified.- 11/16/2017 by Lenore Flores MD Nursing Notes: Vj Garay MA 11/16/2017 8:48 AM Signed Review of Systems Eyes: Negative for blurred vision. Respiratory: Negative for shortness of breath.? Cardiovascular: Negative for chest pain. Negative for leg swelling. Gastrointestinal: Negative for constipation, diarrhea, nausea?and vomiting. Genitourinary: Negative for dysuria. Skin: Negative for itching. Neurological: Negative for headaches. Negative for dizziness, tingling?and weakness. Endo/Heme/Allergies: Negative for bruising/bleeding easily. Psychiatric/Behavioral: Negative for depression?and suicidal ideas. ROS entered by: Vj Garay MA MEDICATION NAME percocet STRENGTH 7.5 LAST FILL DATE 10/19/2017 DATE LAST DOSE TAKEN 11.15.17 QUANTITY FILLED 90 QUANTITY REMAINING 11 ALLERGIES Allergen Reactions - Clindamycin Hives Current Outpatient Prescriptions: [START ON 11/18/2017] oxyCODONE-acetaminophen (PERCOCET) 7.5- 325 mg tablet Take 1 tablet by mouth every 8 hours as needed for Pain (for pain.) for up to 30 days.Earliest Fill Date: 11/18/17 Disp: 90 tablet Rfl: 0 gabapentin (NEURONTIN) 300 mg capsule Take 1 capsule by mouth three times daily for 90 days. Disp: 90 capsule Rfl: 2 meloxicam (MOBIC) 15 mg tablet Take 1 tablet by mouth once daily. Disp: 30 tablet Rfl: 2 benazepril (LOTENSIN) 5 mg tablet 1 tablet every am and 2 tablets every pm Disp: 90 tablet Rfl: 11 pravastatin (PRAVACHOL) 40 mg tablet Take 1 tablet by mouth once daily. Disp: 30 tablet Rfl: 11 Insulin Lispro, Human, (HUMALOG KWIKPEN) 100 unit/mL inpn INJECT 1 UNIT PER 5 GRAMS OF CARBOHYDRATES WITH EACH MEAL (TOTAL MAXIMUM DAILY DOSE IS 55 UNITS) Disp: 5 Pen Rfl: 11 FARXIGA 10 mg tab Take 1 tablet by mouth once daily. Disp: 30 tablet Rfl: 11 insulin degludec (TRESIBA FLEXTOUCH U-100) 100 unit/mL (3 mL) injection Inject 45 Units subcutaneously every 24 hours. Disp: 15 mL Rfl: 11 aspirin, enteric coated (ADULT LOW DOSE ASPIRIN) 81 mg EC tablet Take 81 mg by mouth once daily. Disp: Rfl: omeprazole (PRILOSEC) 20 mg capsule Take 1 capsule by mouth once daily. Disp: Rfl: 0 Multivitamin capsule Take 1 capsule by mouth once daily. Disp: Rfl: methocarbamol (ROBAXIN) 750 mg tablet Disp: Rfl: ondansetron (ZOFRAN) 4 mg tablet Disp: Rfl: oxyCODONE ER (OXYCONTIN) 10 mg 12 hr tablet Disp: Rfl: orphenadrine ER (NORFLEX) 100 mg tablet Take 1 tablet by mouth twice daily. Disp: 60 tablet Rfl: 1 blood sugar diagnostic ([place] CloudwareTOUCH ULTRA TEST) test strip Use as instructed Disp: 1 Strip Rfl: 0 orphenadrine ER (NORFLEX) 100 mg tablet Take 1 tablet by mouth twice daily. Disp: 60 tablet Rfl: 0 docusate sodium (COLACE) 100 mg capsule Take 1 capsule by mouth twice daily. Disp: 60 capsule Rfl: 0 Insulin Tenmile, Disposable, (BEULAH PEN NEEDLE) 32 gauge x 5/32ANDquot; ndle 5 injection(s) Subcutaneous Daily Disp: Rfl: No current facility-administered medications for this visit. 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 History Main Topics Smoking status: Never Smoker Smokeless status: Never Used Alcohol use: No Drug use: No Other Topics Concern Caffeine Concern Yes Comment:coffee 3 cups daily, and energy drinks Special Diet Yes Comment:Poor diet Exercise No Comment: Exercises 1-2 days/wk Social History Narrative No reported history Family History Problem Relation Age of Onset - Hyperlipidemia Mother - Ischemic Heart Disease Father - Diabetes Father - Heart Father - Hyperlipidemia Father - Hypertension Father - Hyperlipidemia Paternal Grandmother - Hypertension Paternal Grandmother - Stroke Paternal Grandmother - Diabetes mellitus [OTHER] Paternal Grandmother OBJECTIVE Vitals: BP 140/90 Pulse 78 Ht 175.3 cm (5' 9ANDquot;) Wt 108.9 kg (240 lb) BMI 35.44 kg/m2 General: Alert, cooperative, well appearing, and in no apparent distress. Musculoskeletal: The patient's gait is normal Back: Inspection of the back demonstrates there is no obvious deformity or misalignment. There is bony tenderness along the lumbar vertebrae, none along the sacroiliac joints. There is bilateral paraspinal muscle tenderness. Range of motion testing demonstrates limited due to pain with flexion, extension, side bending and rotation of the back. Strength is 5/5 in the lower extremity bilaterally. Sensation is mildly decreased throughout the right lower extremity. There is a positive right straight leg raise and femoral stretch test. The piriformis has normal flexibility and is non-tender. Skin: The skin is without jaundice. It is intact without pathologic lesions, erythema, vesicles, discharge or rash. Palpitation of the skin is normal without induration, subcutaneous nodules or tightening. Extremities: This is no clubbing, cyanosis or edema. Peripheral pulses are 2+. Return in about 4 weeks (around 12/14/2017). ASSESSMENT/PLAN: 1. Post laminectomy syndrome - ICD9: 722.80, ICD10: M96.1 (primary diagnosis) We discussed the natural history of this condition, differential diagnoses, and treatment options. Guidelines for activity were given. We discussed options for treatment including conservative care, medications with side effects and risks and benefits. The patient is doing well with the prescribed pain medications. The patient requests a refill today. Patient states medications provide adequate analgesia. The medications allow patient to maintain ADL's. There are no adverse effects from the medications and no aberrant behaviors are noted. Will refill his percocet today Continue gabapentin and Mobic He will follow up with Elsa in January for his 1 year surgical follow up. May consider SCS in the future if not having improvement after the 1 year surgery follow up. EMG/NCV scheduled - OXYCODONE-ACETAMINOPHEN 7.5 MG-325 MG TABLET 2. Lumbosacral disc herniation - ICD9: 722.10, ICD10: M51.27 As above - OXYCODONE-ACETAMINOPHEN 7.5 MG-325 MG TABLET MD Lenore White MD 11/16/2017 9:02 AM Signed Opioid Pain Medication Information Sheet Opioids are drugs that are used to treat cancer pain. They include morphine (MSContin, MSIR, Roxanol); oxycodone (Oxycontin, Roxicodone, Percocet); hydromorphone (Dilaudid, Exalgo); fentanyl (Duragesic); hydrocodone (Hysingla, Zohydro, [place], Vicodin); buprenorphine (Butrans, Buprenex); and methadone. There are two types of opioids: long-acting and short-acting. Long-acting opioids are also called extended-release (ER) or controlled-release (CR). This means that the medication is slowly released over an 8- to 12-hour period or longer. Examples of these include MSContin and Oxycontin. These drugs are taken on a regular schedule to control pain. DO NOT BREAK OR CRUSH THESE TABLETS. Long-acting opioids also come in patch form (Fentanyl, buprenorphine). Opioid patches are strong drugs and should not be used for mild or occasional pain, or for pain from surgery. ? Do not use patches that are damaged or cut. ? You can shower and bathe with the patch in place. ? Do not expose the skin patch to heat (for example: hot tub, heating pad, sauna, electric blanket, heat lamps). Heat increases the amount of drug you absorb through your skin and may cause harmful effects. ? When removing the patch, fold it in half, sticky side in, and flush it down the toilet. Short-acting opioids are also called immediate-release. They usually take effect within an hour, and provide pain relief for four hours. You take short-acting opioids if your pain gets worse (5 on a scale of 1 to 10), which is called ANDquot;breakthroughANDquot; pain. DO NOT WAIT UNTIL THE PAIN BECOMES SEVERE TO TAKE YOUR MEDICATION. What are the side effects of opioids? Like most drugs, opioids have side effects. The most common are nausea, vomiting, itching, and sleepiness. These side effects should go away in three to seven days as your body gets used to the medication. DO NOT DRIVE IF YOU FEEL DROWSY OR SLEEPY. All opioids cause constipation. Your caregiver will prescribe stool softeners and medicine to help prevent constipation. You can also do the following: ? Increase the amounts of fluids and fiber in your diet. ? Try to get more exercise and physical activity. ? Try to have a bowel movement around the same time each day to get your bowels to empty in a certain pattern. Can I become addicted to opioids? Addiction means that a person uses the drug to get ?high?, and cannot control the urge to take the drug. Taking medication for pain relief is NOT addiction. Your healthcare provider will discuss any concerns about becoming addicted to pain medications. Withdrawal If you stop taking your pain medication suddenly, you may develop withdrawal symptoms. These include flu-like symptoms, agitation, anxiety, abdominal cramping, nausea, and diarrhea. If you have stopped taking your pain medication for three days or more, do not start taking it again without talking to your healthcare provider. Overdose Combining opioids with alcohol or sedating pills (which make you sleepy) increases the risk of overdose. Symptoms of overdose include extreme sleepiness, slurred speech, and slow breathing (breathing may also stop). Call 911 or your local emergency service if you think you may have overdosed. Call 911 or your local emergency service if: ? You took too much medicine. ? You have trouble breathing and/or shortness of breath. ? A child accidentally took the medication. Call your healthcare provider if: ? Your pain is not being controlled with the dose that you are taking. ? You are having side effects. Other important information: ? Take your medicine exactly as prescribed. ? Only one healthcare provider should prescribe your pain medications. ? Make follow-up appointments with your healthcare provider. ? Keep medication away from children and store them in a safe place. ? Do not share your medications with anyone. ? Do not take medications that have not been prescribed for you. ? Do not stop taking your medication without talking to your healthcare provider. ? Do not drink alcohol while taking this medication. How do I dispose of opioids? DO NOT THROW UNUSED MEDICATION IN THE TRASH. You should return these medications through a take-back program or to a collection box or mail-back program authorized by the Drug Enforcement Administration. Authorized collection sites include retail pharmacies, hospital or clinic pharmacies, and law enforcement locations. This website provides a list of locations where you can safely dispose of opioids: https://www.deadiversion.[employer].gov/pubdispsearch If a take-back program is not available, flush unused medicines down the toilet or sink. Referring Provider: LENORE FLORES [[id number]] Allergies As of Date: 11/16/2017 Noted Allergy Reaction CLINDAMYCIN 03/29/2016 4 - Hives Date Reviewed: 11/16/2017 Reviewed by: Lenore Flores - Fully Assessed Reason for Visit: [facility] (Worker's Comp) [4137] Cmt: 10.19.10 Low Back Pain [126] Primary Visit Diagnosis:Post laminectomy syndrome [M96.1] Other Visit Diagnosis:Lumbosacral disc herniation [M51.27] Order(s):[START ON 11/18/2017] oxyCODONE-acetaminophen (PERCOCET) 7.5-325 mg tabletTake 1 tablet by mouth every 8 hours as needed for Pain (for pain.) for up to 30 days. Earliest Fill Date: 11/18/17Disp: 90 tabletRfl: 0 Prescriptions as of 11/16/2017 Sig: OXYCODONE-ACETAMINOPHEN 7.5 M* Take 1 tablet by mouth every * GABAPENTIN 300 MG CAPSULE Take 1 capsule by mouth three* MELOXICAM 15 MG TABLET Take 1 tablet by mouth once d* BENAZEPRIL 5 MG TABLET 1 tablet every am and 2 table* PRAVASTATIN 40 MG TABLET Take 1 tablet by mouth once d* INSULIN LISPRO (U-100) 100 UN* INJECT 1 UNIT PER 5 GRAMS OF * FARXIGA 10 MG TABLET Take 1 tablet by mouth once d* INSULIN DEGLUDEC (U-100) 100 * Inject 45 Units subcutaneousl* ASPIRIN 81 MG TABLET,DELAYED * Take 81 mg by mouth once eliecer* OMEPRAZOLE 20 MG CAPSULE,JOSÉ ANTONIO* Take 1 capsule by mouth once * MULTIVITAMIN CAPSULE Take 1 capsule by mouth once * METHOCARBAMOL 750 MG TABLET ONDANSETRON HCL 4 MG TABLET OXYCODONE ER 10 MG TABLET,CRU* ORPHENADRINE CITRATE ER 100 M* Take 1 tablet by mouth twice * BLOOD SUGAR DIAGNOSTIC STRIPS Use as instructed ORPHENADRINE CITRATE ER 100 M* Take 1 tablet by mouth twice * DOCUSATE SODIUM 100 MG CAPSULE Take 1 capsule by mouth twice* PEN NEEDLE, DIABETIC 32 GAUGE* 5 injection(s) Subcutaneous D* Problem List As Of Date 11/16/2017 Noted Resolved Herniation of intervertebral disc between L4 an*INVALID FOR* Priority: A More... Displacement of lumbar intervertebral disc with*INVALID FOR* Sprain of lumbar region [S33.5XXA] INVALID FOR* Type 1 diabetes mellitus [E10.9] Priority: B More... Vitamin D deficiency [E55.9] Hyperlipidemia [E78.5] HTN (hypertension) [I10] Priority: C More... Spondylolisthesis, lumbar region [M43.16] INVALID FOR* High cholesterol [E78.00] Post laminectomy syndrome [M96.1] INVALID FOR* Other instructions from your clinician: Opioid Pain Medication Information Sheet Opioids are drugs that are used to treat cancer pain. They include morphine (MSContin, MSIR, Roxanol); oxycodone (Oxycontin, Roxicodone, Percocet); hydromorphone (Dilaudid, Exalgo); fentanyl (Duragesic); hydrocodone (Hysingla, Zohydro, [place], Vicodin); buprenorphine (Butrans, Buprenex); and methadone. There are two types of opioids: long-acting and short-acting. Long-acting opioids are also called extended-release (ER) or controlled-release (CR). This means that the medication is slowly released over an 8- to 12-hour period or longer. Examples of these include MSContin and Oxycontin. These drugs are taken on a regular schedule to control pain. DO NOT BREAK OR CRUSH THESE TABLETS. Long-acting opioids also come in patch form (Fentanyl, buprenorphine). Opioid patches are strong drugs and should not be used for mild or occasional pain, or for pain from surgery. ? Do not use patches that are damaged or cut. ? You can shower and bathe with the patch in place. ? Do not expose the skin patch to heat (for example: hot tub, heating pad, sauna, electric blanket, heat lamps). Heat increases the amount of drug you absorb through your skin and may cause harmful effects. ? When removing the patch, fold it in half, sticky side in, and flush it down the toilet. Short-acting opioids are also called immediate-release. They usually take effect within an hour, and provide pain relief for four hours. You take short-acting opioids if your pain gets worse (5 on a scale of 1 to 10), which is called breakthrough pain. DO NOT WAIT UNTIL THE PAIN BECOMES SEVERE TO TAKE YOUR MEDICATION. What are the side effects of opioids? Like most drugs, opioids have side effects. The most common are nausea, vomiting, itching, and sleepiness. These side effects should go away in three to seven days as your body gets used to the medication. DO NOT DRIVE IF YOU FEEL DROWSY OR SLEEPY. All opioids cause constipation. Your caregiver will prescribe stool softeners and medicine to help prevent constipation. You can also do the following: ? Increase the amounts of fluids and fiber in your diet. ? Try to get more exercise and physical activity. ? Try to have a bowel movement around the same time each day to get your bowels to empty in a certain pattern. Can I become addicted to opioids? Addiction means that a person uses the drug to get ?high?, and cannot control the urge to take the drug. Taking medication for pain relief is NOT addiction. Your healthcare provider will discuss any concerns about becoming addicted to pain medications. Withdrawal If you stop taking your pain medication suddenly, you may develop withdrawal symptoms. These include flu-like symptoms, agitation, anxiety, abdominal cramping, nausea, and diarrhea. If you have stopped taking your pain medication for three days or more, do not start taking it again without talking to your healthcare provider. Overdose Combining opioids with alcohol or sedating pills (which make you sleepy) increases the risk of overdose. Symptoms of overdose include extreme sleepiness, slurred speech, and slow breathing (breathing may also stop). Call 911 or your local emergency service if you think you may have overdosed. Call 911 or your local emergency service if: ? You took too much medicine. ? You have trouble breathing and/or shortness of breath. ? A child accidentally took the medication. Call your healthcare provider if: ? Your pain is not being controlled with the dose that you are taking. ? You are having side effects. Other important information: ? Take your medicine exactly as prescribed. ? Only one healthcare provider should prescribe your pain medications. ? Make follow-up appointments with your healthcare provider. ? Keep medication away from children and store them in a safe place. ? Do not share your medications with anyone. ? Do not take medications that have not been prescribed for you. ? Do not stop taking your medication without talking to your healthcare provider. ? Do not drink alcohol while taking this medication. How do I dispose of opioids? DO NOT THROW UNUSED MEDICATION IN THE TRASH. You should return these medications through a take-back program or to a collection box or mail-back program authorized by the Drug Enforcement Administration. Authorized collection sites include retail pharmacies, hospital or clinic pharmacies, and law enforcement locations. This website provides a list of locations where you can safely dispose of opioids: https://www.deadiversion.pMDsoft.gov/pubdispsearch If a take-back program is not available, flush unused medicines down the toilet or sink. Visit Notes: >> Vj Garay TueNov 16, 2017 8:46 AM Status: Signed Review of Systems Eyes: Negative for blurred vision. Respiratory: Negative for shortness of breath.? Cardiovascular: Negative for chest pain. Negative for leg swelling. Gastrointestinal: Negative for constipation, diarrhea, nausea?and vomiting. Genitourinary: Negative for dysuria. Skin: Negative for itching. Neurological: Negative for headaches. Negative for dizziness, tingling?and weakness. Endo/Heme/Allergies: Negative for bruising/bleeding easily. Psychiatric/Behavioral: Negative for depression?and suicidal ideas. ROS entered by: Vj Garay MA Work Status Form Employee Name: Jose Argueta Date of : 1980 SSN: [id number] Employer: (Not Specified) Diagnoses: (Not Specified) Medications: (Not Specified) WORK STATUS-INJURY AND TREATMENT INFORMATION Date of Injury: 05/26/2010 Work Related: Yes MMI: (Not Specified) PPI: (Not Specified) Recommended Treatment: (Not Specified) Equipment Needed: (Not Specified) Tests Needed: (Not Specified) Signature: Work Status Form Employee Name: Jose Argueta Date of : 1980 SSN: [id number] Employer: (Not Specified) WORK STATUS-WORK RESTRICTIONS (No Work Status Information Available) Signature: Prescriptions ordered this encounter Disp Refills Start End OXYCODONE-ACETAMINOPHEN 7.5 MG-325 M* 90 t* 0 11/18/2017 12/18/2017 Class: Print RX Route: ORAL Sig: Take 1 tablet by mouth every 8 hours as needed for Pain (for pain.) for up to 30 days. Earliest Fill Date: 11/18/17 Medications Discontinued During This Encounter oxyCODONE-acetaminophen (PERCOCET 10* 120 * 0 05/18/2017 11/16/2017 Class: Print RX Route: ORAL Sig: Take 1 tablet by mouth every 6 hours as needed for up to 29 days. Disc: Reason for discontinue is not on file. oxyCODONE-acetaminophen (PERCOCET 10* 120 * 0 03/16/2017 11/16/2017 Class: Print RX Cmt: Fill on 04/15/17 Route: ORAL Sig: Take 1 tablet by mouth every 6 hours as needed for up to 29 days. Disc: Reason for discontinue is not on file. oxyCODONE-acetaminophen (PERCOCET 10* 120 * 0 03/16/2017 11/16/2017 Class: Print RX Route: ORAL Sig: Take 1 tablet by mouth every 6 hours as needed for up to 29 days. Disc: Reason for discontinue is not on file. oxyCODONE-acetaminophen (PERCOCET) 7* 90 t* 0 10/19/2017 11/16/2017 Class: Print RX Route: ORAL Sig: Take 1 tablet by mouth every 8 hours as needed for Pain (for pain.) for up to 30 days. Disc: Reason for discontinue is not on file. Disposition: Return in about 4 weeks (around 12/14/2017). Follow-up and Disposition History Recorded Questionnaire: AG SPINE PAIN PILL COUNT MEDICATION NAME -> percocet STRENGTH -> 7.5 LAST FILL DATE -> 10/19/2017 DATE LAST DOSE TAKEN -> 4.10.18 QUANTITY FILLED -> 90 QUANTITY REMAINING -> 11 Classic SmartForms filed during this visit: Work Status Encounter Status:Closed by LENORE FLORES MD on 11/16/17 [place] Observed: 11/04/2017 Status: COMPLETED Source: [facility] 12:00 AM [facility] REPOSITORY Telephone (AGSPINE2) CELENAJOSE COOL ([id number]) 1980 M Date Time Provider Department 11/04/17 LENORE FLORES AGSPINE2 During your visit today, we recorded the following information about you: Teto Armstrong 11/04/2017 10:38 AM Signed C9 submitted for UDS service 10/19/17 Teto Bynume Teto Bynume 11/10/2017 1:39 PM Signed C9 approved for UDS service 10/19/17 Teto Armstrong Allergies As of Date: 11/04/2017 Noted Allergy Reaction CLINDAMYCIN 03/29/2016 4 - Hives Date Reviewed: 10/19/2017 Reviewed by: Lenore Flores - Fully Assessed Reason for Visit: Bwc (Worker's Comp) [4518] Cmt: UDS APPROVED Reason For Visit History Recorded Prescriptions as of 11/04/2017 Sig: GABAPENTIN 300 MG CAPSULE Take 1 capsule by mouth three* MELOXICAM 15 MG TABLET Take 1 tablet by mouth once d* OXYCODONE-ACETAMINOPHEN 7.5 M* Take 1 tablet by mouth every * BENAZEPRIL 5 MG TABLET 1 tablet every am and 2 table* METHOCARBAMOL 750 MG TABLET ONDANSETRON HCL 4 MG TABLET OXYCODONE ER 10 MG TABLET,CRU* ORPHENADRINE CITRATE ER 100 M* Take 1 tablet by mouth twice * PRAVASTATIN 40 MG TABLET Take 1 tablet by mouth once d* INSULIN LISPRO (U-100) 100 UN* INJECT 1 UNIT PER 5 GRAMS OF * BLOOD SUGAR DIAGNOSTIC STRIPS Use as instructed ORPHENADRINE CITRATE ER 100 M* Take 1 tablet by mouth twice * FARXIGA 10 MG TABLET Take 1 tablet by mouth once d* DOCUSATE SODIUM 100 MG CAPSULE Take 1 capsule by mouth twice* INSULIN DEGLUDEC (U-100) 100 * Inject 45 Units subcutaneousl* PEN NEEDLE, DIABETIC 32 GAUGE* 5 injection(s) Subcutaneous D* ASPIRIN 81 MG TABLET,DELAYED * Take 81 mg by mouth once eliecer* OMEPRAZOLE 20 MG CAPSULE,JOSÉ ANTONIO* Take 1 capsule by mouth once * MULTIVITAMIN CAPSULE Take 1 capsule by mouth once * Problem List As Of Date 11/04/2017 Noted Resolved Herniation of intervertebral disc between L4 an*INVALID FOR* Priority: A More... Displacement of lumbar intervertebral disc with*INVALID FOR* Sprain of lumbar region [S33.5XXA] INVALID FOR* Type 1 diabetes mellitus [E10.9] Priority: B More... Vitamin D deficiency [E55.9] Hyperlipidemia [E78.5] HTN (hypertension) [I10] Priority: C More... Spondylolisthesis, lumbar region [M43.16] INVALID FOR* High cholesterol [E78.00] Post laminectomy syndrome [M96.1] INVALID FOR* Encounter Status:Closed by TETO ARMSTRONG on 11/04/17 [place]GR[place] Observed: 10/19/2017 Status: COMPLETED Source: [facility] 9:03 AM [facility] HNO ID: [id number] Author: Lenore Flores Service: (none) Author Type: Physician Type: Progress Notes Filed: 10/19/2017 9:35 AM Note Text: Patient Name: Jose Argueta Patient : 1980 Patient Age: [age] year old CC: Patient presents with: Bwc (Worker's Comp): 05-26-10 SUBJECTIVE Patient presents complaining of a 8 year history of low back pain. The patient describes the pain as tender, shooting and achy 01/15 . The patient had a lifting injury at work that caused the back pain. The patient reports that it gradually developed and has progressively become more severe. He has pain numbness and tingling, without weakness radiating into the right lower extremity to the foot, which increased after surgery as well as the left lower extremity to the anterior thigh which is unchanged since surgery. He has tried stim, PT- last done 6 months ago, heat, massage, epidural injections and 3 surgeries ( most recent 01/2017) without relief. Pain is worse with standing, and bending or prolonged sitting. He has been taking Ibuprofen and tylenol. He previously saw Dr. Barnes who had him on Percocet which he took 1-3/day, last dose was last week. The patient denies any bowel or bladder dysfunction. The patient denies any chest pain or chest tightness. The constitutional, musculoskeletal, and neurological review of systems was negative unless otherwise noted. The patient's past medical history, allergies, medication list, social history, and family medical history were documented, updated, and reviewed in the chart. 04/2017 Lumbar x-ray RESULT: Lumbar spine 3 views, compared to 02/03/2017. ?Counting reference: ?Lumbosacral junction. ?For the purposes of this report, L5-S1 is considered the most caudal well formed disc space. Interval removal of floresita and drain in this patient who has had L4-5 anterior and posterior spinal fusion of posterior decompression. ? Hardware is intact without signs of loosening or failure. ?Soft tissue gas has resorbed. Curvature and alignment are preserved. Rounded 6 mm metallic density in the left upper quadrant overlies the colon on the frontal projection. ?It is not visualized on the lateral. 10/2015 Lumbar MRI IMPRESSION: Postoperative changes at the L4-L5 level as noted. ?Additionally, there is evidence of generalized disc bulging with a superimposed small left paracentral disc extrusion with caudal migration as discussed. ?This results in moderate left lateral recess stenosis with mild mass effect upon the left L5 nerve root. ? Correlate with radiculopathic symptoms. ?Mild to moderate overall central stenosis. ?Mild bilateral foraminal narrowing. Shallow broad right paracentral disc protrusion at L5-S1, with disc material contacting the S1 nerve root within its lateral recess. ?Minimal associated right S1 nerve root displacement. 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 No abnormal enhancement. ?No evidence of arachnoiditis. OARRS website checked and validated. All prescriptions have been APPROPRIATELY filled. No suspicious activity was identified.- 10/19/2017 by Lenore Flores MD Nursing Notes: Vj Garay MA 10/19/2017 9:01 AM Signed Review of Systems Constitutional: Negative for fatigue. Negative for fever. Negative for night sweats. Negative for weight gain. Negative for weight loss. HEENT: Negative for difficulty swallowing, Negative for headache, Negative for hearing loss, Negative for hoarseness, Negative for vision loss, Negative for glaucoma, and Negative for cataracts. Negative for blurred vision. Cardiovascular: Negative for chest pain. Negative for leg swelling. Negative for palpitations. Negative for tachycardia. Respiratory: Negative for cough. ?Negative for shortness of breath. Gastrointestinal: Negative for constipation, Negative for diarrhea, Negative for nausea, Negative for vomiting. Negative for heartburn. Negative for loss of appetite. Negative for blood in stool. Negative for loss of control with bowel movement. Genitourinary: Negative for difficulty with urination, Negative for frequent urination, Negative for blood in urine, Negative for urinary incontinence, loss of control with urination. Endocrine/Hematoligic: Negative for bruising/bleeding easily. Negative for swollen lymph nodes. Psychiatric/Behavioral: Negative for depression, Negative for suicidal thoughts, Negative for insomnia, Negative for behavior changes, Negative for stress, Negative for nervousness. Musculoskeletal: Negative for joint pain, Negative for joint swelling, Negative for joint stiffness, Negative for restriction of joint movement, Negative for muscle weakness. Neurological: Negative for headaches. Negative for memory loss, Negative for seizures, Negative for numbness in extremities, Negative for incoordination, Negative for gait disturbance. Skin: Negative for rash, Negative for changes in moles, Negative for itching. ROS entered by: Vj Garay MA Greenlight Questionnaire GREENLIGHT Completed Date 10/19/2017 Urine Drug Screen Questionnaire URINE DRUG SCREEN Completed Date 10/19/2017 NA/OIC Questionnaire NA/OIC Completed Date 10/19/2017 Opioid Risk Tool Opiod Risk Tool Date Completed 10/19/2017 ALLERGIES Allergen Reactions - Clindamycin Hives Current Outpatient Prescriptions: benazepril (LOTENSIN) 5 mg tablet 1 tablet every am and 2 tablets every pm Disp: 90 tablet Rfl: 11 pravastatin (PRAVACHOL) 40 mg tablet Take 1 tablet by mouth once daily. Disp: 30 tablet Rfl: 11 Insulin Lispro, Human, (HUMALOG KWIKPEN) 100 unit/mL inpn INJECT 1 UNIT PER 5 GRAMS OF CARBOHYDRATES WITH EACH MEAL (TOTAL MAXIMUM DAILY DOSE IS 55 UNITS) Disp: 5 Pen Rfl: 11 FARXIGA 10 mg tab Take 1 tablet by mouth once daily. Disp: 30 tablet Rfl: 11 insulin degludec (TRESIBA FLEXTOUCH U-100) 100 unit/mL (3 mL) injection Inject 45 Units subcutaneously every 24 hours. Disp: 15 mL Rfl: 11 aspirin, enteric coated (ADULT LOW DOSE ASPIRIN) 81 mg EC tablet Take 81 mg by mouth once daily. Disp: Rfl: omeprazole (PRILOSEC) 20 mg capsule Take 1 capsule by mouth once daily. Disp: Rfl: 0 Multivitamin capsule Take 1 capsule by mouth once daily. Disp: Rfl: gabapentin (NEURONTIN) 300 mg capsule Take 1 capsule by mouth three times daily for 90 days. Disp: 90 capsule Rfl: 2 meloxicam (MOBIC) 15 mg tablet Take 1 tablet by mouth once daily. Disp: 30 tablet Rfl: 2 oxyCODONE-acetaminophen (PERCOCET) 7.5-325 mg tablet Take 1 tablet by mouth every 8 hours as needed for Pain (for pain.) for up to 30 days. Disp: 90 tablet Rfl: 0 methocarbamol (ROBAXIN) 750 mg tablet Disp: Rfl: ondansetron (ZOFRAN) 4 mg tablet Disp: Rfl: oxyCODONE ER (OXYCONTIN) 10 mg 12 hr tablet Disp: Rfl: orphenadrine ER (NORFLEX) 100 mg tablet Take 1 tablet by mouth twice daily. Disp: 60 tablet Rfl: 1 blood sugar diagnostic (ONETOUCH ULTRA TEST) test strip Use as instructed Disp: 1 Strip Rfl: 0 orphenadrine ER (NORFLEX) 100 mg tablet Take 1 tablet by mouth twice daily. Disp: 60 tablet Rfl: 0 docusate sodium (COLACE) 100 mg capsule Take 1 capsule by mouth twice daily. Disp: 60 capsule Rfl: 0 Insulin Tenmile, Disposable, (BEULAH PEN NEEDLE) 32 gauge x 5/32 ndle 5 injection(s) Subcutaneous Daily Disp: Rfl: No current facility-administered medications for this visit. 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 History Main Topics Smoking status: Never Smoker Smokeless status: Never Used Alcohol use: No Drug use: No Other Topics Concern Caffeine Concern Yes Comment:coffee 3 cups daily, and energy drinks Special Diet Yes Comment:Poor diet Exercise No Comment: Exercises 1-2 days/wk Social History Narrative No reported history Family History Problem Relation Age of Onset - Hyperlipidemia Mother - Ischemic Heart Disease Father - Diabetes Father - Heart Father - Hyperlipidemia Father - Hypertension Father - Hyperlipidemia Paternal Grandmother - Hypertension Paternal Grandmother - Stroke Paternal Grandmother - Diabetes mellitus [OTHER] Paternal Grandmother OBJECTIVE Vitals: BP 140/90 Pulse 86 Ht 175.3 cm (5' 9) Wt 108.9 kg (240 lb) BMI 35.44 kg/m2 General: Alert, cooperative, well appearing, and in no apparent distress. Musculoskeletal: The patient's gait is normal Back: Inspection of the back demonstrates there is no obvious deformity or misalignment. There is bony tenderness along the lumbar vertebrae, none along the sacroiliac joints. There is bilateral paraspinal muscle tenderness. Range of motion testing demonstrates limited due to pain with flexion, extension, side bending and rotation of the back. Strength is 5/5 in the lower extremity bilaterally. Sensation is mildly decreased throughout the right lower extremity. There is a positive right straight leg raise and femoral stretch test. The piriformis has normal flexibility and is non-tender. Skin: The skin is without jaundice. It is intact without pathologic lesions, erythema, vesicles, discharge or rash. Palpitation of the skin is normal without induration, subcutaneous nodules or tightening. Extremities: This is no clubbing, cyanosis or edema. Peripheral pulses are 2+. Return in about 4 weeks (around 11/16/2017). ASSESSMENT/PLAN: 1. Post laminectomy syndrome - ICD9: 722.80, ICD10: M96.1 (primary diagnosis) We discussed the natural history of this condition, differential diagnoses, and treatment options. Guidelines for activity were given. We discussed options for treatment including conservative care, medications with side effects and risks and benefits. The patient is doing well with the prescribed pain medications. The patient requests a refill today. Patient states medications provide adequate analgesia. The medications allow patient to maintain ADL's. There are no adverse effects from the medications and no aberrant behaviors are noted. Will refill his percocet today at a lower dose to use only for severe pain. Narcotic agreement signed today UDS performed in office today Will start gabapentin and Mobic to replace his Ibuprofen. He will follow up with Elsa in January for his 1 year surgical follow up. May consider SCS in the future if not having improvement after the 1 year surgery follow up. Will place C9 for EMG/NCV of bilateral lower extremities to evaluate nerve damage - PSYCHOLOGIC TESTING ADMIN BY COMPUTER - GABAPENTIN 300 MG CAPSULE - MELOXICAM 15 MG TABLET - OXYCODONE-ACETAMINOPHEN 7.5 MG-325 MG TABLET 2. Other chronic pain - ICD9: 338.29, ICD10: G89.29 - GABAPENTIN 300 MG CAPSULE - MELOXICAM 15 MG TABLET - OXYCODONE-ACETAMINOPHEN 7.5 MG-325 MG TABLET Lenore Flores MD CNOV Observed: 10/19/2017 Status: COMPLETED Source: [facility] 9:00 AM [facility] OTHER [facility] REPOSITORY Office Visit (AGSPINE3) JOSE ARGUETA ([id number]) 1980 M Date Time Provider Department 10/19/17 9:00 AM LENORE FLORES AGSPINE3 During your visit today, we recorded the following information about you: Pulse Blood pressure Weight Height 86/minute 140/90 108.9 kg 1.753 m Vj Garay MA 10/19/2017 9:01 AM Signed Review of Systems Constitutional: Negative for fatigue. Negative for fever. Negative for night sweats. Negative for weight gain. Negative for weight loss. HEENT: Negative for difficulty swallowing, Negative for headache, Negative for hearing loss, Negative for hoarseness, Negative for vision loss, Negative for glaucoma, and Negative for cataracts. Negative for blurred vision. Cardiovascular: Negative for chest pain. Negative for leg swelling. Negative for palpitations. Negative for tachycardia. Respiratory: Negative for cough. ?Negative for shortness of breath. Gastrointestinal: Negative for constipation, Negative for diarrhea, Negative for nausea, Negative for vomiting. Negative for heartburn. Negative for loss of appetite. Negative for blood in stool. Negative for loss of control with bowel movement. Genitourinary: Negative for difficulty with urination, Negative for frequent urination, Negative for blood in urine, Negative for urinary incontinence, loss of control with urination. Endocrine/Hematoligic: Negative for bruising/bleeding easily. Negative for swollen lymph nodes. Psychiatric/Behavioral: Negative for depression, Negative for suicidal thoughts, Negative for insomnia, Negative for behavior changes, Negative for stress, Negative for nervousness. Musculoskeletal: Negative for joint pain, Negative for joint swelling, Negative for joint stiffness, Negative for restriction of joint movement, Negative for muscle weakness. Neurological: Negative for headaches. Negative for memory loss, Negative for seizures, Negative for numbness in extremities, Negative for incoordination, Negative for gait disturbance. Skin: Negative for rash, Negative for changes in moles, Negative for itching. ROS entered by: NYLA Chance MD 10/19/2017 9:35 AM Signed Patient Name: Jose Argueta Patient : 1980 Patient Age: [age] year old CC: Patient presents with: Bwc (Worker's Comp): 05-26-10 SUBJECTIVE Patient presents complaining of a 8 year history of low back pain. The patient describes the pain as tender, shooting and achy 01/15 . The patient had a lifting injury at work that caused the back pain. The patient reports that it gradually developed and has progressively become more severe. He has pain numbness and tingling, without weakness radiating into the right lower extremity to the foot, which increased after surgery as well as the left lower extremity to the anterior thigh which is unchanged since surgery. He has tried stim, PT- last done 6 months ago, heat, massage, epidural injections and 3 surgeries ( most recent 01/2017) without relief. Pain is worse with standing, and bending or prolonged sitting. He has been taking Ibuprofen and tylenol. He previously saw Dr. Barnes who had him on Percocet which he took 1-3/day, last dose was last week. The patient denies any bowel or bladder dysfunction. The patient denies any chest pain or chest tightness. The constitutional, musculoskeletal, and neurological review of systems was negative unless otherwise noted. The patient's past medical history, allergies, medication list, social history, and family medical history were documented, updated, and reviewed in the chart. 04/2017 Lumbar x-ray RESULT: Lumbar spine 3 views, compared to 02/03/2017. ?Counting reference: ?Lumbosacral junction. ?For the purposes of this report, L5-S1 is considered the most caudal well formed disc space. Interval removal of floresita and drain in this patient who has had L4-5 anterior and posterior spinal fusion of posterior decompression. ? Hardware is intact without signs of loosening or failure. ?Soft tissue gas has resorbed. Curvature and alignment are preserved. Rounded 6 mm metallic density in the left upper quadrant overlies the colon on the frontal projection. ?It is not visualized on the lateral. 10/2015 Lumbar MRI IMPRESSION: Postoperative changes at the L4-L5 level as noted. ?Additionally, there is evidence of generalized disc bulging with a superimposed small left paracentral disc extrusion with caudal migration as discussed. ?This results in moderate left lateral recess stenosis with mild mass effect upon the left L5 nerve root. ? Correlate with radiculopathic symptoms. ?Mild to moderate overall central stenosis. ?Mild bilateral foraminal narrowing. Shallow broad right paracentral disc protrusion at L5-S1, with disc material contacting the S1 nerve root within its lateral recess. ?Minimal associated right S1 nerve root displacement. 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 No abnormal enhancement. ?No evidence of arachnoiditis. O[facility]RS website checked and validated. All prescriptions have been APPROPRIATELY filled. No suspicious activity was identified.- 10/19/2017 by Lenore Flores MD Nursing Notes: Vj Garay MA 10/19/2017 9:01 AM Signed Review of Systems Constitutional: Negative for fatigue. Negative for fever. Negative for night sweats. Negative for weight gain. Negative for weight loss. HEENT: Negative for difficulty swallowing, Negative for headache, Negative for hearing loss, Negative for hoarseness, Negative for vision loss, Negative for glaucoma, and Negative for cataracts. Negative for blurred vision. Cardiovascular: Negative for chest pain. Negative for leg swelling. Negative for palpitations. Negative for tachycardia. Respiratory: Negative for cough. ?Negative for shortness of breath. Gastrointestinal: Negative for constipation, Negative for diarrhea, Negative for nausea, Negative for vomiting. Negative for heartburn. Negative for loss of appetite. Negative for blood in stool. Negative for loss of control with bowel movement. Genitourinary: Negative for difficulty with urination, Negative for frequent urination, Negative for blood in urine, Negative for urinary incontinence, loss of control with urination. Endocrine/Hematoligic: Negative for bruising/bleeding easily. Negative for swollen lymph nodes. Psychiatric/Behavioral: Negative for depression, Negative for suicidal thoughts, Negative for insomnia, Negative for behavior changes, Negative for stress, Negative for nervousness. Musculoskeletal: Negative for joint pain, Negative for joint swelling, Negative for joint stiffness, Negative for restriction of joint movement, Negative for muscle weakness. Neurological: Negative for headaches. Negative for memory loss, Negative for seizures, Negative for numbness in extremities, Negative for incoordination, Negative for gait disturbance. Skin: Negative for rash, Negative for changes in moles, Negative for itching. ROS entered by: Vj Garay MA Greenlight Questionnaire GREENLIGHT Completed Date 10/19/2017 Urine Drug Screen Questionnaire URINE DRUG SCREEN Completed Date 10/19/2017 NA/OIC Questionnaire NA/OIC Completed Date 10/19/2017 Opioid Risk Tool Opiod Risk Tool Date Completed 10/19/2017 ALLERGIES Allergen Reactions - Clindamycin Hives Current Outpatient Prescriptions: benazepril (LOTENSIN) 5 mg tablet 1 tablet every am and 2 tablets every pm Disp: 90 tablet Rfl: 11 pravastatin (PRAVACHOL) 40 mg tablet Take 1 tablet by mouth once daily. Disp: 30 tablet Rfl: 11 Insulin Lispro, Human, (HUMALOG KWIKPEN) 100 unit/mL inpn INJECT 1 UNIT PER 5 GRAMS OF CARBOHYDRATES WITH EACH MEAL (TOTAL MAXIMUM DAILY DOSE IS 55 UNITS) Disp: 5 Pen Rfl: 11 FARXIGA 10 mg tab Take 1 tablet by mouth once daily. Disp: 30 tablet Rfl: 11 insulin degludec (TRESIBA FLEXTOUCH U-100) 100 unit/mL (3 mL) injection Inject 45 Units subcutaneously every 24 hours. Disp: 15 mL Rfl: 11 aspirin, enteric coated (ADULT LOW DOSE ASPIRIN) 81 mg EC tablet Take 81 mg by mouth once daily. Disp: Rfl: omeprazole (PRILOSEC) 20 mg capsule Take 1 capsule by mouth once daily. Disp: Rfl: 0 Multivitamin capsule Take 1 capsule by mouth once daily. Disp: Rfl: gabapentin (NEURONTIN) 300 mg capsule Take 1 capsule by mouth three times daily for 90 days. Disp: 90 capsule Rfl: 2 meloxicam (MOBIC) 15 mg tablet Take 1 tablet by mouth once daily. Disp: 30 tablet Rfl: 2 oxyCODONE-acetaminophen (PERCOCET) 7.5-325 mg tablet Take 1 tablet by mouth every 8 hours as needed for Pain (for pain.) for up to 30 days. Disp: 90 tablet Rfl: 0 methocarbamol (ROBAXIN) 750 mg tablet Disp: Rfl: ondansetron (ZOFRAN) 4 mg tablet Disp: Rfl: oxyCODONE ER (OXYCONTIN) 10 mg 12 hr tablet Disp: Rfl: orphenadrine ER (NORFLEX) 100 mg tablet Take 1 tablet by mouth twice daily. Disp: 60 tablet Rfl: 1 blood sugar diagnostic (ONETOUCH ULTRA TEST) test strip Use as instructed Disp: 1 Strip Rfl: 0 orphenadrine ER (NORFLEX) 100 mg tablet Take 1 tablet by mouth twice daily. Disp: 60 tablet Rfl: 0 docusate sodium (COLACE) 100 mg capsule Take 1 capsule by mouth twice daily. Disp: 60 capsule Rfl: 0 Insulin Tenmile, Disposable, (BEULAH PEN NEEDLE) 32 gauge x 5/32ANDquot; ndle 5 injection(s) Subcutaneous Daily Disp: Rfl: No current facility-administered medications for this visit. 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 History Main Topics Smoking status: Never Smoker Smokeless status: Never Used Alcohol use: No Drug use: No Other Topics Concern Caffeine Concern Yes Comment:coffee 3 cups daily, and energy drinks Special Diet Yes Comment:Poor diet Exercise No Comment: Exercises 1-2 days/wk Social History Narrative No reported history Family History Problem Relation Age of Onset - Hyperlipidemia Mother - Ischemic Heart Disease Father - Diabetes Father - Heart Father - Hyperlipidemia Father - Hypertension Father - Hyperlipidemia Paternal Grandmother - Hypertension Paternal Grandmother - Stroke Paternal Grandmother - Diabetes mellitus [OTHER] Paternal Grandmother OBJECTIVE Vitals: BP 140/90 Pulse 86 Ht 175.3 cm (5' 9ANDquot;) Wt 108.9 kg (240 lb) BMI 35.44 kg/m2 General: Alert, cooperative, well appearing, and in no apparent distress. Musculoskeletal: The patient's gait is normal Back: Inspection of the back demonstrates there is no obvious deformity or misalignment. There is bony tenderness along the lumbar vertebrae, none along the sacroiliac joints. There is bilateral paraspinal muscle tenderness. Range of motion testing demonstrates limited due to pain with flexion, extension, side bending and rotation of the back. Strength is 5/5 in the lower extremity bilaterally. Sensation is mildly decreased throughout the right lower extremity. There is a positive right straight leg raise and femoral stretch test. The piriformis has normal flexibility and is non-tender. Skin: The skin is without jaundice. It is intact without pathologic lesions, erythema, vesicles, discharge or rash. Palpitation of the skin is normal without induration, subcutaneous nodules or tightening. Extremities: This is no clubbing, cyanosis or edema. Peripheral pulses are 2+. Return in about 4 weeks (around 11/16/2017). ASSESSMENT/PLAN: 1. Post laminectomy syndrome - ICD9: 722.80, ICD10: M96.1 (primary diagnosis) We discussed the natural history of this condition, differential diagnoses, and treatment options. Guidelines for activity were given. We discussed options for treatment including conservative care, medications with side effects and risks and benefits. The patient is doing well with the prescribed pain medications. The patient requests a refill today. Patient states medications provide adequate analgesia. The medications allow patient to maintain ADL's. There are no adverse effects from the medications and no aberrant behaviors are noted. Will refill his percocet today at a lower dose to use only for severe pain. Narcotic agreement signed today UDS performed in office today Will start gabapentin and Mobic to replace his Ibuprofen. He will follow up with [facility] in January for his 1 year surgical follow up. May consider SCS in the future if not having improvement after the 1 year surgery follow up. Will place C9 for EMG/NCV of bilateral lower extremities to evaluate nerve damage - PSYCHOLOGIC TESTING ADMIN BY COMPUTER - GABAPENTIN 300 MG CAPSULE - MELOXICAM 15 MG TABLET - OXYCODONE-ACETAMINOPHEN 7.5 MG-325 MG TABLET 2. Other chronic pain - ICD9: 338.29, ICD10: G89.29 - GABAPENTIN 300 MG CAPSULE - MELOXICAM 15 MG TABLET - OXYCODONE-ACETAMINOPHEN 7.5 MG-325 MG TABLET MD Lenore White MD 10/19/2017 9:29 AM Signed Opioid Pain Medication Information Sheet Opioids are drugs that are used to treat cancer pain. They include morphine (MSContin, MSIR, Roxanol); oxycodone (Oxycontin, Roxicodone, Percocet); hydromorphone (Dilaudid, Exalgo); fentanyl (Duragesic); hydrocodone (Hysingla, Zohydro, [place], Vicodin); buprenorphine (Butrans, Buprenex); and methadone. There are two types of opioids: long-acting and short-acting. Long-acting opioids are also called extended-release (ER) or controlled-release (CR). This means that the medication is slowly released over an 8- to 12-hour period or longer. Examples of these include MSContin and Oxycontin. These drugs are taken on a regular schedule to control pain. DO NOT BREAK OR CRUSH THESE TABLETS. Long-acting opioids also come in patch form (Fentanyl, buprenorphine). Opioid patches are strong drugs and should not be used for mild or occasional pain, or for pain from surgery. ? Do not use patches that are damaged or cut. ? You can shower and bathe with the patch in place. ? Do not expose the skin patch to heat (for example: hot tub, heating pad, sauna, electric blanket, heat lamps). Heat increases the amount of drug you absorb through your skin and may cause harmful effects. ? When removing the patch, fold it in half, sticky side in, and flush it down the toilet. Short-acting opioids are also called immediate-release. They usually take effect within an hour, and provide pain relief for four hours. You take short-acting opioids if your pain gets worse (5 on a scale of 1 to 10), which is called ANDquot;breakthroughANDquot; pain. DO NOT WAIT UNTIL THE PAIN BECOMES SEVERE TO TAKE YOUR MEDICATION. What are the side effects of opioids? Like most drugs, opioids have side effects. The most common are nausea, vomiting, itching, and sleepiness. These side effects should go away in three to seven days as your body gets used to the medication. DO NOT DRIVE IF YOU FEEL DROWSY OR SLEEPY. All opioids cause constipation. Your caregiver will prescribe stool softeners and medicine to help prevent constipation. You can also do the following: ? Increase the amounts of fluids and fiber in your diet. ? Try to get more exercise and physical activity. ? Try to have a bowel movement around the same time each day to get your bowels to empty in a certain pattern. Can I become addicted to opioids? Addiction means that a person uses the drug to get ?high?, and cannot control the urge to take the drug. Taking medication for pain relief is NOT addiction. Your healthcare provider will discuss any concerns about becoming addicted to pain medications. Withdrawal If you stop taking your pain medication suddenly, you may develop withdrawal symptoms. These include flu-like symptoms, agitation, anxiety, abdominal cramping, nausea, and diarrhea. If you have stopped taking your pain medication for three days or more, do not start taking it again without talking to your healthcare provider. Overdose Combining opioids with alcohol or sedating pills (which make you sleepy) increases the risk of overdose. Symptoms of overdose include extreme sleepiness, slurred speech, and slow breathing (breathing may also stop). Call 911 or your local emergency service if you think you may have overdosed. Call 911 or your local emergency service if: ? You took too much medicine. ? You have trouble breathing and/or shortness of breath. ? A child accidentally took the medication. Call your healthcare provider if: ? Your pain is not being controlled with the dose that you are taking. ? You are having side effects. Other important information: ? Take your medicine exactly as prescribed. ? Only one healthcare provider should prescribe your pain medications. ? Make follow-up appointments with your healthcare provider. ? Keep medication away from children and store them in a safe place. ? Do not share your medications with anyone. ? Do not take medications that have not been prescribed for you. ? Do not stop taking your medication without talking to your healthcare provider. ? Do not drink alcohol while taking this medication. How do I dispose of opioids? DO NOT THROW UNUSED MEDICATION IN THE TRASH. You should return these medications through a take-back program or to a collection box or mail-back program authorized by the Drug Enforcement Administration. Authorized collection sites include retail pharmacies, hospital or clinic pharmacies, and law enforcement locations. This website provides a list of locations where you can safely dispose of opioids: https://www.deadiversion.[employer].gov/pubdispsearch If a take-back program is not available, flush unused medicines down the toilet or sink. Referring Provider: MASTER BARNES JR ([facility]) [[id number]] Allergies As of Date: 10/19/2017 Noted Allergy Reaction CLINDAMYCIN 03/29/2016 4 - Hives Date Reviewed: 10/19/2017 Reviewed by: Lenore Flores - Fully Assessed Reason for Visit: [facility] (Worker's Comp) [[id number]] Cmt: 05-26-10 Primary Visit Diagnosis:Post laminectomy syndrome [M96.1] Other Visit Diagnosis:Other chronic pain [G89.29] Order(s):PSYCHOLOGIC TESTING ADMIN BY COMPUTER [[id number]] Order #: [id number] gabapentin (NEURONTIN) 300 mg capsuleTake 1 capsule by mouth three times daily for 90 days.Disp: 90 capsuleRfl: 2 meloxicam (MOBIC) 15 mg tabletTake 1 tablet by mouth once daily.Disp: 30 tabletRfl: 2 oxyCODONE-acetaminophen (PERCOCET) 7.5-325 mg tabletTake 1 tablet by mouth every 8 hours as needed for Pain (for pain.) for up to 30 days.Disp: 90 tabletRfl: 0 TOX SCREEN ROUT UR [SQUTOX2] Order #: [id number] PRE-CERT ORDER () [[id number]] Order #: [id number]: 1 Prescriptions as of 10/19/2017 Sig: BENAZEPRIL 5 MG TABLET 1 tablet every am and 2 table* PRAVASTATIN 40 MG TABLET Take 1 tablet by mouth once d* INSULIN LISPRO (U-100) 100 UN* INJECT 1 UNIT PER 5 GRAMS OF * FARXIGA 10 MG TABLET Take 1 tablet by mouth once d* INSULIN DEGLUDEC (U-100) 100 * Inject 45 Units subcutaneousl* ASPIRIN 81 MG TABLET,DELAYED * Take 81 mg by mouth once eliecer* OMEPRAZOLE 20 MG CAPSULE,JOSÉ ANTONIO* Take 1 capsule by mouth once * MULTIVITAMIN CAPSULE Take 1 capsule by mouth once * GABAPENTIN 300 MG CAPSULE Take 1 capsule by mouth three* MELOXICAM 15 MG TABLET Take 1 tablet by mouth once d* OXYCODONE-ACETAMINOPHEN 7.5 M* Take 1 tablet by mouth every * METHOCARBAMOL 750 MG TABLET ONDANSETRON HCL 4 MG TABLET OXYCODONE ER 10 MG TABLET,CRU* ORPHENADRINE CITRATE ER 100 M* Take 1 tablet by mouth twice * BLOOD SUGAR DIAGNOSTIC STRIPS Use as instructed ORPHENADRINE CITRATE ER 100 M* Take 1 tablet by mouth twice * DOCUSATE SODIUM 100 MG CAPSULE Take 1 capsule by mouth twice* PEN NEEDLE, DIABETIC 32 GAUGE* 5 injection(s) Subcutaneous D* Medication notes this encounter METHOCARBAMOL 750 MG TABLET >> Vj Garay MA 10/19/2017 8:57 AM >> MIRTHA GARAY MATANY TueOct 19, 2017 8:57 AM Patient states not taking ONDANSETRON HCL 4 MG TABLET >> Vj Garay MA 10/19/2017 8:57 AM >> ORALIA REDMOND VJ TueOct 19, 2017 8:57 AM Patient states not taking OXYCODONE ER 10 MG TABLET,CRUSH RESISTANT,EXTENDED RELEASE 12 HR >> Vj Garay MA 10/19/2017 8:57 AM >> VJ GARAY MA TueOct 19, 2017 8:57 AM Patient states not taking ORPHENADRINE CITRATE ER 100 MG TABLET,EXTENDED RELEASE >> Vj Garay MA 10/19/2017 8:57 AM >> YOSHI GARAY MAY TueOct 19, 2017 8:57 AM Patient states not taking OXYCODONE 10 MG TABLET >> Vj Garay MA 10/19/2017 8:58 AM >> VJ GARAY MA TueOct 19, 2017 8:58 AM Patient states not taking NUCYNTA 50 MG TABLET >> Vj Garay MA 10/19/2017 8:57 AM >> MIRTHA GARAY MATANY TueOct 19, 2017 8:57 AM Patient states not taking ORPHENADRINE CITRATE ER 100 MG TABLET,EXTENDED RELEASE >> Vj Garay MA 10/19/2017 8:57 AM >> VJ GARAY MA TueOct 19, 2017 8:57 AM Patient states not taking OXYCODONE-ACETAMINOPHEN 10 MG-325 MG TABLET >> Vj Garay MA 10/19/2017 8:58 AM >> VJ GARAY MA TueOct 19, 2017 8:58 AM Patient states not taking DOCUSATE SODIUM 100 MG CAPSULE >> Vj Garay MA 10/19/2017 8:56 AM >> VJ GARAY MA TueOct 19, 2017 8:56 AM Patient states not taking Problem List As Of Date 10/19/2017 Noted Resolved Herniation of intervertebral disc between L4 an*INVALID FOR* Priority: A More... Displacement of lumbar intervertebral disc with*INVALID FOR* Sprain of lumbar region [S33.5XXA] INVALID FOR* Type 1 diabetes mellitus [E10.9] Priority: B More... Vitamin D deficiency [E55.9] Hyperlipidemia [E78.5] HTN (hypertension) [I10] Priority: C More... Spondylolisthesis, lumbar region [M43.16] INVALID FOR* High cholesterol [E78.00] Post laminectomy syndrome [M96.1] INVALID FOR* Other instructions from your clinician: Opioid Pain Medication Information Sheet Opioids are drugs that are used to treat cancer pain. They include morphine (MSContin, MSIR, Roxanol); oxycodone (Oxycontin, Roxicodone, Percocet); hydromorphone (Dilaudid, Exalgo); fentanyl (Duragesic); hydrocodone (Hysingla, Zohydro, [place]kirk, Vicodin); buprenorphine (Butrans, Buprenex); and methadone. There are two types of opioids: long-acting and short-acting. Long-acting opioids are also called extended-release (ER) or controlled-release (CR). This means that the medication is slowly released over an 8- to 12-hour period or longer. Examples of these include MSContin and Oxycontin. These drugs are taken on a regular schedule to control pain. DO NOT BREAK OR CRUSH THESE TABLETS. Long-acting opioids also come in patch form (Fentanyl, buprenorphine). Opioid patches are strong drugs and should not be used for mild or occasional pain, or for pain from surgery. ? Do not use patches that are damaged or cut. ? You can shower and bathe with the patch in place. ? Do not expose the skin patch to heat (for example: hot tub, heating pad, sauna, electric blanket, heat lamps). Heat increases the amount of drug you absorb through your skin and may cause harmful effects. ? When removing the patch, fold it in half, sticky side in, and flush it down the toilet. Short-acting opioids are also called immediate-release. They usually take effect within an hour, and provide pain relief for four hours. You take short-acting opioids if your pain gets worse (5 on a scale of 1 to 10), which is called breakthrough pain. DO NOT WAIT UNTIL THE PAIN BECOMES SEVERE TO TAKE YOUR MEDICATION. What are the side effects of opioids? Like most drugs, opioids have side effects. The most common are nausea, vomiting, itching, and sleepiness. These side effects should go away in three to seven days as your body gets used to the medication. DO NOT DRIVE IF YOU FEEL DROWSY OR SLEEPY. All opioids cause constipation. Your caregiver will prescribe stool softeners and medicine to help prevent constipation. You can also do the following: ? Increase the amounts of fluids and fiber in your diet. ? Try to get more exercise and physical activity. ? Try to have a bowel movement around the same time each day to get your bowels to empty in a certain pattern. Can I become addicted to opioids? Addiction means that a person uses the drug to get ?high?, and cannot control the urge to take the drug. Taking medication for pain relief is NOT addiction. Your healthcare provider will discuss any concerns about becoming addicted to pain medications. Withdrawal If you stop taking your pain medication suddenly, you may develop withdrawal symptoms. These include flu-like symptoms, agitation, anxiety, abdominal cramping, nausea, and diarrhea. If you have stopped taking your pain medication for three days or more, do not start taking it again without talking to your healthcare provider. Overdose Combining opioids with alcohol or sedating pills (which make you sleepy) increases the risk of overdose. Symptoms of overdose include extreme sleepiness, slurred speech, and slow breathing (breathing may also stop). Call 911 or your local emergency service if you think you may have overdosed. Call 911 or your local emergency service if: ? You took too much medicine. ? You have trouble breathing and/or shortness of breath. ? A child accidentally took the medication. Call your healthcare provider if: ? Your pain is not being controlled with the dose that you are taking. ? You are having side effects. Other important information: ? Take your medicine exactly as prescribed. ? Only one healthcare provider should prescribe your pain medications. ? Make follow-up appointments with your healthcare provider. ? Keep medication away from children and store them in a safe place. ? Do not share your medications with anyone. ? Do not take medications that have not been prescribed for you. ? Do not stop taking your medication without talking to your healthcare provider. ? Do not drink alcohol while taking this medication. How do I dispose of opioids? DO NOT THROW UNUSED MEDICATION IN THE TRASH. You should return these medications through a take-back program or to a collection box or mail-back program authorized by the Drug Enforcement Administration. Authorized collection sites include retail pharmacies, hospital or clinic pharmacies, and law enforcement locations. This website provides a list of locations where you can safely dispose of opioids: https://www.deadiversion.[employer].gov/pubdispsearch If a take-back program is not available, flush unused medicines down the toilet or sink. Visit Notes: >> Vj Garay TueOct 19, 2017 8:58 AM Status: Signed Review of Systems Constitutional: Negative for fatigue. Negative for fever. Negative for night sweats. Negative for weight gain. Negative for weight loss. HEENT: Negative for difficulty swallowing, Negative for headache, Negative for hearing loss, Negative for hoarseness, Negative for vision loss, Negative for glaucoma, and Negative for cataracts. Negative for blurred vision. Cardiovascular: Negative for chest pain. Negative for leg swelling. Negative for palpitations. Negative for tachycardia. Respiratory: Negative for cough. ?Negative for shortness of breath. Gastrointestinal: Negative for constipation, Negative for diarrhea, Negative for nausea, Negative for vomiting. Negative for heartburn. Negative for loss of appetite. Negative for blood in stool. Negative for loss of control with bowel movement. Genitourinary: Negative for difficulty with urination, Negative for frequent urination, Negative for blood in urine, Negative for urinary incontinence, loss of control with urination. Endocrine/Hematoligic: Negative for bruising/bleeding easily. Negative for swollen lymph nodes. Psychiatric/Behavioral: Negative for depression, Negative for suicidal thoughts, Negative for insomnia, Negative for behavior changes, Negative for stress, Negative for nervousness. Musculoskeletal: Negative for joint pain, Negative for joint swelling, Negative for joint stiffness, Negative for restriction of joint movement, Negative for muscle weakness. Neurological: Negative for headaches. Negative for memory loss, Negative for seizures, Negative for numbness in extremities, Negative for incoordination, Negative for gait disturbance. Skin: Negative for rash, Negative for changes in moles, Negative for itching. ROS entered by: Vj Garay MA Work Status Form Employee Name: Jose Argueta Date of : 1980 SSN: [id number] Employer: (Not Specified) Diagnoses: (Not Specified) Medications: (Not Specified) WORK STATUS-INJURY AND TREATMENT INFORMATION Date of Injury: 05/26/2010 Work Related: Yes MMI: (Not Specified) PPI: (Not Specified) Recommended Treatment: (Not Specified) Equipment Needed: (Not Specified) Tests Needed: (Not Specified) Signature: Work Status Form Employee Name: Jose Argueta Date of : 1980 SSN: [id number] Employer: (Not Specified) WORK STATUS-WORK RESTRICTIONS (No Work Status Information Available) Signature: Prescriptions ordered this encounter Disp Refills Start End GABAPENTIN 300 MG CAPSULE 90 c* 2 10/19/2017 01/17/2018 Route: ORAL Sig: Take 1 capsule by mouth three times daily for 90 days. MELOXICAM 15 MG TABLET 30 t* 2 10/19/2017 01/17/2018 Route: ORAL Sig: Take 1 tablet by mouth once daily. OXYCODONE-ACETAMINOPHEN 7.5 MG-325 M* 90 t* 0 10/19/2017 11/18/2017 Class: Print RX Route: ORAL Sig: Take 1 tablet by mouth every 8 hours as needed for Pain (for pain.) for up to 30 days. Medications Discontinued During This Encounter oxyCODONE-acetaminophen (PERCOCET 10* 02/22/2017 10/19/2017 Class: Historical Med Si tablet every 6 hours as needed. Disc: Reason for discontinue is not on file. oxyCODONE IR (ROXICODONE) 10 mg tab 02/04/2017 10/19/2017 Class: Historical Med Sig: Disc: Reason for discontinue is not on file. NUCYNTA 50 mg tab 02/04/2017 10/19/2017 Class: Historical Med Sig: Disc: Reason for discontinue is not on file. Disposition: Return in about 4 weeks (around 11/16/2017). Follow-up and Disposition History Recorded Classic SmartForms filed during this visit: Work Status Encounter Status:Closed by LENORE FLORES MD on 10/19/17 [place] Observed: 10/19/2017 Status: COMPLETED Source: [facility] 12:00 AM CLINIC OTHER CAMPUS REPOSITORY Telephone (AGSPINE2) JOSE ARGUETA ([id number]) 1980 M Date Time Provider Department 10/19/17 LENORE FLORES During your visit today, we recorded the following information about you: Teto Armstrong 10/19/2017 12:25 PM Signed C9 submitted for EMG Bilateral Lower x 1 C23 for POR Teto Armstrong 10/21/2017 2:57 PM Signed 9 approved for EMG Bilateral Lower x 1 DX: S33.5XXA Start date: 10/19/17 End date: 12/19/17 Ref # [id number] Teto Armstrong Left message to schedule Unique Ferrera 10/27/2017 8:44 AM Signed Scheduled for 12.05.17 Unique Ferrera 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 Juan José Staples and Dr. Lenore Flores [facility] [phone] ext [phone] Allergies As of Date: 10/19/2017 Noted Allergy Reaction CLINDAMYCIN 03/29/2016 4 - Hives Date Reviewed: 10/19/2017 Reviewed by: Lenore Flores - Fully Assessed Reason for Visit: Bwc (Worker's Comp) [5366] Cmt: C9 APPROVED Reason For Visit History Recorded Prescriptions as of 10/19/2017 Sig: GABAPENTIN 300 MG CAPSULE Take 1 capsule by mouth three* MELOXICAM 15 MG TABLET Take 1 tablet by mouth once d* OXYCODONE-ACETAMINOPHEN 7.5 M* Take 1 tablet by mouth every * BENAZEPRIL 5 MG TABLET 1 tablet every am and 2 table* METHOCARBAMOL 750 MG TABLET ONDANSETRON HCL 4 MG TABLET OXYCODONE ER 10 MG TABLET,CRU* ORPHENADRINE CITRATE ER 100 M* Take 1 tablet by mouth twice * PRAVASTATIN 40 MG TABLET Take 1 tablet by mouth once d* INSULIN LISPRO (U-100) 100 UN* INJECT 1 UNIT PER 5 GRAMS OF * BLOOD SUGAR DIAGNOSTIC STRIPS Use as instructed ORPHENADRINE CITRATE ER 100 M* Take 1 tablet by mouth twice * FARXIGA 10 MG TABLET Take 1 tablet by mouth once d* DOCUSATE SODIUM 100 MG CAPSULE Take 1 capsule by mouth twice* INSULIN DEGLUDEC (U-100) 100 * Inject 45 Units subcutaneousl* PEN NEEDLE, DIABETIC 32 GAUGE* 5 injection(s) Subcutaneous D* ASPIRIN 81 MG TABLET,DELAYED * Take 81 mg by mouth once eliecer* OMEPRAZOLE 20 MG CAPSULE,JOSÉ ANTONIO* Take 1 capsule by mouth once * MULTIVITAMIN CAPSULE Take 1 capsule by mouth once * Problem List As Of Date 10/19/2017 Noted Resolved Herniation of intervertebral disc between L4 an*INVALID FOR* Priority: A More... Displacement of lumbar intervertebral disc with*INVALID FOR* Sprain of lumbar region [S33.5XXA] INVALID FOR* Type 1 diabetes mellitus [E10.9] Priority: B More... Vitamin D deficiency [E55.9] Hyperlipidemia [E78.5] HTN (hypertension) [I10] Priority: C More... Spondylolisthesis, lumbar region [M43.16] INVALID FOR* High cholesterol [E78.00] Post laminectomy syndrome [M96.1] INVALID FOR* Encounter Status:Closed by TETO ARMSTRONG on 10/19/17 [place] Observed: 10/19/2017 Status: COMPLETED Source: RINGLE 12:00 AM CLINIC OTHER CAMPUS REPOSITORY Telephone (AGSPINE3) JOES ARGUETA ([id number]) 1980 M Date Time Provider Department 10/19/17 LENORE FLORES3 During your visit today, we recorded the following information about you: Philomena Childs 10/19/2017 3:32 PM Signed Request has been submitted to [facility] Fax clinicals Philomena Childs 10/25/2017 8:31 AM Signed Received fax notification from [facility] in regards to EMG/NCV Bilateral LE request has been determined There is no precert needed per [facility] Covered benefit for EMG/NCV. Reference #: Maude Nagel [id number] CPT: 33744,04837 Dx: M96.1 Philomena Ferrera 10/25/2017 8:45 AM Signed Left brief message on home voicemail stating to call the office to schedule EMG with Dr. Lenore Flores in [place]. Unique Desaiuber 10/27/2017 8:43 AM Signed This should not have went to his medical insurance, Approved under [facility]. 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 Juan José Staples and Dr. Lenore Flores [facility] [phone] ext [phone] Allergies As of Date: 10/19/2017 Noted Allergy Reaction CLINDAMYCIN 03/29/2016 4 - Hives Date Reviewed: 10/19/2017 Reviewed by: Lenore Flores - Fully Assessed Reason for Visit: Insurance Authorization [1693] Cmt: EMG/NCV BILATERAL LE Prescriptions as of 10/19/2017 Sig: GABAPENTIN 300 MG CAPSULE Take 1 capsule by mouth three* MELOXICAM 15 MG TABLET Take 1 tablet by mouth once d* OXYCODONE-ACETAMINOPHEN 7.5 M* Take 1 tablet by mouth every * BENAZEPRIL 5 MG TABLET 1 tablet every am and 2 table* METHOCARBAMOL 750 MG TABLET ONDANSETRON HCL 4 MG TABLET OXYCODONE ER 10 MG TABLET,CRU* ORPHENADRINE CITRATE ER 100 M* Take 1 tablet by mouth twice * PRAVASTATIN 40 MG TABLET Take 1 tablet by mouth once d* INSULIN LISPRO (U-100) 100 UN* INJECT 1 UNIT PER 5 GRAMS OF * BLOOD SUGAR DIAGNOSTIC STRIPS Use as instructed ORPHENADRINE CITRATE ER 100 M* Take 1 tablet by mouth twice * FARXIGA 10 MG TABLET Take 1 tablet by mouth once d* DOCUSATE SODIUM 100 MG CAPSULE Take 1 capsule by mouth twice* INSULIN DEGLUDEC (U-100) 100 * Inject 45 Units subcutaneousl* PEN NEEDLE, DIABETIC 32 GAUGE* 5 injection(s) Subcutaneous D* ASPIRIN 81 MG TABLET,DELAYED * Take 81 mg by mouth once eliecer* OMEPRAZOLE 20 MG CAPSULE,JOSÉ ANTONIO* Take 1 capsule by mouth once * MULTIVITAMIN CAPSULE Take 1 capsule by mouth once * Problem List As Of Date 10/19/2017 Noted Resolved Herniation of intervertebral disc between L4 an*INVALID FOR* Priority: A More... Displacement of lumbar intervertebral disc with*INVALID FOR* Sprain of lumbar region [S33.5XXA] INVALID FOR* Type 1 diabetes mellitus [E10.9] Priority: B More... Vitamin D deficiency [E55.9] Hyperlipidemia [E78.5] HTN (hypertension) [I10] Priority: C More... Spondylolisthesis, lumbar region [M43.16] INVALID FOR* High cholesterol [E78.00] Post laminectomy syndrome [M96.1] INVALID FOR* Encounter Status:Closed by PHILOMENA CHILDS on 10/19/17 CNCO Observed: 09/19/2017 Status: COMPLETED Source: RINGLE 12:00 AM CLINIC OTHER CAMPUS REPOSITORY Letter Text [facility] Lenore Flores MD WELCOME TO OUR PRACTICE Here at [facility], you will have access to physiatrists, interventional anestheslologists, chiropractors and physical therapists. We believe that combining specialties of these providers gives the patient the best possible care and quickest road to recovery. Enclosed you will find your paperwork, which must be completed prior to your appointment. Completing these forms before your appointment will expedite your check in process and help keep everyone on schedule. If all of your paperwork is not completed we reserve the right to reschedule your appointment. If you have any questions, please call our office and we'll be happy to assist you. Please bring the following information with you the day of your appointment: 1. Complete New Patient paperwork. Make sure the patient's name is on every page. 2. Your Insurance Cards, both primary and secondary 3. Photo Identification 4. Your co-payment 5. Copies of x-rays or MRI's on disc 6. A list of any and all medication including over the counter Please remember that an appointment does not guarantee a prescription for controlled substances or that any medications will be prescribed to you. At your new patient visit you will be required to do a psychological assessment, which will be performed on an iPad. Your appointment is scheduled with Dr. Lenore Flores On 10/19/2017 at 9:00AM at [address] [address] . However, you MUST arrive at our office for processing no later than 8:30AM. If you do not arrive early for processing we reserve the right to reschedule your appointment. If you have any questions before or regarding your appointment, please call our office at [phone]. Sincerely, The Staff at [facility] ALLERGIES ALLERGIES DATE TYPE / CODE NAME / CODE REACTION SEVERITY SOURCE 03/29/2016 DRUG CLINDAMYCIN HIVES [facility] INGREDI/419 [facility] 035271(SNOM Repository ED CT) [id number] CLINDAMYCIN [place] [address](SNOMED [facility]) Repository ENCOUNTERS ENCOUNTERS ADMIT/DISCHARGE ACCOUNT NUMBER ADMITTING ENCOUNTER LOCATION SOURCE CLASS 08/22/2018 [id number] Ambulatory [facility] MEDICAL Repository CENTERBuildi ng:AGENDPOB 08/07/2018/08/07/[id number] Repository 08/07/2018/08/07/20 [id number] Ambulatory [address] MEDICAL Repository CENTERBuildi ng:SPBA 07/27/2018/07/27/20 [id number] MASTER DOW [address] Repository 07/21/2018 [id number] [facility] ding:LAB.FUT Repository URE 07/19/2018 [id number] [facility] ding:LAB.FUT Repository URE 07/10/2018/07/10/[id number] Repository 07/10/2018/07/10/20 [id number] Ambulatory [address] MEDICAL Repository CENTERBuildi ng:SPBA 06/14/2018 [id number] Ambulatory [facility] MEDICAL Repository CENTERBuildi ng:SPBA 06/12/2018/06/12/[id number] Repository 06/12/2018/06/12/20 [id number] Ambulatory [address] MEDICAL Repository CENTERBuildi ng:SPBA 06/10/2018 [id number] Ambulatory [facility] ding:US Repository 05/30/2018 [id number] Ambulatory [facility] ding:BFHLAB Repository 05/22/2018/05/22/20 [id number] Ambulatory [address] Other [place] Repository 05/22/2018/05/22/20 [id number] Ambulatory GILMARON Sarah [address] MEDICAL Repository CENTERBuildi ng:AKMRB 05/19/2018/05/19/20 [id number] Ambulatory [address] Other [place] Repository 05/19/2018/05/19/20 [id number] Ambulatory GILMARON Sarah [address] MEDICAL Repository CENTERBuildi ng:SPBA 04/19/2018/04/19/20 [id number] Ambulatory [address] Other [place] Repository 04/19/2018/04/19/20 [id number] Ambulatory GILMARON Sarah [address] MEDICAL Repository CENTERBuildi ng:SPBA 04/08/2018/04/08/20 [id number] Ambulatory [address] Other [place] Repository 04/08/2018/04/08/20 [id number] Ambulatory SARAH Yang [address] MEDICAL Repository CENTERBuildi ng:AKCTB 04/01/2018 [id number] Ambulatory SARAH Yang [facility] MEDICAL Repository CENTERBuildi ng:AKCTB 03/15/2018/03/17/20 [id number] Ambulatory [address] Main [place] Repository 03/15/2018/03/15/20 [id number] Ambulatory [address] Other [place] Repository 03/15/2018/03/15/20 [id number] Ambulatory AKRON Sarah [address] MEDICAL Repository CENTERBuildi ng:SPBA 02/13/2018/02/14/20 [id number] Ambulatory [address] Other [place] Repository 02/13/2018/02/14/20 [id number] Ambulatory AKRON Sarah [address] MEDICAL Repository CENTERBuildi ng:SPBA 02/02/2018/02/03/20 [id number] Ambulatory [address] Other [place] Repository 02/02/2018/02/03/20 [id number] Ambulatory AKRON aSrah [address] MEDICAL Repository CENTERBuildi ng:AKXRB 01/11/2018/01/12/20 [id number] Ambulatory [address] Other [place] Repository 01/11/2018/01/12/20 [id number] Ambulatory SARAH Yang [address] MEDICAL Repository PONYBuildi ng:SPBA 01/09/2018/01/10/20 [id number] Ambulatory [address] Other [place] Repository 01/09/2018/01/10/20 [id number] Ambulatory SARAH Yang [address] MEDICAL Repository PONYBuildi ng:AGENDPOB 12/14/2017/12/15/19 [id number] Ambulatory [address] Other [place] Repository 12/14/2017/12/15/19 [id number] Ambulatory SARAH Yang [address] MEDICAL Repository PONYBuildi ng:SPBA 12/05/2017/12/06/19 [id number] Ambulatory [address] Other [place] Repository 12/05/2017/12/06/19 [id number] Ambulatory SARAH Yang [address] MEDICAL Repository PONYBuildi ng:SPBA 11/16/2017/11/17/19 [id number] Ambulatory [address] Other [place] Repository 11/16/2017/11/17/19 [id number] Ambulatory SARAH Yang [address] [facility] 10/19/2017/10/20/19 [id number] Ambulatory [address] Other [place] Repository 10/19/2017/10/20/19 [id number] Ambulatory SARAH Yang [address] [facility]ICAL [facility] PAYERS PAYERS ENCOUNTER GUARANTOR PAYER SUBSCRIBER SOURCE 08/22/2018 JOSE Lombardo Primary SHANTANU HYSELLDOB: [facility] HYSELLDOB: Insurance:BLUE ACCESS [id number] [facility] PPOPolicy Number: Melani SALINAS [id number], [place]: [place] [address]Paw: (CT) 08/07/2018 JOSE Lombardo Primary Insurance:888 JOSE Lombardo [facility] HYSELLDOB: OHIOCOMPPolicy HYSELLDOB: Health System Number: [id number] Repository BRAD [id number] [facility], [place] Date: [address]Nwk: () 07/21/2018 JOSE FOURNIER HYSELLDOB: Kathy [id number] Insurance:[facility] [id number] Health Number: [employer] [place] [id number] Repository [address]Mvd: (330) Date:4040-38-96WP [phone] () [address] [place] [address]QE: 07/21/2018 Secondary NOT GIVENUNK Kathy Insurance:SELF PAY [facility] Number: Effective Repository Date:2018-07-20 07/19/2018 JOSE FOURNIER HYSELLDOB: [place] [id number] Insurance:[facility] [id number] Health Number: [employer] [place] [id number] Repository [address]Ylq: (330) Date:5737-09-90FS [phone] () [id number] [place] [address]XY: 07/19/2018 Secondary NOT GIVENUNK Kathy Insurance:SELF PAY [facility] Number: Effective Repository Date:2018-06-14 07/10/2018 JOSE ARGUETADOB: [facility] HYSELLDOB: Insurance:BLUE [facility] [id number] [facility] PPOPolicy Number: Repository BRAD [id number] [facility], [place] Date: [address]Pju: () 06/14/2018 JOSE FOURNIER HYSETRAVONDOB: [facility] HYSELLDOB: Insurance:[employer] [id number] [facility] PPOPolicy Number: Repository BRAD [id number] [place], [place] Date: [address]Gwu: (HP) 06/12/2018 JOSE FOURNIER HYSELLDOB: [facility] HYSELLDOB: Insurance:BLUE ACCESS [id number] Health System PPOPolicy Number: Repository BRAD [id number] [place], [place] Date: [address]Azt: () 06/10/2018 JOSE Lombardo Primary SHANTANU HYSELLDOB: Kathy [id number] Insurance:ANTHEMPolic [id number] y Number: [employer] [place] [id number] Repository [address]Bqq: (430) Date:6703-61-99LD [phone] () [address] [place] [address]ES: 06/10/2018 Secondary NOT GIVENUNK Kathy Insurance:SELF PAY [facility] Number: Effective Repository Date:2018-06-02 05/30/2018 JOSE [id number] Primary SHANTANU HYSELLDOB: [place] BUCKEYE Insurance:ANTHEMPolic [id number] y Number: Hospital [address]Wyn: (091) [id number] Repository [phone] () Date:9169-10-87UL [id number] [place] [address]YE: 05/30/2018 Secondary NOT GIVENUNK Kathy Insurance:SELF PAY [facility] Number: Effective Repository Date:2018-05-30 05/22/2018 JOSE Lombardo Primary Insurance:888 JOSE Lombardo [facility] HYSELLDOB: OHIOCOMPPolicy HYSELLDOB: Health System Number: [id number] Repository [place]DA[place] [id number]: [address]Kie: () 05/19/2018 JOSE Lombardo Primary SHANTANU HYSELLDOB: [facility] HYSELLDOB: Insurance:BLUE ACCESS [id number] [facility] PPOPolicy Number: Repository LINDAE [id number] [place], [place] Date: [address]Xls: (HP) 04/19/2018 JOSE R Primary Insurance:888 JOSE R [facility] HYSELLDOB: OHIOCOMPPolicy HYSELLDOB: Health System Number: [id number] Repository BUCKEYE [id number] [place], [place] Date: [address]Nth: (HP) 04/08/2018 JOSE R Primary Insurance:888 JOSE R [facility] HYSELLDOB: OHIOCOMPPolicy HYSELLDOB: Health System Number: [id number] Repository BUCKEYE [id number] [place], [place] Date: [address]Juu: (HP) 04/01/2018 JOSE R Primary Insurance:888 JOSE R [facility] HYSELLDOB: OHIOCOMPPolicy HYSELLDOB: Health System Number: [id number] Repository [place]KEY[place] [id number] [place], [place] Date: [address]Wea: (HP) 03/15/2018 JOSE R Primary Insurance:888 JOSE R [facility] HYSELLDOB: OHIOCOMPPolicy HYSELLDOB: Health System Number: [id number] Repository [place]KEY[place] [id number] [place], [place] Date: [address]Goo: (HP) 02/13/2018 JOSE R Primary Insurance:888 JOSE R [facility] HYSELLDOB: OHIOCOMPPolicy HYSELLDOB: Health System Number: [id number] Repository [place]KEY[place] [id number] [place], [place] Date: [address]Exl: (HP) 02/02/2018 JOSE R Primary Insurance:888 JOSE R [facility] HYSELLDOB: OHIOCOMPPolicy HYSELLDOB: Health System Number: [id number] Repository BUCKAMARILISE [id number] [place], [place] Date: [address]Kbw: (HP) 01/11/2018 JOSE Lombardo Primary Insurance:888 JOSE Lombardo [facility] HYSELLDOB: OHIOCOMPPolicy HYSELLDOB: Health System Number: [id number] Repository BU[place]AMARILISE [id number] [place], [place] Date: [address]Iou: (HP) 01/09/2018 JOSE R Primary SHANTANU HYSELLDOB: [facility] HYSELLDOB: Insurance:BLUE ACCESS [id number] Health System [facility] Number: Repository BRAD [id number] [place], [place] Date: [address]Wwv: (HP) 12/14/2017 JOSE R Primary Insurance:888 JOSE Lombardo [facility] HYSELLDOB: OHIOCOMPPolicy HYSELLDOB: Health System Number: [id number] Repository [place]KEY[place] [id number] [facility], Date: [place] [address]Kgg: (HP) 12/05/2017 JOSE R Primary Insurance:888 JOSE Lombardo [facility] HYSELLDOB: OHIOCOMPPolicy HYSELLDOB: Health System Number: [id number] Repository BUCKEYE [id number] [facility], Date: [place] [address]Pfm: (HP) 11/16/2017 JOSE R Primary Insurance:888 JOSE Lombardo [facility] HYSELLDOB: OHIOCOMPPolicy HYSELLDOB: Health System Number: [id number] Repository BUCKEYE [id number] [facility], Date: [place] [address]Nga: (HP) 10/19/2017 JOSE R Primary Insurance:888 JOSE Lombardo [facility] HYSELLDOB: OHIOCOMPPolicy HYSELLDOB: [facility] [id number] Number: [id number] [facility] [id number] [facility], Date: [address]Ywc: ()
== END ==
LOC: LAB.FUTURE 08:13 → BFHLAB 07-19 14:26
PROVIDERS: Family Provider Family Medicine; PCP Family Medicine; Visit Provider Family Medicine
DX: R74.8 Abnormal levels of other serum enzymes (principal)
CPT/HCPCS: 36415; 80076

== ENCOUNTER → 2018-07-21 08:08 | Outpatient (CLI) | payer BC, SELFPAY ==
[2018-07-21 14:02] LABS: Ferritin 28 ng/mL (26-388); Iron 67 ug/dL (65-175); Iron Binding Capacity,Total 397 ug/dL (250-450)
[2018-07-21 15:53] LABS: PERCENT IRON SATURATION 16.9 % (15.0-55.0)
[2018-07-24 11:33] LABS: HEPATITIS B SURFACE AG Negative (Negative); Hep C Antibodies 0.1 s/co ratio (0.0-0.9)
[2018-07-24 14:54] LABS: Anti-Centromere B Ab <0.2 AI (0.0-0.9); Anti-Chromatin <0.2 AI (0.0-0.9); Anti-Jo <0.2 AI (0.0-0.9); Anti-Scleroderma-70 AB <0.2 AI (0.0-0.9); RNP Ab <0.2 AI (0.0-0.9); SJOGREN'S Anti-SS-A test < 0.2 AI (0.0-0.9); SJOGREN'S Anti-SS-B test < 0.2 AI (0.0-0.9); Smith Ab <0.2 AI (0.0-0.9)
[2018-07-25 10:48] LABS: Anti-dsDNA Ab <1 IU/mL (0-9)
--- OUTSIDE RECORDS SUMMARY | 2018-09-05 19:44 | XMS RPT_ITS ---
:1980 Author Organization [place] Care Team Providers Name Role Phone LENORE FLORES Attending Unavailable HERMINIO RUBIO Referring Unavailable LENORE FLORES Attending Unavailable MASTER DOW Admitting Unavailable MASTER DOW Attending Unavailable LENORE FLORES Attending Unavailable LENORE FLORES Referring Unavailable WENDIE CALDERON (ANDREA-C) Referring Unavailable LENORE FLORES Attending Unavailable KALIN LOPEZ Referring Unavailable WENDIE CALDERON (ANDREA-C) Referring Unavailable KALIN LOPEZ Attending Unavailable LENORE FLORES Attending Unavailable LENORE FLORES Referring Unavailable LENORE FLORES Attending Unavailable LENORE FLORES Referring Unavailable LINA BHAGAT Attending Unavailable LINA BHAGAT Referring Unavailable LENORE FLORES Attending Unavailable GURAN, LENORE Referring Unavailable GURAN, LENORE Attending Unavailable GURAN, LENORE Attending Unavailable GURAN, LENORE Referring Unavailable GURAN, LENORE Attending Unavailable MASTER BARNES JR Referring Unavailable KALIN LOPEZ Attending Unavailable Ramiro, Herminio Attending Unavailable Ramiro, Herminio Attending Unavailable Ramiro, Herminio Referring Unavailable Ramiro, Herminio Primary Care Unavailable Ramiro, Herminio Attending Unavailable Ramiro, Herminio Primary Care Unavailable Ramiro, Herminio Attending Unavailable Ramiro, Herminio Primary Care Unavailable WENDIE CALDERON (ANDREA-C) Attending Unavailable WENDIE CALDERON (ANDREA-Bhanu) Referring Unavailable GURAN, LENORE Attending Unavailable RAMIRO, HERMINIO Primary Care Unavailable MASTER BARNES Referring Unavailable GURAN, LENORE Attending Unavailable GURAN, LENORE Referring Unavailable RAMIRO, HERMINIO Primary Care Unavailable MARK, LENORE Attending Unavailable IMCA Referring Unavailable RAMIRO, HERMINIO Primary Care Unavailable MARK, LENORE Attending Unavailable GURAN, LENORE Referring Unavailable RAMIRO, HERMINIO Primary Care Unavailable LINA BHAGAT Attending Unavailable MITCHA LINA Referring Unavailable RAMIRO, HERMINIO Primary Care Unavailable GURAN, LENORE Attending Unavailable GURAN, LENORE Referring Unavailable RAMIRO, HERMINIO Primary Care Unavailable LINA BHAGAT Attending Unavailable MITCHA LINA Referring Unavailable RAMIRO, HERMINIO Primary Care Unavailable MARK, LENORE Attending Unavailable IMCA Referring Unavailable RAMIRO, HERMINIO Primary Care Unavailable GURAN, LENORE Referring Unavailable RAMIRO, HERMINIO Primary Care Unavailable KALIN LOPEZ Attending Unavailable IMCA Referring Unavailable RAMIRO, HERMINIO Primary Care Unavailable KALIN LOPEZ Attending Unavailable IMCA Referring Unavailable RAMIRO, HERMINIO Primary Care Unavailable IMCA Referring Unavailable RAMIRO, HERMINIO Primary Care Unavailable IMCA Referring Unavailable RAMIRO, HERMINIO Primary Care Unavailable EFFIERAN, LENORE Attending Unavailable JOSEPH LOPEZN Referring Unavailable RAMIRO, HERMINIO Primary Care Unavailable IMCA Referring Unavailable RAMIRO, HERMINIO Primary Care Unavailable EFFIERAN, LENORE Attending Unavailable GURAN, LENORE Referring Unavailable RAMIRO, HERMINIO Primary Care Unavailable GURAN, LENORE Attending Unavailable GURAN, LENORE Referring Unavailable RAMIRO, HERMINIO Primary Care Unavailable MARK, LENORE Attending Unavailable RAMIRO, HERMINIO Referring Unavailable RAMIRO, HERMINIO Primary Care Unavailable EFFIERAN, LENORE Attending Unavailable IMCA Referring Unavailable RAMIRO, HERMINIO Primary Care Unavailable PROBLEMS PROBLEMS DATE TYPE CONDITION / CODE ATTENDING STATUS SOURCE 07/21/2018 Unknown R74.0 - Nonspecific Herminio Rubio Active [place] elevation of levels Community of transaminase and Hospital lactic acid Repository dehydrogenase [LDH] / R74.0(ICD-10) 07/19/2018 Unknown R74.8 - Abnormal Herminio uRbio Active [place] levels of other Community serum enzymes / Hospital R74.8(ICD-10) Repository 07/04/2018 Active Other intervertebral GURAN, Active [place] disc displacement, [facility] Other lumbar region / [place] M51.26(ICD-10) Repository 10/19/2017 Active Postlaminectomy GURAN, Active [facility] syndrome, not [facility] Other elsewhere classified [place] / M96.1(ICD-10) Repository 07/04/2018 Admitting Unknown / GURAN, Active [place] General diagnosis UNK(Unknown) [facility] Repository 05/31/2018 Unknown I10 - Essential Herminio Rubio Active [place] (primary) Community hypertension / Hospital I10(ICD-10) Repository 05/31/2018 Unknown E78.5 - Herminio Rubio Active [place] Hyperlipidemia, Community unspecified / Hospital E78.5(ICD-10) Repository 05/31/2018 Unknown E10.9 - Type 1 Herminio Rubio Active [place] diabetes mellitus Community without Hospital complications / Repository E10.9(ICD-10) 05/22/2018 Active Spinal stenosis, NA Active [facility] lumbar region Clinic Other without neurogenic [place] claudication / Repository M48.061(ICD-10) 04/08/2018 Active Arthrodesis status / NA Active [facility] Z98.1(ICD-10) Clinic Other [place] Repository 03/15/2018 Active Unknown / WENDIE CALDERON Active [place] UNK(Unknown) E (PA-C) Clinic Main [place] Repository 02/13/2018 Active Other intervertebral GURAN, Active [place] disc displacement, [facility] Other lumbosacral region / [place] M51.27(ICD-10) Repository 02/04/2017 Active Essential (primary) CILTEA, Active [place] hypertension / [facility] Other I10(ICD-10) [place] Repository 03/29/2016 Active Mixed hyperlipidemia CILTEA, Active [place] / E78.2(ICD-10) [facility] Other [place] Repository 03/29/2016 Active Vitamin D CILTEA, Active [place] deficiency, [facility] Other unspecified / [place] E55.9(ICD-10) Repository 01/09/2018 Active Type 1 diabetes CILTEA, Active [facility] mellitus without [facility] Other complications / [place] E10.9(ICD-10) Repository 12/05/2017 Active Sprain of ligaments MARK, Active [place] of lumbar spine, [facility] Other initial encounter / [place] S33.5XXA(ICD-10) Repository 10/19/2017 Active Other chronic pain / GURAN, Active [place] G89.29(ICD-10) [facility] Other [place] Repository PROCEDURES PROCEDURES No Procedure Records FoundRESULTS RESULTS PROGRESS Observed: 08/07/2018 Status: COMPLETED Source: [place] 9:10 AM [facility] OTHER [place] REPOSITORY HNO ID: [id number] Author: Lenore Flores Service: (none) Author Type: [...] driving increases his pain. He had LILI /20 with 4 days of leg pain relief. [...] is planning for surgery if approved by [facility]. Awaiting the additional diagnoses to his claim - GABAPENTIN 800 MG TABLET - OXYCODONE-ACETAMINOPHEN 7.5 MG-325 MG TABLET 2. Lumbosacral disc herniation - ICD9: 722.10, ICD10: M51.27 Due to increased pain with work and this limiting his ADL's I will take him off work at this point until his surgery. Paperwork filled out and sent to [facility]. - GABAPENTIN 800 MG TABLET - OXYCODONE-ACETAMINOPHEN 7.5 MG-325 MG TABLET 3. Herniation of intervertebral disc between L4 and L5 - ICD9: 722.10, ICD10: M51.26 - OXYCODONE-ACETAMINOPHEN 7.5 MG-325 MG TABLET Lenore Flores MD CNOV Observed: 08/07/2018 Status: COMPLETED Source: [place] 9:00 AM [facility] OTHER [place] REPOSITORY Office Visit (SPAGBA) JOSE ARGUETA ([id number]) 1980 M Date Time Provider Department 08/07/18 [...] is planning for surgery if approved by [facility]. Awaiting the additional diagnoses to his claim - GABAPENTIN 800 MG TABLET - OXYCODONE-ACETAMINOPHEN 7.5 MG-325 MG TABLET 2. Lumbosacral disc herniation - ICD9: 722.10, ICD10: M51.27 Due to increased pain with work and this limiting his ADL's I will take him off work at this point until his surgery. Paperwork filled out and sent to [facility]. - GABAPENTIN 800 MG TABLET [...] (Dilaudid, Exalgo); fentanyl (Duragesic); hydrocodone (Hysingla, Zohydro, [place], Vicodin); buprenorphine (Butrans, Buprenex); and methadone. There [...] where you can safely dispose of opioids: https://www.deadiversion.[facility] Solution[facility].gov/pubdispsearch If a take-back program is not available, flush unused medicines down the toilet or sink. Referring Provider: SELF [200] Allergies As of Date: 08/07/2018 Noted Allergy Reaction CLINDAMYCIN 03/29/2016 4 - Hives Date Reviewed: 08/07/2018 Reviewed by: Lenore Floers - Fully Assessed Reason for Visit: [facility] (Worker's Comp) [2714] Cmt: 10.19.10 Primary Visit Diagnosis:Post laminectomy syndrome [...] (Dilaudid, Exalgo); fentanyl (Duragesic); hydrocodone (Hysingla, Zohydro, [place], Vicodin); buprenorphine (Butrans, Buprenex); and methadone. There [...] where you can safely dispose of opioids: https://www.deadiversion.[facility] Solutionsj.gov/pubdispsearch If a take-back program is not available, [...] Jose Argueta Date of : 1980 SSN: [id number] Employer: (Not Specified) Diagnoses: (Not Specified) Medications: (Not Specified) WORK STATUS-INJURY AND TREATMENT INFORMATION Date of Injury: 05/26/2010 Work Related: Yes MMI: (Not Specified) PPI: (Not Specified) Recommended Treatment: (Not Specified) Equipment Needed: (Not Specified) Tests Needed: (Not Specified) Signature: Work Status Form Employee Name: Jose Argueta Date of : 1980 SSN: [id number] Employer: (Not Specified) WORK STATUS-WORK RESTRICTIONS (No [...] PT ED Observed: 07/27/2018 Status: COMPLETED Source: [place] 9:46 AM [facility] REPOSITORY HNO ID: [id number] Author: Shana Chandler) MARTINEZ Sims Service: Nursing [...] Signed By: Shana Sims RN In Department: [facility] SURGERY NURSING PROG Observed: 07/27/2018 Status: COMPLETED Source: [place] 9:38 AM [facility] REPOSITORY HNO ID: [id number] Author: Shana Chandler) MARTINEZ Sims Service: Nursing [...] Pt able to ambulate with steady gait. 0944 Pt discharged to home via wheelchair to car accomp by staff in stable cond. XR FLUOROSCOPY Observed: 07/27/2018 Status: F Source: [place] 9:25 AM [facility] REPOSITORY * * *Final Report* * * DATE OF EXAM: Jul 27 2018 9:25AM [facility] 5513 - XR FLUOROSCOPY / PROCEDURE [...] procedure note for details regarding this procedure. 3D Artist: PSCB Transcribe Date/Time: Jul 27 2018 9:26A Dictated by : LIANE AMBROSIO MD This examination was interpreted and the report reviewed and electronically signed by: LIANE AMBROSIO MD on Jul 27 2018 9:27AM EST [id number] OPERATIVE NO Observed: 07/27/2018 Status: COMPLETED Source: [place] 9:12 AM [facility] REPOSITORY HNO ID: [id number] Author: Master Dow Service: Pain Management Author [...] HISTORY PHYSICAL Observed: 07/27/2018 Status: COMPLETED Source: [place] 9:06 AM CLINIC OTHER CAMPUS REPOSITORY O ID: [id number] Author: Master Dow Service: Pain Management Author [...] PT ED Observed: 07/27/2018 Status: COMPLETED Source: [place] 7:50 AM CLINIC OTHER CAMPUS REPOSITORY HNO ID: [id number] Author: Megha (Rn) MARTINEZ Chowdhury Service: Nursing [...] Signed By: Megha Chowdhury RN In Department: [facility] SURGERY IRON BINDING Collected: 07/21/2018 Status: F Source: [facility] 8:10 AM [facility] REPOSITORY TYPE CODE TESTS RESULT OUT OF RANGE REFERENCE UNITS LAB L503.6075 250-450 ug/dL Normal TIBC 397 Performed By: #### L503.6075, L503.6150, L503.6550, L503.6030 #### [facility] [address] [place], [address] IRON Collected: 07/21/2018 Status: F Source: [place] 8:10 AM [facility] REPOSITORY TYPE CODE TESTS RESULT OUT OF RANGE REFERENCE UNITS LAB L503.6150 65-175 ug/dL Normal IRON 67 Performed By: #### L503.6075, L503.6150, L503.6550, L503.6030 #### [facility] [address] [place], [address] FERRITIN Collected: 07/21/2018 Status: F Source: [place] 8:10 AM [facility] REPOSITORY Order Comment: Comments: DR. PERALTA ORDERED WRONG TEST TYPE CODE TESTS RESULT OUT OF RANGE REFERENCE UNITS LAB L503.6550 26-388 ng/mL Normal FERRITIN 28 Performed By: #### L503.6075, L503.6150, L503.6550, L503.6030 #### [facility] [address] [place], [place], [address] IRON+IRON BINDING Collected: 07/21/2018 Status: F Source: [facility] 8:10 AM [facility] REPOSITORY Order Comment: Comments: DR. PERALTA ORDERED WRONG TEST TYPE CODE TESTS RESULT OUT OF RANGE REFERENCE UNITS LAB L503.6075 250-450 ug/dL TIBC Normal 397 LAB L503.6150 65-175 ug/dL IRON Normal 67 LAB L503.6250 15.0-55.0 % IRON Normal SATURATION 16.9 Performed By: #### L503.6075, L503.6150, L503.6550, L503.6030 #### [facility] [address] [place], [place], [id number] HEPATITIS B SURFACE Collected: 07/21/2018 Status: F Source: [facility] 8:10 AM [facility] REPOSITORY TYPE CODE TESTS RESULT OUT OF RANGE REFERENCE UNITS LAB L3100.0400 Negative Normal HB Negative SURF AG Result Comment: Performed at: - [facility] [id number] Inside Trucker: Filipe Nova PhD, Phone: [phone] Performed By: #### L3100.0390, L3100.0625 #### [facility] (refer to report for specific site) refer to report for address and phone number HEPATITIS C ANTIBODIES Collected: 07/21/2018 Status: F Source: [place] 8:10 AM [facility] REPOSITORY TYPE CODE TESTS RESULT OUT OF RANGE REFERENCE UNITS LAB L3100.0650 0.0-0.9 s/co ratio Normal HEP C AB 0.1 Result Comment: Negative: < 0.8 Indeterminate: 0.8 - 0.9 Positive: > 0.9 The CDC recommends that a positive HCV antibody result be followed up with a HCV Nucleic Acid Amplification test (336706). Performed By: #### L3100.0390, L3100.0625 #### [facility] (refer to report for specific site) refer to report for address and phone number LIVIER COMPREHENSIVE PANEL Collected: 07/21/2018 Status: F Source: [place] 8:10 AM [facility] REPOSITORY TYPE CODE TESTS RESULT OUT OF [...] ANTISCLER Normal <0.2 LAB L3410.1200 0.0-0.9 AI SWIMMING COACH Ab Normal <0.2 LAB L3410.1300 0.0-0.9 AI [...] Sm (anti-[place]idan) SLE 15 - 30% --------- SWIMMING COACH Mixed Connective Tissue Disease 95% (U1 nRNP, SLE 30 - 50% anti-ribonucleoprotein) Polymyositis and/or Dermatomyositis 20% --------- Scl-70 (antiDNA Scleroderma (diffuse) 20 - 35% topoisomerase) Crest 13% --------- Pat-1 Polymyositis and/or Dermatomyositis 20 - 40% --------- Centromere B Scleroderma - Crest variant 80% Performed at: CB - [facility] [id number] Inside Trucker: Filipe Nova PhD, Phone: [phone] Performed By: #### L3100.5440 #### [facility] (refer to report for specific site) refer to report for address and phone number LIVER PROFILE Collected: 07/19/2018 Status: F Source: [place] 8:14 AM [facility] REPOSITORY TYPE CODE TESTS RESULT OUT OF [...] BILI 0.12 Performed By: #### L500.3400 #### [facility] [address] [place], [address] CNCO Observed: 07/12/2018 Status: COMPLETED Source: [place] 12:00 AM [facility] OTHER CAMPUS REPOSITORY Letter Text [facility] Endocrinology - [address], [address] [place] [address] Lina Bhagat M.D. July 12, 2018 Appointment [...] care) PROGRESS Observed: 07/10/2018 Status: COMPLETED Source: [place] 8:45 AM CLIN[facility] OTHER CAMPUS REPOSITORY HNO ID: [id number] Author: Lenore Flores Service: (none) Author Type: [...] and then fusion surgery if approved by [facility]. Will add to his claim [...] MD CNOV Observed: 07/10/2018 Status: COMPLETED Source: [place] 8:45 AM [facility] OTHER [place] REPOSITORY Office Visit (SPAGBA) JOSE ARGUETA ([id number]) 1980 M Date Time Provider Department 07/10/18 8:45 AM LENORE FLORES During your visit today, we recorded the following information about you: Pulse Blood pressure Weight Height 82/minute 180/100 117.9 kg 1.753 m Vj Garay MA 07/10/2018 8:44 AM Signed [...] and then fusion surgery if approved by [facility]. Will add to his claim [...] (Dilaudid, Exalgo); fentanyl (Duragesic); hydrocodone (Hysingla, Zohydro, [place], Vicodin); buprenorphine (Butrans, Buprenex); and methadone. There [...] where you can safely dispose of opioids: https://www.deadiversion.[facility].gov/pubdispsearch If a take-back program is not available, flush unused medicines down the toilet or sink. Lenore Flores MD 07/10/2018 9:07 AM Signed Addended by: LENORE FLORES MD on: 07/10/2018 09:07 AM Modules accepted: Orders Referring Provider: HERMINIO RUBIO [[id number]] Allergies As of Date: 07/10/2018 Noted Allergy Reaction CLINDAMYCIN 03/29/2016 4 - Hives Date Reviewed: 07/10/2018 Reviewed by: Lenore Flores - Fully Assessed Reason for Visit: Low Back Pain [126] Primary Visit Diagnosis:Post laminectomy syndrome [M96.1] Other Visit Diagnoses:Lumbosacral disc herniation [M51.27] Herniation of intervertebral disc between L4 and L5 [M51.26] Order(s):[facility] SCREEN [0620507] Order #: [id number] [START ON 07/15/2018] oxyCODONE-acetaminophen (PERCOCET) 7.5-325 mg [...] (Dilaudid, Exalgo); fentanyl (Duragesic); hydrocodone (Hysingla, Zohydro, [place], Vicodin); buprenorphine (Butrans, Buprenex); and methadone. There [...] where you can safely dispose of opioids: https://www.deadiversion.[facility].gov/pubdispsearch If a take-back program is not available, [...] 19 Letter Text [facility] Lenore Flores MD July 10, 2018 Re: [...] Flores MD (Signed electronically to expedite mailing) [address] [place] [address] Encounter Status:Closed by LENORE FLORES MD on 07/10/18 OBSOLETE Observed: 07/04/2018 Status: COMPLETED Source: [place] 12:00 AM [facility] OTHER CAMPUS REPOSITORY Refill (AGENDPOB) JOSE ARGUETA ([id number]) 1980 M Date Time Provider Department 07/04/18 LINA BHAGAT During your visit today, we recorded the following information about you: Jodie Ramírez 07/04/2018 9:32 AM Signed Pharmacy electronically requests the following refill(s) Pending Prescriptions Disp Refills BENAZEPRIL 5 MG TABLET 90 tablet 11 Sig: TAKE 1 TABLET BY MOUTH EVERY MORNING AND 2 TABLETS AT NIGHT COLE: Yes Jodie (Truck Rental Clerk) [place] Allergies As of Date: 07/04/2018 Noted [...] 07/04/18 HOSP Observed: 07/04/2018 Status: COMPLETED Source: [place] 12:00 AM [facility] OTHER CAMPUS REPOSITORY Patient:Jose Argueta MRN: <[id number]> Height:5' 9(1.753 m) Weight:260 lb (117.935 kg) [...] Jodie Hunter) Desiree Progress Notes ([facility]): Teto Armstrong 07/12/2018 7:58 AM Signed C9 submitted to add L4/5 postlaminectomy syndrome to claim as a flow through Teto Nathaniel PROGRESS Observed: 06/12/2018 Status: COMPLETED Source: [place] 3:13 PM [facility]IN[facility] OTHER CAMPUS REPOSITORY HNO ID: [id number] Author: Lenore Flores Service: (none) Author Type: [...] MD CNOV Observed: 06/12/2018 Status: COMPLETED Source: [place] 3:00 PM [facility] OTHER [place] REPOSITORY Office Visit (SPAGBA) JOSE ARGUETA ([id number]) 1980 M Date Time Provider Department 06/12/18 3:00 PM LENORE FLORES During your visit today, we recorded the following information about you: Pulse Respiration Blood pressure Weight 116/minute 16/minute 147/92 120.7 kg Height 1.753 m [facility]ell 06/12/2018 3:14 PM Signed Review of [...] (Dilaudid, Exalgo); fentanyl (Duragesic); hydrocodone (Hysingla, Zohydro, [place], Vicodin); buprenorphine (Butrans, Buprenex); and methadone. There [...] where you can safely dispose of opioids: https://www.deadiversion.[facility].gov/pubdispsearch If a take-back program is not available, flush unused medicines down the toilet or sink. Referring Provider: LENORE FLORES [[id number]] Allergies As of Date: 06/12/2018 Noted Allergy [...] (Dilaudid, Exalgo); fentanyl (Duragesic); hydrocodone (Hysingla, Zohydro, [place], Vicodin); buprenorphine (Butrans, Buprenex); and methadone. There [...] where you can safely dispose of opioids: https://www.deadiversion.[facility]so[facility] Solutions.gov/pubdispsearch If a take-back program is not available, [...] 06/12/18 [place] Observed: 06/12/2018 Status: COMPLETED Source: [place] 12:00 AM [facility] OTHER CAMPUS REPOSITORY Telephone ([employer]) JOSE ARGUETA ([id number]) 1980 M Date Time Provider Department 06/12/18 [...] ABDOMEN LIMITED Observed: 06/10/2018 Status: F Source: [place] 9:53 AM [facility] REPOSITORY [facility] Imaging Services [address] [place] [address] Abdomen Limited MR#: [id number] Acct: [id number] Name: JOSE ARGUETA Rep #: [id number] : 1980 M 37 From: Ludwin Hernandez MD PCP: Herminio Rubio MD Status: REG CLI Study: Abdomen Limited Date of Exam: 06/10/18 Exam# [id number] Ordering Dr: Herminio Rubio MD HISTORY: ELEVATED [...] Service support , CC: Herminio Rubio MD 3D Artist: Signed OBSOLETE Observed: 06/03/2018 Status: COMPLETED Source: [place] 12:00 AM [facility] OTHER [place] REPOSITORY Refill (AGSPINE3) JOSE ARGUETA ([id number]) 1980 M Date Time Provider Department 06/03/18 KALIN LOPEZ ([facility]) AGSPINE3 During your visit today, we recorded [...] 06/05/18 [place] Observed: 05/31/2018 Status: COMPLETED Source: [place] 12:00 AM [facility] REPOSITORY Telephone (SPUTMN) JOSE ARGUETA ([id number]) 1980 M Date Time Provider Department 05/31/18 [facility] During your visit today, we recorded the following information about you: Davina Calderon [facility] 05/31/2018 12:29 PM Signed Pt called stating [...] need to come in on 06/05? # [phone] Rebecca Knight 06/01/2018 9:08 AM Signed Informed [...] MENDEZ Next step is getting ok from [facility] to have the injection done. Allergies As of Date: 05/31/2018 Noted Allergy Reaction CLINDAMYCIN 03/29/2016 4 - Hives Date Reviewed: 05/19/2018 Reviewed by: Lenore Flores - Fully Assessed Reason for Visit: Question [9347] Primary Visit Diagnosis:Herniation of intervertebral disc between L4 and L5 [M51.26] Other Visit Diagnosis:Displacement of lumbar intervertebral disc without myelopathy [M51.26] Order(s):CONSULT TO SPINE INTERVENTION [[id number]] Order #: [id number]: 1 Prescriptions as of 05/31/2018 Sig: OXYCODONE-ACETAMINOPHEN [...] 05/30/2018 Status: F Source: [place] 2:42 PM [facility] REPOSITORY TYPE CODE TESTS RESULT OUT OF [...] Lymph 2.38 Performed By: #### L100.0100 #### [facility] [address] [place], [address] COMPREHENSIVE METABOLIC Collected: 05/30/2018 Status: F Source: [facility] 2:42 PM [facility] REPOSITORY TYPE CODE TESTS RESULT OUT OF [...] 11 Performed By: #### L500.4050, L501.9520 #### [facility] [address] [place], [place], [address] THYROID STIM HORMONE Collected: 05/30/2018 Status: F Source: [place] ([facility]) 2:42 PM [facility] REPOSITORY TYPE CODE TESTS RESULT OUT OF RANGE REFERENCE UNITS LAB L501.9520 0.358-3.74 uIU/mL Normal TSH 2.65 Performed By: #### L500.4050, L501.9520 #### [facility] [address] [place], [address] MRI LUMBAR SPINE W/O Observed: 05/22/2018 Status: F Source: [email or web address] [id number] 7:21 AM [facility] REPOSITORY Performed at [facility] APPROVED BY: Shyam Farfan MD EXAMINATION: MRI [...] vertebrae. CNOV Observed: 05/19/2018 Status: COMPLETED Source: [place] 8:15 AM [facility] REPOSITORY Office Visit (SPAGBA) JOSE ARGUETA ([id number]) 1980 M Date Time Provider Department 05/19/18 [...] 100 MG TABLET,EXTENDED RELEASE MD Loy White ([facility] 05/19/2018 8:18 AM Signed Review of [...] (Dilaudid, Exalgo); fentanyl (Duragesic); hydrocodone (Hysingla, Zohydro, [place], Vicodin); buprenorphine (Butrans, Buprenex); and methadone. There [...] where you can safely dispose of opioids: https://www.deadiversion.Qualaris Healthcare SolutionsSAFE ID Solutions.gov/pubdispsearch If a take-back program is not available, flush unused medicines down the toilet or sink. Referring Provider: KALIN LOPEZ ([facility]) [[id number]] Allergies As of Date: 05/19/2018 Noted Allergy [...] (Dilaudid, Exalgo); fentanyl (Duragesic); hydrocodone (Hysingla, Zohydro, [place], Vicodin); buprenorphine (Butrans, Buprenex); and methadone. There [...] where you can safely dispose of opioids: https://www.deadiversion.Qualaris Healthcare SolutionsoSAFE ID Solutions.gov/pubdispsearch If a take-back program is not available, [...] 05/19/18 PROGRESS Observed: 05/19/2018 Status: COMPLETED Source: [place] 8:04 AM [facility] OTHER CAMPUS REPOSITORY HNO ID: [id number] Author: Lenore Flores Service: (none) Author Type: [...] MD OBSOLETE Observed: 05/08/2018 Status: COMPLETED Source: [place] 12:00 AM [facility] OTHER [place] REPOSITORY Refill (SPAGBA) JOSE ARGUETA ([id number]) 1980 M Date Time Provider Department 05/08/18 KALIN LOPEZ ([facility]) SPAGBA During your visit today, we recorded the following information about you: Allergies As of Date: 05/08/2018 Noted Allergy Reaction CLINDAMYCIN 03/29/2016 4 - Hives Date Reviewed: 04/19/2018 Reviewed by: Loy ([facility]) Misti - Fully Assessed Reason for Visit: [...] 05/08/18 PROGRESS Observed: 04/19/2018 Status: COMPLETED Source: [place] 7:36 AM CLINIC OTHER CAMPUS REPOSITORY O ID: [id number] Author: Kalin Lopez Service: (none) Author Type: [...] up for low back pain through his [facility] claim. He had a lumbar [...] Patient Info Patient Name Sex Jose Jang ([id number]) Male 1980 04/13/2018 ?9:41 AM - Radiology, [place] In Results EXAMINATION: ?CT LUMBAR SPINE W/O CONTRAST ?57238 ? CLINICAL HISTORY: ?Follow-up microdiscectomy and lumbar [...] History CT LUMBAR SPINE WO IVCON (Order #[id number]) on 04/13/2018 - Order Result History Report Results Utility Worker Driver BRENT NIX Result Information Status Provider Status Final result (04/13/2018 ?9:39 AM) Ordered Exam Performed Date and Time 04/08/2018 10:38 AM Resulting Agency ? [facility] [address] [facility] [id number] ? ASSESSMENT/PLAN: 1. Post laminectomy syndrome - [...] TABLET - [facility] [employer] SCREEN Kalin Lopez APRN.SERVICER CNOV Observed: 04/19/2018 Status: COMPLETED Source: [place] 7:30 AM CLINIC OTHER CAMPUS REPOSITORY Office Visit (SPAGBA) JOSE ARGUETA ([id number]) 1980 M Date Time Provider Department 04/19/18 [...] up for low back pain through his [facility] claim. He had a lumbar [...] Patient Info Patient Name Sex Jose Jang ([id number]) Male 1980 04/13/2018 ?9:41 AM - Radiology, [place] In Results EXAMINATION: ?CT LUMBAR SPINE W/O CONTRAST ?89587 ? CLINICAL HISTORY: ?Follow-up microdiscectomy and lumbar [...] History CT LUMBAR SPINE WO IVCON (Order #[id number]) on 04/13/2018 - Order Result History Report Results Utility Worker Driver BRENT NIX Result Information Status Provider Status Final result (04/13/2018 ?9:39 AM) Ordered Exam Performed Date and Time 04/08/2018 10:38 AM Resulting Agency ? [facility] [address] [facility] [address] ? ASSESSMENT/PLAN: 1. Post laminectomy syndrome - [...] TABLET - [employer]IVA [employer] SCREEN Kalin Lopez APRN.SERVICER Referring Provider: SELF [200] Allergies As of Date: 04/19/2018 Noted Allergy Reaction CLINDAMYCIN 03/29/2016 4 - Hives Date Reviewed: 04/19/2018 Reviewed by: Loy ([facility]) Misti - Fully Assessed Reason for Visit: [...] 04/19/18Disp: 90 tabletRfl: 0 [facility] [employer] SCREEN [[id number]] Order #: [id number] Prescriptions as of 04/19/2018 Sig: OXYCODONE-ACETAMINOPHEN 7.5 [...] is not on file. Level of Service: [facility] PATIENT VISIT LEVEL 3 [[id number]] Disposition: Return in about 1 month (around 05/19/2018) for Low back pain. Follow-up and Disposition History Recorded Questionnaire: AG SPINE PAIN PILL COUNT MEDICATION NAME -> percocet STRENGTH -> 7.5 LAST FILL DATE -> 03/20/2018 DATE LAST DOSE TAKEN -> 04/18/18 QUANTITY FILLED -> 90 QUANTITY REMAINING -> 1 Encounter Status:Closed by KALIN LOPEZ CNP on 04/19/18 OBSOLETE Observed: 04/10/2018 Status: COMPLETED Source: [place] 12:00 AM CLINIC OTHER CAMPUS REPOSITORY Refill (SPAGBA) KENDALLJOSE ([id number]) 1980 M Date Time Provider Department 04/10/18 KALIN LOPEZ ([facility]) SPAGBA During your visit today, we recorded [...] SPINE W/O Observed: 04/08/2018 Status: F Source: [employer] CONTRAST [id number] 10:38 AM [facility]ALTH [facility] REPOSITORY Performed at [facility] APPROVED BY: BRENT NIX MD EXAMINATION: CT LUMBAR SPINE W/O CONTRAST [id number] CLINICAL HISTORY: Follow-up microdiscectomy and lumbar fusion [...] vertebrae. OBSOLETE Observed: 04/06/2018 Status: COMPLETED Source: [place] 12:00 AM [facility] OTHER [place] REPOSITORY Refill (MILESGBA) JOSE ARGUETA ([id number]) 1980 M Date Time Provider Department 04/06/18 [...] 04/06/18 PAVEL Observed: 03/15/2018 Status: COMPLETED Source: [place] 12:40 PM [facility] REPOSITORY Office Visit (SPNSMN) JOSE ARGUETA ([id number]) 1980 M Date Time Provider Department 03/15/18 [...] that PT was only recently approved with [facility] and he only started it [...] accepted: Orders Referring Provider: WENDIE CALDERON (FÉLIX) [[id number]] Allergies As of Date: 03/15/2018 Noted Allergy [...] present [M48.061] Order(s):CT LUMBAR SPINE WO IVCON [[id number]] Order #: [id number] FUTURE MRI LUMBAR SPINE WO IVCON [[id number]] Order #: [id number] FUTURE Prescriptions as of 03/15/2018 Sig: X [...] 03/16/18 PROGRESS Observed: 03/15/2018 Status: COMPLETED Source: [place] 8:35 AM [facility] REPOSITORY [facility] ID: [id number] Author: Wendie Calderon Service: (none) Author Type: Physician Software Validation Technician Type: Progress Notes Filed: 04/20/2018 8:09 AM Note Text: SPINE SURGERY FOLLOW UP SERVICE DATE: 03/15/2018 SURGERY: 02/01/17 ?L4-5 left sided facetectomy and instrumented interbody fusion (midlif) with neuronavigation ? Jose Argueta is seen for 11 week post operative follow up. Patient states that PT was only recently approved with [facility] and he only started it [...] PAGER: PROGRESS Observed: 03/15/2018 Status: COMPLETED Source: [place] 7:41 AM CLINIC OTHER CAMPUS REPOSITORY O ID: [id number] Author: Kalin Lopez Service: (none) Author Type: Nurse Practitioner Type: Progress Notes Filed: 03/15/2018 7:58 AM Note Text: Subjective Jose Argueta is a 37 year old male who presents today for a follow up for low back pain through his [facility] claim. He will be seeing [...] APRN.JARROD CNOV Observed: 03/15/2018 Status: COMPLETED Source: [place] 7:30 AM CLINIC OTHER CAMPUS REPOSITORY Office Visit (SPAGBA) JOSE ARGUETA ([id number]) 1980 M Date Time Provider Department 03/15/18 [...] (ex- walking) 4-5 times weekly. Kalin Lopez APRN.SERVICER 03/15/2018 7:58 AM Signed Subjective Jose Argueta is a 37 year old male who presents today for a follow up for low back pain through his [facility] claim. He will be seeing [...] ER 100 MG TABLET,EXTENDED RELEASE Kalin Lopez APRN.SERVICER Referring Provider: SELF [200] Allergies As of [...] is not on file. Level of Service: [facility] PATIENT VISIT LEVEL 3 [[id number]] Disposition: Return in about 1 month (around 04/15/2018) for Low back pain. Follow-up and Disposition History Recorded Questionnaire: AG SPINE PAIN PILL COUNT MEDICATION NAME -> percocet STRENGTH -> 7.5 LAST FILL DATE -> 02/17/2018 DATE LAST DOSE TAKEN -> 8. QUANTITY FILLED -> 90 QUANTITY REMAINING -> 11 Encounter Status:Closed by KALIN LOPEZ CNP on 03/15/18 OBSOLETE Observed: 03/07/2018 Status: COMPLETED Source: [place] 12:00 AM CLINIC OTHER CAMPUS REPOSITORY Refill (AGENDPOB) KENDALLJOSE ([id number]) 1980 M Date Time Provider Department 03/07/18 [...] 03/08/18 MADISON Observed: 02/16/2018 Status: COMPLETED Source: [place] 12:00 AM [facility] OTHER CAMPUS REPOSITORY Telephone (AGSPHWG) KENDALLJOSE ([id number]) 1980 M Date Time Provider Department 02/16/18 LENORE FLORES AGSPHWG During your visit today, we recorded the following information about you: Tonny Arellano [facility] 02/16/2018 11:28 AM Signed Patient called and stated that he needs PA for his pain medication. He will need it every time that he gets a pain medication from us. TASHA Arzate CMA 02/16/2018 3:04 PM Signed Patient called today to see if we had heard from his insurance company about his prior authorization, [facility] that we have not heard back. TASHA [...] already been approved from 01/17/18 to 01/17/19. CaseId:[id number]. I will call the pharmacy. Hyacinth Flores 02/17/2018 10:19 AM Signed Called [facility] and they stated in kept rejecting and they finally got a hold of [facility] and they told them it was rejecting because the PA done last month was submitted for 0 pills. I informed her that I may need to speak with [facility] [employer] because this is now the 4th patient [...] Fully Assessed Reason for Visit: Medication Authorization [[id number]] Prescriptions as of 02/16/2018 Sig: OXYCODONE-ACETAMINOPHEN 7.5 [...] 02/16/18 OBSOLETE Observed: 02/16/2018 Status: COMPLETED Source: [place] 12:00 AM CLINIC OTHER CAMPUS REPOSITORY Refill (AGENDPOB) KENDALLJOSE Munira ([id number]) 1980 M Date Time Provider Department 02/16/18 [...] 02/16/18 PROGRESS Observed: 02/13/2018 Status: COMPLETED Source: [place] 8:09 AM [facility] OTHER CAMPUS REPOSITORY O ID: [id number] Author: Lenore Flores Service: (none) Author Type: [...] MD CNOV Observed: 02/13/2018 Status: COMPLETED Source: [place] 8:00 AM [facility] OTHER [place] REPOSITORY Office Visit (SPAGBA) JOSE ARGUETA ([id number]) 1980 M Date Time Provider Department 02/13/18 [...] 7.5 MG-325 MG TABLET MD Loy White ([facility]) Misti 02/13/2018 8:21 AM Signed Review of [...] (Dilaudid, Exalgo); fentanyl (Duragesic); hydrocodone (Hysingla, Zohydro, [place], Vicodin); buprenorphine (Butrans, Buprenex); and methadone. There [...] where you can safely dispose of opioids: https://www.deadiversion.[facility] SolutionsoSAFE ID Solutions.gov/pubdispsearch If a take-back program is not available, flush unused medicines down the toilet or sink. Referring Provider: SELF [200] Allergies As of Date: 02/13/2018 Noted Allergy Reaction CLINDAMYCIN 03/29/2016 4 - Hives Date Reviewed: 02/13/2018 Reviewed by: Lenore Flroes - Fully Assessed Reason for Visit: Follow [...] (Dilaudid, Exalgo); fentanyl (Duragesic); hydrocodone (Hysingla, Zohydro, [place], Vicodin); buprenorphine (Butrans, Buprenex); and methadone. There [...] where you can safely dispose of opioids: https://www.deadiversion.[facility] SolutionsoSAFE ID Solutions.gov/pubdispsearch If a take-back program is not available, flush unused medicines down the toilet or sink. Visit Notes: >> Loy AnthonyL[facility] HospitalAvelina Corona Mon Feb 13, 2018 8:18 AM Status: [...] 02/13/18 OBSOLETE Observed: 02/07/2018 Status: COMPLETED Source: [place] 12:00 AM [facility] OTHER [place] REPOSITORY Refill (AGENDPOB) JOSE ARGUETA ([id number]) 1980 M Date Time Provider Department 02/07/18 [...] MOTION 4V Observed: 02/02/2018 Status: F Source: [place] AP/LAT/FLEX/EXT 10:07 AM [facility] Performed at [facility] APPROVED BY: Robbie Hong MD EXAM TITLE: [...] flexion/extension. CNPN Observed: 01/16/2018 Status: COMPLETED Source: [place] 12:00 AM [facility] OTHER [place] REPOSITORY Telephone (AGSPHWG) JOSE ARGUETA ([id number]) 1980 M Date Time Provider Department 01/16/18 [facility] During your visit today, we recorded the following information about you: Carter Hart CMA 01/16/2018 2:38 PM Signed Attempted to call patient to clarify what is needed to push forth with calling the pharmacy. Patient states that we was prescribed Percocet. The insurance will only cover seven days of the 90. He states that we need to notify [employer] for the patient to notify them that the prescription is for chronic pain so that he can have the rest of the prescription filled, and not have to pay $160. TASHA Damon 01/17/2018 9:21 AM Signed Patient called back in to check the status of this? Patient states that [employer] is the secondary company that his [employer] insurance goes through for prescriptions the pharamacy needs called so we can let them know that his condition is for chronic pain and they will override this for him to get the rest of his prescription. PLease advise 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 Juan José Staples and Dr. [facility] [phone] ext [phone] . Hyacinth Flores 01/17/2018 10:24 AM Signed PERCOCET has been SUBMITTED to [employer]. Hyacinth Flores 01/18/2018 4:14 PM Signed PERCOCET has been APPROVED. Date Span: 01/17/18 to 01/17/19 Ref# [id number] LMOM notifying patient. Hyacinth Flores Allergies As [...] 01/17/18 CNPN Observed: 01/12/2018 Status: COMPLETED Source: [place] 12:00 AM CLINIC OTHER CAMPUS REPOSITORY Telephone (AGSPINE3) JOSE ARGUETA ([id number]) 1980 M Date Time Provider Department 01/12/18 [...] [M51.27] Order(s):XR LUMBAR MOTION 4V AP/LAT/ FLEX/EXT [[id number]] Order #: [id number] FUTURE Prescriptions as of 01/12/2018 Sig: OXYCODONE-ACETAMINOPHEN [...] 01/12/18 OBSOLETE Observed: 01/12/2018 Status: COMPLETED Source: [place] 12:00 AM CLINIC OTHER CAMPUS REPOSITORY Refill (AGSPINE3) JOSE RAGUETA ([id number]) 1980 M Date Time Provider Department 01/12/18 [...] 02/23/18 PROGRESS Observed: 01/11/2018 Status: COMPLETED Source: [place] 8:17 AM CLINIC OTHER CAMPUS REPOSITORY O ID: [id number] Author: Lenore Flores Service: (none) Author Type: [...] MD CNOV Observed: 01/11/2018 Status: COMPLETED Source: [place] 8:15 AM CLINIC OTHER CAMPUS REPOSITORY Office Visit (SPAGBA) CELENAJOSE COOL ([id number]) 1980 M Date Time Provider Department 01/11/18 [...] 7.5 MG-325 MG TABLET MD Loy White ([facility] Chappell 01/11/2018 8:26 AM Signed Review of [...] (Dilaudid, Exalgo); fentanyl (Duragesic); hydrocodone (Hysingla, Zohydro, [place], Vicodin); buprenorphine (Butrans, Buprenex); and methadone. There [...] where you can safely dispose of opioids: https://www.deadiversion.Algae[employer].gov/pubdispsearch If a take-back program is not available, flush unused medicines down the toilet or sink. Referring Provider: LENORE FLORES [[id number]] Allergies As of Date: 01/11/2018 Noted Allergy [...] daily.Disp: 30 tabletRfl: 2 [facility] SCREEN [[id number]] Order #: [id number] Prescriptions as of 01/11/2018 Sig: EMPAGLIFLOZIN 25 [...] (Dilaudid, Exalgo); fentanyl (Duragesic); hydrocodone (Hysingla, Zohydro, [place], Vicodin); buprenorphine (Butrans, Buprenex); and methadone. There [...] where you can safely dispose of opioids: https://www.deadiversion.[facility] SolutionsoSAFE ID Solutions.gov/pubdispsearch If a take-back program is not available, [...] 01/11/18 M[place]ISON Observed: 01/11/2018 Status: COMPLETED Source: [place] 12:00 AM CLINIC OTHER CAMPUS REPOSITORY Telephone (SUZANNESpruceling) JOSE ARGUETA ([id number]) 1980 M Date Time Provider Department 01/11/18 [...] Jardiance will be considered. Please advise. Jodie [facility] HospitalAvelina Ramírez 01/11/2018 2:[address] Bhagat patient to try Tradjenta 5 mg daily instead of Metformin. Please d/c Metformin and add Tradjenta 5 mg daily. [facility]) Desiree Feliciano ([facility]rez 01/11/2018 2:23 PM Signed Left voice message for patient to disregard the Metformin prescription and instead take Tradjenta 5 mg tablet daily. Told him to call in a couple months to let us know how his blood sugars are doing on the Tradjenta. Told patient to call if any questions. [facility]) Desiree Allergies As of Date: 01/11/2018 Noted Allergy Reaction CLINDAMYCIN 03/29/2016 4 - Hives Date Reviewed: 01/11/2018 Reviewed by: Lenore Flores - Fully Assessed Reason for Visit: Patient Question [2427] Order(s):linagliptin (TRADJENTA) 5 mg tabTake 1 tablet [...] 08/23/18 PROGRESS Observed: 01/09/2018 Status: COMPLETED Source: [place] 1:41 PM CLINIC OTHER CAMPUS REPOSITORY O ID: [id number] Author: Lina Bhagat Service: (none) Author Type: [...] by mouth twice daily. blood sugar diagnostic (Teez.byTOUCH ULTRA TEST) test strip Use as instructed orphenadrine ER (NORFLEX) 100 mg tablet Take 1 tablet by mouth twice daily. docusate sodium (COLACE) 100 mg capsule Take 1 capsule by mouth twice daily. Insulin [place], Disposable, (BEULAH PEN NEEDLE) 32 gauge x [...] MD CNOV Observed: 01/09/2018 Status: COMPLETED Source: [place] 1:30 PM CLINIC OTHER CAMPUS REPOSITORY Office Visit (SUZANNENDPOB) JOSE ARGUETA ([id number]) 1980 M Date Time Provider Department 01/09/18 [...] 1 capsule by mouth twice daily. 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 Medications Discontinued During This Encounter Insulin [place], Disposable, (BEULAH P* 01/09/2018 Class: Historical Med [...] 01/09/18 MADISON Observed: 01/03/2018 Status: COMPLETED Source: [place] 12:00 AM CLINIC OTHER CAMPUS REPOSITORY Telephone (AGENDPOB) KENDALLJOSE ([id number]) 1980 M Date Time Provider Department 01/03/18 LINA BHAGAT During your visit today, we recorded the following information about you: Jodie Ramírez 01/03/2018 12:55 PM Signed Nicol is not on patient's formulary. Suggested alternatives are Janumet, Januvia or Tradjenta. Please review and advise. oJdie Bhagat MD 01/03/2018 1:31 PM Signed December [...] 01/03/18 CNOV Observed: 12/14/2017 Status: COMPLETED Source: [place] 8:00 AM CLINIC OTHER CAMPUS REPOSITORY Office Visit (SPAGBA) JOSE ARGUETA ([id number]) 1980 M Date Time Provider Department 12/14/17 [...] 60 tablet Rfl: 1 blood sugar diagnostic (Teez.byTOUCH ULTRA TEST) test strip Use as instructed [...] ) Disp: 60 capsule Rfl: 0 Insulin [place], Disposable, (BEULAH PEN NEEDLE) 32 gauge x [...] (Dilaudid, Exalgo); fentanyl (Duragesic); hydrocodone (Hysingla, Zohydro, [place], Vicodin); buprenorphine (Butrans, Buprenex); and methadone. There [...] where you can safely dispose of opioids: https://www.deadiversion.Algaeon.gov/pubdispsearch If a take-back program is not available, [...] Samira Chappell MA Referring Provider: LENORE FLORES [[id number]] Allergies As of Date: 12/14/2017 Noted Allergy [...] (Dilaudid, Exalgo); fentanyl (Duragesic); hydrocodone (Hysingla, Zohydro, [place], Vicodin); buprenorphine (Butrans, Buprenex); and methadone. There [...] where you can safely dispose of opioids: https://www.deadiversion.Qualaris Healthcare Solutionsoj.gov/pubdispsearch If a take-back program is not available, [...] 12/14/17 PROGRESS Observed: 12/14/2017 Status: COMPLETED Source: [place] 7:52 AM CLINIC OTHER CAMPUS REPOSITORY HNO ID: [id number] Author: Lenore Flores Service: (none) Author Type: [...] ) Disp: 60 capsule Rfl: 0 Insulin [place], Disposable, (BEULAH PEN NEEDLE) 32 gauge x [...] MD OBSOLETE Observed: 12/08/2017 Status: COMPLETED Source: [place] 12:00 AM CLINIC OTHER CAMPUS REPOSITORY Refill (RMPOJolene) JOSE ARGUETA ([id number]) 1980 M Date Time Provider Department 12/08/17 LINA BHAGAT During your visit today, we recorded the following information about you: Jodie Ramírez ([facility]) 12/09/2017 10:52 AM Signed Pharmacy electronically requests the following refill(s) Pending Prescriptions Disp Refills TRESIBA FLEXTOUCH U-100 INSULIN 100 UNIT/ML (3 ML) SUBCUTANEOUS PEN 15 mL 11 Sig: INJECT 45 UNITS SUBCUTANEOUSLY EVERY 24 HOURS. COLE: Yes Jodie (Truck Rental Clerk) [place] Allergies As of Date: 12/08/2017 Noted [...] 12/09/17 OBSOLETE Observed: 12/05/2017 Status: COMPLETED Source: [place] 10:45 AM CLINIC OTHER CAMPUS REPOSITORY Procedure (SPAGBA) KENDALLJOSE R ([id number]) 1980 M Date Time Provider Department 12/05/17 [...] , allergies and procedure being performed at [place] Patient is aware of potential risks and [...] Further, nerves are often tested in a owpe-iu-fzcs comparison, as well as, additional extremities and [...] Order(s):NEEDLE EMG EA EXTREMTY W/PARASPINL AREA COMPLETE [[id number]] Order #: [id number] MOTOR AND/SENS 7-8 NRV CNDJ PRECONF ELTRODE LIMB [[id number]] Order #: [id number] Prescriptions as of 12/05/2017 Sig: OXYCODONE-ACETAMINOPHEN 7.5 [...] Further, nerves are often tested in a tlvh-xh-vzxc comparison, as well as, additional extremities and [...] 12/05/17 PROCEDURE Observed: 12/05/2017 Status: COMPLETED Source: [place] 10:23 AM CLINIC OTHER CAMPUS REPOSITORY O ID: [id number] Author: Lenore Flores Service: (none) Author Type: Physician Type: Procedures Filed: 12/05/2017 11:24 AM Note Text: Patient Name: Jose Argueta Date: December 05, [...] , allergies and procedure being performed at [place] Patient is aware of potential risks and [...] MD PROGRESS Observed: 11/16/2017 Status: COMPLETED Source: [place] 8:51 AM CLINIC OTHER CAMPUS REPOSITORY HNO ID: [id number] Author: Lenore Flores Service: (none) Author Type: [...] 60 tablet Rfl: 1 blood sugar diagnostic (Teez.byTOUCH ULTRA TEST) test strip Use as instructed Disp: 1 Strip Rfl: 0 orphenadrine ER (NORFLEX) 100 mg tablet Take 1 tablet by mouth twice daily. Disp: 60 tablet Rfl: 0 docusate sodium (COLACE) 100 mg capsule Take 1 capsule by mouth twice daily. Disp: 60 capsule Rfl: 0 Insulin [place], Disposable, (BEULAH PEN NEEDLE) 32 gauge x [...] MD CNOV Observed: 11/16/2017 Status: COMPLETED Source: [place] 8:30 AM CLINIC OTHER CAMPUS REPOSITORY Office Visit ([facility]) JOSE ARGUETA ([id number]) 1980 M Date Time Provider Department 11/16/17 [...] for depression?and suicidal ideas. ROS entered by: NYAL Chance MD 11/16/2017 9:02 AM Signed Patient [...] 60 tablet Rfl: 1 blood sugar diagnostic (Teez.byTOUCH ULTRA TEST) test strip Use as instructed Disp: 1 Strip Rfl: 0 orphenadrine ER (NORFLEX) 100 mg tablet Take 1 tablet by mouth twice daily. Disp: 60 tablet Rfl: 0 docusate sodium (COLACE) 100 mg capsule Take 1 capsule by mouth twice daily. Disp: 60 capsule Rfl: 0 Insulin [place], Disposable, (BEULAH PEN NEEDLE) 32 gauge x [...] (Dilaudid, Exalgo); fentanyl (Duragesic); hydrocodone (Hysingla, Zohydro, [place], Vicodin); buprenorphine (Butrans, Buprenex); and methadone. There [...] where you can safely dispose of opioids: https://www.deadiversion.[facility] SolutionsSAFE ID Solutions.gov/pubdispsearch If a take-back program is not available, flush unused medicines down the toilet or sink. Referring Provider: LENORE FLORES [[id number]] Allergies As of Date: 11/16/2017 Noted Allergy Reaction CLINDAMYCIN 03/29/2016 4 - Hives Date Reviewed: 11/16/2017 Reviewed by: Lenore Flores - Fully Assessed Reason for Visit: [facility] (Worker's Comp) [413] Cmt: 10.19.10 Low Back Pain [126] Primary [...] (Dilaudid, Exalgo); fentanyl (Duragesic); hydrocodone (Hysingla, Zohydro, [place], Vicodin); buprenorphine (Butrans, Buprenex); and methadone. There [...] where you can safely dispose of opioids: https://www.deadiversion.Algaeon.gov/pubdispsearch If a take-back program is not available, [...] Jose Argueta Date of : 1980 SSN: [id number] Employer: (Not Specified) Diagnoses: (Not Specified) Medications: (Not Specified) WORK STATUS-INJURY AND TREATMENT INFORMATION Date of Injury: 05/26/2010 Work Related: Yes MMI: (Not Specified) PPI: (Not Specified) Recommended Treatment: (Not Specified) Equipment Needed: (Not Specified) Tests Needed: (Not Specified) Signature: Work Status Form Employee Name: Jose Argueta Date of : 1980 SSN: [id number] Employer: (Not Specified) WORK STATUS-WORK RESTRICTIONS (No [...] 11/16/17 MADISON Observed: 11/04/2017 Status: COMPLETED Source: [place] 12:00 AM [facility] OTHER CAMPUS REPOSITORY Telephone (AGSPINE2) CELENAJOSE COOL ([id number]) 1980 M Date Time Provider Department 11/04/17 [...] Assessed Reason for Visit: Bwc (Worker's Comp) [7746] Cmt: UDS APPROVED Reason For Visit History [...] 11/04/17 PROGRESS Observed: 10/19/2017 Status: COMPLETED Source: [facility] 9:03 AM [facility] OTHER CAMPUS REPOSITORY HNO ID: [id number] Author: Lenore Flores Service: (none) Author Type: [...] daily. Disp: 60 capsule Rfl: 0 Insulin [place], Disposable, (BEULAH PEN NEEDLE) 32 gauge x [...] MD CNOV Observed: 10/19/2017 Status: COMPLETED Source: [facility] 9:00 AM CLINIC OTHER CAMPUS REPOSITORY Office Visit (AGSPINE3) JOSE ARGUETA ([id number]) 1980 M Date Time Provider Department 10/19/17 9:00 AM ELNORE FLORES AGSPINE3 During your visit today, we [...] daily. Disp: 60 capsule Rfl: 0 Insulin [place], Disposable, (BEULAH PEN NEEDLE) 32 gauge x [...] (Dilaudid, Exalgo); fentanyl (Duragesic); hydrocodone (Hysingla, Zohydro, [place], Vicodin); buprenorphine (Butrans, Buprenex); and methadone. There [...] where you can safely dispose of opioids: https://www.deadiversion.[facility] Solutionsoj.gov/pubdispsearch If a take-back program is not available, flush unused medicines down the toilet or sink. Referring Provider: MASTER BARNES JR ([facility]) [[id number]] Allergies As of Date: 10/19/2017 Noted Allergy Reaction CLINDAMYCIN 03/29/2016 4 - Hives Date Reviewed: 10/19/2017 Reviewed by: Lenore Flores - Fully Assessed Reason for Visit: [facility] (Worker's Comp) [4136] Cmt: 05-26-10 Primary Visit Diagnosis:Post laminectomy syndrome [M96.1] Other Visit Diagnosis:Other chronic pain [G89.29] Order(s):PSYCHOLOGIC TESTING ADMIN BY COMPUTER [45174CGB] Order #: [id number] gabapentin (NEURONTIN) 300 mg capsuleTake 1 capsule [...] TOX SCREEN ROUT UR [SQUTOX2] Order #: [id number] PRE-CERT ORDER () [8455127] Order #: [id number]: 1 Prescriptions as of 10/19/2017 Sig: BENAZEPRIL [...] (Dilaudid, Exalgo); fentanyl (Duragesic); hydrocodone (Hysingla, Zohydro, [place], Vicodin); buprenorphine (Butrans, Buprenex); and methadone. There [...] where you can safely dispose of opioids: https://www.deadiversion.[facility] SolutionsSAFE ID Solutions.gov/pubdispsearch If a take-back program is not available, [...] Jose Argueta Date of : 1980 SSN: [id number] Employer: (Not Specified) Diagnoses: (Not Specified) Medications: (Not Specified) WORK STATUS-INJURY AND TREATMENT INFORMATION Date of Injury: 05/26/2010 Work Related: Yes MMI: (Not Specified) PPI: (Not Specified) Recommended Treatment: (Not Specified) Equipment Needed: (Not Specified) Tests Needed: (Not Specified) Signature: Work Status Form Employee Name: Jose Argueta Date of : 1980 SSN: [id number] Employer: (Not Specified) WORK STATUS-WORK RESTRICTIONS (No [...] 10/19/17 MADISON Observed: 10/19/2017 Status: COMPLETED Source: [facility] 12:00 AM [facility] OTHER CAMPUS REPOSITORY Telephone (AGSPINE2) JOSE ARGUETA ([id number]) 1980 M Date Time Provider Department 10/19/17 LENORE FLORES During your visit today, we recorded the following information about you: Teto Armstrong 10/19/2017 12:25 PM Signed C9 submitted for EMG Bilateral Lower x 1 C23 for POR Teto Armstrong 10/21/2017 2:57 PM Signed 9 approved for EMG Bilateral Lower x 1 DX: S33.5XXA Start date: 10/19/17 End date: 12/19/17 Ref # [id number] Teto Armstrong Left message to schedule Unique Ferrera 10/27/2017 8:44 AM Signed Scheduled for 12.05.17 Unique Ferrera 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 Juan José Staples and Dr. Lenore Flores [facility] [phone] ext [phone] Allergies As of Date: 10/19/2017 Noted Allergy Reaction CLINDAMYCIN 03/29/2016 4 - Hives Date Reviewed: 10/19/2017 Reviewed by: Lenore Flores - Fully Assessed Reason for Visit: Bwc (Worker's Comp) [9106] Cmt: C9 APPROVED Reason For Visit History [...] 10/19/17 MADISON Observed: 10/19/2017 Status: COMPLETED Source: [facility] 12:00 AM CLINIC OTHER CAMPUS REPOSITORY Telephone (AGSPINE3) JOSE ARGUETA ([id number]) 1980 M Date Time Provider Department 10/19/17 LENORE FLORES3 During your visit today, we recorded the following information about you: Philomena Childs 10/19/2017 3:32 PM Signed Request has been submitted to [facility] Fax clinicals Philomena Childs 10/25/2017 8:31 AM Signed Received fax notification from [facility] in regards to EMG/NCV Bilateral LE request has been determined There is no precert needed per [facility] Covered benefit for EMG/NCV. Reference #: Maude Nagel [id number] CPT: 57900,25709 Dx: M96.1 Philomena Ferrera 10/25/2017 8:45 AM Signed Left brief message on home voicemail stating to call the office to schedule EMG with Dr. Lenore Flores in [place]. Unique Desaiuber 10/27/2017 8:43 AM Signed This should not have went to his medical insurance, Approved under [facility]. 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 Juan José Staples and Dr. Lenore Flores [facility] [phone] ext [phone] Allergies As of Date: 10/19/2017 Noted Allergy [...] 10/19/17 CNCO Observed: 09/19/2017 Status: COMPLETED Source: [facility] 12:00 AM CLINIC OTHER CAMPUS REPOSITORY Letter Text [facility] Lenore Flores MD WELCOME TO OUR PRACTICE Here at [facility], you will have access to physiatrists, interventional [...] On 10/19/2017 at 9:00AM at [address] [address] . However, you MUST arrive at our office for processing no later than 8:30AM. If you do not arrive early for processing we reserve the right to reschedule your appointment. If you have any questions before or regarding your appointment, please call our office at [phone]. Sincerely, The Staff at [facility] ALLERGIES ALLERGIES DATE TYPE / CODE NAME / CODE REACTION SEVERITY SOURCE 03/29/2016 DRUG CLINDAMYCIN HIVES [facility] INGREDI/419 [facility] 000017(SNOM Repository ED CT) [id number] CLINDAMYCIN [place] [address](SNOM[facility]) Repository ENCOUNTERS ENCOUNTERS ADMIT/DISCHARGE ACCOUNT NUMBER ADMITTING ENCOUNTER LOCATION SOURCE CLASS 08/22/2018 [id number] Ambulatory [facility] MEDICAL Repository CENTERBuildi ng:AGENDPOB 08/07/2018/08/07/[id number] Repository 08/07/2018/08/07/20 [id number] Ambulatory [address] MEDICAL Repository CENTERBuildi ng:SPBA 07/27/2018/07/27/20 [id number] MASTER DOW [address] Repository 07/21/2018 [id number] [facility] ding:LAB.FUT Repository URE 07/19/2018 [id number] [facility] ding:LAB.FUT Repository URE 07/10/2018/07/10/[id number] Repository 07/10/2018/07/10/20 [id number] Ambulatory [address] MEDICAL Repository CENTERBuildi ng:SPBA 06/14/2018 [id number] Ambulatory [facility] MEDICAL Repository CENTERBuildi ng:SPBA 06/12/2018/06/12/[id number] Repository 06/12/2018/06/12/20 [id number] Ambulatory [address] MEDICAL Repository CENTERBuildi ng:SPBA 06/10/2018 [id number] Ambulatory [facility] ding:US Repository 05/30/2018 [id number] Ambulatory [facility] ding:BFHLAB Repository 05/22/2018/05/22/20 [id number] Ambulatory [address] Other [place] Repository 05/22/2018/05/22/20 [id number] Ambulatory GILMARON Sarah [address] MEDICAL Repository CENTERBuildi ng:AKMRB 05/19/2018/05/19/20 [id number] Ambulatory [address] Other [place] Repository 05/19/2018/05/19/20 [id number] Ambulatory GILMARON Sarah [address] MEDICAL Repository CENTERBuildi ng:SPBA 04/19/2018/04/19/20 [id number] Ambulatory [address] Other [place] Repository 04/19/2018/04/19/20 [id number] Ambulatory GILMARON Sarah [address] MEDICAL Repository CENTERBuildi ng:SPBA 04/08/2018/04/08/20 [id number] Ambulatory [address] Other [place] Repository 04/08/2018/04/08/20 [id number] Ambulatory SARAH Yang [address] MEDICAL Repository CENTERBuildi ng:AKCTB 04/01/2018 [id number] Ambulatory SARAH Yang [facility] MEDICAL Repository CENTERBuildi ng:AKCTB 03/15/2018/03/17/20 [id number] Ambulatory [address] Main [place] Repository 03/15/2018/03/15/20 [id number] Ambulatory [address] Other [place] Repository 03/15/2018/03/15/20 [id number] Ambulatory AKRON Sarah [address] MEDICAL Repository CENTERBuildi ng:SPBA 02/13/2018/02/14/20 [id number] Ambulatory [address] Other [place] Repository 02/13/2018/02/14/20 [id number] Ambulatory AKRON Sarah [address] MEDICAL Repository CENTERBuildi ng:SPBA 02/02/2018/02/03/20 [id number] Ambulatory [address] Other [place] Repository 02/02/2018/02/03/20 [id number] Ambulatory AKRON Sarah [address] MEDICAL Repository CENTERBuildi ng:AKXRB 01/11/2018/01/12/20 [id number] Ambulatory [address] Other [place] Repository 01/11/2018/01/12/20 [id number] Ambulatory SARAH Yang [address] MEDICAL Repository LONGPORTBuildi ng:SPBA 01/09/2018/01/10/20 [id number] Ambulatory [address] Other [place] Repository 01/09/2018/01/10/20 [id number] Ambulatory SARAH Yang [address] MEDICAL Repository LONGPORTBuildi ng:AGENDPOB 12/14/2017/12/15/19 [id number] Ambulatory [address] Other [place] Repository 12/14/2017/12/15/19 [id number] Ambulatory SARAH Yang [address] MEDICAL Repository LONGPORTBuildi ng:SPBA 12/05/2017/12/06/19 [id number] Ambulatory [address] Other [place] Repository 12/05/2017/12/06/19 [id number] Ambulatory SARAH Yang [address] MEDICAL Repository LONGPORTBuildi ng:SPBA 11/16/2017/11/17/19 [id number] Ambulatory [address] Other [place] Repository 11/16/2017/11/17/19 [id number] Ambulatory SARAH Yang [address] [facility] 10/19/2017/10/20/19 [id number] Ambulatory [address] Other [place] Repository 10/19/2017/10/20/19 [id number] Ambulatory SARAH Yang [address] MEDICAL [facility]ository [facility] PAYERS PAYERS ENCOUNTER GUARANTOR PAYER SUBSCRIBER SOURCE 08/22/2018 JOSE Lombardo Primary SHANTANU HYSELLDOB: [place] [facility] HYSELLDOB: Insurance:BLUE ACCESS [id number] [facility] PPOPolicy Number: Melani SALINAS [id number] [place], [place]: [place] [address]Dpv: (IG) 08/07/2018 JOSE Lombardo Primary Insurance:888 JOSE Lombardo [place] [facility] HYSELLDOB: OHIOCOMPPolicy HYSELLDOB: Health System Number: [id number] Repository BRAD [id number] [facility], [place] Date: [address]Tek: () 07/21/2018 JOSE FOURNIER HYSELLDOB: [place] [id number] Insurance:[facility] [id number] Number: [place], [place] [id number] Repository [address]Oxa: (330) Date:4353-04-88MT [phone] () [address] [place] [address]FR: 07/21/2018 Secondary NOT GIVENUNK Kathy Insurance:SELF PAY [facility] Number: Effective Repository Date:2018-07-20 07/19/2018 JOSE FOURNIER HYSELLDOB: [place] [id number] Insurance:[facility] [id number] Number: [place], [place] [id number] Repository [address]Zum: (330) Date:2614-92-69YV [phone] () [id number] [place] [address] 89405IX: 07/19/2018 Secondary NOT GIVENUNK Kathy Insurance:SELF PAY [facility] Number: Effective Repository Date:2018-06-14 07/10/2018 JOSE ARGUETADOB: [place] [facility] HYSELLDOB: Insurance:BLUE [facility] [id number]icy Number: Repository BRAD [id number] [facility], [place] Date: [address]Oek: () 06/14/2018 JOSE FOURNIER HYSETRAVONDOB: [place] [facility] HYSELLDOB: Insurance:[employer] [id number] PPOPolicy Number: Repository BRAD [id number] [place], [place] Date: [address]Mqs: (HP) 06/12/2018 JOSE FOURNIER HYSELLDOB: [place] [facility] HYSELLDOB: Insurance:BLUE ACCESS [id number] [facility] PPOPolicy Number: Repository BRAD [id number] [place], [place] Date: [address]Yhi: () 06/10/2018 JOSE Lombardo Primary SHANTANU HYSELLDOB: [place] [id number] Insurance:ANTHEMPolic [id number] y Number: [place], [place] [id number] Repository [address]Wag: ([phone]) Date:7051-38-47JE [phone] () [address] [place] [address]XK: 06/10/2018 Secondary NOT GIVENUNK Kathy Insurance:SELF PAY [facility] Number: Effective Repository Date:2018-06-02 05/30/2018 JOSE NOWAKARLSTE511 Primary SHANTANU HYSELLDOB: [place] BUCKEYE Insurance:ANTHEMPolic [id number] Number: Hospital [address]Zuf: (111) [id number] Repository [phone] () Date:4516-41-58DL [id number] [place] [address]OZ: 05/30/2018 Secondary NOT GIVENUNK Kathy Insurance:SELF PAY [facility] Number: Effective Repository Date:2018-05-30 05/22/2018 JOSE Lombardo Primary Insurance:888 JOSE Lombardo [facility] [facility] HYSELLDOB: OHIOCOMPPolicy HYSELLDOB: Health System Number: [id number] Repository [place]DA[place] [id number], [place] Date: [address]Bsl: () 05/19/2018 JOSE Lombardo Primary SHANTANU HYSELLDOB: [place] [facility] HYSELLDOB: Insurance:BLUE ACCESS [id number] [facility] PPOPolicy Number: Repository LINDAE [id number] [place], [place] Date: [address]Jtp: (HP) 04/19/2018 JOSE R Primary Insurance:888 JOSE R [facility] HYSELLDOB: OHIOCOMPPolicy HYSELLDOB: Health System Number: [id number] Repository BUCKEYE [id number] [place], [place] Date: [address]Tlx: (HP) 04/08/2018 JOSE R Primary Insurance:888 JOSE R [facility] HYSELLDOB: OHIOCOMPPolicy HYSELLDOB: Health System Number: [id number] Repository BUCKEYE [id number] [place], [place] Date: [address]Eyx: (HP) 04/01/2018 JOSE R Primary Insurance:888 JOSE R [place] [facility] HYSELLDOB: OHIOCOMPPolicy HYSELLDOB: Health System Number: [id number] Repository BUCKEYE [id number] [place], [place] Date: [address]Qwz: (HP) 03/15/2018 JOSE R Primary Insurance:888 JOSE R [place] [facility] HYSELLDOB: OHIOCOMPPolicy HYSELLDOB: Health System Number: [id number] Repository BUCKEYE [id number] [place], [place] Date: [address]Yyq: (HP) 02/13/2018 JOSE R Primary Insurance:888 JOSE R [place] [facility] HYSELLDOB: OHIOCOMPPolicy HYSELLDOB: Health System Number: [id number] Repository BUCKEYE [id number] [place], [place] Date: [address]Rvx: (HP) 02/02/2018 JOSE R Primary Insurance:888 JOSE R [place] [facility] HYSELLDOB: OHIOCOMPPolicy HYSELLDOB: Health System Number: [id number] Repository BUCKAMARILISE [id number] [place], [place] Date: [address]Rkg: (HP) 01/11/2018 JOSE Lombardo Primary Insurance:888 OJSE Lombardo [place] [facility] HYSELLDOB: OHIOCOMPPolicy HYSELLDOB: Health System Number: [id number] Repository BUCKAMARIILSE [id number] [place], [place] Date: [address]Jpg: (HP) 01/09/2018 JOSE R Primary SHANTANU HYSELLDOB: [place] [facility] HYSELLDOB: Insurance:BLUE ACCESS [id number] Health System [facility] Number: Repository BRAD [id number] [place], [place] Date: [address]Vzj: (HP) 12/14/2017 JOSE R Primary Insurance:888 JOSE Lombardo [place] [facility] HYSELLDOB: OHIOCOMPPolicy HYSELLDOB: Health System Number: [id number] Repository BUCKEYE [id number] [facility], Date: [place] [address]Erk: (HP) 12/05/2017 JOSE R Primary Insurance:888 JOSE Lombardo [place] [facility] HYSELLDOB: OHIOCOMPPolicy HYSELLDOB: Health System Number: [id number] Repository BUCKEYE [id number] [facility], Date: [place] [address]Omj: (HP) 11/16/2017 JOSE R Primary Insurance:888 JOSE Lombardo [place] [facility] HYSELLDOB: OHIOCOMPPolicy HYSELLDOB: Health System Number: [id number] Repository BUCKEYE [id number] [facility], Date: [place] [address]Lzn: (HP) 10/19/2017 JOSE R Primary Insurance:888 JOSE Lombardo [place] [facility] HYSELLDOB: OHIOCOMPPolicy HYSELLDOB: [facility] [id number] Number: [id number] [id number], Date: [address]Cwq: ()
== END ==
LOC: LAB.FUTURE 08:09 → BFHLAB 07-19 14:25
PROVIDERS: Family Provider Family Medicine; PCP Family Medicine; Visit Provider Family Medicine
DX: R74.0 Nonspecific elevation of levels of transaminase and lactic acid dehydrogenase [LDH] (principal)
CPT/HCPCS: 36415; 82728; 83540; 83550; 86225; 86235; 86803; 87340

== ENCOUNTER → 2019-03-21 14:00 | Outpatient (CLI) | payer BC, SELFPAY ==
[2019-03-21 15:56] LABS: AST(SGOT) 47 U/L (15-37); Alanine Aminotransfer ALT/SGPT 76 U/L (16-61); Albumin, Serum 3.7 g/dL (3.2-5.0); Alkaline Phosphatase 135 U/L (45-117); Bilirubin, Direct 0.07 mg/dL (0.00-0.30); Globulin 4.2 g/dL (2.2-4.2); Protein, Total 7.9 g/dL (6.4-8.2)
== END ==
PROVIDERS: Family Provider Family Medicine; PCP Family Medicine; Visit Provider Family Medicine
DX: R74.8 Abnormal levels of other serum enzymes (principal)
CPT/HCPCS: 36415; 80076

== ENCOUNTER → 2019-07-17 17:00 | Outpatient (CLI) | payer BC, SELFPAY ==
[2019-07-17 18:35] LABS: AST(SGOT) 32 U/L (15-37); Alanine Aminotransfer ALT/SGPT 52 U/L (16-61); Albumin, Serum 3.9 g/dL (3.2-5.0); Alkaline Phosphatase 121 U/L (45-117); Bilirubin, Direct 0.13 mg/dL (0.00-0.30); GGTP 118 U/L (15-85); Globulin 3.9 g/dL (2.2-4.2); Protein, Total 7.8 g/dL (6.4-8.2)
[2019-07-19 12:07] LABS: Anti-Centromere B Ab <0.2 AI (0.0-0.9); Anti-Chromatin <0.2 AI (0.0-0.9); Anti-Jo <0.2 AI (0.0-0.9); Anti-Scleroderma-70 AB <0.2 AI (0.0-0.9); Anti-ribosomal P Antibodies <0.2 AI (0.0-0.9); RNP Ab <0.2 AI (0.0-0.9); SJOGREN'S Anti-SS-A test < 0.2 AI (0.0-0.9); SJOGREN'S Anti-SS-B test < 0.2 AI (0.0-0.9); Smith Ab <0.2 AI (0.0-0.9); Smith/RNP Ab <0.2 AI (0.0-0.9)
[2019-07-19 15:43] LABS: Anti-dsDNA Ab <1 IU/mL (0-9)
== END ==
PROVIDERS: Family Provider Family Medicine; PCP Family Medicine; Visit Provider Family Medicine
DX: R74.8 Abnormal levels of other serum enzymes (principal)
CPT/HCPCS: 36415; 80076; 82977; 86038; 86225; 86235

== ENCOUNTER → 2020-11-25 15:34 | Outpatient (CLI) | payer BC, SELFPAY ==
[2020-11-25 17:54] LABS: Probe Check PASS; Specimen Processing Control PASS
== END ==
PROVIDERS: PCP Family Medicine; Referring Provider Family Medicine; Visit Provider Family Medicine
DX: Z20.828 Contact with and (suspected) exposure to other viral communicable diseases (principal)
CPT/HCPCS: 87635; U0002

== ENCOUNTER → 2021-04-14 12:42 | Outpatient (CLI) | payer BC, SELFPAY | PROVIDERS: PCP Family Medicine; Visit Provider Family Medicine | DX: Z20.828 Contact with and (suspected) exposure to other viral communicable diseases (principal) | CPT/HCPCS: 87635; U0005; U0003 ==

== ENCOUNTER 2021-09-01 17:42 | Outpatient (CLI) | payer BC, SELFPAY | END 2021-09-01 23:59 | disposition short-term general hospital (02) | PROVIDERS: PCP Family Medicine; Referring Provider Family Medicine; Visit Provider Family Medicine | DX: U07.1 COVID-19 (principal) | CPT/HCPCS: 87635; U0003; U0005 ==

== ENCOUNTER 2021-09-03 18:10 | Emergency (ER) | payer BC, SELFPAY ==
[2021-09-03 18:11] VITALS: BP 174/101; PULSE 114; RESP 14; TEMP 36.6; O2SAT 98; BMI 42.3
[2021-09-03 20:03] VITALS: RESP 16
--- NOTE | 2021-09-03 20:14 | EX.ED.DYSGE1 ---
HPI History of Present Illness Chief Complaint: Cough Informant: patient Narrative Narrative: Referred in here by PCP office after calling cough and tiny small amount of blood today. Patient Covid +2 days ago symptomatic 8 days ago. Nonvaccinated. Diabetic and hypertension history. No sick contacts. States started out with fatigue headaches fevers chills sinus congestion leading to cough. He lost taste and smell which caused him to come for testing to his PCP. He was called with results yesterday. Today slight cough minimal amount of blood therefore sent to the ED. He denies any dyspnea or exertional dyspnea his pulse ox has been 97% at home for which she has been checking. Fevers and headaches have improved. [facility] Medical History Diabetes High cholesterol Hypertension Trigger thumb of left hand Home Medications acetaminophen [Tylenol] 650 mg PO Q8H PRN 09/03/21 [History Last Taken Unknown] aspirin 81 mg PO DAILY 09/03/21 [History Last Taken Unknown] benazepril 10 mg PO BID 09/03/21 [History Last Taken Unknown] cholecalciferol (vitamin D3) [Vitamin D3] 125 mcg PO DAILY 09/03/21 [History Last Taken Unknown] clonidine HCl 0.1 mg PO QODAY 09/03/21 [History Last Taken Unknown] ibuprofen 200 mg PO Q8H PRN 09/03/21 [History Last Taken Unknown] insulin degludec [Tresiba FlexTouch U-100] 45 unit SUBCUT QHS 09/03/21 [History Last Taken Unknown] insulin lispro [Humalog KwikPen Insulin] See Rx Instructions .ROUTE .COMPLEX 09/03/21 [History Last Taken Unknown] hpewltos-rre-jviot-vit K-lycop [Men's Multivitamin] 1 tab PO DAILY 09/03/21 [History Last Taken Unknown] orphenadrine citrate 100 mg PO BID 09/03/21 [History Last Taken Unknown] oxycodone-acetaminophen 1 tab PO 4X/DAY 09/03/21 [History Last Taken Unknown] pravastatin 20 mg PO DAILY 09/03/21 [History Last Taken Unknown] Allergy/AdvReac Type Severity Reaction Status Date / Time clindamycin Allergy Rash Verified 09/03/21 18:14 Surgical History History of back surgery Social History Smoking Status: Never smoker ROS ROS ED Constitutional Constitutional ED: Denies chills, fever(s) or sweats Eyes Eyes: Denies change in vision ENT ENT ED: Denies dysphagia or sore throat Cardiovascular Cardiovascular: Denies chest pain, leg edema, palpitations or racing heartbeat Respiratory/Chest Respiratory/Chest: Reports cough; Denies dyspnea or dyspnea on exertion Gastrointestinal Gastrointestinal: Denies abdominal pain, diarrhea, nausea or vomiting Genitourinary Genitourinary ED: Denies dysuria, hematuria or urinary frequency Musculoskeletal Musculoskeletal: Denies back pain, extremity pain or neck pain Integumentary Denies rash or wounds Neurologic Neurologic: Denies headache(s), paresthesias or weakness EXAM Physical Exam Const Vital Signs: 09/03/21 18:11 09/03/21 20:03 09/03/21 20:19 Temperature 97.8 F Temperature Source Temporal Pulse Rate 114 H 80 Respiratory Rate 14 16 16 Respiratory Effort Normal Non-Labored Respiratory Depth Normal Respiratory Pattern Normal Blood Pressure 174/101 H Blood Pressure Mean 125 Pulse Ox 98 96 Oxygen Delivery Method Room Air Room Air Positive well nourished and well developed General Appearance ED: well developed and NAD HEENT Reports TM's clear and moist mucous membranes HEENT Narrative: No sinus turbinate swelling. No posterior pharyngeal erythema or bleeding. normocephalic and atraumatic Tympanic Membrane ED: Yes TM's clear Eyes PERRL, EOMs intact bilaterally and conjunctivae normal General Eye ED: Yes normal appearance of both eyes Neck no lymphadenopathy and supple General: Negative for tenderness Chest Wall Chest: Negative for tenderness Resp normal respiratory effort and normal air movement Effort and Inspection: symmetric chest movement; Negative for respiratory distress Cardio regular rate, regular rhythm and no murmurs Peripheral Pulses: pulses 2+ throughout GI normal to inspection, nondistended, normoactive bowel sounds and non-tender Palpation: Negative for guarding or rebound tenderness present Back/Spine no CVA tenderness and no thoracic nor lumbar tenderness Extremity normal to inspection General Extremety ED: Negative for edema or tenderness General Extremity: Negative for edema Neuro oriented x3 and no sensory deficits noted Sensorium / Orientation: awake and alert Skin no rashes or lesions noted and no wounds MDM MDM MDM Narrative Medical decision making narrative: Patient nontoxic pulse ox 98%. No respiratory distress. Discussed with patient likely viral process with his Covid symptoms. He is clinically not having exertional dyspnea or dyspnea, low clinical suspicion for PE. Discussed with patient there are risks of this with Covid infection. He is more reassured with discussion. Discussed strict return precautions with the patient. He will continue to monitor his pulse ox. Patient is being discharged under pandemic conditions under declared global, national and state disaster activation, with limited medical resources. Patient and community understands this. Results discussed in layman's terms to the patient satisfaction. All questions answered in layman's terms. Patient understands importance of follow-up care as directed. Patient has been instructed to return to the ED immediately if new symptoms, problems, or questions occur. We mutually agree with the plan of disposition. The patient understand that they may call or return with any questions or concerns at any time. Discharge Plan Triage Chief Complaint: Cough ED Provider: Bernabe Cobos Dx/Rx/DC Orders Clinical Impression: COVID-19 virus infection Instructions: Coronavirus Disease 2019 (COVID-19): Caring for Yourself or Others Prescriptions: No Action clonidine HCl 0.1 mg tablet 0.1 mg PO QODAY RF: 0 ibuprofen 200 mg Capsule 200 mg PO Q8H PRN (Reason: Fever) RF: 0 orphenadrine citrate 100 mg tablet extended release 100 mg PO BID RF: 0 pravastatin 20 mg tablet 20 mg PO DAILY RF: 0 oxycodone-acetaminophen 7.5-325 mg tablet 1 tab PO 4X/DAY RF: 0 benazepril 10 mg tablet 10 mg PO BID RF: 0 insulin lispro [Humalog KwikPen Insulin] 100 unit/mL insulin pen See Rx Instructions .ROUTE .COMPLEX RF: 0 acetaminophen [Tylenol] 325 mg Capsule 650 mg PO Q8H PRN (Reason: Fever) RF: 0 cholecalciferol (vitamin D3) [Vitamin D3] 125 mcg (5,000 unit) Tablet 125 mcg PO DAILY RF: 0 Men's Multivitamin 400-20-300 mcg Tablet 1 tab PO DAILY RF: 0 Tresiba FlexTouch U-100 100 unit/mL (3 mL) insulin pen 45 unit SUBCUT QHS RF: 0 aspirin 81 mg Capsule 81 mg PO DAILY RF: 0 Primary Care Provider: Herminio Rubio Referrals: Herminoi Rubio MD [Primary Care Provider] - 1 Week Disposition Disposition: Home, Self Care Discharge Date/Time: 09/03/21 20:19
[2021-09-03 20:19] VITALS: PULSE 80; RESP 16; O2SAT 96
--- NOTE | 2021-09-04 13:50 | CASEMGMT ---
MARTINEZ RUIZ ED follow-up: MARTINEZ RUIZ placed call to patient's telephone number listed on demographics, patient answered. Patient states, Doing great today, feeling much better Patient reports he is no longer coughing up blood in his sputum. Patient monitoring SpO2 and reports 98% RA. Patient using incentive spirometer every 1 hour and taking vitamin C, vitamin D, zinc and Mucinex as instructed in ED. Patient reports blood sugars have been good. Patient denies questions, concerns or needs and expresses appreciation for follow-up call. MARTINEZ Franz
== END 2021-09-03 20:19 | disposition home or self-care (01) ==
PROVIDERS: Emergency Provider Emergency Medicine; PCP Family Medicine; Visit Provider Emergency Medicine
DX: U07.1 COVID-19 (principal); E11.9 Type 2 diabetes mellitus without complications; Z79.4 Long term (current) use of insulin; E78.00 Pure hypercholesterolemia, unspecified; Z79.82 Long term (current) use of aspirin; Z79.899 Other long term (current) drug therapy
CPT/HCPCS: 99282

== ENCOUNTER → 2022-04-09 | Outpatient (CLI) | payer BC, SELFPAY ==
[2022-04-09 12:13] LABS: Absolute Lymphocyte Count 2.32 X10^3/uL (0.83-4.51); Absolute Neutrophil Count 13.5 X10^3/uL (2.0-7.7); Basophil# 0.04 X10^3/uL; Basophil% 0.2 % (0-1); Eosinophil# 0.03 X10^3/uL; Eosinophils% 0.2 % (0-5); Hemoglobin 14.5 g/dL (13.0-16.5); Lymphocyte # 2.32 X10^3/ul (0.83-4.51); Lymphocyte % 13.8 % (19-41); Mean Corpuscular Hgb 27.9 pg (27.0-32.0); Mean Corpuscular Volume 84.6 fL (80-94); Mean Platelet Vol. 10.6 fl (6.2-12.0); Monocyte# 0.82 X10^3/uL; Monocyte% 4.9 % (0-10); NRBC Flagged by Analyzer 0 % (0-5); Neutrophil # 13.47 X10^3/uL (2.7-7.7); Neutrophil % 80.3 % (47-70); Platelet Count 359 K/mm3 (150-450); White Blood Count 16.8 K/mm3 (4.4-11.0)
[2022-04-09 13:10] LABS: AST(SGOT) 26 U/L (15-37); Alanine Aminotransfer ALT/SGPT 81 U/L (16-61); Albumin, Serum 4.1 g/dL (3.2-5.0); Alkaline Phosphatase 114 U/L (45-117); Anion Gap 12 (5-15); BUN 17 mg/dL (7-18); BUN/Creat Ratio 16.2 RATIO (10-20); Calcium,Total 9.6 mg/dL (8.5-10.1); Chloride 101 mmol/L (98-107); Creatinine, Serum 1.05 mg/dL (0.70-1.30); EST Glomerular Filtration Rate 83 mL/min (>60); Est Glom Filt Rate - Afr Amer 101 mL/min (>60); Globulin 4.3 g/dL (2.2-4.2); Glucose 138 mg/dL (74-106); Potassium 3.8 mmol/L (3.5-5.1); Protein, Total 8.4 g/dL (6.4-8.2); Sodium Level 136 mmol/L (136-145); Thyroid Stim Hormone (TSH) 0.68 uIU/mL (0.358-3.74)
== END | disposition home or self-care (01) ==
LOC: MTLAB 10:30
PROVIDERS: PCP Family Medicine; Referring Provider Family Medicine; Visit Provider Family Medicine
DX: E78.5 Hyperlipidemia, unspecified (principal); E10.9 Type 1 diabetes mellitus without complications; R74.8 Abnormal levels of other serum enzymes
CPT/HCPCS: 36415; 80053; 84443; 85025

== ENCOUNTER → 2023-04-12 | Outpatient (CLI) | payer BC, SELFPAY ==
[2023-04-12 12:29] LABS: Absolute Lymphocyte Count 1.87 X10^3/uL (0.83-4.51); Absolute Neutrophil Count 6.2 X10^3/uL (2.0-7.7); Basophil# 0.04 X10^3/uL; Basophil% 0.4 % (0-1); Eosinophil# 0.33 X10^3/uL; Eosinophils% 3.7 % (0-5); Hematocrit 41.7 % (40-54); Lymphocyte # 1.87 X10^3/ul (0.83-4.51); Lymphocyte % 20.8 % (19-41); Mean Corp Hgb Conc 33.6 g/dL (32-36); Mean Corpuscular Hgb 28.9 pg (27.0-32.0); Mean Corpuscular Volume 86.2 fL (80-94); Mean Platelet Vol. 10.3 fl (6.2-12.0); Monocyte# 0.47 X10^3/uL; Monocyte% 5.2 % (0-10); NRBC Flagged by Analyzer 0 % (0-5); Neutrophil # 6.23 X10^3/uL (2.7-7.7); Neutrophil % 69.3 % (47-70); Platelet Count 319 K/mm3 (150-450); RBC Distribution Width CV 13.2 % (11.6-14.6); RBC Distribution Width SD 40.9 fl (35.1-43.9); Red Blood Count 4.84 M/mm3 (4.6-6.2)
[2023-04-12 13:02] LABS: AST(SGOT) 53 U/L (15-37); Alanine Aminotransfer ALT/SGPT 82 U/L (16-61); Albumin, Serum 3.8 g/dL (3.2-5.0); Alkaline Phosphatase 115 U/L (45-117); Anion Gap 9 (5-15); BUN 10 mg/dL (7-18); BUN/Creat Ratio 11.1 RATIO (10-20); Calcium,Total 9.2 mg/dL (8.5-10.1); Chloride 106 mmol/L (98-107); Cholesterol 260 mg/dL (200); EST Glomerular Filtration Rate 100 mL/min (>60); Est Glom Filt Rate - Afr Amer 120 mL/min (>60); Globulin 3.9 g/dL (2.2-4.2); Glucose 114 mg/dL (74-106); High Density Lipoprotein 48 mg/dL; PSA,Total - Annual Screen 0.37 ng/mL (0.00-4.00); Potassium 3.9 mmol/L (3.5-5.1); Protein, Total 7.7 g/dL (6.4-8.2); Sodium Level 139 mmol/L (136-145); Triglycerides 388 mg/dL; Very Low Density Lipoprotein 78 mg/dL (5-40)
== END | disposition home or self-care (01) ==
LOC: BFHLAB 10:57
PROVIDERS: PCP Nurse Practitioner Family; Referring Provider Nurse Practitioner Family; Visit Provider Nurse Practitioner Family
DX: Z00.01 Encounter for general adult medical examination with abnormal findings (principal); E10.9 Type 1 diabetes mellitus without complications; E78.5 Hyperlipidemia, unspecified; R74.8 Abnormal levels of other serum enzymes
CPT/HCPCS: 36415; 80053; 80061; 84153; 85025; G0103

== ENCOUNTER → 2023-04-30 | Outpatient (CLI) | payer BC, SELFPAY ==
--- NOTE | 2023-04-30 08:00 | US_ITS ---
INDICATION: ONGOING ELEVATED LFTS, ? FLD EXAMINATION: Ultrasound US Abdomen Limited (quadrant) TECHNIQUE: Bell scale and color doppler imaging was performed of the right upper quadrant. COMPARISON: Abdominal ultrasound 06/10/2018 FINDINGS: Suboptimal due to patient body habitus. LIVER: 19.7 cm length. Previously measured 15.3 cm. Increased echogenicity with limited parenchymal detail. Focal fatty sparing adjacent to the gallbladder. Main portal vein patent. GALLBLADDER Size: Distended. Stones: None. Wall thickness: Not thickened. 2 mm. Pericholecystic fluid: None. Sonographic Beverly sign: Negative. EXTRAHEPATIC BILE DUCTS: Common bile duct 2 mm not dilated. PANCREAS: Visualized portions unremarkable. RIGHT KIDNEY: No hydronephrosis. Limited parenchymal detail. ASCITES: None. US/Abdomen Limited IMPRESSION: Hepatomegaly with fatty infiltration. Electronically Signed: Neeru Malave MD at 6:34 EDT ,
== END | disposition home or self-care (01) ==
LOC: US 07:44
PROVIDERS: PCP Nurse Practitioner Family; Referring Provider Nurse Practitioner Family; Visit Provider Nurse Practitioner Family
DX: R74.8 Abnormal levels of other serum enzymes (principal)
CPT/HCPCS: 76705